=== PATIENT | female | born 1960 | race Caucasian/White ===

== ENCOUNTER 2018-03-25 21:19 | Emergency (ER) | payer OTHER, SELFPAY ==
[2018-03-25 21:21] VITALS: BP 153/86; PULSE 78; RESP 17; TEMP 36.7; O2SAT 96; BMI 26.6
--- NOTE | 2018-03-25 21:55 | ED.VISSUMM ---
- ER Visit Summary Date of Service: 03/25/18 Chief Complaint: Rash History of Present Illness: The patient is a 58 F who presents with a lower extremity rash. She states that she noticed it after work just above her sock line and it was red. She went to her doctor's office yesterday was prescribed a cream. She states that it was worse today. She notes it is burning in sensation. 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 She notes that she had some swelling of the legs the past few shifts. She states that the scar from her spinal surgery in her lumbar region was more pink on the inferior aspect and seemed to hurt a little bit more yesterday that seems to have resolved now. Patient also notes that she has had a tooth in the left upper side that is fallen apart is decayed. It has not really been bothering her but now she has some pain in the left maxillary sinus region. And tenderness there. Physical Examination: Afebrile vital signs stable Gen: Well-nourished well-developed Head: Normocephalic atraumatic Eyes: Perrl EOMI ENT: TMs clear no rhinorrhea moist mucous membranes left upper premolar demonstrates focal decay there is some swelling around the gumline but no drainable abscess. No facial swelling or erythema. No trismus Neck: Supple no lymphadenopathy no JVD nontender CVS: Regular rate rhythm no murmurs normal S1-S2 Respiratory: No distress clear to auscultation bilaterally chest nontender Abdomen: Soft nontender nondistended normal bowel sounds no masses Back: Nontender Extremity: There is is a petechial-like rash on the medial aspect of the bilateral lower extremity just above her sock line extending up to mid calf. She has some varicose veins. Skin: Normal color no rash Neuro: alert orientated ?3 CN II-XII intact normal strength sensation reflexes gait cerebellar Psych: Normal affect normal mood Emergency Department Course and Treatment: I believe the most likely etiology is broken capillaries due to edema. For that matter recommend that she use compression stockings at work and elevate her legs and she gets home. This could also be more of a systemic vasculitis-like picture when can use some prednisone which may help. Is she is not improving she is to follow-up with your doctor return if worsening or concerns. As far as her tooth I will write for some Pen-Vee K and she is going to be following up with dentistry. Impression: 1. Lower extremity rash 2. Left upper periapical abscess This note was generated with Bloom[employer] dictation software. It may contain incorrect words, spelling, and punctuation that were not noted in review of the chart prior to signing ED Disposition - Plan for ED Patient: Disposition: Home or Assisted Living Chief Complaint: Rash Prescriptions: Prednisone [Deltasone] 40 mg PO DAILY #10 tab Penicillin V Potassium 500 mg PO 4X/DAY #28 tab Referrals: Vicente Pedroza MD [Primary Care Provider] - 1 Week if not improving Additional Instructions: I would strongly urge you to use compression stockings/socks at work. Elevate the feet when at home. You may choose to research golfers vasculitis and other associated conditions like that.
[2018-03-25] MEDS: predniSONE 20 MG Tablet 60 MG PO (21:59)
[2018-03-25 22:05] VITALS: BP 136/88; PULSE 75; RESP 18; O2SAT 98
== END 2018-03-25 22:05 | disposition home or self-care (01) ==
PROVIDERS: Emergency Provider Emergency Medicine; Family Provider Family Medicine; PCP Family Medicine
DX: R21 Rash and other nonspecific skin eruption (principal); I83.90 Asymptomatic varicose veins of unspecified lower extremity; K04.7 Periapical abscess without sinus; K02.9 Dental caries, unspecified; M79.89 Other specified soft tissue disorders; K21.9 Gastro-esophageal reflux disease without esophagitis; Z79.899 Other long term (current) drug therapy
CPT/HCPCS: 99283

== ENCOUNTER 2018-09-23 18:04 | Emergency (ER) | payer OTHER, SELFPAY ==
[2018-09-23 18:06] VITALS: BP 130/85; PULSE 85; RESP 14; TEMP 36; O2SAT 98; BMI 25.9
[2018-09-23 18:07] VITALS: TEMP 36.8
[2018-09-23] MEDS: 0.9% Normal Saline 1,000 ML 1000 ML IV (18:47)
[2018-09-23] MEDS: Ondansetron 4 MG/2 ML Vial IV (18:47)
[2018-09-23 18:54] LABS: Absolute Lymphocyte Count 4.69 X10^3/ul (0.83-4.51); Absolute Neutrophil Count 2.7 X10^3/uL (2.0-7.7); Basophil# 0.19 X10^3/uL; Basophil% 2.3 % (0-1); Differential Indicated SCAN CRITERIA MET; Eosinophil# 0.02 X10^3/uL; Eosinophils% 0.2 % (0-5); Hematocrit 41.6 % (37-47); Hemoglobin 14.3 g/dl (12.0-15.0); Lymphocyte # 4.69 X10^3/ul (4.0); Lymphocyte % 55.9 % (19-41); Mean Corp Hgb Conc 34.4 g/gl (32-36); Mean Corpuscular Hgb 32.5 pg (27.0-32.0); Mean Corpuscular Volume 94.5 fL (81-99); Mean Platelet Vol. 10.3 fl (6.2-12.0); Monocyte# 0.72 X10^3/uL; Monocyte% 8.6 % (0-10); Neutrophil # 2.74 X10^3/uL (2.7-7.7); Neutrophil % 32.6 % (47-70); POSITIVE COUNT NO; POSITIVE DIFFERENTIAL NO; POSITIVE MORPHOLOGY YES; Platelet Count 92 K/mm3 (150-450); RBC Distribution Width CV 13.2 % (11.6-14.6); RBC Distribution Width SD 45.6 fl (35.1-43.9); White Blood Count 8.4 K/mm3 (4.4-11.0)
[2018-09-23 19:02] LABS: ALB/GLOB Ratio 0.7 RATIO (0.9-2.4); AST(SGOT) 110 U/L (15-37); Alanine Aminotransfer ALT/SGPT 88 U/L (13-56); Albumin, Serum 2.9 g/dL (3.2-5.0); Alkaline Phosphatase 90 U/L (45-117); Anion Gap 5 (5-15); BUN 8 mg/dL (7-18); BUN/Creat Ratio 8.7 RATIO (10-20); Calcium,Total 8.1 mg/dL (8.5-10.1); Chloride 104 mmol/L (98-107); Creatinine, Serum 0.92 mg/dL (0.55-1.02); EST Glomerular Filtration Rate 67 mL/min (>60); Est Glom Filt Rate - Afr Amer 81 mL/min (>60); Estimated Creatinine Clearance 53.36 ml/min; Globulin 4.3 g/dL (2.2-4.2); Glucose 104 mg/dL (74-106); Lipase 101 U/L (73-393); Potassium 3.3 mmol/L (3.5-5.1); Protein, Total 7.2 g/dL (6.4-8.2); Sodium Level 137 mmol/L (136-145)
[2018-09-23 19:05] LABS: Bacteria 0 SEEN /hpf (None Seen); Mucous, Urine 0 SEEN /hpf (<or=2+); Red Blood Cells-Urine 0 SEEN /hpf (0-5); White Blood Cells 0 SEEN /hpf (0-5)
[2018-09-23 19:40] LABS: Color, Urine Yellow (Yellow); Glucose, Dipstick Normal (Normal); Ketone-Dipstick Negative (Negative); Leukocyte Esterase-Dipstick Negative /ul (Negative); Nitrite-Dipstick Negative (Negative); Occult Blood-Urine Negative /ul (Negative); Protein-Dipstick Negative (Negative); Specific Gravity, Urine 1.005 (1.002-1.030); Urine Bilirubin Dipstick Negative (Negative); Urine Clarity Clear (Clear); Urine Urobilinogen Normal (Normal)
[2018-09-23 19:44] LABS: Differential Comment SCANNED
[2018-09-23 19:48] LABS: Squamous Epithelial Cells - UA 0-5 SEEN /hpf (5-10)
--- NOTE | 2018-09-23 20:26 | ED.DCSUM_ITS ---
- ER Visit Summary Date of Service: 09/23/18 Chief Complaint: Weak and sick History of Present Illness: The patient is a 58 F who has felt weak and sick for the past 9 days. This came on gradually. Associated with fevers, nausea, vomiting, and diarrhea. She was diagnosed with gastroenteritis. She has been taking Phenergan and following the brat diet, but her symptoms have continued. She is still having diarrhea and feels increasingly weak. She did not take her diarrhea medicine because she was worried it would cause stomach cramps. Denies recent travel, new foods, antibiotics. Denies jaundice. She had some left lower quadrant pain, but this seems to have improved. Denies bleeding. History of IBS. Physical Examination: Afebrile and vital signs are unremarkable. Moist mucous membranes. Heart regular rate and rhythm. Lungs clear. Abdomen soft, nontender, nondistended, normal bowel sounds. Extremities nontender with no edema. Skin normal in color without jaundice or pallor. Test Results: Platelets 92. Otherwise CBC normal. Potassium 3.3. ALT 88 and AST 110. Lipase normal. Urinalysis normal. Emergency Department Course and Treatment: Patient treated with fluids and Zofran. She does feel improved on reevaluation. Work-up shows a thrombocytopenia. I do not have old labs to compare. No exposure to heparin or other risk factors. This may be related to her acute illness. Her liver enzymes are elevated as well. This may also be secondary to her acute illness. She may also have hepatitis. I sent a viral panel. Results are pending. Results were discussed with the patient. She will definitely need outpatient follow-up regarding her low platelets and elevated liver enzymes. Patient would like to try outpatient follow-up and will continue Phenergan and/or Zofran as needed. Stay hydrated. Call primary care on Wednesday. Return right away for jaundice, fever, pain, or any other new or worsening issues. Treatment Plan: As above Disposition: Discharge Impression: 1. Nausea, vomiting, diarrhea 2. Hepatitis 3. Thrombocytopenia This note was generated with [employer] software. It may contain incorrect words, spelling, and punctuation that were not noted in review of the chart prior to signing ED Disposition - Plan for ED Patient: Referrals: Vicente Pedroza MD [Primary Care Provider] -
--- NOTE | 2018-09-23 20:26 | ED.DEP ---
ED Disposition - Plan for ED Patient: Instructions: Common Tests for Liver Disease, Thrombocytopenia Prescriptions: Ondansetron [Zofran Odt] 4 mg PO Q8H PRN PRN #10 tab PRN Reason: Nausea Referrals: Vicente Pedroza MD [Primary Care Provider] -
[2018-09-23 20:54] VITALS: BP 115/82; RESP 18; O2SAT 98
[2018-09-25 14:06] LABS: HEPATITIS B SURFACE AG Negative (Negative); Hepatitis A IgM Antibody Negative (Negative); Hepatitis B Core AB IgM Negative (Negative)
[2018-09-25 14:47] LABS: Hep C Antibodies <0.1 s/co ratio (0.0-0.9)
== END 2018-09-23 20:42 | disposition home or self-care (01) ==
PROVIDERS: Emergency Provider Emergency Medicine; Family Provider Family Medicine; PCP Family Medicine
DX: R11.2 Nausea with vomiting, unspecified (principal); R19.7 Diarrhea, unspecified; K75.9 Inflammatory liver disease, unspecified; D69.6 Thrombocytopenia, unspecified; R50.9 Fever, unspecified; K58.9 Irritable bowel syndrome, unspecified; R10.32 Left lower quadrant pain; G47.419 Narcolepsy without cataplexy; E03.9 Hypothyroidism, unspecified; K21.9 Gastro-esophageal reflux disease without esophagitis; Z79.899 Other long term (current) drug therapy
CPT/HCPCS: 80053; 80074; 81001; 83690; 85025; 96361; 96374; 99283; J7030; A4216; J2405

== ENCOUNTER → 2019-02-14 10:37 | Outpatient (CLI) | payer OTHER, SELFPAY ==
--- NOTE | 2019-02-14 10:51 | EKG12_ITS ---
Test Reason : PRE OP Blood Pressure : / mmHG Vent. Rate : 067 BPM Atrial Rate : 067 BPM P-R Int : 140 ms QRS Dur : 082 ms QT Int : 376 ms P-R-T Axes : 074 072 054 degrees QTc Int : 397 ms Normal sinus rhythm Normal ECG Confirmed by SAMMI MARIA, GLENN ([id number]), editor book ALETA LOVE ([id number]) on 02/15/2019 10:55:09 AM Referred By: Mateo Velasco Confirmed By:GLENN CHAPA MD
[2019-02-14 11:37] LABS: Hematocrit 38.9 % (37-47); Hemoglobin 13.1 g/dL (12.0-15.0); Mean Corp Hgb Conc 33.7 g/dL (32-36); Mean Corpuscular Hgb 32.6 pg (27.0-32.0); Mean Corpuscular Volume 96.8 fL (81-99); Mean Platelet Vol. 10.2 fl (6.2-12.0); Platelet Count 161 K/mm3 (150-450); RBC Distribution Width CV 12.9 % (11.6-14.6); RBC Distribution Width SD 45.6 fl (35.1-43.9); Red Blood Count 4.02 M/mm3 (4.2-5.4)
[2019-02-14 12:03] LABS: Anion Gap 5 (5-15); BUN 10 mg/dL (7-18); BUN/Creat Ratio 11.6 RATIO (10-20); Chloride 105 mmol/L (98-107); Creatinine, Serum 0.86 mg/dL (0.55-1.02); EST Glomerular Filtration Rate 72 mL/min (>60); Est Glom Filt Rate - Afr Amer 87 mL/min (>60); Glucose 96 mg/dL (74-106); Potassium 3.8 mmol/L (3.5-5.1); Sodium Level 140 mmol/L (136-145)
== END ==
PROVIDERS: Family Provider Family Medicine; PCP Family Medicine; Referring Provider Physician Assistant; Visit Provider Physician Assistant
DX: Z01.818 Encounter for other preprocedural examination (principal)
CPT/HCPCS: 36415; 80048; 85027; 93005

== ENCOUNTER → 2019-08-21 13:53 | Outpatient (CLI) | payer OTHER, SELFPAY ==
--- NOTE | 2019-08-21 13:56 | CT_ITS ---
STUDY: CT LEFT FEMUR WITHOUT CONTRAST REASON FOR EXAM: Female, 59 years old. LEFT FEMUR OSTEOARTHRITIS RADIATION DOSAGE (If Supplied By Facility): CTDIvol = ( 15.57 ) mGy, DLP = ( 825.69 ) mGycm TECHNIQUE: Transaxial CT imaging of the femur was performed. Sagittal and coronal images were reconstructed. Individualized dose optimization techniques were used for this CT. COMPARISON: None. FINDINGS: Appearance of the dense sclerosis with thickening of the cortices in the mid shaft of both the right and left femurs. A linear hypodensity is seen along the outer cortex of the mid diaphysis of both femurs. This may represent either old trauma or stress fractures. Osteomalacia should be ruled out. If the patient has had a history of prior surgery at those sites, clinical correlation is recommended. Normal visualized soft tissue structure. CT/Extremity Lower without Contra IMPRESSION: Dense sclerosis and linear lucency in the mid diaphysis of both femurs as described. Clinical correlation is recommended. Osteomalacia should be ruled out. Electronically Signed: Bon Linares, at 16:30 EDT , Service support ,
== END ==
PROVIDERS: PCP Family Medicine; Referring Provider Physician Assistant; Visit Provider Physician Assistant
DX: M16.12 Unilateral primary osteoarthritis, left hip (principal)
CPT/HCPCS: 73700

== ENCOUNTER → 2019-10-24 10:43 | Outpatient (CLI) | payer OTHER, SELFPAY ==
[2019-10-24 11:28] LABS: Alkaline Phosphatase 115 U/L (45-117); Calcium,Total 9.2 mg/dL (8.5-10.1); Vitamin D,25 Hydroxy 10.2 ng/mL
== END ==
PROVIDERS: PCP Family Medicine; Referring Provider Orthopaedic Surgery; Visit Provider Orthopaedic Surgery
DX: M79.605 Pain in left leg (principal); M79.604 Pain in right leg
CPT/HCPCS: 36415; 82306; 82310; 84075

== ENCOUNTER → 2019-10-31 10:56 | Outpatient (CLI) | payer OTHER, SELFPAY ==
--- NOTE | 2019-10-31 11:08 | BD_ITS ---
STUDY: DUAL ENERGY X-RAY ABSORPTIOMETRY / DXA REASON FOR EXAM: Female, 59 years old. 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 COMPARISON: None. FINDINGS: Lumbar Spine (L1-L4): g/cm2 (0.910) / T-score (-2.2) / Z-score (-1.1) Findings are suggestive of osteopenia with a high fracture risk. Left Femur Total: g/cm2 (0.613) / T-score (-3.1) / Z-score (-2.3) Left Femoral Neck: g/cm2 (0.610) / T-score (-3.1) / Z-score (-1.9) Right Femur Total: g/cm2 (0.638) / T-score (-2.9) / Z-score (-2.1) Right Femoral Neck: g/cm2 (0.663) / T-score (-2.7) / Z-score (-1.5) BD/Dexa Bone Density Study IMPRESSION: The patient is considered osteoporotic as outlined below according to World Champ Organization (WHO) criteria with a high fracture risk. Reference Information: The T-score is the number of standard deviations above or below the standard which is normal for young adults at their peak bone mineral density. The World Health Organization (WHO) interprets the T-scores as follows: Above -1 Normal bone density Between -1 and -2.5 Osteopenia Equal to / or below -2.5 Osteoporosis As a practical clinical guideline, osteopenia may be graded as follows: Mild -1 through -1.5 Moderate -1.6 through -2.0 Severe -2.1 through -2.4 The Z-score is the number of standard deviations above or below age-matched controls. A Z-score of less than -1.5 would be considered abnormal. References: 1. NIH Osteoporosis and Related Bone Diseases http://www.osteo.org 2. International Society for Clinical Densitometry http://www.iscd.org 3. National Osteoporosis Foundation http://www.nof.org Electronically Signed: Bon Linares, at 13:26 EDT , Service support ,
== END ==
PROVIDERS: PCP Family Medicine; Referring Provider Orthopaedic Surgery; Visit Provider Orthopaedic Surgery
DX: M79.604 Pain in right leg (principal); M79.605 Pain in left leg; Z78.0 Asymptomatic menopausal state
CPT/HCPCS: 77080

== ENCOUNTER 2019-11-17 17:42 | Emergency (ER) | payer OTHER, SELFPAY ==
[2019-11-17 17:42] VITALS: BP 135/104; PULSE 93; RESP 16; TEMP 36.6; O2SAT 97; BMI 28.7
--- NOTE | 2019-11-17 17:50 | RAD_ITS ---
STUDY: X-RAY - LEFT FEMUR REASON FOR STUDY: Female, 59 years old. PROXIMAL FEMUR PAIN AFTER FALL ON WEDNESDAY, PATIENT ALSO HAD SURGERY ON HER FEMUR WEDNESDAY TECHNIQUE: 2 view(s) of the femur. COMPARISON: None. FINDINGS: There is an intramedullary enmanuel along the length of the femur. There is a fracture across the mid femoral shaft which is in anatomic alignment and position. There is no abnormality seen of the left hip. RAD/Femur Min 2 Views IMPRESSION: Grossly satisfactory appearance of repair of previous femoral shaft fracture with intramedullary enmanuel. No gross acute fracture or dislocation. Electronically Signed: Willie Paul MD at 18:21 EDT , Service support ,
--- NOTE | 2019-11-17 18:44 | ED.VIS.GEN ---
History of Present Illness Chief Complaint: Fall Informant: Patient Narrative: She had recent surgery where she had an intramedullary enmanuel to fix on femoral shaft fracture, after the surgery she did sustain a mechanical fall and she does not know if the pain is secondary to a new injury or from her recovery. She has analgesia at home she is taking it, she is weightbearing and able to get around and doing most of the things that she had expected from surgery she denies any other injury. Past Medical History - Allergies and Home Meds Allergies/Adverse Reactions: Allergies bee venom protein (honey bee) Allergy (Verified 09/23/18 18:05) Swelling Nmwjowk-Lcc-Lcx Reductase Inhibitor Allergy (Verified 09/23/18 18:05) Other MUSCLE PAIN Primary Care Physician: Vicente Pedroza MD [Primary Care Provider] - Past Medical History: - - Hypercholesterolemia, osteoporosis Surgical History: - - As in HPI Smoking Status: Never smoker Review of Systems General: Denies: Fever Musculoskeletal: Reports: - - Left lower extremity pain as in HPI Skin: Reports: - - He has been checking her wounds and incision sites and they have been normal. Denies: Rash Neurological: Denies: Weakness, Parasthesia Hematologic: Denies: Easy bruising, Easy bleeding Physical Exam Vital Signs/Narrative: Vital Signs Temp Pulse Resp BP Pulse Ox 11/17/19 17:42 97.8 F 93 16 135/104 H 97 General: Well nourished, Well developed, - - She is sitting down quite comfortable. Extremities: - - There is tenderness over the femur region, there is no subcu emphysema crepitus or signs of infection multiple incision sites are clean dry and intact with no signs of cellulitis. [place] are intact. Skin: Normal color, - - Incisions as above, otherwise contusion throughout the left lower extremity mostly around the femur region Neurological: Normal Strength, Normal Sensation Diagnostic/Tx/Re-eval Left femur x-ray interpreted by me and radiologist shows a normal anatomic intramedullary enmanuel with a femoral fracture, otherwise unremarkable x-ray. - Medical Decision Making Patient appears to have a normal x-ray postop, she appears well I will discharge her in stable condition. She does have analgesia at home at this time there is no signs or symptoms of infection. ED Disposition - Plan for ED Patient: Disposition: Home or Assisted Living Diagnosis: Postop check, Fall Referrals: Dann Bridges MD [NON-STAFF] - Keep Prieto appointment Additional Instructions: Follow-up with her orthopedic surgeon as scheduled
== END 2019-11-17 18:56 | disposition home or self-care (01) ==
LOC: ED 18:49
PROVIDERS: Emergency Provider Emergency Medicine; PCP Family Medicine
DX: Z09 Encounter for follow-up examination after completed treatment for conditions other than malignant neoplasm (principal); W19.XXXA Unspecified fall, initial encounter; E78.00 Pure hypercholesterolemia, unspecified; M81.0 Age-related osteoporosis without current pathological fracture
CPT/HCPCS: 73552; 99281; 99282

== ENCOUNTER → 2020-02-08 11:25 | Outpatient (CLI) | payer OTHER, SELFPAY ==
[2020-02-08 12:51] LABS: BUN 13 mg/dL (7-18); EST Glomerular Filtration Rate 61 mL/min (>60); Est Glom Filt Rate - Afr Amer 73 mL/min (>60)
== END ==
PROVIDERS: PCP Family Medicine; Referring Provider Nurse Practitioner Family; Visit Provider Nurse Practitioner Family
DX: Z04.89 Encounter for examination and observation for other specified reasons (principal)
CPT/HCPCS: 36415; 82565; 84520

== ENCOUNTER → 2020-07-19 15:12 | Outpatient (CLI) | payer OTHER, SELFPAY ==
--- NOTE | 2020-07-19 15:16 | RAD_ITS ---
STUDY: X-RAY - THORACIC SPINE REASON FOR EXAM: Female, 60 years old. THORACIC BACK PAIN TECHNIQUE: 3 view(s) of the thoracic spine were obtained. COMPARISON: None. FINDINGS: Normal kyphosis of the thoracic spine. There is no substantial scoliosis. There is multilevel endplate spondylosis of the thoracic vertebrae. There is multilevel disc space narrowing of the thoracic spine. The soft tissue structures are unremarkable. RAD/Thoracic Spine 2 Views IMPRESSION: Mild diffuse degenerative disc disease. Electronically Signed: Saleem Gordillo MD at 8:32 EST Tel , Service support ,
== END ==
PROVIDERS: PCP Family Medicine; Referring Provider Nurse Practitioner Family; Visit Provider Nurse Practitioner Family
DX: M51.34 Other intervertebral disc degeneration, thoracic region (principal)
CPT/HCPCS: 72070

== ENCOUNTER 2021-09-10 19:46 | Emergency (ER) | payer OTHER, SELFPAY ==
[2021-09-10 19:47] VITALS: BP 190/86; PULSE 63; RESP 15; TEMP 36.7; O2SAT 99; BMI 28.5
--- NOTE | 2021-09-10 20:01 | RAD_ITS ---
EXAM: XR Left Tibia and Fibula, 2 Views CLINICAL INDICATION: 61 years old, Female; injury TECHNIQUE: Frontal and lateral views of the left tibia and fibula. This report was created using StyleChat by [employer] report ShoutOut technology. COMPARISON: None. FINDINGS: Bones/joints: There are 2 areas in the posterior fibula with subtle cortical thinning. These are nonspecific and of questionable significance. No acute fracture. No subluxation. Normal alignment. Preservation of the joint space. No sclerotic or destructive changes observed. Soft tissues: Unremarkable. No soft tissue swelling or gas. No radiopaque foreign body. RAD/Tibia & Fibula 2 Views IMPRESSION: No acute findings in the left tibia and fibula or surrounding soft tissues. Electronically Signed: Tommy Navarro MD at 20:54 EDT ,
--- NOTE | 2021-09-10 20:10 | RAD_ITS ---
EXAM: XR Left Femur, 2 Views CLINICAL INDICATION: 61 years old, Female; injury TECHNIQUE: Frontal and lateral views of the left femur. This report was created using [employer] report generation technology. COMPARISON: None. FINDINGS: Bones/joints: Intramedullary enmanuel fixation of the left femur. There is evidence of an old healed mid shaft fracture of the femur. Preservation of the joint space. No sclerotic or destructive changes observed. Soft tissues: Unremarkable. No soft tissue swelling or gas. No radiopaque foreign body. RAD/Femur Min 2 Views IMPRESSION: No acute findings in the left femur. Electronically Signed: Tommy Navarro MD at 20:56 EDT ,
--- NOTE | 2021-09-10 20:47 | EDS_ITS ---
HPI History of Present Illness Chief Complaint: Fall Informant: patient Narrative Narrative: Presents mechanical fall at 2 PM today tripping over concrete onto her left knee. States pain radiates to her thigh. Able to ambulate. Concerned due to history of bilateral femur fractures with rods due to osteoporosis in the past. Denies head injuries. Denies anticoagulation medicines. Took Tylenol since incident occurred. Here concerns due to her surgical history. [facility] Medical History Femur fracture, left Femur fracture, right Home Medications levothyroxine 75 mcg PO DAILY 08/28/15 [History Last Taken Unknown] lorazepam 0.5 mg PO DAILY PRN PRN 08/28/15 [History Last Taken Unknown] meclizine 12.5 mg PO DAILY PRN PRN 08/28/15 [History Last Taken Unknown] modafinil 100 mg PO DAILY 08/28/15 [History Last Taken Unknown] Allergy/AdvReac Type Severity Reaction Status Date / Time bee venom protein (honey bee) Allergy Swelling Verified 09/10/21 19:52 Uxkibnl-AXO-HjP Reductase Allergy Other Verified 09/10/21 19:52 Inhibitor [Bdkpduy-Mam-Nqi Reductase Inhibitor] Social History Smoking Status: Never smoker ROS ROS ED Constitutional Constitutional ED: Denies chills, fever(s) or sweats Eyes Eyes: Denies change in vision ENT ENT ED: Denies dysphagia or sore throat Cardiovascular Cardiovascular: Denies chest pain, leg edema, palpitations or racing heartbeat Respiratory/Chest Respiratory/Chest: Denies cough, dyspnea or dyspnea on exertion Gastrointestinal Gastrointestinal: Denies abdominal pain, diarrhea, nausea or vomiting Genitourinary Genitourinary ED: Denies dysuria, hematuria or urinary frequency Musculoskeletal Musculoskeletal: Reports other Details: Left knee injury ; Denies back pain, extremity pain or neck pain Integumentary Denies rash or wounds Neurologic Neurologic: Denies headache(s), paresthesias or weakness EXAM Physical Exam Const Vital Signs: 09/10/21 19:47 09/10/21 20:02 09/10/21 21:02 Temperature 98.1 F Temperature Source Temporal Pulse Rate 63 78 Respiratory Rate 15 18 Respiratory Effort Normal Blood Pressure 190/86 H 172/60 H Blood Pressure Mean 120 Pulse Ox 99 Oxygen Delivery Method Room Air Positive well nourished and well developed Constitutional Narrative: GCS 15 General Appearance ED: well developed and NAD HEENT Reports moist mucous membranes normocephalic and atraumatic Eyes PERRL, EOMs intact bilaterally and conjunctivae normal General Eye ED: Yes normal appearance of both eyes Neck no lymphadenopathy and supple General: Negative for tenderness Chest Wall Chest: Negative for tenderness Resp normal respiratory effort and normal air movement Effort and Inspection: symmetric chest movement; Negative for respiratory distress Cardio regular rate, regular rhythm and no murmurs Peripheral Pulses: pulses 2+ throughout GI normal to inspection, nondistended, normoactive bowel sounds and non-tender Palpation: Negative for guarding or rebound tenderness present Back/Spine no CVA tenderness and no thoracic nor lumbar tenderness Extremity Extremity Narrative: Left lower extremity negative logroll, knee extensor mechanism intact there is some suprapatellar swelling. Skin is intact. No deformities. Tender palpation proximal tibia distal femur. Neurovascular intact distally. General Extremety ED: Yes tenderness; Negative for edema General Extremity: Negative for edema Neuro oriented x3 and no sensory deficits noted Sensorium / Orientation: awake and alert Skin no rashes or lesions noted and no wounds MDM MDM MDM Narrative Medical decision making narrative: Patient ambulated into the department favoring the left lower extremity at the knee. There is no hip tenderness. She declined any additional medications. Left x-ray femur and tib-fib 2 views each were reviewed by myself shows no acute fractures there is no parous prosthetic injuries. Hardware is intact of the femur. Patient is reassured. She will continue Tylenol as needed. Follow-up as an outpatient. Radiography Diagnostic Testing: Clinical Impression(s) from Imaging Studies Tibia/Fibula X-Ray 09/10/21 20:01 IMPRESSION: No acute findings in the left tibia and fibula or surrounding soft tissues. Electronically Signed: Tommy Navarro MD at 20:54 EDT , Femur X-Ray 09/10/21 20:10 IMPRESSION: No acute findings in the left femur. Electronically Signed: Tommy Navarro MD at 20:56 EDT , Discharge Plan Triage Chief Complaint: Fall ED Provider: Kadeem Worley Dx/Rx/DC Orders Clinical Impression: Contusion of knee, left, Fall, Elevated blood pressure reading Instructions: ED Contusion, Lower Extremity, ED Mechanical Fall Prescriptions: No Action meclizine 12.5 MG tablet 12.5 mg PO DAILY PRN PRN (Reason: Vertigo) RF: 0 levothyroxine 75 MCG tablet 75 mcg PO DAILY RF: 0 lorazepam 0.5 MG tablet 0.5 mg PO DAILY PRN PRN (Reason: Anxiety) RF: 0 modafinil 100 MG tablet 100 mg PO DAILY RF: 0 Primary Care Provider: Vicente Pedroza Referrals: Vicente Pedroza MD [Primary Care Provider] - 1 Week if not improving Activity Restrictions/Additional Instructions: X-ray of your left femur left tib-fib negative. Continue Tylenol as needed. Josué wrap for support. Follow-up with your doctor. Disposition Disposition: Home, Self Care Discharge Date/Time: 09/10/21 21:03
[2021-09-10 21:02] VITALS: BP 172/60; PULSE 78; RESP 18
== END 2021-09-10 21:03 | disposition home or self-care (01) ==
PROVIDERS: Emergency Provider Emergency Medicine; PCP Family Medicine; Visit Provider Emergency Medicine
DX: S80.02XA Contusion of left knee, initial encounter (principal); W18.09XA Striking against other object with subsequent fall, initial encounter; R03.0 Elevated blood-pressure reading, without diagnosis of hypertension
CPT/HCPCS: 73552; 73590; 99282

== ENCOUNTER 2022-01-05 09:46 | Day surgery (SDC) | payer OTHER, SELFPAY ==
[2022-01-05] VITALS (7 sets, daily range): BP systolic 127–159; BP diastolic 72–101; PULSE 57–82; RESP 14–18; TEMP 36.1–36.6; O2SAT 94–100; BMI 26.6
[2022-01-05] MEDS: Lactated Ringers 1,000 ML 15 ML IV ×2 (10:25→12:16)
--- NOTE | 2022-01-05 11:30 | BONBX_PTH ---
PATIENT: CRISTEL SMITH LOC: [facility] [place] U#:[id number] AGE/SX: 61/F ROOM: RE01/05/[address]: Dr. Ibrahima Gale MD : 1960 BED: DIS: 01/05/2022 SPEC #: [id number] RECD: 01/05/22 14:12 STATUS: ELINOR REBrinda #: [id number] SLAVA: 01/05/22 11:[address]: Ibrahima Gale DEPT: SURGICAL PATHOLOGY RECD BY: Emily Hummel ENTERED: 01/06/22 08:07 SP TYPE: Bone OTHR DR: Dr. Vicente Pedroza MD Tissues: Vertebra, NOS Procedures: Decalcification bone/plaque Surgery Specimen Level V HEADER OPERATION: L3 kypholasty under fluroscopy PRE-OP DIAGNOSIS: Lumbosacral spondylosis, degeneration of lumbosacral intervertebral disc, lumbar post laminectomy syndrome, lumbar spinal stenosis, lumbar radiculopathy TISSUE SUBMITTED: Body of lumbar 3 MICROSCOPIC DIAGNOSIS L3 body, bone core biopsy: Extensive reactive, reparative and degenerative change. AM:santi 01/07/2022 MICROSCOPIC DESCRIPTION Slides are reviewed. GROSS DESCRIPTION Received is one container labeled with the patient name and designated body of lumbar 3. The specimen consists of one elongated piece of bone that measures 0.8 cm in length and 0.2 cm in diameter. The specimen is totally submitted in one after decalcification. /JIE:karlee 01/06/22 TC:5 CPT:76330,00137
--- NOTE | 2022-01-05 11:30 | RAD_ITS ---
STUDY: X-RAY - LUMBAR SPINE REASON FOR EXAM: Female, 61 years old. L3 KYPHOPLASTY TECHNIQUE: AP and lateral fluoroscopic view(s) of the lumbar spine were obtained. Reference air kerma (ka,r): 18.03 mGy COMPARISON: None FINDINGS: AP and lateral fluoroscopic images from kyphoplasty demonstrates trocar at L3 level with subsequent placement of kyphoplasty balloon and radiopaque cement. Extension of cement into the L2-L3 disc space level with more amorphous cement throughout the vertebral body, left more than right side. No significant radiopaque cement posterior to the vertebral body seen. RAD/Lumbar Spine 2 or 3 Views IMPRESSION: Fluoroscopic guidance for L3 kyphoplasty. Please see procedural report. Electronically Signed: Dong Champagne MD ([place]) at 13:47 EDT Reading Location ID and State: [id number] , Service support ,
[2022-01-05] MEDS: Lidocaine 1% (30 ml sdv) 30 ML Vial INFILT (11:33)
[2022-01-05] MEDS: Bupivacaine 0.25% 30 ML Vial (11:33)
--- NOTE | 2022-01-05 12:31 | PCM.OPRPT ---
Report of Operation Date of Procedure: 01/05/22 Description of Surgical Findings:: PROCEDURES: 1. J[place] balloon kyphoplasty at the L3 level 2. Insertion of [place] HV-R bone cement under low pressure at the L3 Level 3. Bone biopsy at L3 4. Fluoroscopic guidance and interpretation of images PREOPERATIVE DIAGNOSES: Osteoporosis, traumatic fracture of L3 POSTOPERATIVE DIAGNOSES: Osteoporosis, traumatic fracture of L3 ANESTHESIA: MAC COMPLICATIONS: None BLOOD LOSS: Minimal PROCEDURE IN DETAIL: History and physical today was reviewed. Risks and benefits of procedure explained. The patient understood, agreed to procedure, informed consent was obtained. IV inserted per routine protocol. The patient was taken to the operating room, placed in the prone position with a pillow positioned underneath the chest. A 2 g of Ancef IV piggyback was infused per anesthesia. The middle and lower back area was prepped and draped in a sterile fashion using iodine x3. Under direct visualization with fluoroscopy with the C-arm, which brought into position on AP as well as lateral view at the L3 level., the L3 pedicle was then identified. In the view of the collapsed L3, a transpedicular approach to the vertebral body was appropriate. Starting on the left side at L3 level, the skin and subcutaneous tissue were anesthetized with approximately 10 cc of preservative-free 0.25% Marcaine and 2% lidocaine mixture using a 25-gauge regular needle followed by a 25-gauge spinal needle advanced into the periosteum at the pedicle of L3, using an 11-gauge blade the skin and subcutaneous tissue were cut down and an 11-gauge needle was advanced through the L3 pedicle through the junction of the pedicle and the vertebral body on the left side. Position was then confirmed on AP as well as lateral view. Following satisfactory placement of the needle to make sure it is further off the midline and interlaminar space. The stylet of the needle was then removed. A the 11-gauge trocar and advanced approximately 3 mm from the anterior cortex on the lateral view. AP and lateral images were then taken to verify position and trajectory of the needle. , a lateral image was taken to ensure that the cannula was positioned approximately 1.5 cm past the vertebral body and a lateral image was then taken to ensure correct position and through the cannula, a drill was then advanced into the vertebral body under fluoroscopic guidance towards the anterior cortex creating a channel. The anterior cortex were then probed with guide wire to ensure no perforation in the anterior cortex. After completion of the entry into the vertebral body, a 30 mL inflatable bone tamp was then inserted through the cannula and advanced under direct fluoroscopic guidance into the vertebral body near the anterior cortex., The biopsy was then taken at the L3 level. After completion of the entry into the vertebral body, a balloon tamp utilizing radiopaque marker bands on the bone tamp were identified using AP and lateral images. the balloon was then inflated to approximately 2 mL and making sure that the pressure is not passing 250 psi. Expansion of the bone tamp was then done sequentially in an increments of 0.25 to 0.5 mL of contrast with a careful attention was being paid to the inflation pressure and the balloon position. The inflation was then monitored on AP and lateral view images. The final balloon volume was 2.2 mL on the left side There was no breach of the lateral wall or the anterior cortex of the vertebral body. Direct reduction of the fracture was then achieved. Endplate movement was then noticed and approximately 5 mm of the height adventist was achieved at L3. Under fluoroscopic imaging and a bone void filler, internal fixation was achieved through a low pressure injection of a Jazmín HV-R bone cement. The cavity was then filled with a total volume of 3.8 mL on the left side at L3 level not Once the bone cement had hardened, the cannula was then removed. Once the cannula was removed and satisfactory hemostasis was maintained, the incision as then closed with Dermabond. The patient was kept in the prone position for approximately 10 minutes post-cement injection. The patient was then turned into supine position, monitored briefly and returned to PACU. The patient was moving both of her lower extremities at the same time without any apparent neurological deficits. Throughout the procedure, there were no intraoperative complications. ESTIMATED BLOOD LOSS: Minimal less than 25 mL ASSESSMENT AND PLAN: This is a 61-year-old female with osteoporosis and traumatic compression fracture of L3 status post [place] balloon kyphoplasty at L3 and insertion of a [place] HV?R bone cement under low pressure at L3 level with biopsy of L3 under fluoroscopic guidance, patient will continue her current medications, patient will follow in approximately 1 week for reevaluation, postop instruction were given to the patient as well as her family member verbally as well as in writing.
== END 2022-01-05 13:38 | disposition home or self-care (01) ==
LOC: SDC 09:48 → AC 09:50
PROVIDERS: PCP Family Medicine; Referring Provider Anesthesiology Pain Medicine; Visit Provider Anesthesiology Pain Medicine
PROC: (CPT 22514; principal; 2022-01-05 11:15)
DX: M80.08XA Age-related osteoporosis with current pathological fracture, vertebra(e), initial encounter for fracture (principal); W10.9XXA Fall (on) (from) unspecified stairs and steps, initial encounter; E78.00 Pure hypercholesterolemia, unspecified; G47.419 Narcolepsy without cataplexy; E07.9 Disorder of thyroid, unspecified; M19.90 Unspecified osteoarthritis, unspecified site; Z98.1 Arthrodesis status; Z79.899 Other long term (current) drug therapy
CPT/HCPCS: 22514; 01942; 72100; 76000; 88307; 88311; J7120

== ENCOUNTER → 2022-02-12 | Outpatient (CLI) | payer OTHER, SELFPAY ==
--- NOTE | 2022-02-12 16:21 | RAD_ITS ---
STUDY: X-RAY - THORACIC SPINE REASON FOR EXAM: Female, 62 years old patient with back pain. TECHNIQUE: 3 view(s) of the thoracic spine were obtained. COMPARISON: Radiographs of the thoracic spine dated 12/16/2021. FINDINGS: There is an increase in the normal thoracic kyphosis. There is no substantial scoliosis. There is demineralization of the thoracic spine with endplate spondylosis. There is multilevel disc space narrowing of the thoracic spine. There is mild compression fracture of L1. The soft tissue structures are unremarkable. RAD/Thoracic Spine 3 Views IMPRESSION: 1. Multilevel degenerative changes of thoracic spine. 2. Compression fracture of L1. Electronically Signed: Clari Llanos MD at 5:10 EDT ,
--- NOTE | 2022-02-12 16:52 | RAD_ITS ---
INDICATION: BACK PAIN EXAMINATION/TECHNIQUE: X-RAY - XR Spine Lumbar Min 4 Views COMPARISON: 12/16/2021 FINDINGS: Mild exaggeration of the normal lordosis of the columns of the lumbar spine is visualized. Right 1 anterolisthesis of L5 over S1 is seen. Depression of the superior endplate of the L1 vertebral body is visualized that was not seen on the prior study Bone cement visualized within the L3 vertebral body visualized within the superior into the L2-3 intervertebral disc space. Decreased intervertebral disc height visualized most prominent at L4-5 S1 and L4-L5. Increased density visualized in the posterior column consistent with hypertrophic changes in the facet joints. Limited oblique views demonstrate no evidence of pars interarticularis fracture. Bone demineralization and degenerative changes are seen that limits evaluation. RAD/L/S Spine Min 4 Views IMPRESSION: L1 compression fracture was not seen on the prior study. Bone cement visualized within the L3 vertebral body and L2-3 intervertebral disc space. Multilevel degenerative changes seen. Electronically Signed: Ricardo Thomas MD at 9:30 EDT ,
== END | disposition home or self-care (01) ==
LOC: MTRAD 16:20
PROVIDERS: PCP Family Medicine; Referring Provider Nurse Practitioner Family; Visit Provider Nurse Practitioner Family
DX: M48.56XA Collapsed vertebra, not elsewhere classified, lumbar region, initial encounter for fracture (principal); X58.XXXA Exposure to other specified factors, initial encounter
CPT/HCPCS: 72072; 72110

== ENCOUNTER 2022-03-09 08:17 | Day surgery (SDC) | payer OTHER, SELFPAY ==
[2022-03-09] VITALS (7 sets, daily range): BP systolic 126–145; BP diastolic 68–99; PULSE 53–77; RESP 14–17; TEMP 36.2–36.6; O2SAT 96–100; BMI 25.7
--- NOTE | 2022-03-09 08:40 | RAD_ITS ---
STUDY: Orthoscopic- LUMBAR SPINE REASON FOR EXAM: Female, 62 years old. KYPHOPLASTY L1 -- 35.6 SEC TECHNIQUE: 2 fluoroscopic view(s) of the lumbar spine were obtained. COMPARISON: Lumbar spine x-ray February 12, 2022 FINDINGS: Multiple fluoroscopic images were obtained, one view 9, fluoroscopic imaging used for procedure in progress for kyphoplasty within the lumbar spine at the level of L1. There is a spinal catheter needle overlying the L1 vertebral body with injection of radiopaque material into L1. RAD/Spine 1 View Any Level IMPRESSION: 9 views fluoroscopic imaging demonstrating a kyphoplasty in progress at the level of L1. This report describes limited imaging only and records fluoroscopy time of 35.6 seconds.. Electronically Signed: Lias Pinto MD at 5:37 EDT ,
[2022-03-09] MEDS: Lactated Ringers 1,000 ML 15 ML IV (09:00)
--- NOTE | 2022-03-09 09:40 | BONBX_PTH ---
PATIENT: CRISTEL SMITH [place] [facility] [place][id number] AGE/SX: 62/F ROOM: RE03/09/[address]: Dr. Ibrahima Gale MD : 1960 BED: DIS: 03/09/2022 SPEC #: [id number] RECD: 03/09/22 12:40 STATUS: ELINOR REBrinda #: [id number] SLAVA: 03/09/22 09:[address]: Ibrahima Gale DEPT: SURGICAL PATHOLOGY RECD BY: Emily Hummel ENTERED: 03/10/22 08:23 SP TYPE: Bone OTHR DR: Dr. Vicente Pedroza MD Tissues: Vertebra, NOS Procedures: Decalcification bone/plaque Surgery Specimen Level V HEADER OPERATION: Kyphoplasty at L1 under fluoroscopy PRE-OP DIAGNOSIS: L1 compression fracture TISSUE SUBMITTED: L1 bone biopsy body of L1 MICROSCOPIC DIAGNOSIS L1 bone biopsy: Fragments of bone with reactive changes, callus formation and blood clots. Negative for malignancy. See comment. JIE:susan 03/11/2022 COMMENT Hematopoietic marrow with trilineage hematopoiesis is noted. MICROSCOPIC DESCRIPTION Slides are reviewed. GROSS DESCRIPTION Received in fixative is one container labeled with the patient's name and designated bone biopsy, body of L1. The specimen consists of multiple irregular fragments of blood clot and fragments of bone that in aggregate measure 1.5 x 1 x 0.1 cm. The entire specimen is submitted in one cassette after decalcification. / JIE:susan 03/10/2022 TC:5 CPT: 33211, 78901
[2022-03-09] MEDS: Cefazolin 2 GM in 0.9% Normal Saline 100 ML IV (10:07)
[2022-03-09] MEDS: Bupivacaine 0.25% 30 ML Vial OPERA.SITE (10:47)
[2022-03-09] MEDS: Lidocaine 1% (30 ml sdv) 30 ML Vial (10:47)
--- NOTE | 2022-03-09 11:22 | PCM.OPRPT ---
Report of Operation Date of Procedure: 03/09/22 Description of Surgical Findings:: PROCEDURES: 1.? Jazmín balloon kyphoplasty at the L1 level 2. Insertion of [place] HV-R bone cement under low pressure at the L1 3. Bone biopsy at L1 4. Fluoroscopic guidance and interpretation of images PREOPERATIVE DIAGNOSES: Osteoporosis, acute compression fracture of L1 POSTOPERATIVE DIAGNOSES: Osteoporosis, acute compression fracture of L1 ANESTHESIA: MAC COMPLICATIONS: None BLOOD LOSS: Minimal PROCEDURE IN DETAIL: History and physical today was reviewed. Risks and benefits of procedure explained. The patient understood, agreed to procedure, informed consent was obtained. IV inserted per routine protocol. The patient was taken to the operating room, placed in the prone position with a pillow positioned underneath the chest. A 2 g of Ancef IV piggyback was infused per anesthesia. The upper and middle back area was prepped and draped in a sterile fashion using iodine x3. Under direct visualization with fluoroscopy with the C-arm, which brought into position on AP as well as lateral view at the L1 level., the L1 pedicle was then identified. In the view of the collapsed L1, a unilateral transpedicular approach to the vertebral body was appropriate. Starting on the left side at L1 level, an 11-gauge needle was advanced through the L1 pedicle through the junction of the pedicle and the vertebral body on the left side. Position was then confirmed on AP as well as lateral view. Following satisfactory placement of the needle to make sure it is further off the midline and interlaminar space.? The skin and subcutaneous tissue anesthetized with approximately 10 cc of preservative-free 0.25% Marcaine and 2% lidocaine mixed 50-50 using a 3-1/2 inch spinal needle directed towards the periosteum at the pedicle of L1 on the left side, A 11-gauge trocar was then advanced via the skin towards the superiormost aspect of the left pedicle at L1 the trocar was then advanced under direct visualization on AP as well as lateral view, from the anterior cortex on the lateral view. AP and lateral images were then taken to verify position and trajectory of the needle.? The trocar was then advanced under direct visualization fluoroscopy on AP as well as lateral view using a mallet careful attention to the lateral border of the pedicle as well as the medial border once the trocar was approximately 4 mm into the body of L1 after repeated confirmation of AP as well as lateral view the trocar was then medialized towards the midline passing the medial aspect of the pedicle once safety was confirmed that the trocar past the medial aspect and avoiding the interlaminar space the trocar was then advanced to approximately 5 mm off the anterior cortex once the channel was created the the stylette was then removed and a biopsy was then taken of the body of L1 under direct visualization with fluoroscopy the stylette was then reinserted and advanced under direct visualization with fluoroscopy to be approximately 3 mm off the anterior cortex of's confirmation AP as well as lateral view of creating the channel.? a 30 mL inflatable bone tamp was then inserted through the cannula and advanced under direct fluoroscopic guidance into the vertebral body near the anterior cortex., The biopsy was then taken at the L1 level. After completion of the entry into the vertebral body, a balloon tamp utilizing radiopaque marker bands on the bone tamp were identified using AP and lateral images.? The balloon was then inflated to approximately 3 mL and making sure that the pressure is not passing 250 psi. Expansion of the bone tamp was then done sequentially in an increments of 0.25 to 0.5 mL of contrast with a careful attention was being paid to the inflation pressure and the balloon position. The inflation was then monitored on AP and lateral view images. The final balloon volume was 2.8mL. There was no breach of the lateral wall or the anterior cortex of the vertebral body. Direct reduction of the fracture was then achieved. Endplate movement was then noticed and approximately 5 mm of the height anabaptist was achieved at L1 under fluoroscopic imaging and a bone void filler, internal fixation was achieved through a low pressure injection of a Jazm[place] HV-R bone cement. The cavity was then filled with a total volume of 6.4 mL on the left side at L1, Once the bone cement had hardened, the cannula was then removed. Once the cannula was removed and satisfactory hemostasis was maintained, the incision as then closed with a 4-0 Vicryl at the skin. The patient was kept in the prone position for approximately 10 minutes post-cement injection.? And was then turned into supine position, monitored briefly and returned to PACU. The patient was moving both of her lower extremities at the same time without any apparent neurological deficits. Throughout the procedure, there were no intraoperative complications. ESTIMATED BLOOD LOSS: Minimal less than 10 mL ASSESSMENT AND PLAN: This is a 62-year-old Female with acute compression fracture of L1 and osteoporosis status post Jazmín balloon kyphoplasty at L1 and insertion of an HV-R bone cement under low pressure at L1, biopsy of L1 under fluoroscopic guidance,? the patient will continue her current medication.? The patient will follow-up in approximately 1 week for re-evaluation.? Postoperative instructions were given to the patient verbally as well as in writing. Motor as well as sensory exam was unchanged from prior to procedure.
== END 2022-03-09 12:14 | disposition home or self-care (01) ==
LOC: SDC 08:18 → AC 08:54
PROVIDERS: PCP Family Medicine; Referring Provider Anesthesiology Pain Medicine; Visit Provider Anesthesiology Pain Medicine
PROC: (CPT 22514; principal; 2022-03-09 09:25)
DX: M80.08XA Age-related osteoporosis with current pathological fracture, vertebra(e), initial encounter for fracture (principal); E78.00 Pure hypercholesterolemia, unspecified; G47.419 Narcolepsy without cataplexy; E03.9 Hypothyroidism, unspecified; Z98.1 Arthrodesis status; Z79.899 Other long term (current) drug therapy
CPT/HCPCS: 22514; 01942; 72020; 76000; 88307; 88311; J7120; J2405

== ENCOUNTER 2022-08-18 10:30 | Outpatient (RCR) | payer OTHER, SELFPAY ==
--- NOTE | 2022-07-22 16:17 | HP.PTEVAL ---
Patient's Visit Information CRISTEL SMITH is a 62 year old F referred to Physical Therapy by MARIA R StephensonC with a diagnosis of l/S spondylosis, Deg l/s disc. Date of Evaluation: 07/22/22 Physical Therapist: Elvis Correia, DPT, OCS, CSCS - Visit Plan Frequency: 3x /Week Duration: 4-6 Weeks Plan: 3x/week for 4-6 weeks for pool therapy for. 1. LB AROM stretch into flexion gently and extension aggressively. 2. stretch HS and quad and progress to HEP. 3. strength core adn hip extensors/stabs and progress to I at home. 4. general body exercises for conditioning. recheck in 4 weeks as insurance will start over.Possibly to gym after. - Subjective Need to tighten core. Was having PT [facility] but recommended pool. Had posts put in thighs due to femur fractures from medication. Hips were painful with land therapy so sent for water. Has history of LB, 2 back surgeeries laminectomies and has DDD, spiondylosis , OP and narrowing. has back pain and leg symptoms. Has OA through hips and knees. Tingling and numbness in feet intermittently. Worse without shoes. Back has hurt for 7 yrs due to degeneration. pain up to 10/10 with exercise or bending, squatting. Sleeping is not interrupted, sleeps on sides. 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 Feels better sitting, standing assisted is problem. Basic aDLs are painful at home and avoids bending using grabber. Hobbies include scrapbook but poor motivation due to deaths in family. No regular exercises. - Pain LBP Pain Intensity (Out of 10): 3 Pain Intensity Range: 3, 9 - Objective Walks I into therapy with short steps and a stiff spine. Trasnfers gently I. Steps reciprocal with one rail tending to use R as it is stronger. HS and quad max tight at -35 90/90 tests adn pain with SLR and slump in HS and back L>R. LB AROM extension max limited and painful centrally, SB mod limited and slightly uncomfortable, flexion max limited with hands barely to knees and pain centrally. core strength is 3+ abs and ext. reflexes 2/3 R patella and achilles, 2/3 L achilles, 0/3 R patella. Sensation WNL to gross light touch in LE. strength LE without myotomal problems, but weakness In L hipext 3 vs 3+ on R, abduction 3+ B, flexion 3+ B. knee extension and flexion 4- L and 4 R. ankles 4+ B in all directions. - Balance/Special Test Scores Oswestry Low Back Score: 20 - Goals Goal 1:: I appropr HEP or pool program to continue assisted improvements. Goal Time Frame: 4-6 Weeks Goal 2:: LB AROM extension to 20 degrees and flexion hands to mid samuel without pain Goal Time Frame: 4-6 Weeks Goal 3:: patient feel 505 better pain 0-4/10 at worst Goal Time Frame: 4-6 Weeks Goal 4:: Work without increased pain Goal Time Frame: 4-6 Weeks Goal 5:: oswestry 10 or better. Goal Time Frame: 4-6 Weeks - Rehabilitation Potential Physical Therapy Diagnosis: Degenerative changes in lumbar spine with resulting strength, ROM flexibility deficits limiting funciton Rehabilitation Potential: Fair - Anticipated Interventions Patient/Client Instruction: Educate patient on: Condition, Plan of Care For the Purpose of:: To decrease pain, To increase ROM, To improve nutrient delivery to tissue, To improve muscle performance and motor function, To increase tolerance to activity/condition/position Therapeutic Exercise to Include: Strength training, Agility training, Postural training, Flexibilty training, Gait and locomotor training, In an aquatic setting, Passive ROM, Active ROM, Dynamic Lumbar Stabilization For the Purpose of:: To decrease pain, To increase ROM, To improve nutrient delivery to tissue, To improve muscle performance and motor function, To improve ability to perform ADL's, To increase tolerance to activity/condition/position, To improve ability of physical actions for home/community/work/leisure Thank you for the opportunity to evaluate your patient. For Medicare and Medicare HMO plans, please review the plan of care and approve it. It will need to be FAXED BACK to us at [phone] for Medicare purposes. For Medicare only, by signing this I certify the plan of care. Please let me know if there are questions or concerns regarding this plan of care. Physician Signature: Date:
--- NOTE | 2022-08-17 12:55 | HP.PTDCSUM ---
It has been my pleasure to treat CRISTEL SMITH referred by KATHI Stephenson, with the diagnosis of l/S spondylosis, Deg l/s disc for a total of 12 visit(s). Discharge Date: 08/17/22 Please see the following information for a summary of their discharge status. Subjective: Feels like I am getting stronger. Posture is iimproving and focussing on that. Steps are easier. Still have same pain in LB up to 9/10 at times for short periods.Today is better but just stood at work 10. Will continue at [facility] with water ex. As well as with HEP. LBP Pain Intensity (Out of 10): 6 L upper back Pain Intensity (Out of 10): 2 % Improvement: 80 Objective/Function: 20 degrees extension, stiff but improved and slight increase LB pain, Flexion is hands to mid samuel and no increase pain. walking well today but stiff when asked to march. L hip PROM tight and painful posterior hip. Goal 1:: I appropr HEP or pool program to continue prison improvements. Goal Progress: Goal Met Goal 2:: LB AROM extension to 20 degrees and flexion hands to mid samuel without pain Goal Progress: Goal Met Goal 3:: patient feel 50% better pain 0-4/10 at worst Goal Progress: 80% Goal 4:: Work without increased pain Goal Progress: Not Progressing Goal 5:: oswestry 10 or better. Goal Progress: Progressing Plan: d/c to community water program. Discharge Comments: Pt to doctor for f/u, will continue community pool program but visit doctor regarding continued pain. If there are questions or concerns regarding this patient's physical therapy, please feel free to call me at [phone]. Thank you for the referral of this patient. Sincerely, Elvis Correia, DPT, OCS, CSCS Balance/Gait/Functional tests - Balance/Special Test Scores Oswestry Low Back Score: 13
== END 2022-08-18 19:00 | disposition home or self-care (01) ==
LOC: PT 10:30
PROVIDERS: PCP Family Medicine; Referring Provider Nurse Practitioner Family; Visit Provider Nurse Practitioner Family
DX: M47.817 Spondylosis without myelopathy or radiculopathy, lumbosacral region (principal); M51.37 Other intervertebral disc degeneration, lumbosacral region; M96.1 Postlaminectomy syndrome, not elsewhere classified; M48.062 Spinal stenosis, lumbar region with neurogenic claudication; M54.17 Radiculopathy, lumbosacral region; M46.96 Unspecified inflammatory spondylopathy, lumbar region
CPT/HCPCS: 97113; 97162; 97164

== ENCOUNTER 2022-10-26 11:22 | Day surgery (SDC) | payer OTHER, SELFPAY ==
[2022-10-26 11:55] VITALS: BP 154/80; PULSE 78; RESP 16; TEMP 36.6; O2SAT 100; BMI 25.4
--- NOTE | 2022-10-26 12:32 | RAD_ITS ---
PROCEDURE: Cervical epidural. DATE OF EXAMINATION: October 26, 2022. INDICATION: Female, 62 years old. Chronic neck pain. FLUOROSCOPY TIME (if supplied): (5.3 seconds) minutes/seconds. 2 images. 0.62 mGy RAD/Spine 1 View Any Level IMPRESSION: Intraoperative imaging provided for epidural cervical block. Electronically Signed: Bon Linares MD at 15:37 EDT ,
[2022-10-26] MEDS: MethylPREDNISolone Acetate 80 MG/ML Vial (12:37)
[2022-10-26 12:45] VITALS: BP 150/69; PULSE 58; RESP 16; TEMP 37.3; O2SAT 98
--- NOTE | 2022-10-26 13:13 | OP.PCM_ITS ---
Report of Operation Date of Procedure: 10/26/22 Description of Surgical Findings:: PREOPERATIVE DIAGNOSES:?Cervical radiculopathy, cervical degenerative disc disease, cervical spinal stenosis POSTOPERATIVE DIAGNOSES:?Cervical radiculopathy, cervical degenerative disc disease, cervical spinal stenosis PROCEDURE PERFORMED:?Diagnostic/therapeutic?cervical epidural steroid injection, interlaminar at C7-T1 under fluoroscopic guidance. ANESTHESIA:? Local. BLOOD LOSS:? Minimal. COMPLICATIONS:? None. DESCRIPTION OF PROCEDURE:? History and physical of today was reviewed.? Risks and benefits of the procedure were explained.? The patient understood and agreed to proceed.? Informed consent was obtained.? IV inserted per routine protocol.? The patient was taken to the operating room and placed in the prone position with a pillow positioned underneath the chest.? The neck area was prepped and draped in a sterile fashion using iodine x3.? Under fluoroscopy guidance on an AP view, the C7-T1 interlaminar space was identified.? The skin and subcutaneous tissue was anesthetized with approximately 3 mL of 1% lidocaine using a 25-gauge regular needle.? Under direct visualization on fluoroscopy, on AP view, using a 20-gauge 2-1/2-inch Tuohy needle, the needle was advanced via the skin.? The tip of the needle was maneuvered and directed towards the interlaminar space at C7- T1.? Loss of resistance technique was carried to air.? Loss of resistance technique was encountered.? Once encountered, after negative aspiration for blood and CSF, a total of 1 mL of contrast was injected to confirm correct placement of the needle as well as cephalocaudal spread of the contrast.? Confirmation was obtained on AP as well as lateral view.? After repeated negative aspiration and confirmation, a total of 3 mL of preservative-free normal saline and 80 mg of Depo-Medrol was injected easily.? The needle was then removed intact.? The patient experienced no sign or symptoms of intrathecal or intravascular injection.? The patient experienced no paresthesia.? The procedure was completed without any apparent difficulty or any complications.? The patient appeared to tolerate it well. ASSESSMENT AND PLAN:? This is a 62-year-old female with cervical radiculopathy, cervical degenerative disc disease, diagnostic/therapeutic cervical spinal stenosis status post c ervical epidural steroid injection interlaminar at C7-T1 under fluoroscopic guidance, patient will continue her current medications, patient will follow approximately 2 weeks for reevaluation.
== END 2022-10-26 13:09 | disposition home or self-care (01) ==
LOC: SDC 11:22 → AC 11:23
PROVIDERS: PCP Family Medicine; Referring Provider Anesthesiology Pain Medicine; Visit Provider Anesthesiology Pain Medicine
PROC: 3E0S3BZ Introduction of Anesthetic Agent into Epidural Space, Percutaneous Approach (ICD-10-PCS; CPT 62320; principal; 2022-10-26 13:45)
DX: M50.13 Cervical disc disorder with radiculopathy, cervicothoracic region (principal); M48.02 Spinal stenosis, cervical region; E78.00 Pure hypercholesterolemia, unspecified
CPT/HCPCS: 62321; 01992; 64490; 72020

== ENCOUNTER → 2023-04-26 | Outpatient (CLI) | payer OTHER, SELFPAY ==
[2023-04-26 10:15] LABS: Absolute Lymphocyte Count 1.76 X10^3/uL (0.83-4.51); Basophil# 0.04 X10^3/uL; Basophil% 0.7 % (0-1); Eosinophil# 0.27 X10^3/uL; Eosinophils% 4.7 % (0-5); Hematocrit 40.8 % (37-47); Hemoglobin 13.5 g/dL (12.0-15.0); Lymphocyte # 1.76 X10^3/ul (0.83-4.51); Lymphocyte % 30.6 % (19-41); Mean Corp Hgb Conc 33.1 g/dL (32-36); Mean Corpuscular Hgb 32.8 pg (27.0-32.0); Mean Corpuscular Volume 99.3 fL (81-99); Mean Platelet Vol. 10.6 fl (6.2-12.0); Monocyte# 0.67 X10^3/uL; Monocyte% 11.7 % (0-10); NRBC Flagged by Analyzer 0 % (0-5); Neutrophil # 2.99 X10^3/uL (2.7-7.7); Platelet Count 185 K/mm3 (150-450); RBC Distribution Width CV 12.2 % (11.6-14.6); RBC Distribution Width SD 44.6 fl (35.1-43.9); Red Blood Count 4.11 M/mm3 (4.2-5.4); White Blood Count 5.8 K/mm3 (4.4-11.0)
[2023-04-26 10:53] LABS: Anion Gap 5 (5-15); BUN 8 mg/dL (7-18); BUN/Creat Ratio 9.4 RATIO (10-20); Calcium,Total 9.2 mg/dL (8.5-10.1); Chloride 106 mmol/L (98-107); Creatinine, Serum 0.85 mg/dL (0.55-1.02); EST Glomerular Filtration Rate 72 mL/min (>60); Est Glom Filt Rate - Afr Amer 87 mL/min (>60); Glucose 87 mg/dL (74-106); Potassium 4.1 mmol/L (3.5-5.1); Sodium Level 140 mmol/L (136-145)
== END | disposition home or self-care (01) ==
PROVIDERS: PCP Family Medicine; Referring Provider Physician Assistant Surgical; Visit Provider Physician Assistant Surgical
DX: Z01.818 Encounter for other preprocedural examination (principal); Z01.810 Encounter for preprocedural cardiovascular examination; S46.012D Strain of muscle(s) and tendon(s) of the rotator cuff of left shoulder, subsequent encounter; X58.XXXA Exposure to other specified factors, initial encounter
CPT/HCPCS: 36415; 80048; 85025; 93005

== ENCOUNTER → 2023-06-10 | Outpatient (CLI) | payer OTHER, SELFPAY ==
--- NOTE | 2023-06-10 12:49 | VDUE_ITS ---
Reason For Study: Left arm pain Left Proximal Left jugular vein is spontaneous, widely patent, phasic, with no intraluminal echogenicity noted. Left subclavian vein is spontaneous, widely patent, phasic, with no intraluminal echogenicity noted. Left Arm Left axillary vein is spontaneous, patent, phasic, competent, compressible and demonstrates augmentation. Left brachial vein is compressible. Left cephalic vein is compressible. Left basilic vein is compressible. Left Lower Arm Left radial vein is compressible. Left ulnar vein is compressible. Radial artery distal, 20.4 cm/sec. Ulnar artery distal, 52.1 cm/sec. Patient Safety Preliminary report faxed to Dr. Mera. VL/Venous Duplex US, Unilateral Interpretation Summary Deep veins of the left upper extremity are patent and compressible segmentally. There is no evidence of deep vein thrombosis. Superficial veins of the left upper extremity are patent and compressible segme ntally. There is no evidence of superficial vein thrombosis. Ordering Physician: Nomi Mera Referring Physician: Vicente Pedroza Performed By: Cyndy Allison RVT ???
== END | disposition home or self-care (01) ==
LOC: CVS 12:46
PROVIDERS: PCP Family Medicine; Referring Provider Orthopaedic Surgery; Visit Provider Orthopaedic Surgery
DX: M79.602 Pain in left arm (principal); S46.012D Strain of muscle(s) and tendon(s) of the rotator cuff of left shoulder, subsequent encounter
CPT/HCPCS: 93971

== ENCOUNTER → 2024-02-07 | Outpatient (CLI) | payer OTHER, SELFPAY ==
[2024-02-07 13:12] LABS: Absolute Lymphocyte Count 1.74 X10^3/uL (0.83-4.51); Absolute Neutrophil Count 3.3 X10^3/uL (2.0-7.7); Basophil# 0.05 X10^3/uL; Basophil% 0.8 % (0-1); Eosinophil# 0.38 X10^3/uL; Eosinophils% 6.3 % (0-5); Hematocrit 37.5 % (37-47); Hemoglobin 12.5 g/dL (12.0-15.0); Lymphocyte # 1.74 X10^3/ul (0.83-4.51); Lymphocyte % 28.7 % (19-41); Mean Corp Hgb Conc 33.3 g/dL (32-36); Mean Corpuscular Hgb 32.9 pg (27.0-32.0); Mean Corpuscular Volume 98.7 fL (81-99); Mean Platelet Vol. 10.4 fl (6.2-12.0); Monocyte# 0.56 X10^3/uL; Monocyte% 9.2 % (0-10); NRBC Flagged by Analyzer 0 % (0-5); Neutrophil # 3.32 X10^3/uL (2.7-7.7); Neutrophil % 54.8 % (47-70); Platelet Count 175 K/mm3 (150-450); RBC Distribution Width CV 12.6 % (11.6-14.6); RBC Distribution Width SD 45.8 fl (35.1-43.9); White Blood Count 6.1 K/mm3 (4.4-11.0)
[2024-02-07 13:34] LABS: Anion Gap 7 (5-15); BUN 10 mg/dL (7-18); BUN/Creat Ratio 13.7 RATIO (10-20); Calcium,Total 9.5 mg/dL (8.5-10.1); Chloride 106 mmol/L (98-107); Creatinine, Serum 0.73 mg/dL (0.55-1.02); EST Glomerular Filtration Rate 86 mL/min (>60); Est Glom Filt Rate - Afr Amer 104 mL/min (>60); Glucose 116 mg/dL (74-106); Potassium 3.6 mmol/L (3.5-5.1); Sodium Level 141 mmol/L (136-145)
[2024-02-09 04:08] LABS: Immunoglobulin A 259 mg/dL (87-352)
== END | disposition home or self-care (01) ==
PROVIDERS: PCP Family Medicine
DX: K22.2 Esophageal obstruction (principal); K21.9 Gastro-esophageal reflux disease without esophagitis; R19.7 Diarrhea, unspecified
CPT/HCPCS: 36415; 80048; 82784; 85025; 87177; 87209; 87493

== ENCOUNTER → 2025-03-10 | Outpatient (CLI) | payer OTHER, SELFPAY ==
--- NOTE | 2025-03-10 08:45 | CT_ITS ---
PROCEDURE: EXTREMITY LOWER WITHOUT CONTRA 03/10/2025 REASON FOR EXAM: STRESS FX RIGHT FEMUR TECHNIQUE: Procedure Code: CTELWO Modality: CT Procedure: EXTREMITY LOWER WITHOUT CONTRA Coronal and Sagittal reconstruction series were provided. CONTRAST: None One or more dose reduction techniques were used (e.g., Automated exposure control, adjustment of the mA and/or kV according to patient size, use of iterative reconstruction technique). RADIATION DOSE SUMMARY: DLP: 975 mGycm COMPARISON: None FINDINGS: There is enmanuel and screw fixation of the right femur across day subacute fracture in the mid diaphysis. 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 The hip joint space and knee joint spaces appear maintained. There is no soft tissue mass or hematoma. Vascular calcifications are noted. There is no mass or free fluid in the included portion of the pelvis. CT/Extremity Lower without Contra IMPRESSION: There is enmanuel and screw fixation of the right femur across day subacute fracture in the mid diaphysis. 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 Reading Location: [facility]
--- OUTSIDE RECORDS SUMMARY | 2025-03-10 08:47 | XMS RPT_ITS | CCD ---
Author Organization [facility] Care Team Providers Care Transitional Care Nurse Name Role Phone Ibrahima Cunningham Unavailable Unavailable PROVIDER, UNKNOWN Unavailable Unavailable Vicente Arriaza Unavailable Unavailable LuxJenny Unavailable Unavailable PROVIDER, UNKNOWN Unavailable Unavailable Vicente Arriaza Unavailable Unavailable Vicente Arriaza Primary Care Provider Dr. Vicente Arriaza Primary Care Provider Dr. Geremias Lafleur Attending Provider [phone] Prebish SUPERINTENDENT GENERAL, SUPERINTENDENT GENERAL-C [place] Referring Provider Diana Arango Primary Care Provider [phone] ELISE ENRIQUE Attending Unavailable DIANA ARANGO Primary Care Unavailable DIANA ARANGO Primary Care Unavailable Dr. Vicente Arriaza Primary Care Provider Dr. Geremias Lafleur Attending Provider 1330-21 [phone] Vicente Arriaza MD Primary Care Provider Diana Arango MD Primary Care Provider [phone] Dr. Vicente Arriaza Primary Care Provider Dr. Jennifer Woods Attending Provider [phone] LUDWIN Corrigan Referring Provider [phone] Elvis Morrell Attending Provider Vicente Arriaza MD Primary Care Provider Elkin Zavala Attending Unavailable Vicente Arriaza Primary Care Unavailable Vicente Arriaza Referring Unavailable ADRIAN HILL Attending Unavaila ble Sofiya, Vicente Primary Care Unavailable FLORES-HIGGINBOTHAM, ADRIAN Attending Unavaila ble FLORES-HIGGINBOTHAM, ADRIAN Referring Unavaila ble Sofiya, Vicente Primary Care Unavailable Elkin Zavala Attending Unavailable Sofiya, Vicente Referring Unavailable Sofiya, Vicente Primary Care Unavailable Elkin Zavala Attending Unavailable Sofiya, Vicente Referring Unavailable Sofiya, Vicente Primary Care Unavailable Sofiya, Vicente Primary Care Unavailable Elkin Zavala Attending Unavailable Sofiya, Vicente Referring Unavailable SOFIYA, VICENTE Primary Care Unavailable SOFIYA, VICENTE Primary Care Unavailable SOFIYA, VICENTE Attending Unavailable SOFIYA, VICENTE Primary Care Unavailable SOFIYA, VICENTE Primary Care Unavailable DANN MARINELLI Attending Unavailable SOFIYA, VICENTE Attending Unavailable SOFIYA, VICENTE Primary Care Unavailable SOFIYA, VICENTE Primary Care Unavailable SOFIYA, VICENTE Attending Unavailable SOFIYA, VICENTE Primary Care Unavailable CRYSTAL NEWTON Attending Unavailable SOFIYA, VICENTE Primary Care Unavailable DANN MARINELLI Referring Unavailable SOFIYA, VICENTE Primary Care Unavailable CRYSTAL NEWTON Attending Unavailable CRYSTAL NEWTON Referring Unavailable Allergies Allergy Classification Reported Allergen(s) Allergy Type Date of Onset Reaction(s) Facility (20 sources) bee venom Propensity to adverse reactions to drug 7 Swelling [place] (4 sources) Simvastatin Drug Allergy 5 Other (See Comments) [place] (8 sources) Hefbzjr-Axv-Jpq Reductase Inhibitor; Translations: [Dkhpxvm-Eea-Nc a Reductase Inhibitor] Allergy to substance 2 Other [facility] (3 sources) HMG-CoA reductase inhibitor; Translations: [UOWPYIL-RFW-GN A REDUCTASE INHIBITORS] Drug Intolerance 7 Intolerance [facility] Work Phone: (2 sources) Bee Stings [Other] Propensity to adverse reactions 6 [facility] Work Phone: (1 source) OTHER; Translations: [OTHER] Propensity to adverse reactions (disorder) 6 [facility] Repository (3 sources) Honey bee venom Propensity to adverse reactions 7 Swelling [facility] (20 sources) Simvastatin Propensity to adverse reactions 5 [facility] (20 sources) meloxicam Drug Allergy 4 [facility] (1 source) bee venom protein (honey bee) Drug allergy (disorder) 5 [facility] Repository (16 sources) Honey bee venom Drug Allergy 5 [facility] Medications Current Medications Medication Drug Class(es) Dates Sig (Normalized) Sig (Original) acetaminophen 325 mg / HYDROcodone bitartrate 5 mg oral tablet (1 source) Opioid Agonist Start: 04-29-2020 End: 05-06-2020 take 1 tablet by mouth every four hours as needed for pain, then take 1 tablet by mouth as needed for pain HYDROcodone-acetam inophen (NORCO) 5-325 MG per tablet Indications: Stress fracture of right femur, initial encounter Take 1 tablet by mouth every 4 hours as needed for Pain for up to 7 days. Intended supply: 7 days. Take lowest dose possible to manage pain 42 tablet 0 04/29/2020 05/06/2020 Active acetaminophen 325 mg / oxyCODONE hydrochloride 5 mg oral tablet (2 sources) Opioid Agonist Start: 11-13-2019 End: 11-20-2019 take 1 tablet by mouth every six hours as needed for pain, then take 1 tablet by mouth as needed for pain oxyCODONE-acetamin ophen (PERCOCET) 5-325 MG per tablet Indications: Stress fracture of left femur, initial encounter Take 1 tablet by mouth every 6 hours as needed for Pain for up to 7 days. Intended supply: 7 days. Take lowest dose possible to manage pain 28 tablet 0 11/13/2019 11/20/2019 Active ALPRAZolam 0.25 mg disintegrating oral tablet (2 sources) Benzodiazepine Start: 04-29-2020 ALPRAZolam (NIRAVAM) dissolvable tablet 0.25 mg Start: 11-13-2019 ALPRAZolam (NI RAVAM) dissolvable tablet 0.25 mg aspirin 81 mg delayed release oral tablet (3 sources) Platelet Aggregation Inhibitor, Nonsteroidal Anti-inflammatory Drug Start: 04-29-2020 take 1 tablet by mouth twice daily aspirin EC 81 MG EC tablet Take 1 tablet by mouth 2 times daily 30 tablet 0 04/29/2020 Active Start: 11-13-2019 End: 12-13-2019 take 1 tablet by mouth twice daily aspirin 325 MG EC tablet Take 1 tablet by mouth 2 times daily 60 tablet 0 11/13/2019 12/13/2019 Active C-Zn-K.Ginseng-Bee Hips-Hrb62 (Immune Support Complex) 75 mg Tablet (6 sources) Start: 12-30-2021 take 1 tablet by mouth once daily C-Zn-K.Ginseng-Bee Hips-Hrb62 (Immune Support Complex) 75 mg Tablet Active 1 TABLET PO DAILY December 29, 2021 11:00pm Start: 12-30-2021 take 1 tablet by barb th once daily C-Zn-K.Ginseng-Bee Hips-Hrb62 (Immune Support Complex) 75 mg Tablet Active 1 TABLET PO DAILY December 30, 2021 12:00am calcium carbonate 1500 mg / cholecalciferol 800 unt chewable tablet (20 sources) Vitamin D Start: 12-30-2021 Calcium Carb-C holecalciferol 600-20 MG-MCG chewable tablet Chew. 12/30/2021 Active Start: 12-30-2021 take 1 tablet by barb th once daily Calcium Carbonate-Vitamin D3 (Caltrate 600 Plus D) 600 mg-20 mcg (800 unit) Tablet,Chewable Active 1 TABLET PO DAILY December 29, 2021 11:00pm calcium chloride 0.0014 meq/ ml / potassium chloride 0.004 meq/ml / sodium chloride 0.103 meq/ml / sodium lactate 0.028 meq/ml injectable solution (2 sources) Start: 04-29-2020 lactated ringe rs infusion Start: 11-13-2019 lactated ringe rs infusion cholecalciferol 0.01 mg chewable tablet (20 sources) Vitamin D Start: 12-30-2021 Cholecalcifero l 10 MCG (400 UNIT) chewable tablet Chew 400 Units. 12/30/2021 Active Start: 12-30-2021 take 1 tablet by barb th once daily Cholecalciferol (Vitamin D3) (Vitamin D3) 10 mcg (400 unit) Tablet,Chewable Active 10 MCG PO DAILY December 29, 2021 11:00pm take 1 tablet by barb th once daily vitamin D3 (CHOLECALCIFEROL) 10 MCG (400 UNIT) TABS tablet Take 400 Units by mouth daily 0 Suspended Coenzyme Q10 (CO Q 10 PO) (20 sources) Coenzyme Q10 (CO Q 10 PO) Take by mouth. Active Coenzyme Q10 (CO Q 10 PO) Take by mouth. 0 Active 1 ml diphenhydrAMINE hydrochloride 50 mg/ml cartridge (2 sources) Histamine-1 Receptor Antagonist Start: 04-29-2020 End: 04-29-2020 diphenhydrAMINE (BENADRYL) injection 12.5 mg Start: 11-13-2019 End: 11-13-2019 diphenhydrAMINE (BENADRYL) i njection 12.5 mg docusate sodium 100 mg oral capsule (2 sources) Start: 11-13-2019 End: 12-13-2019 take 1 capsule by mouth twice daily docusate sodium (COLACE) 100 MG capsule Take 1 capsule by mouth 2 times daily 60 capsule 0 11/13/2019 12/13/2019 Active famotidine 40 mg oral tablet (20 sources) Histamine-2 Receptor Antagonist Start: 12-30-2021 famotidine (Pepcid) 40 MG tablet Take by mouth 2 times daily. 05/04/2022 Active Start: 03-05-2020 famotidine (PE PCID) tablet 20 mg Start: 11-13-2019 famotidine (PE PCID) tablet 20 mg Start: 11-07-2019 take 1 tablet by barb th once daily in the evening famotidine (PEPCID) 40 MG tablet Take 1 tablet by mouth every evening 90 tablet 1 11/07/2019 Suspended Comment on above: Take 40 mg by mouth twice daily. 2 ml fentaNYL 0.05 mg/ml injection (2 sources) Opioid Agonist Start: 11-13-2019 fentaNYL (SUBLIMAZE) injection 25 mcg Start: 11-13-2019 fentaNYL (SUBL IMAZE) injection 50 mcg 1 ml hydrALAZINE hydrochloride 20 mg/ml injection (2 sources) Arteriolar Vasodilator Start: 04-29-2020 hydrALAZINE (APRESOLINE) injection 5 mg Start: 11-13-2019 hydrALAZINE (A PRESOLINE) injection 5 mg 1 ml HYDROmorphone hydrochloride 1 mg/ml cartridge (2 sources) Opioid Agonist Start: 11-13-2019 HYDROmorphone (DILAUDID) injection 0.5 mg Start: 11-13-2019 HYDROmorphone (DILAUDID) injection 0.25 mg 4 ml labetalol hydrochloride 5 mg/ml cartridge (2 sources) beta-Adrenergic Kelvin Start: 04-29-2020 labetalol (NORMODYNE;TRANDATE) injection 5 mg Start: 11-13-2019 labetalol (NOR MODYNE;TRANDATE) injection 5 mg Lactobacillus Combination No.4 (Probiotic) 3 billion cell Capsule (6 sources) Start: 12-30-2021 take 3 capsules by mouth once daily Lactobacillus Combination No.4 (Probiotic) 3 billion cell Capsule Active 3000 MMU CELLS PO DAILY December 29, 2021 11:00pm administer with a meal Start: 12-30-2021 take 3 capsules by m out once daily Lactobacillus Combination No.4 (Probiotic) 3 billion cell Capsule Active 3000 MMU CELLS PO DAILY December 30, 2021 12:00am administer with a meal levothyroxine sodium 0.075 mg oral tablet (20 sources) l-Thyroxine Start: 10-10-2024 take 1 tablet by mouth once daily levothyroxine (Synthroid, Levoxyl) 75 MCG tablet Indications: Acquired hypothyroidism TAKE 1 TABLET BY MOUTH DAILY 90 tablet 1 10/10/2024 Active Start: 05-03-2024 take 1 tablet by [facility] once daily levothyroxine (Synthroid, Levoxyl) 75 MCG tablet Indications: Acquired hypothyroidism TAKE 1 TABLET BY MOUTH DAILY 90 tablet 1 05/03/2024 Active Start: 11-18-2023 levothyroxine (Synthroid, Levoxyl) 75 MCG tablet Indications: Acquired hypothyroidism TAKE 1 TABLET DAILY 90 tablet 1 11/18/2023 Active Start: 09-13-2006 End: 08-25-2023 take 1 tablet by mouth once daily levothyroxine (Synthroid, Levoxyl) 75 MCG tablet Take 1 tablet (75 mcg) by mouth daily. 90 tablet 1 05/27/2022 Active Comment on above: Take one(1) tablet d aily. 10 ml lidocaine hydrochloride 10 mg/ml injection (2 sources) Antiarrhythmic, Amide Local Anesthetic Start: 04-29-2020 End: 04-29-2020 lidocaine PF 1 % injection 1 mL Start: 11-13-2019 End: 11-13-2019 lidocaine PF 1 % injection 1 mL LORazepam 0.5 mg oral tablet (20 sources) Benzodiazepine Start: 08-15-2024 take 1 tablet by mouth twice daily as needed for anxiety LORazepam (Ativan) 0.5 MG tablet Indications: Anxiety Take 1 tablet (0.5 mg) by mouth 2 times daily as needed for anxiety. 60 tablet 08/15/2024 Active Start: 11-18-2023 take 1 tablet by barb th twice daily as needed for anxiety LORazepam (Ativan) 0.5 MG tablet Indications: Anxiety Take 1 tablet (0.5 mg) by mouth 2 times daily as needed for anxiety. 60 tablet 11/18/2023 Active Start: 04-08-2023 take 1 tablet by barb th twice daily as needed for anxiety LORazepam (Ativan) 0.5 MG tablet Indications: Anxiety Take 1 tablet (0.5 mg) by mouth 2 times daily as needed for anxiety. 60 tablet 0 04/08/2023 Active Start: 06-23-2022 take 1 tablet by barb th twice daily as needed for anxiety LORazepam (Ativan) 0.5 MG tablet Indications: Anxiety Take 1 tablet (0.5 mg) by mouth 2 times daily as needed for anxiety. 60 tablet 0 06/23/2022 Active Start: 12-23-2021 End: 06-23-2022 take 1 tablet by mouth every six hours as needed for anxiety LORazepam (Ativan) 0.5 MG tablet Take 1 tablet by mouth every 6 hours as needed for Anxiety for up to 30 days. 0 12/23/2021 06/23/2022 Discontinued (Reorder) Start: 04-29-2020 LORazepam (ATI VAN) injection 0.5 mg Start: 08-28-2015 take 0.5 mg by mouth once daily as needed Lorazepam Active 0.5 MG PO DAILY NEEDED August 27, 2015 11:00pm LORAZEPAM (ATIVA N ORAL) Take by mouth as needed. 0 Active take 1 tablet by barb th every six hours as needed for anxiety LORazepam (ATIVAN) 0.5 MG tablet Take 0.5 mg by mouth every 6 hours as needed for Anxiety. 0 Suspended Comment on above: Take by mouth as nee ded. losartan potassium 25 mg oral tablet (20 sources) Angiotensin 2 Receptor Kelvin Start: 08-15-2024 End: 02-23-2025 take 1 tablet by mouth once daily losartan (Cozaar) 25 MG tablet Take 1 tablet (25 mg) by mouth daily. 90 tablet 1 02/23/2025 Active Start: 07-25-2024 take 1 tablet by barb th once daily losartan (Cozaar) 50 MG tablet Take 1 tablet (50 mg) by mouth daily. 30 tablet 07/25/2024 Active meclizine hydrochloride 12.5 mg oral tablet (20 sources) Antiemetic Start: 10-11-2023 take 1 tablet by mouth four times daily as needed for dizziness meclizine (Antivert) 12.5 MG tablet Take 1 tablet by mouth 4 times daily as needed for Dizziness 30 tablet 3 10/11/2023 Active Start: 04-08-2023 take 1 tablet by barb th four times daily as needed for dizziness meclizine (Antivert) 12.5 MG tablet Take 1 tablet by mouth 4 times daily as needed for Dizziness 30 tablet 3 04/08/2023 Active Start: 06-24-2021 take 1 tablet by barb th four times daily as needed for dizziness meclizine (Antivert) 12.5 MG tablet Take 1 tablet by mouth 4 times daily as needed for Dizziness 0 06/24/2021 Active Start: 10-31-2018 take 1 tablet by barb th four times daily as needed for dizziness meclizine (ANTIVERT) 12.5 MG tablet Take 1 tablet by mouth 4 times daily as needed for Dizziness 60 tablet 0 10/31/2018 Suspended Start: 08-28-2015 take 12.5 mg by mout h once daily as needed Meclizine Active 12.5 MG PO DAILY NEEDED August 27, 2015 11:00pm take 2 tablets by mo uth three times daily meclizine (ANTIVERT) 12.5 mg tab Take 25 mg by mouth three times daily. 0 Active Comment on above: Take 25 mg by mouth three times daily. 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 30 tablet 0 06/16/2022 07/16/2022 Active Comment on above: Take by mouth once d aily. Multiple Vitamins-Minerals (IMMUNE SUPPORT PO) (9 sources) Multiple Vitamin s-Minerals (IMMUNE SUPPORT PO) Take by mouth. Active NON FORMULARY (20 sources) End: 01-02-2025 NON FORMULARY CBD BALM uses on back and knee for pain CL Balance for cholesterol Beets + 01/02/2025 Discontinued (Therapy completed) NON FORMULARY Ta llow magnesium lotion Active NON FORMULARY CB D BALM uses on back and knee for pain CL Balance for cholesterol Beets + Active NON FORMULARY CB D BALM uses on back and knee for pain 0 Active ondansetron 4 mg disintegrating oral tablet (4 sources) Serotonin-3 Receptor Antagonist Start: 04-29-2020 take 1 tablet by mouth three times daily as needed for nausea ondansetron (ZOFRAN-ODT) 4 MG disintegrating tablet Take 1 tablet by mouth 3 times daily as needed for Nausea or Vomiting 21 tablet 0 04/29/2020 Active Start: 04-29-2020 End: 04-29-2020 ondansetron (ZOFRAN) injecti on 4 mg Start: 11-13-2019 End: 11-18-2019 take 1 tablet by mouth three times daily as needed for nausea ondansetron (ZOFRAN) 4 MG tablet Take 1 tablet by mouth 3 times daily as needed for Nausea or Vomiting 15 tablet 0 11/13/2019 11/18/2019 Active Start: 11-13-2019 End: 11-13-2019 ondansetron (ZOFRAN) injecti on 4 mg oxyCODONE (1 source) Opioid Agonist Start: 11-13-2019 End: 11-13-2019 oxyCODONE (ROXICODONE) immediate release tablet 5 mg Probiotic Product (PROBIOTIC PO) (20 sources) Probiotic Produc t (PROBIOTIC PO) Take 2 capsules by mouth. Active Probiotic Produc t (PROBIOTIC PO) Take 2 capsules by mouth. 0 Active 1 ml promethazine hydrochloride 25 mg/ml injection (2 sources) Phenothiazine Start: 04-29-2020 End: 04-29-2020 promethazine (PHENERGAN) injection 6.25 mg Start: 11-13-2019 End: 11-13-2019 promethazine (PHENERGAN) inj ection 6.25 mg Red Yeast Rice Extract (RED YEAST RICE PO) (20 sources) Red Yeast Rice E xtract (RED YEAST RICE PO) Take by mouth. Active Red Yeast Rice E xtract (RED YEAST RICE PO) Take by mouth. 0 Active 3 ml sodium chloride 9 mg/ml injection (4 sources) Start: 04-29-2020 sodium chlorid e flush 0.9 % injection 10 mL Start: 11-13-2019 sodium chlorid e flush 0.9 % injection 10 mL Completed/Discontinued Medications Medication Drug Class(es) Dates Sig (Normalized) Sig (Original) acetaminophen 500 mg oral tablet (4 sources) Start: 04-29-2020 End: 04-29-2020 acetaminophen (TYLENOL) tablet 1,000 mg Start: 11-13-2019 End: 11-13-2019 acetaminophen (TYLENOL) tabl et 1,000 mg End: 11-13-2019 take 2 tablets by mouth every six hours as needed for pain acetaminophen (TYLENOL) 500 MG tablet Take 1,000 mg by mouth every 6 hours as needed for Pain 0 11/13/2019 Discontinued (Stop Taking at Discharge) aprepitant 40 mg oral capsule (2 sources) Substance P/Neurokinin-1 Receptor Antagonist Start: 04-29-2020 End: 04-29-2020 aprepitant (EMEND) capsule 40 mg Start: 11-13-2019 End: 11-13-2019 aprepitant (EMEND) capsule 4 0 mg baclofen 10 mg oral tablet (2 sources) gamma-Aminobutyric Acid-ergic Agonist Start: 11-27-2022 End: 12-22-2022 take 0.5-1 tablets by mouth twice daily as needed for muscle spasms baclofen (Lioresal) 10 MG tablet take 1/2-1 tablet BY MOUTH TWICE DAILY, as needed for muscle spasms 0 11/27/2022 12/22/2022 Discontinued Start: 02-12-2022 End: 06-23-2022 take 0.5-1 tablets by mouth twice daily as needed for muscle spasms baclofen (Lioresal) 10 MG tablet TAKE 1/2 (ONE-HALF) TO 1 (ONE) TABLET BY MOUTH TWICE DAILY NEEDED FOR SPASMS 0 02/12/2022 06/23/2022 Discontinued (Med list cleanup) calcium carbonate 500 mg oral tablet (1 source) take 1 tablet by mouth once daily calcium carbonate (OSCAL) 500 MG TABS tablet Take 500 mg by mouth daily 0 Suspended ceFAZolin 2000 mg injection (2 sources) Cephalosporin Antibacterial Start: 04-29-2020 End: 04-29-2020 ceFAZolin (ANCEF) 2 g in dextrose 4 % 100 mL IVPB (premix) Start: 11-13-2019 End: 11-13-2019 ceFAZolin (ANCEF) 2 g in dex trose 4 % 100 mL IVPB (premix) celecoxib 400 mg oral capsule (1 source) Nonsteroidal Anti-inflammatory Drug Start: 11-13-2019 End: 11-13-2019 celecoxib (CELEBREX) capsule 400 mg Start: 11-13-2019 End: 11-13-2019 celecoxib (CELEBREX) capsule 400 mg cyclobenzaprine hydrochloride 10 mg oral tablet (1 source) Muscle Relaxant Start: 03-16-2022 End: 06-23-2022 take 0.5-1 tablets by mouth three times daily as needed for muscle spasms cyclobenzaprine (Flexeril) 10 MG tablet take 1/2 to 1 tablet by mouth three times daily as needed for spasms 0 03/16/2022 06/23/2022 Discontinued (Med list cleanup) ergocalciferol 1.25 mg oral capsule (2 sources) Provitamin D2 Compound Start: 03-03-2017 take 1 capsule by mouth every week ergocalciferol, vitamin D2, (VITAMIN D) 50,000 unit capsule Indications: Hypovitaminosis D Take 1 capsule by mouth once each week. Use as directed. 4 capsule 0 03/03/2017 Active Comment on above: Take 1 capsule by mo [facility] once each week. Use as directed. gabapentin 100 mg oral capsule (2 sources) Anti-epileptic Agent Start: 04-29-2020 End: 04-29-2020 gabapentin (NEURONTIN) capsule 100 mg Start: 11-13-2019 End: 11-13-2019 gabapentin (NEURONTIN) capsu le 300 mg ibuprofen 200 mg oral tablet (13 sources) Nonsteroidal Anti-inflammatory Drug End: 06-29-2023 ibuprofen 200 MG tablet Take by mouth. 0 06/29/2023 Discontinued (Med list cleanup) take 2 tablets by [facility] every eight hours as needed for pain ibuprofen (ADVIL;MOTRIN) 200 MG tablet T farooq 400 mg by mouth every 8 hours as needed for Pain 0 Suspended lisinopril 5 mg oral tablet (1 source) Angiotensin Converting Enzyme Inhibitor Start: 07-01-2021 End: 06-23-2022 take 1 tablet by mouth once daily lisinopril 5 MG tablet Take 5 mg by mouth daily. 0 07/01/2021 06/23/2022 Discontinued (Med list cleanup) NONFORMULARY (8 sources) take 3 capsules by mouth once daily NONFORMULARY Take 3 capsules by mouth nightly Bio Cleanse herbal supplement 0 Suspended take 1 dose by mouth once daily NONFORMULARY Take 1 Dose by mouth daily Plexus Slim herbal supplement 0 Suspended take 3 capsules by mouth once da john NONFORMULARY Take 3 capsules by mouth nightly Bio Cleanse herbal supplement 0 Active take 1 dose by mouth once daily NONFORMULARY Take 1 Dose by mouth daily Plexus Slim herbal supplement 0 Active pantoprazole 40 mg delayed release oral tablet (2 sources) Proton Pump Inhibitor Start: 09-04-2019 take 1 tablet by mouth once daily pantoprazole (PROTONIX) 40 MG tablet Take 1 tablet by mouth daily 90 tablet 1 09/04/2019 Suspended Probiotic Product (PROBIOTIC DAILY PO) (4 sources) take 2 capsules by mouth once daily Probiotic Product (PROBIOTIC DAILY PO) Take 2 capsules by mouth nightly 0 Suspended take 2 capsules by mouth once da john Probiotic Product (PROBIOTIC DAILY PO) Take 2 capsules by mouth nightly 0 Active Problems Active Problems Problem Classification Problem Date Documented Date Episodic/Chronic Anxiety disorders (20 sources) Anxiety disorder, unspecified; Translations: [Anxiety] Onset: 04-16-2015 04-16-2015 Chronic Cancer; other and unspecified primary (2 sources) Personal history of malignant neoplasm, unspecified; Translations: [Personal history of malignant neoplasm, unspecified] Onset: 02-08-2018 Episodic Disorders of lipid metabolism (20 sources) Hyperlipidemia, unspecified; Translations: [Hyperlipidemia] Onset: 05-10-2017 05-10-2017 Chronic Diverticulosis and diverticulitis (2 sources) Diverticulosis of large intestine without perforation or abscess without bleeding; Translations: [Dvrtclos of lg int w/o perforation or abscess w/o bleeding] Onset: 02-08-2018 Chronic E Codes: Fall (14 sources) Fall; Translations: [Unspecified fall, initial encounter] 11-18-2019 Episodic Esophageal disorders (20 sources) Gastro-esophageal reflux disease without esophagitis; Translations: [Gastroesophageal reflux disease] Onset: 06-12-2014 04-16-2015 Chronic Essential hypertension (20 sources) Essential hypertension; Translations: [Essential (primary) hypertension] Onset: 12-24-2020 03-07-2022 Chronic Hemorrhoids (2 sources) Other hemorrhoids; Translations: [Other hemorrhoids] Onset: 02-08-2018 Episodic Nonspecific chest pain (13 sources) Atypical chest pain; Translations: [Other chest pain] Onset: 01-02-2025 01-02-2025 Episodic Nutritional deficiencies (20 sources) Vitamin D deficiency; Translations: [Vitamin D deficiency, unspecified] Onset: 05-10-2017 05-10-2017 Chronic Nutritional deficiencies (13 sources) Cobalamin deficiency; Translations: [Deficiency of other specified B group vitamins] Onset: 01-02-2025 01-02-2025 Episodic Osteoarthritis (1 source) Unilateral primary osteoarthritis, left knee; Translations: [Unilateral primary osteoarthritis, left knee] Onset: 06-26-2024 Chronic Osteoporosis (2 sources) Primary osteoporosis; Translations: [Age-related osteoporosis with current pathological fracture with delayed healing] Onset: 12-14-2019 12-14-2019 Chronic Other aftercare (7 sources) Surgical follow-up; Translations: [Encounter for follow-up examination after completed treatment for conditions other than malignant neoplasm] 11-18-2019 Episodic Other and unspecified benign neoplasm (2 sources) Personal history of colonic polyps; Translations: [Personal history of colonic polyps] Onset: 02-08-2018 Episodic Other circulatory disease (7 sources) Elevated blood pressure; Translations: [Elevated blood-pressure reading, without diagnosis of hypertension] 09-18-2021 Episodic Other connective tissue disease (2 sources) Calcific tendinitis, right ankle and foot; Translations: [Calcific tendinitis, right ankle and foot] Onset: 03-24-2018 Episodic Other connective tissue disease (2 sources) Calcaneal spur, right foot; Translations: [Calcaneal spur, right foot] Onset: 03-24-2018 Episodic Other connective tissue disease (1 source) Pain in right lower limb; Translations: [Pain in right leg] 09-18-2024 Episodic Other nervous system disorders (4 sources) Narcolepsy without cataplexy; Translations: [Narcolepsy without cataplexy] Onset: 02-08-2018 Chronic Other nervous system disorders (20 sources) Narcolepsy; Translations: [Narcolepsy without cataplexy] Onset: 08-02-2015 08-02-2015 Chronic Other nervous system disorders (15 sources) Narcolepsy without cataplexy ; Translations: [Narcolepsy without cataplexy] 12-22-2022 Chronic Other screening for suspected conditions (not mental disorders or infectious disease) (14 sources) Encounter for screening for malignant neoplasm of colon; Translations: [Encounter for screening mammogram for malignant neoplasm of breast] Onset: 02-08-2018 12-22-2022 Episodic Pathological fracture (20 sources) Stress fracture of femur; Translations: [Primary osteoporosis] Onset: 11-07-2019 11-07-2019 Episodic Residual codes; unclassified (2 sources) Obstructive sleep apnea (adult) (pediatric); Translations: [Obstructive sleep apnea (adult) (pediatric)] Onset: 02-08-2018 Chronic Residual codes; unclassified (4 sources) Obstructive sleep apnea syndrome; Translations: [Obstructive sleep apnea] 04-16-2015 Chronic Residual codes; unclassified (2 sources) Sleep apnea; Translations: [Sleep apnea, unspecified] Onset: 06-12-2014 06-12-2014 Chronic Residual codes; unclassified (1 source) Influenza vaccination declined; Translations: [Immunization not carried out because of patient refusal] 06-21-2024 Episodic Residual codes; unclassified (9 sources) Other specified health status; Translations: [Other drug allergy] Onset: 01-02-2025 01-02-2025 Episodic Spondylosis; intervertebral disc disorders; other back problems (20 sources) Degeneration of thoracic intervertebral disc; Translations: [Other intervertebral disc degeneration, thoracic region] Onset: 06-12-2014 07-10-2016 Chronic Superficial injury; contusion (7 sources) Contusion of knee; Translations: [Contusion of left knee, initial encounter] 09-18-2021 Episodic Thyroid disorders (20 sources) Hypothyroidism, unspecified; Translations: [Hypothyroidism] Onset: 06-12-2014 04-16-2015 Chronic Unclassified (1 source) Stress fracture of left femur; Translations: [Stress fracture of left femur, initial encounter] Unclassified (1 source) Stress fracture of right femur; Translations: [Stress fracture of right femur, initial encounter] Unclassified (2 sources) Blood Pressure Check; Translations: [Blood Pressure Check] Onset: 08-15-2024 Past or Other Problems Problem Classification Problem Date Documented Da te Episodic/Chronic Abdominal hernia (20 sources) Diaphragmatic hernia without obstruction or gangrene; Translations: [Hiatal hernia] Onset: 06-12-2014 07-10-2016 Episodic Joint disorders and dislocations; trauma-related (20 sources) Current tear of medial cartilage AND/OR meniscus of knee; Translations: [Tear of medial meniscus of knee] Onset: 05-10-2017 05-10-2017 Episodic Other bone disease and musculoskeletal deformities (20 sources) Osteopenia; Translations: [Other specified disorders of bone density and structure, unspecified site] Onset: 06-12-2014 07-10-2016 Episodic Other connective tissue disease (2 sources) Pain in right leg; Translations: [Pain in right leg] Onset: 09-19-2024 Episodic Other gastrointestinal disorders (1 source) Other dysphagia; Translations: [Other dysphagia] Onset: 02-07-2024 Episodic Other gastrointestinal disorders (1 source) Diarrhea, unspecified; Translations: [Diarrhea, unspecified] Onset: 02-07-2024 Episodic Other non-traumatic joint disorders (6 sources) Pain in left knee; Translations: [Pain in joint, lower leg] Onset: 09-22-2024 09-20-2024 Episodic Residual codes; unclassified (2 sources) Immunization not carried out because of patient refusal; Translations: [Immunization not carried out because of patient refusal] Onset: 06-27-2024 Episodic Spondylosis; intervertebral disc disorders; other back problems (20 sources) Chronic low back pain; Translations: [Lumbago with sciatica, right side] Onset: 02-04-2016 02-04-2016 Episodic Urinary tract infections (2 sources) Recurrent urinary tract infection; Translations: [Urinary tract infection, site not specified] Onset: 06-12-2014 06-12-2014 Episodic Viral infection (2 sources) Herpes zoster without complication; Translations: [Zoster without complications] Onset: 07-16-2015 07-16-2015 Episodic Results Test Name Value Interpretation Reference Range Facility [facility] 03-08-2025 36 Rx sent, OARRS repor t done, no inconsistencies, CS agreement in place [place] [id number] Csa 06/27/24 [place] [address] Medication name: modafinil (Provigil) 100 MG tablet Medication dosage: 100 mg (Miligrams Monthly quantity needed: 30 How many day supply requestin days Medication route: oral (PO) Medication administration time(s): daily If taking medication PRN, reason for taking medication: N/A If this is a controlled substance do you receive this or any other controlled medication from any other doctor or facility: N/A Ordering provider: sofiya Date of last office visit: 01/02/2025 Date of next office visit: 07/10/2025 Date of last refill: (see medication tab): 9.15.25 Updated/Validated preferred pharmacy: Yes Patient instructed to contact the pharmacy prior to picking up the medication: N/A [address] 02-23-2025 36 Rx sent. Follow up a s scheduled. [place] [address] Medication name: joanne strong (Cozaar) 25 MG tablet Medication dosage: 25 mg (Miligrams Monthly quantity needed: 90 How many day supply requestin year Medication route: oral (PO) Medication administration time(s): daily If taking medication PRN, reason for taking medication: N/A If this is a controlled substance do you receive this or any other controlled medication from any other doctor or facility: No Ordering provider: Dr. Arriaza Date of last office visit: 01.02.2025 Date of next office visit: 07.10.2024 Date of last refill: (see medication tab): 11.20.2024 Updated/Validated preferred pharmacy: Yes Patient instructed to contact the pharmacy prior to picking up the medication: Yes [address] 02-05-2025 36 Rx sent. OARRS repor t reviewed with no discrepancies. CSA signed in June 2024. Follow up as scheduled. [place] [address] Csa 06/27/[address] 02-02-2025 36 Medication name: modafinil (Provigil) tablet Medication dosage: 100 mg (Miligrams Monthly quantity needed: 30 How many day supply requestin days Medication route: oral (PO) Medication administration time(s): daily If taking medication PRN, reason for taking medication: N/A If this is a controlled substance do you receive this or any other controlled medication from any other doctor or facility: N/A Ordering provider: Sofiya Date of last office visit: 01.02.2025 Date of next office visit: 07.10.2025 Date of last refill: (see medication tab): 01.02.2025 Updated/Validated preferred pharmacy: Yes Patient instructed to contact the pharmacy prior to picking up the medication: Yes [address] 01-19-2025 36 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 Best time of day caller can be reached: any Patient advised that office/PCP has 24-48 business hours to return their call: Yes Normal [facility] No Panel Informationon 01-02 [facility] Office Visiton 01-02-2025 Follow-up visit [id number] Linnea Stacy 1960 F Date Provider Department Center 01/02/2025 [id number] ARRIAZA [facility] Family History Problem Relation Age of Onset Stroke Mother Parkinsonism Mother Stroke Father Heart disease Father Diabetes Father High Blood Pressure Father Breast cancer Mother's Sister Diabetes Mother's Sister Cancer Maternal Grandfather Comments: lymphoma Heart disease Brother Diabetes Paternal Grandmother Family Status - Relation Status Age at Mother Alive Father Mother's Sister Alive Maternal Grandfather Brother Paternal Grandmother Other Alive Notes: drug use Level of Service:55562 MA PERIODIC PREVENTIVE MED EST PATIENT 40-64YRS Reason for Visit and Comments: Annual Exam [83] Blood Work [874939] Health Maintenance [872] - Mammogram- see OBGYN--they usually place order Shingles vaccine-declines Normal [facility] Progress Noteon 01-02-2025 Progress Note Normal EKG, continue red yeast rice extract for cholesterol Normal [facility] Progress Note Stable, continue red yeast rice extract and strict low-fat low-cholesterol diet. Normal [facility] Progress Note Stable, continue lorazepam 0.5 mg twice a day as needed Normal [facility] Progress Note Controlled, continue calcium and vitamin D and vitamin D 400 units daily Normal [facility] Progress Note Controlled, continue levothyroxine 75 mcg daily Normal [facility] Progress Note Stable, will get rep eat lab work today Normal [facility] Progress Note Stable, continue on calcium 1200 mg with vitamin D daily Normal [facility] Progress Note Stable, continue famotidine 40 mg twice a day Normal [facility] Progress Note Controlled, continue losartan 25 mg daily Normal [facility] Progress Note Stable follow-up wit h Ortho. Normal [facility] Progress Note Stable, continue modafinil 100 mg daily Rx sent, OARRS report done, no inconsistencies, CS agreement in place. Normal [facility] Progress Note 01/02/2025 Lashell Stacy (: 1960) is a 64 y.o. female , Established patient, here for evaluation of the following chief complaint(s): Annual Exam, Blood Work, and Health Maintenance (Mammogram- see OBGYN--they usually place order /Shingles vaccine-declines ) ASSESSMENT/PLAN: 1. Annual physical exam 2. Primary narcolepsy without cataplexy Assessment & Plan: Stable, continue modafinil 100 mg daily Rx sent, OARRS report done, no inconsistencies, CS agreement in place. Orders: - modafinil (Provigil) 100 MG tablet; Take 1 tablet (100 mg) by mouth daily., Starting Tu01/02/2025, Until Coco 02/01/2025, Normal 3. Yeny's syndrome Assessment & Plan: Stable follow-up with Ortho. 4. Essential hypertension Assessment & Plan: Controlled, continue losartan 25 mg daily 5. Gastroesophageal reflux disease without esophagitis Assessment & Plan: Stable, continue famotidine 40 mg twice a day 6. Age-related osteoporosis with current pathological fracture with delayed healing Assessment & Plan: Stable, continue on calcium 1200 mg with vitamin D daily 7. Acquired hypothyroidism Assessment & Plan: Controlled, continue levothyroxine 75 mcg daily Orders: - TSH 8. Vitamin D deficiency Assessment & Plan: Controlled, continue calcium and vitamin D and vitamin D 400 units daily Orders: - Vitamin D Deficiency Screening (Vit D 25) 9. Hyperlipidemia LDL goal <100 Assessment & Plan: Stable, continue red yeast rice extract and strict low-fat low-cholesterol diet. Orders: - Lipid panel 10. Anxiety Assessment & Plan: Stable, continue lorazepam 0.5 mg twice a day as needed 11. B12 deficiency Assessment & Plan: Stable, will get repeat lab work today Orders: - Vitamin B12 12. Atypical chest pain Assessment & Plan: Normal EKG, continue red yeast rice extract for cholesterol Orders: - ECG 12 lead 13. Screening for diabetes mellitus - Comprehensive metabolic panel 14. Screening for deficiency anemia - CBC Follow up in about 6 months (around 07/05/2025). SUBJECTIVE/OBJECTIVE: HPI -Lashell comes in today for her annual exam, she needs fasting blood work and blood work for some deficiencies like B12 and vitamin D. Her only complaint is similar to what previous complaints where she gets some left-sided upper abdominal chest pain that radiates into her back she says sometimes it is into her jaw on her shoulder she been worked up for GI and her medical record administrator thinks it may be related to her hiatal hernia which would make sense however for completeness sake we will do an EKG. She does have a history of hyperlipidemia and is not on a statin due to statin intolerance. Review of Systems Constitutional: Negative for chills and fever. Respiratory: Negative for shortness of breath. Cardiovascular: Positive for chest pain. Negative for palpitations. Gastrointestinal: Positive for abdominal pain. Negative for blood in stool, constipation and diarrhea. Genitourinary: Negative for dyspareunia, dysuria, frequency, hematuria and urgency. Neurological: Negative for weakness and numbness. Psychiatric/Behavioral: Negative for dysphoric mood. The patient is not nervous/anxious. Vitals: 01/02/25 0757 BP: 127/83 BP Location: Left arm Patient Position: Sitting Pulse: 73 SpO2: 98% Weight: 150 lb 12.8 oz (68.4 kg) Height: 5' 2" (1.575 m) Physical Exam Vitals and nursing note reviewed. Constitutional: General: She is not in acute distress. Appearance: Normal appearance. HENT: Head: Normocephalic. Right Ear: Tympanic membrane, ear canal and external ear normal. Left Ear: Tympanic membrane, ear canal and external ear normal. Mouth/Throat: Mouth: Mucous membranes are moist. Pharynx: Oropharynx is clear. Eyes: Extraocular Movements: Extraocular movements intact. Pupils: Pupils are equal, round, and reactive to light. Neck: Thyroid: No thyromegaly. Vascular: No carotid bruit. Cardiovascular: Rate and Rhythm: Normal rate and regular rhythm. Heart sounds: Normal heart sounds. No murmur heard. Pulmonary: Effort: Pulmonary effort is normal. Breath sounds: Normal breath sounds. Abdominal: General: Bowel sounds are normal. Palpations: Abdomen is soft. Musculoskeletal: General: Normal range of motion. Cervical back: Normal range of motion. Lymphadenopathy: Cervical: No cervical adenopathy. Skin: General: Skin is warm and dry. Neurological: General: No focal deficit present. Mental Status: She is alert and oriented to person, place, and time. Psychiatric: Mood and Affect: Mood normal. An electronic signature was used to authenticate this note. Vicente Arriaza MD 01/02/2025 8:35 AM [facility] Progress Note Patient verified by last name and . [facility] 36on 12-05-2024 36 Rx sent, OARRS repor t done, no inconsistencies, CS agreement in place [facility] 36 CSMA 06/27/24 [facility] 36 Medication name: modafinil (Provigil) 100 MG tablet Medication dosage: 100 mg (Miligrams Monthly quantity needed: 30 How many day supply requestin days Medication route: oral (PO) Medication administration time(s): daily If taking medication PRN, reason for taking medication: N/A If this is a controlled substance do you receive this or any other controlled medication from any other doctor or facility: N/A Ordering provider: Luiz Bermudez Date of last office visit: 07/25/24 Date of next office visit: 01/02/25 Date of last refill: (see medication tab): 11/06/24 Updated/Validated preferred pharmacy: Yes Patient instructed to contact the pharmacy prior to picking up the medication: Yes [place] [id number] 36 Medication name: los ligia (Cozaar) 25 MG tablet Medication dosage: 25 mg (Miligrams Monthly quantity needed: 90 How many day supply requestin year Medication route: oral (PO) Medication administration time(s): daily If taking medication PRN, reason for taking medication: N/A If this is a controlled substance do you receive this or any other controlled medication from any other doctor or facility: No Ordering provider: Dr. Arriaza Date of last office visit: 07.25.2024 Date of next office visit: 01.02.2025 Date of last refill: (see medication tab): 08.15.2024 Updated/Validated preferred pharmacy: Yes Patient instructed to contact the pharmacy prior to picking up the medication: Yes [place] [address]on 11-06-2024 36 Rx sent. OARRS repor t reviewed with no discrepancies. CSA signed June 2024. Follow up as scheduled. [facility] 36 Csa 06/27/24 [facility] 36 Medication name: modafinil (Provigil) 100 MG tablet Medication dosage: 100 mg (Miligrams Monthly quantity needed: 30 How many day supply requestin days Medication route: oral (PO) Medication administration time(s): daily If taking medication PRN, reason for taking medication: N/A If this is a controlled substance do you receive this or any other controlled medication from any other doctor or facility: No Ordering provider: Aidan Date of last office visit: 07/25/24 Date of next office visit: 01/02/25 Date of last refill: (see medication tab): 10/06/24 Updated/Validated preferred pharmacy: Yes Patient instructed to contact the pharmacy prior to picking up the medication: Yes [facility] 3610-10-2024 36 Rx sent [place] [address] Prescription Request : Levothyroxine Sodium 75 MCG Oral Tablet Last medication check: 07/25/24 Hypertension Last physical exam: 12/28/23 Next scheduled appointment: 01/02/25 Last date of refill on this medication 05/03/24 ( qty 90 refill 1) [facility] 36on 10-06-2024 36 Rx sent. OARRS repor t reviewed with no discrepancies. CSA signed 06/27/24. Follow up as scheduled. [place] [address] Medication name: modafinil (Provigil) Medication dosage: 100 MG tablet Monthly quantity needed: 30 How many day supply requestin days Medication route: oral (PO) Medication administration time(s): daily If taking medication PRN, reason for taking medication: N/A If this is a controlled substance do you receive this or any other controlled medication from any other doctor or facility: No Ordering provider: Dr Arriaza Date of last office visit: 07/25/2024 Date of next office visit: 01/02/2025 Date of last refill: (see medication tab): 09/06/24 Updated/Validated preferred pharmacy: Yes Patient instructed to contact the pharmacy prior to picking up the medication: Yes [facility] 37on 09-22-2024 37 Pick 2-4 of these exercises and begin doing them daily. The next day, pick a different 2-4 exercises, so at the end of the week you have completed most of them on the list. The second to last exercise, the single leg squat, also known as a pistol, is the most difficult one on the list a few never get to this exercise that's okay. All of these exercises can also be modified to decrease the difficulty level. It's okay to start off easy and gradually make them more difficult as her core strength increases. Normal [facility] No Panel Informationon 09-22 Mild joint space narrowing bilaterally. Partially visualized bilateral femoral surgical hardware. Report Dictated on Electronically Signed By: Kaylynn Bonner MD Electronically Signed Date/Time: 09/22/2024 4:46 PM EDT [facility] Patient Name: LASHELL STACY : 1960 Exam Date/Time: 09/22/2024 08:30 Procedure: XR KNEES ANTEROPOSTERIOR STANDING BILATERAL Ordering Provider: NEWTON ROBERT Reason For Exam: KNEE PAIN; AP weightbearing and PA flex weightbearing LEFT KNEE, 2 VIEWS BILATERAL KNEES WITH WEIGHTBEARING, AP and PA flexion views History: Left knee pain, swelling, prior meniscal surgery Technique: Lateral and skyline patellar views of the left knee and additional AP and PA flexion weight-bearing views of both knees are provided. Findings: The left knee shows mild medial compartment and lateral patellofemoral joint space narrowing. There is also small superior patellar marginal spur without acute fracture, dislocation, or periosteal reaction. Evaluation of the right knee without other routine views is limited but the right medial compartment also appears mildly narrowed. There is partial visualization of surgical enmanuel and screws along the distal right and left femoral shafts. [facility] Kaylynn Bonner MD - 09/22/2024 Patient Name: LASHELL STACY : 1960 Exam Date/Time: 09/22/2024 08:30 Procedure: XR KNEES ANTEROPOSTERIOR STANDING BILATERAL Ordering Provider: NEWTON ROBERT Reason For Exam: KNEE PAIN; AP weightbearing and PA flex weightbearing LEFT KNEE, 2 VIEWS BILATERAL KNEES WITH WEIGHTBEARING, AP and PA flexion views History: Left knee pain, swelling, prior meniscal surgery Technique: Lateral and skyline patellar views of the left knee and additional AP and PA flexion weight-bearing views of both knees are provided. Findings: The left knee shows mild medial compartment and lateral patellofemoral joint space narrowing. There is also small superior patellar marginal spur without acute fracture, dislocation, or periosteal reaction. Evaluation of the right knee without other routine views is limited but the right medial compartment also appears mildly narrowed. There is partial visualization of surgical enmanuel and screws along the distal right and left femoral shafts. IMPRESSION: Mild joint space narrowing bilaterally. Partially visualized bilateral femoral surgical hardware. Report Dictated on Electronically Signed By: Kaylynn Bonner MD Electronically Signed Date/Time: 09/22/2024 4:46 PM EDT [facility] Radiology Study observation (narrative) [facility] No Panel InformationOrdered By: Kaylynn Bonner on 09-22-2024 [facility] Work Phone: Office Visiton 09-22-2024 Follow-up visit [id number] Linnea Stacy 1960 F Date Provider Department Center 09/22/2024 [id number] [facility] None Family History Problem Relation Age of Onset Stroke Mother Parkinsonism Mother Stroke Father Heart disease Father Diabetes Father High Blood Pressure Father Breast cancer Mother's Sister Diabetes Mother's Sister Cancer Maternal Grandfather Comments: lymphoma Heart disease Brother Diabetes Paternal Grandmother Family Status - Relation Status Age at Mother Alive Father Mother's Sister Alive Maternal Grandfather Brother Paternal Grandmother Other Alive Notes: drug use Level of Service:32102 MA OFFICE/OUTPATIENT NEW LOW MDM 30 MINUTES Reason for Visit and Comments: New Patient [542] Knee Pain [202142] - Left Normal [facility] Progress Noteon 09-22-2024 Progress Note [facility] [address] [place] [address] [place] [address] Dept: [phone] Dept Chief Complaint Patient presents with New Patient Knee Pain Left Subjective History of Present Illness: Lashell Stacy is a 64 y.o. female who presents today for evaluation of left knee pain. Location: medial and lateral Onset: 6 years, chronic Injury: no Quality: aching, throbbing, tight/stiff, and sharp Mechanical symptoms: popping, crepitus and grinding Radiation of symptoms: yes - down the side of her left leg Severity: 2/10 at rest and 10/10 at worst Exacerbating factor(s): walking and bending her knee Relieving factor(s): brace, CBD oil Timing: all day Patient has received most of her knee care in [place]. She has received multiple corticosteroid injections. She received a series of 3 hyaluronic acid injections in April and May, 4 months ago. Unfortunately none of these have provided her any relief. Imaging to date: X-ray September 2024 Treatment to date: PT/OT/HEP: yes Ice: yes, not helpful Heat: yes, not helpful Medications: Tylenol: no NSAIDs: no Oral steroids: no Muscle relaxants: no Nerve medications: no Targeted injections: has had cortisone and gel injections in her knee. 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 Respiratory: Breathing comfortably on room air. No respiratory distress. Skin: Warm, dry, intact. No visible rashes or erythema overlying area of focused exam. Physical Exam Musculoskeletal: Right knee: No swelling, deformity, effusion, erythema, ecchymosis or bony tenderness. Normal range of motion. Tenderness present over the medial joint line and lateral joint line. No MCL or LCL tenderness. No LCL laxity, MCL laxity, ACL laxity or PCL laxity. Normal patellar mobility. Instability Tests: Anterior drawer test negative. Posterior drawer test negative. Medial Magdiel test negative and lateral Magdiel test negative. External Notes No pertinent interval updates Labs No results found for: HGBA1C Lab Results Component Value Date CREATININE 0.82 12/28/2023 Imaging I have personally reviewed the images pertinent to the appointment today EMG/NCT No interval studies Procedure No procedures completed today Assessment Diagnosis Plan 1. Acute pain of left knee XR knees anteroposterior standing bilateral XR knee 1 or 2 views left Plan We discussed osteoarthritis of the knee. We reviewed the spectrum of 1. Pills - everything from Tylenol, ibuprofen, Aleve, and pain medicines. We also discussed glucosamine/chondroitin combinations and how to perform a glucosamine trial. Additionally Tumeric can be supplemented, it is likely similar to ibuprofen and is generally safe for most people to take. Glucosamine Trial: As a treatment for arthritis, we discussed a trial of glucosamine, [id number]. We talked about using a good quality glucosamine source as the testing agent. Cosamin DS or Osteo-Bio Flex would be two of the options to pick from. Write down, using as many numbers as possible, a description of when the arthritis is symptomatic ( i.e. I can go up 1 flight of stairs before my knee hurts, I can sleep 4 hours before my knee wakes me, my knee begins to hurt me at 2 p.m. on a work day ). This documentation will be kept for comparison in 3-4 months. Take the glucosamine twice daily for 3-4 months. Comparing your symptoms sheet, and see if there is improvement. Glucosamine will work in approximately 60-65% of people. If it is helping continue the supplementation. If there is no improvement you can stop the glucosamine. 2. Physical therapy - formal physical therapy and braces. The benefits of strengthening, endurance, flexibility, balancing, and proprioception. The combination of all of these to decrease joint pain. 3. Shots - corticosteroid, hyaluronic acid, and investigational injections. We discussed the episodic nature, and Band-Aid nature of cortisone. No more frequent than every 3-4 months, the potential for cortisone to soften articular cartilage with repetitive use. And the use as a bridge agent. We also discussed hyaluronic acid injection series and the potential benefits of lubrication, nourishing the cartilage, re-booting the knee capsule and the potential for 1 year of improvement. 4. Surgery - cleanup procedures as well as total joint replacement. We discussed the need to progress through conservative measures before this is a viable option. All treatment options were discussed. All questions were answered. We will continue with prn oral medication, a glucosamine trial and a HEP. We will re (more content not included)... Normal [facility] XR FEMUR 2+ VW RIGHTon 09-22 XR FEMUR 2+ VW RIGHT Prior cephalomedull bella nail hardware in place and in appropriate alignment. There are no real logic signs of loosening. There is a persistent fracture noted on the anterior lateral aspect of the right midshaft of the femur with mild callus formation surrounding the fracture. There are no other fractures noted. Normal [facility] XR Femur - right 2 Viewson 0 09-22-2024 Prior cephalomedulla ry nail hardware in place and in appropriate alignment. There are no real logic signs of loosening. There is a persistent fracture noted on the anterior lateral aspect of the right midshaft of the femur with mild callus formation surrounding the fracture. There are no other fractures noted. [employer] XR Femur - right 2 ViewsOrde red By: Tiffanie Garcia on 09-22-2024 [employer] Work Phone: XR Knee - left 1 or 2 Viewso n 09-22-2024 Patient Name: LASHELL STACY : 1960 Exam Date/Time: 09/22/2024 08:30 Procedure: XR KNEE 1-2 VIEWS LEFT Ordering Provider: NEWTON ROBERT Reason For Exam: KNEE PAIN; lateral and sunrise LEFT KNEE, 2 VIEWS BILATERAL KNEES WITH WEIGHTBEARING, AP and PA flexion views History: Left knee pain, swelling, prior meniscal surgery Technique: Lateral and skyline patellar views of the left knee and additional AP and PA flexion weight-bearing views of both knees are provided. Findings: The left knee shows mild medial compartment and lateral patellofemoral joint space narrowing. There is also small superior patellar marginal spur without acute fracture, dislocation, or periosteal reaction. Evaluation of the right knee without other routine views is limited but the right medial compartment also appears mildly narrowed. There is partial visualization of surgical enmanuel and screws along the distal right and left femoral shafts. [facility] EM[facility] RADIOLOGY SYSTEM Kaylynn Bonner MD - 09/22/2024 Patient Name: LASHELL STACY : 1960 Exam Date/Time: 09/22/2024 08:30 Procedure: XR KNEE 1-2 VIEWS LEFT Ordering Provider: NEWTON ROBERT Reason For Exam: KNEE PAIN; lateral and sunrise LEFT KNEE, 2 VIEWS BILATERAL KNEES WITH WEIGHTBEARING, AP and PA flexion views History: Left knee pain, swelling, prior meniscal surgery Technique: Lateral and skyline patellar views of the left knee and additional AP and PA flexion weight-bearing views of both knees are provided. Findings: The left knee shows mild medial compartment and lateral patellofemoral joint space narrowing. There is also small superior patellar marginal spur without acute fracture, dislocation, or periosteal reaction. Evaluation of the right knee without other routine views is limited but the right medial compartment also appears mildly narrowed. There is partial visualization of surgical enmanuel and screws along the distal right and left femoral shafts. IMPRESSION: Mild joint space narrowing bilaterally. Partially visualized bilateral femoral surgical hardware. Report Dictated on Electronically Signed By: Kaylynn Bonner MD Electronically Signed Date/Time: 09/22/2024 4:46 PM EDT [facility] Office Visiton 09-19-2024 Follow-up visit [id number] Linnea Stacy 1960 F Date Provider Department Center 09/19/2024 DANN [facility] None Family History Problem Relation Age of Onset Stroke Mother Parkinsonism Mother Stroke Father Heart disease Father Diabetes Father High Blood Pressure Father Breast cancer Mother's Sister Diabetes Mother's Sister Cancer Maternal Grandfather Comments: lymphoma Heart disease Brother Diabetes Paternal Grandmother Family Status - Relation Status Age at Mother Alive Father Mother's Sister Alive Maternal Grandfather Brother Paternal Grandmother Other Alive Notes: drug use Level of Service:17819 [place] OFFICE/OUTPATIENT NEW LOW MDM 30 MINUTES Reason for Visit and Comments: New Patient [542] - Last seen 2020 right thigh pain. IMN nail 2020 for stress fx Increase pain to right thigh XRAY Normal [facility] Progress Noteon 09-19-2024 Progress Note [facility] [place] [address] [facility] [address] [place] [id number] Dept: [phone] Dept Chief Complaint Patient presents with New Patient Last seen 2020 right thigh pain. IMN nail 2020 for stress fx Increase pain to right thigh XRAY SUBJECTIVE HPI Patient is a 64-year-old female who is known to me for bilateral femur stress fractures requiring IMNs. She states she has been doing well since 2020 until approximately 2 weeks ago. She states she was standing from her couch when she felt immediate pain to the right thigh. Since this time she has been ambulating with a crutch secondary to pain. She reports that the pain is in her right thigh and radiates from the lateral aspect of her right hip distally and anteriorly. She reports the pain is similar to her index presentation when she had a stress fracture. She denies trauma to the right lower extremity. She denies recent infections or fevers and chills. Her vitamin D levels have been monitored by her primary care physician. She states that she also has chronic left knee pain and would like to speak with someone about a left total knee arthroplasty. 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 07/10/2016 Chronic midline low back pain with bilateral sciatica 02/04/2016 Narcolepsy 08/02/2015 Hypothyroidism 04/16/2015 Anxiety 04/16/2015 GERD (gastroesophageal reflux disease) 04/16/2015 Allergies Allergen Reactions Bee Venom Swelling Localized swelling Honey Bee Venom Meloxicam Simvastatin Other reaction(s): Other (See Comments) Muscle pain Family History Problem Relation Name Age of Onset Stroke Mother Ana Parkinsonism Mother Ana Stroke Father Dustin Heart disease Father Dustin Diabetes Father Dustin High Blood Pressure Father Dustin Breast cancer Mother's Sister Sol Diabetes Mother's Sister Sol Cancer Maternal Grandfather Donavan lymphoma Heart disease Brother Ed Diabetes Paternal Grandmother Past Medical History: Diagnosis Date Anxiety Anxiety DDD (degenerative disc disease) entire spine GERD (gastroesophageal reflux disease) Hiatal hernia Hx of barium enema Hyperlipidemia Hypothyroidism Narcolepsy Shingles 2014 Stress fracture RIGHT FEMUR Stress fracture of femur bilateral Social History Socioeconomic History Marital status: Spouse name: Not on file Number of children: Not on file Years of education: Not on file Highest education level: Not on file Occupational History Not on file Tobacco Use Smoking status: Never Smokeless tobacco: Never Vaping Use Vaping status: Never Used Substance and Sexual Activity Alcohol use: No Drug use: No Sexual activity: Not Currently Partners: Male Other Topics Concern Not on file Social History Narrative Not on file Social Drivers of Health Financial Resource Strain: Low Risk (06/25/2024) Overall Financial Resource Strain (CARDIA) Difficulty of Paying Living Expenses: Not very hard Food Insecurity: No Food Insecurity (06/25/2024) Hunger Vital Sign Worried About Running Out of Food in the Last Year: Never true Ran Out of Food in the Last Year: Never true Transportation Needs: No Transportation Needs (06/25/2024) PRAPARE - Transportation Lack of Transportation (Medical): No Lack of Transportation (Non-Medical): No Physical Activity: Inactive (06/25/2024) Exercise Vital Sign Days of Exercise per Week: 0 days Minutes of Exercise per Session: 0 min Stress: No Stress Concern Present (06/25/2024) [employer] - Occupational Stress Questionnaire Feeling of Stress : Not at all Social Connections: Moderately Integrated (06/25/2024) Social Connection and Isolation Panel [NHANES] Frequency of Communication with Friends and Family: More than three times a week Frequency of Social Gatherings with Friends and Family: Twice a week Attends [employer] Services: More than 4 times per year Active Member of Clubs or Organizations: Yes Attends Club or Organization Meetings: More than 4 times per year Marital Status: Intimate Partner Violence: Not At Risk (06/27/2024) Humiliation, Afraid, Rape, and Kick questionnaire Fear of Current or Ex-Partner: No Emotionally Abused: No Physically Abused: No Sexually Abused: No Housing Stability: Not on file Past Surgical History: Procedure Laterality Date BACK SURGERY 08/08/2015 CARPAL TUNNEL RELEASE Right COLONOSCOPY 02/08/2018 COLONOSCOPY (more content not included)... Normal [facility] XR Femur - right 2 Viewson 0 09-19-2024 Radiology Study observation (narrative) [facility] 36on 09-11-2024 36 Name of caller: Rocío nicholson Contact phone number: [phone] Relationship to Patient: patient Provider: Practice: Ortho Chief Complaint/Reason for Call: Patient states she had surgery done with [facility] a few years ago and states her right leg feels the way it did before she had surgery done and would like to know if she can get scheduled to have it checked out. Please advise Best time of day caller can be reached: Any Patient advised that office/PCP has 24-48 business hours to return their call: Yes [place] [address]on 09-06-2024 36 Rx sent, OARRS repor t done, no inconsistencies, CS agreement in place [place] [address] Csa 06/27/24 [place] [address] Medication name: modafinil (Provigil) 100 MG tablet Medication dosage: 100 mg tablet Monthly quantity needed: 30 How many day supply requestin days Medication route: oral (PO) Medication administration time(s): daily If taking medication PRN, reason for taking medication: N/A If this is a controlled substance do you receive this or any other controlled medication from any other doctor or facility: No Ordering provider: Vicente Arriaza Date of last office visit: 07/25/24 Date of next office visit: 01/02/25 Date of last refill: (see medication tab): 08/07/24 Updated/Validated preferred pharmacy: Yes Patient instructed to contact the pharmacy prior to picking up the medication: Yes [address] 08-15-2024 36 Notified, no further questions. [place] [address] Rx sent, OARRS repor t done, no inconsistencies, CS agreement in place [place] [address] Rx sent [place] [address] RX pended [place] [address] Since patient has be en taking 25 mg. Are you okay with her staying at this dose? If so, can we please send in an updated refill for her? [place] [address] Patient stopped in o ffice requesting a refill of Ativan to [facility] in [place]. Prescription Request: Last medication check: 07-25-24 Last physical exam: 12-28-23 Next scheduled appointment: 01-02-25 CSA on file (date): 06-27-24 Last urine drug screen: 06-29-23 Last date of refill on this medication 11-18-23 [place] [address] Lashell came in today for a blood pressure check and her reading was 137/81 pulse 71. Please advise, thank you! Patient also brought home blood pressure readings. Placed on Dr. Guzman desk. Supervising provider for clinic visit Dr. Arriaza is taking Losartan 25mg(has been taking half a dose as she was unsure about taking 50 mg for hypertension with excellent compliance and no side effects Shortness of breath no Medication compliance yes Medication Reconciliation yes BP Medication taken prior to visit yes at what time 7:30am B/P Reading taken automatic Home Monitoring yes Patient advised if follow up is needed, outreach will occur in 48 hours [facility] Progress Noteon 08-15-2024 Progress Note [address] [facility] [id number] Patient arrived for nurse visit today and was verified by name and . Supervising provider for clinic visit Dr. Arriaza is taking Losartan 25mg(has been taking half a dose as she was unsure about taking 50 mg for hypertension with excellent compliance and no side effects Shortness of breath no Medication compliance yes Medication Reconciliation yes BP Medication taken prior to visit yes at what time 7:30am B/P Reading taken automatic Home Monitoring yes Patient advised if follow up is needed, outreach will occur in 48 hours [facility] 36on 08-07-2024 36 Reviewed chart. Refi ll appropriate. RX sent. [facility] 36 CSMA 06/27/24 [facility] 36 Medication name: modafinil (Provigil) 100 MG tablet Medication dosage: 100 mg tablet Monthly quantity needed: 30 How many day supply requestin days Medication route: oral (PO) Medication administration time(s): daily If taking medication PRN, reason for taking medication: N/A If this is a controlled substance do you receive this or any other controlled medication from any other doctor or facility: No Ordering provider: Isidro Arriaza Date of last office visit: 07/25/24 Date of next office visit: 01/02/25 Date of last refill: (see medication tab): 07/12/24 Updated/Validated preferred pharmacy: Yes Patient instructed to contact the pharmacy prior to picking up the medication: Yes [facility] Office Visiton 07-25-2024 Follow-up visit [id number] Linnea Stacy 1960 F Date Provider Department Center 07/25/2024 [id number] ARRIAZA [facility] Family History Problem Relation Age of Onset Stroke Mother Parkinsonism Mother Stroke Father Heart disease Father Diabetes Father High Blood Pressure Father Breast cancer Mother's Sister Diabetes Mother's Sister Cancer Maternal Grandfather Comments: lymphoma Heart disease Brother Diabetes Paternal Grandmother Family Status - Relation Status Age at Mother Alive Father Mother's Sister Alive Maternal Grandfather Brother Paternal Grandmother Other Alive Notes: drug use Level of Service:52380 [place] OFFICE/OUTPATIENT ESTABLISHED LOW MDM 20 MIN Reason for Visit and Comments: Hypertension [901194] - Mild, slight dizziness and headaches, states her neck is pulsing very hard, onset Wednesday, brought home BP readings Normal [facility] Progress Noteon 07-25-2024 Progress Note Blood pressure is initially elevated, recheck was in proved but still high we will start her on losartan 50 mg daily and follow-up in 1 week for blood pressure check Normal [facility] Progress Note Patient was verified by last name and . Normal [facility] Progress Note 07/25/2024 Lashell Stacy (: 1960) is a 64 y.o. female , Established patient, here for evaluation of the following chief complaint(s): Hypertension (Mild, slight dizziness and headaches, states her neck is pulsing very hard, onset Wednesday, brought home BP readings) ASSESSMENT/PLAN: 1. Essential hypertension Assessment & Plan: Blood pressure is initially elevated, recheck was in proved but still high we will start her on losartan 50 mg daily and follow-up in 1 week for blood pressure check Follow up if symptoms worsen or fail to improve. SUBJECTIVE/OBJECTIVE: ELSA Cyr comes in today for follow-up on her blood pressure that she noticed her neck with pulsating took her blood pressure when she got home and was little elevated. She checked it this morning at home and it was okay today when she was here it is significantly elevated. Over the last few times she has been here it has been elevated Review of Systems Constitutional: Negative for chills and fever. Respiratory: Negative for shortness of breath. Cardiovascular: Negative for chest pain and palpitations. Vitals: 07/25/24 1147 07/25/24 1204 BP: (!) 182/96 (!) 160/93 Pulse: 79 SpO2: 98% Weight: 149 lb (67.6 kg) Height: 5' 2" (1.575 m) Physical Exam Vitals and nursing note reviewed. Constitutional: General: She is not in acute distress. Appearance: Normal appearance. HENT: Head: Normocephalic and atraumatic. Mouth/Throat: Mouth: Mucous membranes are moist. Pharynx: Oropharynx is clear. Eyes: Extraocular Movements: Extraocular movements intact. Pupils: Pupils are equal, round, and reactive to light. Neck: Thyroid: No thyromegaly. Vascular: No carotid bruit. Cardiovascular: Rate and Rhythm: Normal rate and regular rhythm. Heart sounds: Normal heart sounds. No murmur heard. Pulmonary: Effort: Pulmonary effort is normal. Breath sounds: Normal breath sounds. Musculoskeletal: Cervical back: Neck supple. Lymphadenopathy: Cervical: No cervical adenopathy. Neurological: Mental Status: She is alert. An electronic signature was used to authenticate this note. Vicente Arriaza MD 07/25/2024 12:08 PM Normal [facility] 36on 07-24-2024 36 Noted. Follow up candace orrow as scheduled. Normal [facility] 36 S: Patient called [facility] with complaints of asymptomatic hypertension. B: Patient and office have been in communication regarding the possibility of prescribing an antihypertensive. In office for BP check on , was 173/ A: Patient reports high readings over the weekend, around 150-160 diastolic. Last BP reading was 155/86. Patient prescribed Ativan, took one at work yesterday in response to high BP reading. Aside from intermittent mild headache which is not presently occurring, patient denies symptoms. Denies numbness, tingling, vision changes, chest pain, difficulty breathing, or weakness. R: Patient provided with an appointment tomorrow at [address] Arriaza. Home care advice reviewed with patient per protocol, and asked to continue monitoring her BP. Patient instructed to call back with new or worsening symptoms. Patient verbalizes understanding. Reason for Disposition Systolic BP >= 160 OR Diastolic >= 100 Answer Assessment - Initial Assessment Questions 1. BLOOD PRESSURE: "What is your blood pressure?" Did you take at least two measurements 5 minutes apart?" 155/86 2. ONSET: "When did you take your blood pressure?" Just under two hours ago. 3. HOW: "How did you take your blood pressure?" (e.g., automatic home BP monitor, visiting nurse) Automated cuff. 4. HISTORY: "Do you have a history of high blood pressure?" Recent. 5. MEDICINES: "Are you taking any medicines for blood pressure?" "Have you missed any doses recently?" Not on any medications. 6. OTHER SYMPTOMS: "Do you have any symptoms?" (e.g., blurred vision, chest pain, difficulty breathing, headache, weakness) Intermittent, light headache. 7. : "Is there any chance you are ?" "When was your last menstrual period?" / Protocols used: Blood Pressure - [id number] [address] 07-12-2024 36 Rx sent. OARRS repor t reviewed with no discrepancies. CSA signed 06/27/24. Follow up as scheduled. [address] 07-07-2024 36 Not due for refill u il next week. Will refill on Wednesday07/12/24. [facility] 36 CSA 06/27/24 UDS 06/29/23 [facility] 36 Medication name: modafinil (Provigil) 100 MG tablet Medication dosage: 100 mg (Miligrams Monthly quantity needed: 30 How many day supply requestin days Medication route: oral (PO) Medication administration time(s): daily If taking medication PRN, reason for taking medication: N/A If this is a controlled substance do you receive this or any other controlled medication from any other doctor or facility: N/A Ordering provider: Aidan Date of last office visit: 07/04/24 Date of next office visit: 01/02/25 Date of last refill: (see medication tab): 06/12/24 Updated/Validated preferred pharmacy: Yes Patient instructed to contact the pharmacy prior to picking up the medication: Yes Motility Count #30 - [place], [place] - [address] 07-04-2024 36 That's fine. Thank you. [facility] 36 pt is buying a new b p machine and will check bp again for a week and bring numbers with her next week she is hesitant on starting the losartan [facility] 36 Blood pressure too h igh. Recommend starting losartan 25 mg daily and rechecking bp in 1 week. [facility] 36 Pt came in for bp ch travis Sat pt for 10 min Bp 173/95 p 70 Sat pt for another 10min Bp 157/94 p 67 Pt does not take any medication for bp Pt also brought in readings from home and they are on your desk Pt brought in bp cuff from home to compare and it did read lower than what we have [facility] Progress Noteon 07-04-2024 Progress Note [address] [facility] [address] Lashell Stacy Patient arrived for nurse visit today. Two patient identifiers used to confirm correct patient yes Supervising provider for clinic visit Denisse Guidry CNP is currently not taking any anti- hypertensive medications regular Shortness of breath na Medication compliance na Medication Reconciliation yes BP Medication taken prior to visit na at what time na B/P Reading taken automatic Home Monitoring yes Patient advised if follow up is needed, outreach will occur in 48 hours [facility] 06-30-2024 36 Spoke to patient, declines Zetia at this time. [facility] 06-29-2024 36 ----- Message from Vicente Arriaza MD sent at 06/28/2024 11:54 AM EST ----- Cholesterol total and bad have both continued to increase, recommend a nonstatin Zetia 10 mg strict low-fat low-cholesterol low-carb diet and recheck in 4 weeks. Thyroid level is normal. Left a message to return call. Directions for CAC in the event patient calls back: If the patient is agreeable to the recommendation, please: 1. Verify what pharmacy RX will be sent to. 2. Schedule patient for nurse visit to repeat labs in 4 weeks. 3. Route this TE back to the office clinical pool so we can place lab orders and send in rx. If the patient is not agreeable then no nurse visit is needed. Thanks! [facility] 06-28-2024 36 ----- Message from Vicente Arriaza MD sent at 06/28/2024 11:54 AM EST ----- Cholesterol total and bad have both continued to increase, recommend a nonstatin Zetia 10 mg strict low-fat low-cholesterol low-carb diet and recheck in 4 weeks. Thyroid level is normal. Left a message to return call. Directions for CAC in the event patient calls back: If the patient is agreeable to the recommendation, please: 1. Verify what pharmacy RX will be sent to. 2. Schedule patient for nurse visit to repeat labs in 4 weeks. 3. Route this TE back to the office clinical pool so we can place lab orders and send in rx. If the patient is not agreeable then no nurse visit is needed. Thanks! [facility] Office Visiton 06-27-2024 Follow-up visit [id number] Linnea Stacy 1960 F Date Provider Department Center 06/27/2024 [id number] ARRIAZA [facility] Family History Problem Relation Age of Onset Stroke Mother Parkinsonism Mother Stroke Father Heart disease Father Diabetes Father High Blood Pressure Father Breast cancer Mother's Sister Diabetes Mother's Sister Cancer Maternal Grandfather Comments: lymphoma Heart disease Brother Diabetes Paternal Grandmother Family Status - Relation Status Age at Mother Alive Father Mother's Sister Alive Maternal Grandfather Brother Paternal Grandmother Other Alive Notes: drug use Level of Service:78452 MA OFFICE/OUTPATIENT ESTABLISHED MOD MDM 30 MIN Reason for Visit and Comments: Narcolepsy [705] Hypertension [459353] GERD [321993] Hypothyroidism [143] Vitamin D Deficiency [413] Medication Check [1360967572] - 6 months Health Maintenance [872] - Pt refused- pcv 20, flu, and covid vaccines, dexa scan Blood Work [107567] - Pt states her tsh gets checked every 6 months and we need to recheck her cholesterol today [facility] Progress Noteon 06-27-2024 Progress Note Uncontrolled, contin ue red yeast rice extract repeat levels today. [facility] Progress Note Remission, continue Ativan 0.5 mg twice a day as needed [facility] Progress Note Controlled, continue vitamin D 40 units daily [facility] Progress Note Controlled, continue levothyroxine 75 mcg daily [facility] Progress Note Stable, continue famotidine 40 mg twice a day [facility] Progress Note Initially blood pres sure was elevated, recheck was still elevated but improved, continue strict low-sodium diet and follow-up in 1 week for blood pressure check may need to start blood pressure medication. [facility] Progress Note Stable, currently no t bothering her. [facility] Progress Note Stable, continue Pro james 100 mg daily [facility] Progress Note Patient verified by last name and date of . [facility] Progress Note 06/27/2024 Lashell Stacy (: 1960) is a 64 y.o. female , Established patient, here for evaluation of the following chief complaint(s): Narcolepsy, Hypertension, GERD, Hypothyroidism, Vitamin D Deficiency, Medication Check (6 months), Health Maintenance (Pt refused- pcv 20, flu, and covid vaccines, dexa scan), and Blood Work (Pt states her tsh gets checked every 6 months and we need to recheck her cholesterol today) ASSESSMENT/PLAN: 1. Primary narcolepsy without cataplexy Assessment & Plan: Stable, continue Provigil 100 mg daily 2. Yeny's syndrome Assessment & Plan: Stable, currently not bothering her. 3. Essential hypertension Assessment & Plan: Initially blood pressure was elevated, recheck was still elevated but improved, continue strict low-sodium diet and follow-up in 1 week for blood pressure check may need to start blood pressure medication. 4. Gastroesophageal reflux disease without esophagitis Assessment & Plan: Stable, continue famotidine 40 mg twice a day 5. Acquired hypothyroidism Assessment & Plan: Controlled, continue levothyroxine 75 mcg daily Orders: - TSH 6. Vitamin D deficiency Assessment & Plan: Controlled, continue vitamin D 40 units daily 7. Anxiety Assessment & Plan: Remission, continue Ativan 0.5 mg twice a day as needed 8. Hyperlipidemia LDL goal <100 Assessment & Plan: Uncontrolled, continue red yeast rice extract repeat levels today. Orders: - Lipid panel 9. Influenza vaccine refused Follow up in about 6 months (around 12/25/2024). SUBJECTIVE/OBJECTIVE: HPI -Lashell comes in today for 6-month follow-up on her multiple health issues which include narcolepsy, Yeny syndrome and needs both seem to be well-controlled on her current medications. Hypertension which is elevated today we will recheck her blood pressure before she leaves, GERD hypothyroidism vitamin D deficiency, anxiety and her hyperlipidemia which is not controlled. She currently has no complaints these all seem to be stable and she does not need any medications today. Will get some updated lab work. Review of Systems Constitutional: Negative for chills and fever. Respiratory: Negative for shortness of breath. Cardiovascular: Negative for chest pain and palpitations. Gastrointestinal: Negative for abdominal pain, blood in stool, constipation and diarrhea. Genitourinary: Negative for dyspareunia, dysuria, frequency, hematuria and urgency. Neurological: Negative for weakness and numbness. Psychiatric/Behavioral: Negative for dysphoric mood. The patient is not nervous/anxious. Vitals: 06/27/24 0840 06/27/24 0903 BP: (!) 175/95 (!) 154/80 Pulse: 70 67 SpO2: 98% Weight: 150 lb 6.4 oz (68.2 kg) Height: 5' 2" (1.575 m) Physical Exam Vitals and nursing note reviewed. Constitutional: General: She is not in acute distress. Appearance: Normal appearance. HENT: Head: Normocephalic. Right Ear: Tympanic membrane, ear canal and external ear normal. Left Ear: Tympanic membrane, ear canal and external ear normal. Mouth/Throat: Mouth: Mucous membranes are moist. Pharynx: Oropharynx is clear. Eyes: Extraocular Movements: Extraocular movements intact. Pupils: Pupils are equal, round, and reactive to light. Neck: Thyroid: No thyromegaly. Vascular: No carotid bruit. Cardiovascular: Rate and Rhythm: Normal rate and regular rhythm. Heart sounds: Normal heart sounds. No murmur heard. Pulmonary: Effort: Pulmonary effort is normal. Breath sounds: Normal breath sounds. Abdominal: General: Bowel sounds are normal. Palpations: Abdomen is soft. Musculoskeletal: General: Normal range of motion. Cervical back: Normal range of motion. Lymphadenopathy: Cervical: No cervical adenopathy. Skin: General: Skin is warm and dry. Neurological: General: No focal deficit present. Mental Status: She is alert and oriented to person, place, and time. Psychiatric: Mood and Affect: Mood normal. An electronic signature was used to authenticate this note. Vicente Arriaza MD 06/27/2024 10:26 AM [facility] Orthopedic Visit Reporton Orthopedic Visit Report [facility] [address] [facility] [address] [place], [place] [id number] OFFICE VISIT Date of Service: 06/26/24 MR#: [id number] Acct: [id number] Name: LASHELL STACY Rep #: [id number] : 1960 Provider: Dr. Elkin Edgar so, DO Age/Sex: 64/F Location[place] [facility] Status: Signed Intake Vital Signs 05/03/24 14:45 Height 5 ft 3 in Weight: 149 lb 8 oz BMI 26.4 Intake Visit Reasons: LEFT KNEE Chief Complaint: Left knee 3rd Euflexxa injection Is patient in pain?: Yes (left knee) Pain scale (1-10): 4 Allergies bee venom protein (honey bee) Allergy (Verified 06/26/24 15:24) Swelling Rfajzwo-UBF-XkE Reductase Inhibitor (Fkadetb-Wrr-Mdq Reductase Inhibitor) Allergy (Verified 06/26/24 15:24) Other Medications ???Medication ???Instructions ???Recorded ???Confirmed ???Type levothyroxine 75 mcg tablet 75 mcg PO DAILY 08/28/15 06/26/24 History lorazepam 0.5 mg tablet 0.5 mg PO DAILY PRN PRN Anxiety 06/26/24 History meclizine 12.5 mg tablet 12.5 mg PO DAILY PRN PRN Vertigo 0 08/28/15 06/26/24 History modafinil 100 mg tablet (Provigil) 100 mg PO DAILY 08/28/15 5 History calcium 600 mg (as carbonate)-vit 1 tab PO DAILY 12/30/21 06/26/24 History D3 20 mcg (800 unit) chewable tablet (Caltrate plus D) cholecalciferol (vitamin D3) 10 10 mcg PO DAILY 12/30/21 06/26/24 History mcg (400 unit) chewable tablet (Vitamin D3) famotidine 40 mg tablet 40 mg PO BID 12/30/21 06/26/24 His tory lactobacillus combination no.4 3 3,000 mmu cells PO DAILY 12/30/21 06/26/24 History billion cell capsule (Probiotic) vit T-cduz-Pnwor ginseng-herbal 1 tab PO DAILY 12/30/21 06/26/24 H istory complex no.62 75 mg tablet PFSH Medical History Hiatal hernia Wears partial dentures Anxiety Osteoarthritis History of IBS Heartburn Gastric reflux Non-smoker Wears glasses Wears dentures Thyroid disease Arthritis Back pain History of hiatal hernia Narcolepsy Femur fracture, right Femur fracture, left Surgical History Hx of esophagogastroduodenoscop y Hx of colonoscopy Hx of knee surgery History of surgery on lower extremity History of back surgery Hx of tubal ligation History of surgery on wrist Hx of carpal tunnel repair Social History Smoking Status: Never smoker HPI LEFT KNEE Details: This documentation accurately reflects the service provided and the decisions made by me, Dr. Elkin Zavala, DO 06/26/24 0812. Part of today???s visit was documented by Desi Brand LPN, acting as scribe. LASHELL STACY is a 64 year old F here today for 3rd Euflexxa in the left knee. Ortho Exam General General: Yes no acute distress Neurologic: Yes alert and Yes oriented x3 Psychologic: Yes reasonable and appropriate Left Knee Skin/Wound: No ecchymosis, No erythema and No swelling Homans Sign: No Knee ROM: Yes ROM-Extension -20 to 0 and Yes ROM-Flexion 0-140 (115) Examination: Yes med jt line tenderness, No Lat jt line tenderness and No TTP Pes Anserine Stability: NML: Anterior Drawer, NML: Posterior Drawer, NML: Valgus 0, NML: Valgus 30 and NML: Varus 0 KNEE: pain is mostly lateral,medial, posterior negative medial and lateral magdiel, negative drthomas Office Procedures Euflexxa Procedure Details:: Obtained consent for injection. Under sterile conditions, injected the patients left knee with 2mL Euflexxa. The patient tolerated the injection well without any noted complication. Patient should call our office if redness develops, pain worsens or if they have any concerns. Is this Buy Bill?: Yes Office Meds Euflexxa 10 mg/mL (mw 2.4-3.6 million) intra-articular syringe Performing Provider: Elkin Zavala DO Performing Location: [facility] Administered by: Elkin Zavala DO on 06/26/24 15:20 Dose Route Admin Location Dispensed Lot Number Expiration Date ABBIE Manzanares ufacturer 10 mg intra-articular left knee 2 mL [id number] 04/22/25 [address]-3 [employer] Supplemental Info 02/01/2024 MRI left knee disc iage only no report: There is degenerative signal seen in the posterior horn medial meniscus may be postsurgical considering prior meniscectomy versus tear there is also mild patellofemoral and medial compartment degenerative change. (Report came over demonstrating subchondral microfracturing of the interspinous region of the tibia. Post meniscectomy changes of the medial meniscus. Mucoid degeneration of the ACL PCL with synovitis. Patellofemoral medial compartment arthrosis intermediate grade. Patellofemoral maltracking.) 11/11/2023 x-ray left knee: There is mild degenerative changes t (more content not included)... [facility] Orthopedic Visit Reporton Orthopedic Visit Report [facility] [address] [place] [address] OFFICE VISIT Date of Service: 06/19/24 MR#: [id number] Acct: [id number] Name: LASHELL STACY Rep #: [id number] : 1960 Provider: Dr. Elkin ohara DO Age/Sex: 64/F Location[place] [facility] Status: Signed Intake Vital Signs 05/03/24 14:45 Height 5 ft 3 in Weight: 149 lb 8 oz BMI 26.4 Intake Visit Reasons: LEFT KNEE Allergies bee venom protein (honey bee) Allergy (Verified 06/19/24 15:25) Swelling Lyrdolf-BXW-HuG Reductase Inhibitor (Cbsozbj-Ahh-Gno Reductase Inhibitor) Allergy (Verified 06/19/24 15:25) Other Medications ???Medication ???Instructions ???Recorded ???Confirmed ???Type levothyroxine 75 mcg tablet 75 mcg PO DAILY 08/28/15 06/19/24 History lorazepam 0.5 mg tablet 0.5 mg PO DAILY PRN PRN Anxiety 08/28/15 06/19/24 History meclizine 12.5 mg tablet 12.5 mg PO DAILY PRN PRN Vertigo 08/28/15 06/19/24 History modafinil 100 mg tablet (Provigil) 100 mg PO DAILY 08/28/15 06/19/24 History calcium 600 mg (as carbonate)-vit 1 tab PO DAILY 12/30/21 06/19/24 History D3 20 mcg (800 unit) chewable tablet (Caltrate plus D) cholecalciferol (vitamin D3) 10 10 mcg PO DAILY 12/30/21 06/19/24 History mcg (400 unit) chewable tablet (Vitamin D3) famotidine 40 mg tablet 40 mg PO BID 12/30/21 06/19/24 History lactobacillus combination no.4 3 3,000 mmu cells PO DAILY 12/30/21 06/19/24 History billion cell capsule (Probiotic) vit S-cgjj-Bbshz ginseng-herbal 1 tab PO DAILY 12/30/21 06/19/24 History complex no.62 75 mg tablet PFSH Medical History Hiatal hernia Wears partial dentures Anxiety Osteoarthritis History of IBS Heartburn Gastric reflux Non-smoker Wears glasses Wears dentures Thyroid disease Arthritis Back pain History of hiatal hernia Narcolepsy Femur fracture, right Femur fracture, left Surgical History Hx of esophagogastroduodenoscop y Hx of colonoscopy Hx of knee surgery History of surgery on lower extremity History of back surgery Hx of tubal ligation History of surgery on wrist Hx of carpal tunnel repair Social History Smoking Status: Never smoker HPI LEFT KNEE Details: This documentation accurately reflects the service provided and the decisions made by me, Dr. Elkin Zavala, DO 06/19/24825. Part of today???s visit was documented by Elena SPANGLER, acting as scribe. LASHELL STACY is a 64 year old F here today for 2nd left knee Euflexxa injection. Ortho Exam General General: Yes no acute distress Neurologic: Yes alert and Yes oriented x3 Psychologic: Yes reasonable and appropriate Left Knee Skin/Wound: No ecchymosis, No erythema and No swelling Homans Sign: No Knee ROM: Yes ROM-Extension -20 to 0 and Yes ROM-Flexion 0-140 (115) Examination: Yes med jt line tenderness, No Lat jt line tenderness and No TTP Pes Anserine Stability: NML: Anterior Drawer, NML: Posterior Drawer, NML: Valgus 0, NML: Valgus 30 and NML: Varus 0 KNEE: pain is mostly lateral,medial, posterior negative medial and lateral magdiel, negative drwer Office Procedures Euflexxa Procedure Details:: Obtained consent for injection. Under sterile conditions, injected the patients left knee with 20mg/2mL of Euflexxa. The patient tolerated the injection well without any noted complication. Patient should call our office if redness develops, pain worsens or if they have any concerns. Is this Buy Bill?: Yes Office Meds Euflexxa 10 mg/mL (mw 2.4-3.6 million) intra-articular syringe Performing Provider: Elkin Zavala DO Performing Location: [facility] Administered by: Elkin Zavala DO on 06/19/24 15:45 Dose Route Admin Location Dispensed Lot Number Expiration Date [facility] Man ufacturer 20 mg intra-articular left knee 2 mL [id number] 04/22/25 [address]-0 [facility] Supplemental Info 02/01/2024 MRI left knee disc iage only no report: There is degenerative signal seen in the posterior horn medial meniscus may be postsurgical considering prior meniscectomy versus tear there is also mild patellofemoral and medial compartment degenerative change. (Report came over demonstrating subchondral microfracturing of the interspinous region of the tibia. Post meniscectomy changes of the medial meniscus. Mucoid degeneration of the ACL PCL with synovitis. Patellofemoral medial compartment arthrosis intermediate grade. Patellofemoral maltracking.) 11/11/2023 x-ray left knee: There is mild degenerative changes there is mild narrowing of the medial compartment mild spurring of the lateral compartment on the notch view. Of note there is a (more content not included)... Normal [facility] 36on 06-12-2024 36 Added appt note. [place] [id number] Rx sent. OARRS repor t reviewed with no discrepancies. CSA will need signed at upcoming visit. [facility] 36 CSA and UDS 06/29/23 [place] [address] Medication name: modafinil (Provigil) 100 MG tablet Medication dosage: 100 mg (Miligrams Monthly quantity needed: 30 How many day supply requestin days Medication route: oral (PO) Medication administration time(s): daily If taking medication PRN, reason for taking medication: N/A If this is a controlled substance do you receive this or any other controlled medication from any other doctor or facility: N/A Ordering provider: Dr. Arriaza Date of last office visit: 12/31/23 Date of next office visit: 06/27/24 Date of last refill: (see medication tab): 05/10/24 Updated/Validated preferred pharmacy: Yes Patient instructed to contact the pharmacy prior to picking up the medication: Yes [facility] Orthopedic Visit Reporton Orthopedic Visit Report [facility] [address] [place] [address] OFFICE VISIT Date of Service: 06/12/24 MR#: [id number] Acct: [id number] Name: LASHELL STACY Francisco Javier Rep #: [id number] : 1960 Provider: Dr. Elkin ohara DO Age/Sex: 64/F Location[place] [facility] Status: Signed Intake Vital Signs 05/03/24 14:45 Height 5 ft 3 in Weight: 149 lb 8 oz BMI 26.4 Intake Visit Reasons: LEFT KNEE Allergies bee venom protein (honey bee) Allergy (Verified 06/12/24 15:56) Swelling Adoiyoj-YLQ-KjZ Reductase Inhibitor (Elkzklu-Fot-Wry Reductase Inhibitor) Allergy (Verified 06/12/24 15:56) Other Medications ???Medication ???Instructions ???Recorded ???Confirmed ???Type levothyroxine 75 mcg tablet 75 mcg PO DAILY 08/28/15 06/12/24 History lorazepam 0.5 mg tablet 0.5 mg PO DAILY PRN PRN Anxiety 08/28/15 06/12/24 History meclizine 12.5 mg tablet 12.5 mg PO DAILY PRN PRN Vertigo 08/28/15 06/12/24 History modafinil 100 mg tablet (Provigil) 100 mg PO DAILY 08/28/15 06/12/24 History calcium 600 mg (as carbonate)-vit 1 tab PO DAILY 12/30/21 06/12/24 History D3 20 mcg (800 unit) chewable tablet (Caltrate plus D) cholecalciferol (vitamin D3) 10 10 mcg PO DAILY 12/30/21 06/12/24 History mcg (400 unit) chewable tablet (Vitamin D3) famotidine 40 mg tablet 40 mg PO BID 12/30/21 06/12/24 History lactobacillus combination no.4 3 3,000 mmu cells PO DAILY 12/30/21 06/12/24 History billion cell capsule (Probiotic) vit P-nbxv-Ewgeq ginseng-herbal 1 tab PO DAILY 12/30/21 06/12/24 History complex no.62 75 mg tablet PFSH Medical History Hiatal hernia Wears partial dentures Anxiety Osteoarthritis History of IBS Heartburn Gastric reflux Non-smoker Wears glasses Wears dentures Thyroid disease Arthritis Back pain History of hiatal hernia Narcolepsy Femur fracture, right Femur fracture, left Surgical History Hx of esophagogastroduodenoscop y Hx of colonoscopy Hx of knee surgery History of surgery on lower extremity History of back surgery Hx of tubal ligation History of surgery on wrist Hx of carpal tunnel repair Social History Smoking Status: Never smoker HPI LEFT KNEE Details: This documentation accurately reflects the service provided and the decisions made by me, Dr. Elkin Zavala, DO 06/12/24 0915. Part of today???s visit was documented by Elena SPANGLER, acting as scribe. LASHELL STACY is a 64 year old F here today for 1st left knee Euflexxa injection. Ortho Exam General General: Yes no acute distress Neurologic: Yes alert and Yes oriented x3 Psychologic: Yes reasonable and appropriate Left Knee Skin/Wound: No ecchymosis, No erythema and No swelling Homans Sign: No Knee ROM: Yes ROM-Extension -20 to 0 and Yes ROM-Flexion 0-140 (115) Examination: Yes med jt line tenderness, No Lat jt line tenderness and No TTP Pes Anserine Stability: NML: Anterior Drawer, NML: Posterior Drawer, NML: Valgus 0, NML: Valgus 30 and NML: Varus 0 KNEE: pain is mostly lateral,medial, posterior negative medial and lateral magdiel, negative drwer Office Procedures Euflexxa Procedure Details:: Obtained consent for injection. Under sterile conditions, injected the patients left knee with 20mg/2mL of Euflexxa. The patient tolerated the injection well without any noted complication. Patient should call our office if redness develops, pain worsens or if they have any concerns. Is this Buy Bill?: Yes Office Meds Euflexxa 10 mg/mL (mw 2.4-3.6 million) intra-articular syringe Performing Provider: Elkin Zavala DO Performing Location: [facility] Administered by: Elkin Zavala DO on 06/12/24 16:00 Dose Route Admin Location Dispensed Lot Number Expiration Date [facility] Man ufacturer 20 mg intra-articular left knee 2 mL [id number] 04/22/25 [address]-5 [employer] Supplemental Info 02/01/2024 MRI left knee disc iage only no report: There is degenerative signal seen in the posterior horn medial meniscus may be postsurgical considering prior meniscectomy versus tear there is also mild patellofemoral and medial compartment degenerative change. (Report came over demonstrating subchondral microfracturing of the interspinous region of the tibia. Post meniscectomy changes of the medial meniscus. Mucoid degeneration of the ACL PCL with synovitis. Patellofemoral medial compartment arthrosis intermediate grade. Patellofemoral maltracking.) 11/11/2023 x-ray left knee: There is mild degenerative changes there is mild narrowing of the medial compartment mild spurring of the lateral compartment on the notch view. Of note there is a (more content not included)... Normal [facility] 36on 05-10-2024 36 Rx sent, OARRS repor t done, no inconsistencies, CS agreement in place Normal [facility] 36 CSA 06/29/23 Normal [facility] 36 Medication name: modafinil (Provigil) 100 MG tablet Medication dosage: 100 mg (Miligrams Monthly quantity needed: 30 How many day supply requestin days Medication route: oral (PO) Medication administration time(s): daily If taking medication PRN, reason for taking medication: N/A If this is a controlled substance do you receive this or any other controlled medication from any other doctor or facility: N/A Ordering provider: Sofiya Date of last office visit: 12.28.23 Date of next office visit: 06.27.24 Date of last refill: (see medication tab): 04.11.24 Updated/Validated preferred pharmacy: Yes Patient instructed to contact the pharmacy prior to picking up the medication: No [facility] 36on 05-03-2024 36 Rx sent [place] [id number] Prescription Request : Last medication check: 06/29/23 Last physical exam: 12/28/23 Next scheduled appointment: 06/27/24 Last date of refill on this medication 11/18/23 90 day 1 refill Normal [facility] Orthopedic Visit Reporton Orthopedic Visit Report [facility] [address] [place] [address] OFFICE VISIT Date of Service: 05/03/24 MR#: [id number] Acct: [id number] Name: LASHELL STACY Rep #: [id number] : 1960 Provider: Dr. Elkin ohara DO Age/Sex: 64/F Location[place] [facility] Status: Signed Intake Vital Signs 10/26/22 11:55 05/03/24 14:45 Height 5 ft 3 in 5 ft 3 in Weight: 149 lb 8 oz BMI 26.4 Intake Visit Reasons: LEFT KNEE Accompanied by: Self Is patient in pain?: Yes Pain scale (1-10): 4 Allergies bee venom protein (honey bee) Allergy (Verified 05/03/24 14:48) Swelling Ykbpubq-KBC-GwH Reductase Inhibitor (Wbtnduy-Fnm-Ekj Reductase Inhibitor) Allergy (Verified 05/03/24 14:48) Other Medications ???Medication ???Instructions ???Recorded ???Confirmed ???Type levothyroxine 75 mcg tablet 75 mcg PO DAILY 08/28/15 05/03/24 History lorazepam 0.5 mg tablet 0.5 mg PO DAILY PRN PRN Anxiety 08/28/15 05/03/24 History meclizine 12.5 mg tablet 12.5 mg PO DAILY PRN PRN Vertigo 08/28/15 05/03/24 History modafinil 100 mg tablet (Provigil) 100 mg PO DAILY 08/28/15 05/03/24 History calcium 600 mg (as carbonate)-vit 1 tab PO DAILY 12/30/21 05/03/24 History D3 20 mcg (800 unit) chewable tablet (Caltrate plus D) cholecalciferol (vitamin D3) 10 10 mcg PO DAILY 12/30/21 05/03/24 History mcg (400 unit) chewable tablet (Vitamin D3) famotidine 40 mg tablet 40 mg PO BID 12/30/21 05/03/24 History lactobacillus combination no.4 3 3,000 mmu cells PO DAILY 12/30/21 05/03/24 History billion cell capsule (Probiotic) vit C-byru-Iujgz ginseng-herbal 1 tab PO DAILY 12/30/21 05/03/24 History complex no.62 75 mg tablet PFSH Medical History (Updated 05/03/24 @ 15:[address] Elkin Zavala DO) Hiatal hernia Wears partial dentures Anxiety Osteoarthritis History of IBS Heartburn Gastric reflux Non-smoker Wears glasses Wears dentures Thyroid disease Arthritis Back pain History of hiatal hernia Narcolepsy Femur fracture, right Femur fracture, left Surgical History Hx of esophagogastroduodenoscop y Hx of colonoscopy Hx of knee surgery History of surgery on lower extremity History of back surgery Hx of tubal ligation History of surgery on wrist Hx of carpal tunnel repair Social History Smoking Status: Never smoker HPI LEFT KNEE Details: This documentation accurately reflects the service provided and the decisions made by me, Dr. Elkin Zavala DO 05/03/2491. Part of today???s visit was documented by [ ], acting as scribe. LASHELL STACY is a 64 year old F here today NEW patient for left knee pain. Patient was previously seen by [facility] but was referred for a consult on gel injections. She has her meniscus repaired by Dr. Mera about 5 years ago but she had pain before the surgery and after. Her pain is all around the knee and sometimes radiates into her samuel. She does wear a patella stabilizing brace that she got from [facility]. She has less pain when she is wearing the brace. She has had steroid injections with [facility] and her last one was at the end of January. She does have acid reflux and was on pantoprazole and it fractured both of her femurs and had those repaired and has a enmanuel and screws. The states that the enmanuel is screwed in at her knees and her hips. She has done PT earlier this year but it didn't relieve any of her pain and made it worse. She has had 2-3 falls since the surgery and her last fall was a couple of months ago. Ortho Exam General General: Yes no acute distress Neurologic: Yes alert and Yes oriented x3 Psychologic: Yes reasonable and appropriate Left Knee Skin/Wound: No ecchymosis, No erythema and No swelling Homans Sign: No Knee ROM: Yes ROM-Extension -20 to 0 and Yes ROM-Flexion 0-140 (115) Examination: Yes med jt line tenderness, No Lat jt line tenderness and No TTP Pes Anserine Stability: NML: Anterior Drawer, NML: Posterior Drawer, NML: Valgus 0, NML: Valgus 30 and NML: Varus 0 KNEE: pain is mostly lateral,medial, posterior negative medial and lateral magdiel, negative julio Supplemental Info 02/01/2024 MRI left knee disc iage only no report: There is degenerative signal seen in the posterior horn medial meniscus may be postsurgical considering prior meniscectomy versus tear there is also mild patellofemoral and medial compartment degenerative change. (Report came over demonstrating subchondral microfracturing of the interspinous region of the tibia. Post meniscectomy changes of the medial meniscus. Mucoid degeneration of the ACL PCL with synovitis. Patellofemoral medial compartment arthrosis intermediate grade. Patellofemoral maltracking.) 11/10/ (more content not included)... Normal [facility] 36on 04-11-2024 36 Rx sent, OARRS repor t done, no inconsistencies, CS agreement in place Normal [facility] 36 06/29/23 CSA lorazepam and provigil exp 06/29/24 06/29/23 uds done [facility] 36 Medication name: modafinil (Provigil) 100 MG tablet Medication dosage: 100 mg (Miligrams Monthly quantity needed: 30 How many day supply requestin days Medication route: oral (PO) Medication administration time(s): daily If taking medication PRN, reason for taking medication: N/A If this is a controlled substance do you receive this or any other controlled medication from any other doctor or facility: No Ordering provider: Luiz Bermudez CNP Date of last office visit: 12/28/23 Date of next office visit: 06/27/24 Date of last refill: (see medication tab): 03/13/24 Updated/Validated preferred pharmacy: Yes Patient instructed to contact the pharmacy prior to picking up the medication: Yes [facility] 36on 03-13-2024 36 Rx sent. OARRS repor t reviewed with no discrepancies. CSA signed in June 2023. Follow up as scheduled. [place] [id number] 06/29/23 CSA lorazepam and provigil exp 06/29/24 06/29/23 uds done [place] [id number] Medication name: modafinil (Provigil) Medication dosage: 100 mg (Miligrams Monthly quantity needed: 30 How many day supply requestin days Medication route: oral (PO) Medication administration time(s): daily If taking medication PRN, reason for taking medication: N/A If this is a controlled substance do you receive this or any other controlled medication from any other doctor or facility: N/A Ordering provider: Sofiya Date of last office visit: 12.28.23 Date of next office visit: 06.27.24 Date of last refill: (see medication tab): 02.10.24 Updated/Validated preferred pharmacy: Yes Patient instructed to contact the pharmacy prior to picking up the medication: Yes [facility]va [facility] Paras[facility] 8623on OP OVA AND PARASITES EX AM, ROUTINE These results were obtained using wet preparation(s) and trichrome stained smear. This test does not include testing for Crytosporidium parvum, Cyclospora, or Microsporidia. O+P Spec Micro One negative specimen does not rule out the possibility of a parasitic infection. TESTING PERFORMED AT [facility]. ORIGINAL REPORT ON FILE IN LAB CONTAINS ADDITIONAL TEST SITE INFORMATION. Ova/Parasite Exam NO OVA, CYSTS, OR PARASITES FOUND. Normal [facility] Comment on above: Performed By: #### M 600.5000, M100.6796 #### [facility] [address] [place], [place], [id number] Immunoglobulin Aon 4 IMMUNOGLOB A QN 259 mg/dL Normal 87-352 [facility] Comment on above: Order Comment: N Result Comment: Perf ormed at: [address] [id number] Am[place]ia Worker: Félix Pineda PhD, Phone: [phone] Performed By: #### L 905.2552, L117.0100, L500.2500, L3200.1400 #### [facility] [address] [place], [place], [address] Miscellaneous Lab Procedureo n 02-09-2024 [facility] LAB TEST Normal [facility] Comment on above: Order Comment: [id number] TTG SER/RT Result Comment: TEST RESULTS LIMITS t-Transglutaminase (tTG) IgA <2 U/mL 0-3 Negative 0 - 3 Weak Positive 4 - 10 Positive >10 Tissue Transglutaminase (tTG) has been identified as the endomysial antigen. Studies have demonstr- ated that endomysial IgA antibodies have over 99% specificity for gluten sensitive enteropathy. TESTING PERFORMED AT [facility]. ORIGINAL REPORT ON FILE IN LAB CONTAINS ADDITIONAL TEST SITE INFORMATION. Performed By: #### L 801.1541, L100.0100, L500.2500, L3200.1400 #### [facility] [address] [place], [address] Basic Metabolic Profile (BMP )on 02-07-2024 BUN Normal 7-18 [facility] Comment on above: Result Comment: DUPL ICATE Performed By: #### L 100.0100, L500.2500 #### [facility] [address] [place], [address] BUN/CRE Normal 10-20 [facility] Comment on above: Result Comment: DUPL ICATE Performed By: #### L 100.0100, L500.2500 #### [facility] [address] [place], [address] CA,Total Normal 8.5-10.1 [facility] Comment on above: Result Comment: DUPL ICATE Performed By: #### L 100.0100, L500.2500 #### [facility] [address] [place], [address] CL Normal 98-107 [facility] Comment on above: Result Comment: DUPL ICATE Performed By: #### L 100.0100, L500.2500 #### [facility] [address] [place], [address] CO2 Normal 21.0-32.0 [facility] Comment on above: Result Comment: DUPL ICATE Performed By: #### L 100.0100, L500.2500 #### [facility] [address] [place], [address] CREAT,SERUM Normal 0.55-1.02 [facility] Comment on above: Result Comment: DUPL ICATE Performed By: #### L 100.0100, L500.2500 #### [facility] [address] [place], [address] EST GFR Normal >60 [facility] Comment on above: Result Comment: DUPL ICATE Performed By: #### L 100.0100, L500.2500 #### [facility] [address] [place], [address] EST GFR - AA Normal >60 [facility] Comment on above: Result Comment: DUPL ICATE Performed By: #### L 100.0100, L500.2500 #### [facility] [address] [place], [address] GAP Normal 5-15 [facility] Comment on above: Result Comment: DUPL ICATE Performed By: #### L 100.0100, L500.2500 #### [facility] [address] [place], [address] GLU Normal 74-106 [facility] Comment on above: Result Comment: DUPL ICATE Performed By: #### L 100.0100, L500.2500 #### [facility] [address] [place], [address] Potassium Normal 3.5-5.1 [facility] Comment on above: Result Comment: DUPL ICATE Performed By: #### L 100.0100, L500.2500 #### [facility] [address] [place], [address] Basic Metabolic Profile (BMP) Normal 136-145 [facility] Comment on above: Result Comment: DUPL ICATE Performed By: #### L 100.0100, L500.2500 #### [facility] [address] [place], [address] BUN/CRE 13.7 RATIO Normal 10-20 [facility] Comment on above: Performed By: #### L 801.1541, L100.0100, L500.2500, L3200.1400 #### [facility] [address] [place], [address] CA,Total 9.5 mg/dL Normal 8.5-10.1 [facility] Comment on above: Performed By: #### L 801.1541, L100.0100, L500.2500, L3200.1400 #### [facility] [address] [place], [address] Chloride [Moles/Vol] 106 mmol/L Normal 98-107 [facility] Comment on above: Performed By: #### L 801.1541, L100.0100, L500.2500, L3200.1400 #### [facility] [address] [place], [address] CO2 [Moles/Vol] 28.0 mmol/L Normal 21.0-32.0 [facility] Comment on above: Performed By: #### L 801.1541, L100.0100, L500.2500, L3200.1400 #### [facility] [address] [place], [address] Creatinine [Mass/Vol] 0.73 mg/dL Normal 0.55-1.02 [facility] Comment on above: Result Comment: The validity of the calculated GFR GFRAA in patients over 70 years has not been determined. Clinical correlation is essential. Performed By: #### L 801.1541, L100.0100, L500.2500, L3200.1400 #### [facility] [address] [place], [address] EST GFR - AA 104 mL/min Normal >60 [facility] Comment on above: Result Comment: Afri can [place] GFR Calc Performed By: #### L 801.1541, L100.0100, L500.2500, L3200.1400 #### [facility] [address] [place], [address] GAP 7 Normal 5-15 [facility] Comment on above: Performed By: #### L 801.1541, L100.0100, L500.2500, L3200.1400 #### [facility] [address] [place], [address] GFR/1.73 sq M.predicted among non-blacks MDRD (S/P/Bld) [Vol rate/Area] 86 mL/min/{1.73_m2} Normal >60 [facility] Comment on above: Result Comment: Non- GFR Calc Performed By: #### L 801.1541, L100.0100, L500.2500, L3200.1400 #### [facility] [address] [place], [address] Glucose [Mass/Vol] 116 mg/dL High 74-106 [facility] Comment on above: Result Comment: Fast ing Glucose result from 100 to 125 mg/dL suggests IMPAIRED HOMEOSTASIS per A.D.A. criteria. Performed By: #### L 801.1541, L100.0100, L500.2500, L3200.1400 #### [facility] [address] [place], [address] Potassium [Moles/Vol] 3.6 mmol/L Normal 3.5-5.1 [facility] Comment on above: Performed By: #### L 801.1541, L100.0100, L500.2500, L3200.1400 #### [facility] [address] [place], [address] Sodium [Moles/Vol] 141 mmol/L Normal 136-145 [facility] Comment on above: Performed By: #### L 801.1541, L100.0100, L500.2500, L3200.1400 #### [facility] [address] [place], [address] Urea nitrogen [Mass/Vol] 10 mg/dL Normal 7-18 [facility] Comment on above: Performed By: #### L 801.1541, L100.0100, L500.2500, L3200.1400 #### [facility] [address] [place], [address] CBC W/Diff, Automatedon - Absolute Neut Normal 2.0-7.7 [facility] Comment on above: Result Comment: DUPL ICATE Performed By: #### L 100.0100, L500.2500 ####[facility] [address] [place], [address] HCT Normal 37-47 [facility] Comment on above: Result Comment: DUPL ICATE Performed By: #### L 100.0100, L500.2500 ####[facility] [address] [place], [address] HGB Normal 12.0-15.0 [facility] Comment on above: Result Comment: DUPL ICATE Performed By: #### L 100.0100, L500.2500 ####[facility] [address] [place], [address] MCH Normal 27.0-32.0 [facility] Comment on above: Result Comment: DUPL ICATE Performed By: #### L 100.0100, L500.2500 ####[facility] [address] [place], [address] MCHC Normal 32-36 [facility] Comment on above: Result Comment: DUPL ICATE Performed By: #### L 100.0100, L500.2500 ####[facility] [address] [place], [address] MCV Normal 81-99 [facility] Comment on above: Result Comment: DUPL ICATE Performed By: #### L 100.0100, L500.2500 ####[facility] [address] [place], [address] NEUT% Normal 47-70 [facility] Comment on above: Result Comment: DUPL ICATE Performed By: #### L 100.0100, L500.2500 ####[facility] [address] [place], [address] PLT Normal 150-450 [facility] Comment on above: Result Comment: DUPL ICATE Performed By: #### L 100.0100, L500.2500 ####[facility] [address] [place], [address] RBC Normal 4.2-5.4 [facility] Comment on above: Result Comment: DUPL ICATE Performed By: #### L 100.0100, L500.2500 ####[facility] [address] [place], [address] RDW CV Normal 11.6-14.6 [facility] Comment on above: Result Comment: DUPL ICATE Performed By: #### L 100.0100, L500.2500 ####[facility] [address] [place], [address] RDW SD Normal 35.1-43.9 [facility] Comment on above: Result Comment: DUPL ICATE Performed By: #### L 100.0100, L500.2500 ####[facility] [address] [place], [address] WBC Normal 4.4-11.0 [facility] Comment on above: Result Comment: DUPL ICATE Performed By: #### L 100.0100, L500.2500 ####[facility] [address] [place], [address] Absolute Lymph 1.74 X10 3/uL Normal 0.83-4.51 [facility] Comment on above: Performed By: #### L 801.1541, L100.0100, L500.2500, L3200.1400 #### [facility] [address] [place], [address] Absolute Neut 3.3 X10 3/uL Normal 2.0-7.7 [facility] Comment on above: Performed By: #### L 801.1541, L100.0100, L500.2500, L3200.1400 #### [facility] [address] [place], [address] Basophils/100 WBC (Bld) 0.8 % Normal 0-1 [facility] Comment on above: Performed By: #### L 801.1541, L100.0100, L500.2500, L3200.1400 #### [facility] [address] [place], [address] Eosinophils/100 WBC (Bld) 6.3 % High 0-5 [facility] Comment on above: Performed By: #### L 801.1541, L100.0100, L500.2500, L3200.1400 #### [facility] [address] [place], [address] Erythrocyte distribution width (RBC) [Ratio] 12.6 % Normal 11.6-14.6 [facility] Comment on above: Performed By: #### L 801.1541, L100.0100, L500.2500, L3200.1400 #### [facility] [address] [place], [address] Hematocrit (Bld) [Volume fraction] 37.5 % Normal 37-47 [facility] Comment on above: Performed By: #### L 801.1541, L100.0100, L500.2500, L3200.1400 #### [facility] [address] [place], [address] Hemoglobin (Bld) [Mass/Vol] 12.5 g/dL Normal 12.0-15.0 [facility] Comment on above: Performed By: #### L 801.1541, L100.0100, L500.2500, L3200.1400 #### [facility] [address] [place], [address] IG% 0.200 Normal 0.0-0.9 [facility] Comment on above: Result Comment: IG% - Immature Granulocytes (promyelocytes, myelocytes and metamyelocytes) > 1% indicates that a LEFT SHIFT is Present. Performed By: #### L 801.1541, L100.0100, L500.2500, L3200.1400 #### [facility] [address] [place], [address] Lymphocytes/100 WBC (Bld) 28.7 % Normal 19-41 [facility] Comment on above: Performed By: #### L 801.1541, L100.0100, L500.2500, L3200.1400 #### [facility] [address] [place], [address] MCH (RBC) [Entitic mass] 32.9 pg High 27.0-32.0 [facility] Comment on above: Performed By: #### L 801.1541, L100.0100, L500.2500, L3200.1400 #### [facility] [address] [place], [address] MCHC (RBC) [Mass/Vol] 33.3 g/dL Normal 32-36 [facility] Comment on above: Performed By: #### L 801.1541, L100.0100, L500.2500, L3200.1400 #### [facility] [address] [place], [address] MCV (RBC) [Entitic vol] 98.7 fL Normal 81-99 [facility] Comment on above: Performed By: #### L 801.1541, L100.0100, L500.2500, L3200.1400 #### [facility] [address] [place], [address] Monocytes/100 WBC (Bld) 9.2 % Normal 0-10 [facility] Comment on above: Performed By: #### L 801.1541, L100.0100, L500.2500, L3200.1400 #### [facility] [address] [place], [address] Neutrophils/100 WBC (Bld) 54.8 % Normal 47-70 [facility] Comment on above: Performed By: #### L 801.1541, L100.0100, L500.2500, L3200.1400 #### [facility] [address] [place], [address] Nucleated RBC (Bld) [#/Vol] 0 10*3/uL Normal 0-5 [facility] Comment on above: Performed By: #### L 801.1541, L100.0100, L500.2500, L3200.1400 #### [facility] [address] [place], [address] Platelet mean volume (Bld) [Entitic vol] 10.4 fL Normal 6.2-12.0 [facility] Comment on above: Performed By: #### L 801.1541, L100.0100, L500.2500, L3200.1400 #### [facility] [address] [place], [address] Platelets (Bld) [#/Vol] 175 10*3/uL Normal 150-450 [facility] Comment on above: Performed By: #### L 801.1541, L100.0100, L500.2500, L3200.1400 #### [facility] [address] [place], [address] RBC (Bld) [#/Vol] 3.80 10*6/uL Low 4.2-5.4 [facility] Comment on above: Performed By: #### L 801.1541, L100.0100, L500.2500, L3200.1400 #### [facility] [address] [place], [address] RDW SD 45.8 fl High 35.1-43.9 [facility] Comment on above: Performed By: #### L 801.1541, L100.0100, L500.2500, L3200.1400 #### [facility] [address] [place], [address] WBC (Bld) [#/Vol] 6.1 10*3/uL Normal 4.4-11.0 [facility] Comment on above: Performed By: #### L 801.1541, L100.0100, L500.2500, L3200.1400 #### [facility] [address] [place], [address] CDIFF (PCR)on 02-07-2024 CDIFF Pending [phone] NAP1-B1 Presumptive Negative *for epidemiolologic???use C. Diff PCR Negative- No toxigenic C. Diff Detected Normal [facility] Comment on above: Performed By: #### M 600.5000, M100.6796 #### [facility] [address] [place], [address] Laboratory - Drug toxicology on 06-29-2023 Barbiturates Screen Ql (U) Not detected None Detected [facility] Benzodiazepines Ql (U) Positive Abnormal None Detected [facility] Cannabinoids Screen (U) [Mass/Vol] Negative [facility] Cocaine Ql (U) Not detected None Detected [facility] Methadone Screen Ql (U) Negative [facility] Methamphetamine (U) [Mass/Vol] Negative [facility] Methylenedioxymethamphet amine (U) [Mass/Vol] Negative ng/mL [facility] oxyCODONE Ql (U) Negative [facility] Phencyclidine Ql (U) Not detected None Detected [facility] No Panel Informationon 06-29 Amphetamine Screen, Urine Negative [facility] BUPRENORPHINE SCREEN Negative Negative [facility] Interpretation and review of laboratory results Abnormal [facility] Morphine Urine 0 [facility] Radiology Study observation (narrative) [facility] Absolute lymphocyte countOrd ered By: Darcy Corrigan on 04-26-2023 Lymphocytes Auto (Unsp spec) [#/Vol] 1.76 10*3/uL 0.83-4.51 [facility] Basophil percentageOrdered B y: Darcy Corrigan on 04-26-2023 Basophils/100 WBC (Bld) 0.7 % 0-1 [facility] Chloride [Moles/Vol] 106 mmol/L 98-107 [facility] Eosinophils/100 WBC (Bld) 4.7 % 0-5 [facility] Glucose [Mass/Vol] 87 mg/dL 74-106 [facility] Neutrophils (Bld) [#/Vol] 3.0 10*3/uL 2.0-7.7 [facility] Neutrophils/100 WBC (Bld) 52.0 % 47-70 [facility] Potassium [Moles/Vol] 4.1 mmol/L 3.5-5.1 [facility] Sodium [Moles/Vol] 140 mmol/L 136-145 [facility] WBC (Bld) [#/Vol] 5.8 10*3/uL 4.4-11.0 [facility] Blood erythrocytes count (nu mber/volume)Ordered By: Darcy Corrigan on 04-26-2023 RBC (Bld) [#/Vol] 4.11 10*6/uL 4.2-5.4 [facility] Blood hemoglobin measurement (mass/volume)Ordered By: Darcy Corrigan on 04-26-2023 Hemoglobin (Bld) [Mass/Vol] 13.5 g/dL 12.0-15.0 [facility] Blood lymphocytes/100 leukoc ytesOrdered By: Darcy Corrigan on 04-26-2023 Lymphocytes/100 WBC (Bld) 30.6 % 19-41 [facility] Blood monocytes/100 leukocyt esOrdered By: Darcy Corrigan on 04-26-2023 Monocytes/100 WBC (Bld) 11.7 % 0-10 [facility] Blood platelet mean volumeOr dered By: Darcy Corrigan on 04-26-2023 Platelet mean volume (Bld) [Entitic vol] 10.6 fL 6.2-12.0 [facility] Determination of erythrocyte mean corpuscular volume (MCV)Ordered By: Darcy Corrigan on 04-26-2023 MCV (RBC) [Entitic vol] 99.3 fL 81-99 [facility] Hematocrit Auto (Bld) [Volum e fraction]Ordered By: Darcy Corrigan on 04-26-2023 Hematocrit (Bld) [Volume fraction] 40.8 % 37-47 [facility] - Chemistry and C hemistry - challengeOrdered By: Darcy Corrigan on 04-26-2023 CO2 [Moles/Vol] 29.0 mmol/L 21.0-32.0 [facility] Urea nitrogen/Creatinine [Mass ratio] 9.4 mg/mg 10-20 [facility] - Hematology and Cell countsOrdered By: Darcy Corrigan on 04-26-2023 Erythrocyte distribution width (RBC) [Entitic vol] 44.6 fL 35.1-43.9 [facility] Erythrocyte distribution width (RBC) [Ratio] 12.2 % 11.6-14.6 [facility] Immature granulocytes/100 WBC (Bld) 0.300 % 0.0-0.9 [facility] Comment on above: IG% - Immature Granu locytes (promyelocytes, myelocytes and metamyelocytes) > 1% indicates that a LEFT SHIFT is Present. MCH (RBC) [Entitic mass] 32.8 pg 27.0-32.0 [facility] Nucleated RBC/100 WBC (Bld) [Ratio] 0 % 0-5 [facility] MCHC Auto (RBC) [Mass/Vol]Or dered By: Darcy Corrigan on 04-26-2023 MCHC (RBC) [Mass/Vol] 33.1 g/dL 32-36 [facility] No Panel InformationOrdered By: Darcy Corrigan on 04-26-2023 Estimated GFR (MDRD) Amer 87 mL/min >60 [facility] Comment on above: GFR Calc Estimated GFR (MDRD) Non-Af Amer 72 mL/min >60 [facility] Comment on above: Non- GFR Calc Platelets bldOrdered By: Sharifa Corrigan on 04-26-2023 Platelets (Bld) [#/Vol] 185 10*3/uL 150-450 [facility] Serum or plasma calcium rachael urement (mass/volume)Ordered By: Darcy Corrigan on 04-26-2023 Calcium [Mass/Vol] 9.2 mg/dL 8.5-10.1 [facility] Serum or plasma creatinine m easurement (mass/volume)Ordered By: Darcy Corrigan on 04-26-2023 Creatinine [Mass/Vol] 0.85 mg/dL 0.55-1.02 [facility] Comment on above: The validity of the calculated GFR & GFRAA in patients over 70 years has not been determined. Clinical correlation is essential. Serum or plasma urea nitroge n measurement (mass/volume)Ordered By: Darcy Corrigan on 04-26-2023 Urea nitrogen [Mass/Vol] 8 mg/dL 7-18 [facility] Thin prep Papanicolaou smear with manual screeningOrdered By: aDrcy Corrigan on 04-26-2023 Thin prep Papanicolaou smear with manual screening 5 5-15 [facility] CNCOon 05-07-2022 CNCO Letter Text Normal [facility] 04-29-2022 CNCO HNO ID: [id number] Author: Mammography Coordinator Service: ? Author Type: Physician Type: Letter Filed: 04/30/2022 11:34 PM Note Text: April 29, 2022 PID: [id number] Lashell Stacy [address] [place] [address] Dear Ms. Stacy, We are pleased to inform you that the results of your recent breast imaging exam on 04/28/2022 are normal. Your mammogram demonstrates that you have dense breast tissue, which could hide abnormalities. Dense breast tissue, in and of itself, is a relatively common condition. Therefore, this information is not provided to cause undue concern; rather, it is to raise your awareness and promote discussion with your health care provider regarding the presence of dense breast tissue in addition to other risk factors. Early detection of cancer is very important. We also understand recommendations regarding breast cancer screening are controversial. Please discuss with your primary care provider which strategy is best for you and whether a mammogram is right for you. Your imaging studies and report will be kept on file at [facility] as part of your permanent medical record and are available for your continuing care. Thank you for allowing us to help in meeting your health care needs. Sincerely, Dr. Ch Interpreting Radiologist [facility] (Normal over 40) Normal [facility] CNOVon 04-28-2022 CNOV Office Visit (OBGYWM ) ----- LASHELL STACY ([id number]) 1960 F Date Time Provider Department 04/28/22 10:00 AM ELISE ENRIQUE OBGYWM During your visit today, we recorded the following information about you: Blood pressure Weight Height 120/80 65 kg 1.562 m Elise Enrique APRN.CNP 04/28/2022 10:45 AM Signed Lashell is a 62 year old who presents for an annual gynecologic exam without complaints. Postmenopausal: Yes since age 42 HRT use: No. Last Pap: 10/20/2016 normal HPV: 10/12/2016 negative History of abnormal pap: No Last mammogram: 2021 pending History of abnormal mammogram: No Sexually active: No OB History T3 L3 SAB0 IAB0 Ectopic0 Multiple0 Live Births0 Frame Fixer History LMP: Postmenopausal Age at Menarche: Age at First : Age at Menopause: Frame Fixer History Comments: Sexual Activity: Yes; Male; Post Menopausal Contraception: No contraception data on record PAST MEDICAL HISTORY Diagnosis Date Degeneration of thoracic intervertebral disc GERD (gastroesophageal reflux disease) Some scar tissue Hernia, hiatal Hypothyroidism, adult Osteoporosis Sleep apnea Urinary tract infection, site not specified PAST SURGICAL HISTORY Procedure Laterality Date COLONOSCOPY - DIAGNOSTIC Irritable Bowel, Polyp's removed EGD ESOPHAGOSCOPY FLEX BALLOON DILAT <30 MM DIAM Esophageal dilatation LIG/TRNSXJ FLP TUBE ABDL/VAG APPR UNI/BI Tubal ligation LOW BACK DISK SURGERY 05/2012,07/2015 NEUROPLASTY AND/TRANSPOS MEDIAN NRV CARPAL TUNNE Carpal tunnel, Right PAST SURGICAL HISTORY OF Ganglionic cyst removed, Rt wrist PAST SURGICAL HISTORY OF Left 02/24/2019 left knee surgery PAST SURGICAL HISTORY OF Left 11/13/2019 left leg surgery PAST SURGICAL HISTORY OF surgery on fx vertabra FAMILY HISTORY Problem Relation Age of Onset Hypertension Mother Thyroid Mother Stroke Mother Arthritis Mother Rheumatoid other (parkinsons) Mother Heart Father Mi, triple by-pass Stroke Father X-2 Diabetes Father Type 2 Thyroid Father other (demetia) Father Thyroid Brother Hypertension Brother Diabetes Brother Pre Diabetic Coronary Artery Disease Brother Stents Arthritis Maternal Grandmother Rheumatoid Osteoporosis Maternal Grandmother And great-grandmother Cancer Maternal Grandfather Hodgkin's Lymphoma Breast Cancer Maternal Aunt Diabetes Maternal Aunt Several SOCIAL HISTORY Social History Tobacco Use Smoking status: Never Smokeless tobacco: Never Vaping Use Vaping Use: Never used Substance Use Topics Alcohol use: Yes Comment: rarely Drug use: No REVIEW OF SYSTEMS Abdomen: No abdominal pain, nausea, vomiting, diarrhea, or constipation. No bloating, early satiety, indigestion, or increased flatulence. Bladder: No dysuria, gross hematuria, urinary frequency, urinary urgency, or incontinence Breast: No breast lumps, nipple d/c, overlying skin changes, redness or skin retraction Allergies and current medication updated:Yes EXAM: Ht 5' 1.5" (1.56m) Wt 143 lb 6.4 oz (65.0kg) BMI 26.66 kg/(m2). GENERAL: pleasant, female in no apparent distress HEENT: Normocephalic, atraumatic, and no lesions NECK: Supple, full range of motion, no adenopathy, and thyroid normal DERMATOLOGY: Normal, without lesions, non-icteric, and non-hirsute BREAST: soft, non-tender, symmetric, no dominant mass, normal nipple-areolar complex, no lymphadenopathy, and no nipple discharge CHEST: Normal inspiratory effort ABDOMEN: soft, non-tender, and no masses PELVIC: external genitalia normal, normal Bartholin's glands, urethra, Copeland's glands, no vulvar lesions, no cervical lesions, good vaginal support, physiologic discharge present, normal appearing perineal body and perianal region, stenotic os BIMANUAL: uterus normal size, shape and consistency, no adnexal masses, and non-tender RECTOVAGINAL: deferred. NEURO: alert and oriented x3,exam grossly non-focal EXTREMITIES: normal ASSESSMENT/PLAN: 1) Health maintenance: Pap done with HPV. Mammogram up to date Nutrition, exercise and routine health maintenance exams reviewed. Calcium/Vitamin D supplementation information provided. Colon cancer screening: up to date with screening BMD: up to date-having done today 2) Follow up one year or sooner as needed ISABELLA Guardado 05/07/2022 10:51 AM Signed Normal pap letter sent in the mail Allergies As of Date: 04/28/2022 Noted Allergy Reaction Bee Stings [Other] 07/03/2005 [id number] REDUCTASE INHIBIT*10/08/2016 5 - Intolerance Date Reviewed: 04/28/2022 Reviewed by: Elise Enrique APRN.CNP - Fully Assessed Reason for Visit: Yearly Exam [187] Primary Visit Diagnosis:Encounter for gynecological examination (general) (routine) without abnormal findings [Z01.419] Other Visit Diagnoses:Enco (more content not included)... Normal [facility] HPV W/GENOTYPE THIN PREPon 1 06-29-2021 HPV 16 Ag Ql (Unsp spec) Negative Normal Neg ative for HPV DNA high risk type 16 by PCR [facility] Comment on above: Order Comment: Speci men Type: FLUID SPECIMEN Ordering Facility: [facility] Address: [address] [place] [address] Performed By: #### H PVHRT #### [facility] CLIA [id number] [address] [place] [address] [place] HPV 18 Ag Ql (Unsp spec) Negative Normal Neg ative for HPV DNA high risk type 18 by PCR [facility] Comment on above: Order Comment: Speci men Type: FLUID SPECIMEN Ordering Facility: [facility] Address: [address] [address] Performed By: #### H PVHRT #### [facility] CLIA [id number] [address] [place] [address] [place] HPV 31+33+35+39+45+51+52+56+ 58+59+66+68 DNA RUSLAN+probe Ql (Cvx) Negative for HPV DNA high risk types: 31,33,35,39,45,51,52,56,5 8,59,66,68 by PCR. Normal Negative for HPV DNA high risk types: 31,33,35,3 9,45,51,52 ,56,58,59, 66,68 by PCR. [facility] Comment on above: Order Comment: Speci men Type: FLUID SPECIMEN Ordering Facility: [facility] Address: [address] [place], [place] [id number] Performed By: #### H PVHRT #### [facility] CLIA [id number] [address] [facility] [id number] OF [facility] ROULA SCREENINGon 04-28-2022 ROULA SCREENING * * *Final Report* * * DATE OF EXAM: Apr 28 2022 11:11AM SHERRY [id number] - [facility] SCREENING / PROCEDURE REASON: Encounter for screening mammogram for malignant neoplasm of breast * * * * Physician Interpretation * * * * RESULT: #[id number] - [facility] SCREENING BILATERAL DIGITAL SCREENING MAMMOGRAM WITH CAD: 04/28/2022 HISTORY: Encounter For Screening Mammogram For Malignant Neoplasm Of Breast / Screening Mammogram-Patient reports NO symptoms. /priors available for comparison. RESULT: TECHNIQUE: The study was acquired using full field digital technology and interpreted from soft copy. Current study was also evaluated with a Computer Aided Detection (CAD). Comparison is made to exams dated: 03/15/2020 mammogram - [facility], 01/10/2019 mammogram, 12/15/2017 mammogram - [facility], 10/28/2016 mammogram - [facility], and 10/08/2016 mammogram - [facility]. The tissue of both breasts is heterogeneously dense. This may lower the sensitivity of mammography. No significant masses, calcifications, or other findings are seen in either breast. There has been no significant interval change. IMPRESSION: NEGATIVE There is no mammographic evidence of malignancy. A 1 year screening mammogram is recommended. Lashell Ch M.D., ch/penrad:04/29/2022 15:31:59 Start Up Specialist(s): RT Tamika(R)(M), [facility] letter sent: Normal over 40 Mammogram BI-RADS: 1 Negative Multiple national specialty organizations have released breast cancer screening guidelines for women at average risk for developing breast cancer - guidelines that are based on both evidence and opinion, yet differ on when to start and how often to screen for breast cancer. With representation from Breast Imaging, Internal Medicine, Women's Health, Family Medicine, and Medical/Surgical Oncology, the [facility] has carefully reviewed the data and reached the following consensus: 1) All women should engage in shared decision-making with their providers to decide when to start and how often to screen; 2) All women should have the opportunity to start screening mammography at age 40; 3) For women ages 45-55, we recommend annual screening mammograms; 4) For women ages 55 and over, we support both the transition from an annual to a biennial interval if this aligns more with patient's values and preferences, or continuation with annual screening; 5) All women should discuss with their providers when to stop screening mammograms. Refrigerator Tester: Tyrese Transcribe Date/Time: Apr 28 2022 10:59A Dictated by: LASHELL CH MD This examination was interpreted and the report reviewed and electronically signed by: LASHELL CH MD on Apr 29 2022 3:31PM EST [id number] Normal [facility] PAP FLUID CERVICAL SCREENING on 04-28-2022 CASE REPORT Normal [facility] Comment on above: Order Comment: Lida scanlon Type: FLUID SPECIMEN Ordering Facility: [facility] Address: [address] [place] [address] Result Comment: Gyne cologic Cytology Report Case: [id number] Authorizing Provider: Elise Enrique APRN.IT TECHNICAL SPECIALIST Collected: 04/28/2022 10:45 AM Ordering Location: OB/Gynecology Received: 04/28/2022 12:15 PM First Screen: Rissa Barth, CT, ASCP Specimen: Pap, Paper Rewinder Operator, Screening, CERVICAL SCREENING FLUID Performed By: #### L [id number] #### [facility] CLIA [id number] [address] [place] [address] [place] CLINICAL HISTORY ROUTINE EXAM Normal [facility] Comment on above: Order Comment: Speci men Type: FLUID SPECIMEN Ordering Facility: [facility] Address: [address] [address] Performed By: #### L [id number] #### [facility] CLIA [id number] [address] [place] [address] CYTOLOGY INTERPRETATION PAP Normal [facility] Comment on above: Order Comment: Speci men Type: FLUID SPECIMEN Ordering Facility: [facility] Address: [address] [address] Result Comment: Nega tive for Intraepithelial lesion or malignancy. Performed By: #### L [id number] #### [facility] CLIA [id number] [address] [place] [address] FINAL DIAGNOSIS Normal [facility] Comment on above: Order Comment: Speci men Type: FLUID SPECIMEN Ordering Facility: [facility] Address: [address] [address] Result Comment: A - CERVICAL SCREENING FLUID Satisfactory for interpretation Negative for Intraepithelial lesion or malignancy. Performed By: #### L [id number] #### [facility] CLIA [id number] [address] [place] [address] [place] FINAL PERFORMING LAB Normal [facility] Comment on above: Order Comment: Speci men Type: FLUID SPECIMEN Ordering Facility: [facility] Address: [address] Result Comment: Tech nical component, dispatcher chief coal slurry screening performed at [facility], [facility] [id number] CLIA# [id number] Diagnostic interpretation performed at [facility], [address] [facility] [address] CLIA# [id number] Flight Test Data Acquisition Technician: Salty Nair M.D. Performed By: #### L [id number] #### [facility] CLIA [id number] [address] STATES [facility] HPV REQUESTED? Yes, automatic HPV patients over 30 Normal [facility] Comment on above: Order Comment: Speci men Type: FLUID SPECIMEN Ordering Facility: [facility] Address: [address] [place] [address] Performed By: #### L [id number] #### [facility] CLIA [id number] [address] [place] LMP Postmenopausal Normal [facility] Comment on above: Order Comment: Speci men Type: FLUID SPECIMEN Ordering Facility: [facility] Address: [address] [place] [address] Performed By: #### L [id number] #### [facility] CLIA [id number] [address] [place] [address] PAP DISCLAIMER COMMENT The Pap Smear is a screening test for cervical cancer. False negative results occur with all screening tests, emphasizing the need for rescreening at recommended intervals, and clinical correlation. Normal [facility] Comment on above: Order Comment: Speci men Type: FLUID SPECIMEN Ordering Facility: [facility] Address: [address] [place] [address] Performed By: #### L [id number] #### [facility] CLIA [id number] [facility] [address] [place] PAP THIRD GRADE TEACHER COMMENT This specimen has be en analyzed by the ThinPrep Imaging System, an automated imaging and review system, which assists the laboratory in evaluating cells on ThinPrep Pap tests. Following automated imaging, selected baker from every slide are reviewed by a dispatcher chief coal slurry. Normal [facility] Comment on above: Order Comment: Speci men Type: FLUID SPECIMEN Ordering Facility: [facility] Address: [address] [place] [address] Performed By: #### L [id number] #### [facility] CLIA [id number] [address] [place] [address] [place] CBCon 04-29-2020 Erythrocyte distribution width (RBC) [Ratio] 13.2 % 11.5 - 14.5 % [place], [place] Hematocrit (Bld) [Volume fraction] 40.0 % 35 - 47 % [place], [place] Hemoglobin (Bld) [Mass/Vol] 13.8 g/dL 11.7 - 16 g/dL [place] MCH (RBC) [Entitic mass] 33.7 pg 26 - 34 pg [place] MCHC (RBC) [Mass/Vol] 34.5 % 32 - 36 % [place], [place] MCV (RBC) [Entitic vol] 97.7 fL 79 - 98 fL [place], [place] Platelet mean volume (Bld) [Entitic vol] 8.6 fL 7.4 - 10.4 fL [place], [place] Platelets (Bld) [#/Vol] 173 10*3/uL 140 - 440 10*3/uL [place] RBC (Bld) [#/Vol] 4.10 10*6/uL 3.8 - 5.2 10*6/uL [place] WBC (Bld) [#/Vol] 6.4 10*3/uL 3.6 - 10.7 10*3/uL [place], [place] Test Performed by [facility], [address] [place] [address] [place], [place] Hemogramon 04-29-2020 Erythrocyte distribution width (RBC) [Ratio] 13.2 % Normal 11.5-14.[address] [facility] Comment on above: Performed By: #### H EMOG #### [address] [address] [place] [address] Hematocrit (Bld) [Volume fraction] 40.0 % Normal 35.0-47.[address] [facility] Comment on above: Performed By: #### H EMOG #### [facility] [address] [place] [address] Hemoglobin (Bld) [Mass/Vol] 13.8 g/dL Normal 11.7-16.[address] [facility] Comment on above: Performed By: #### H EMOG #### [facility] [address] [place], [place] MCH (RBC) [Entitic mass] 33.7 pg Normal 26.0-34.[address] [facility] Comment on above: Performed By: #### H EMOG #### [facility] [address] [place], [place] MCHC (RBC) [Mass/Vol] 34.5 % Normal 32.0-36.0 [facility] Comment on above: Performed By: #### H EMOG #### [facility] [address] [place], [place] MCV (RBC) [Entitic vol] 97.7 fL Normal 79.0-98.0 [facility] Comment on above: Performed By: #### H EMOG #### [facility] [address] [place], [place] Platelet mean volume (Bld) [Entitic vol] 8.6 fL Normal 7.4-10.[address] [facility] Comment on above: Performed By: #### H EMOG #### [facility] [address] [place], [place] Platelets (Bld) [#/Vol] 173 10*3/uL Normal 140-[address] [facility] Comment on above: Performed By: #### H EMOG #### [facility] [address] [place], [place] RBC (Bld) [#/Vol] 4.10 10*6/uL Normal 3.80-5.[address] [facility] Comment on above: Performed By: #### H EMOG #### [facility] [address] [place], [place] WBC (Bld) [#/Vol] 6.4 10*3/uL Normal 3.6-10.[address] [facility] Comment on above: Performed By: #### H EMOG #### [facility] [address] [place], [place] Op Noteon 04-29-2020 Op Note [facility] [address] [place] [address] Dept: [phone] Loc: [phone] Operative Report Patient Name: Lashell Stacy Date of : 1960 Date of Surgery: 04/29/20 Pre-operative diagnosis: Right femur stress fracture Post-operative diagnosis: Same Procedure(s): Intertan nailing of right hip (CPT 33271) Surgeon: Dann Marinelli M.D. [employer] Report Developer(s): Jay Nguyen M.D., Radha Calero MD Anesthesia: General EBL: 100cc IVF: Crystalloid Medications: Two grams of Cefazolin were given. Implants: Intertan 10mm x36cm nail, 130 degree Clinical History/Indication for Surgery The patient is a 60 y.o. year old female who was presents for operative fixation of a right femur stress fracture. Typical indications for surgery were reviewed and long Intertan nailing with possible femoral osteotomy was recommended. Risks of surgery in general were reviewed including, but not limited to, infection, nonunion, need for additional procedures, failure of fixation which would require revision, damage to normal structures as well as medical complications such as [place], stroke, PE, DVT, and even . Patient and any family present were given opportunity to ask questions and consider her options ultimately electing to proceed with surgery. No guarantees were given or implied. Operative Narration The patient was identified in the pre-operative holding area. The surgical site was identified and marked. Informed consent was obtained. The patient was then brought to the operating room and placed supine on the operating table. Anesthesia was administered and care of the head, neck, and airway was maintained by the anesthesia staff throughout the entire procedure. Patient was placed onto the fracture table. A well padded perineal post was placed. Both feet were well padded and placed in traction. Preop fluoroscopy confirmed a successful closed reduction. All bony prominences were identified and padded. The operative leg was prepped and draped in the usual sterile fashion. A surgical timeout was performed. Antibiotics were confirmed to have been given. The 3.2mm guide pin was placed percutaneously into the greater trochanter under AP and lateral fluoroscopic guidance. Once correctly positioned the skin incision was made to allow passage of the entry reamer over the pin. The long ball-tipped guidewire was passed across fracture and centered in the distal femur. Sequential reaming from a 9 mm reamer to 12 mm reamer was performed, increasing by .5 mm each time. The length of the nail was measured. The correct length and diameter nail was impacted using the depth tower to hospitality aide the depth of placement. The proximal femur was prepared for the lag screw which was then locked with the set screw. The distal screw was placed using perfect [place] technique. Final films were obtained and saved. All incisions were irrigated and closed in a layered fashion with tra for skin closure. Sterile dressings were applied. Once the patient was awakened from anesthesia, they were transported to the PACU in stable condition, having tolerated surgery well with no immediate complications. Postoperative Plan PACU xray P Okay for discharge home from same day Patient with crutches from home Dressing: Keep clean, dry and intact WBAT Scripts on chart Aspirin x 30 days for DVT ppx Follow up 2wks This operative report was prepared and signed by Jay Nguyen MD at 04/29/20, 9:58 AM [facility] CR Femur 2+ Views Lefton CR Femur 2+ Views Left Patient Name: LASHELL BARTLETT Diagnostic Radiology Exam Date/Time 11/13/2019 12:07:42 EDT Exam CR Femur 2+ Views Left n Ordering Physician DO BOWDEN DORSEY R Accession Number [id number] CPT4 Codes 76982 () Reason For Exam Post-op Left Femur CMN Report Left femur: 11/13/2019. Clinical Information: Status post enmanuel placement. Findings: 2 views of the left femur from the hip to the knee reveal the bones to be well mineralized. An intramedullary enmanuel and compression screws are stabilizing an osteotomy of the midshaft of the femoral diaphysis. The overall position and alignment is reasonable. There is air and fluid in the soft tissues from this recent surgical procedure. Report Dictated on Final Dictated: 11/13/2019 11:59 am Dictating Physician: MD GALDAMEZ RISA Signed Date and Time: 11/13/2019 11:59 am Signed by: MD GALDAMEZ RISA Transcribed Date and Time: 11/13/2019 11:[address] [facility] Op Noteon 11-13-2019 Op Note [facility] GENER[facility] SURGERY [address] [facility] [address] Dept: [phone] Loc: [phone] Operative Report Patient Name: Lashell Stacy Date of : 1960 Date of Surgery: 11/13/19 Pre-operative diagnosis: Left femur shaft stress fracture Post-operative diagnosis: Same Procedure(s): Intertan nailing of left hip (CPT 91663) Surgeon: Dr. Yuliana M.D. C[employer]os Report Developer(s): Vernon Bowden M.D. Anesthesia: General and Nerve Block EBL: 100 cc IVF: Crystalloid Medications: Two grams of Cefazolin were given. Implants: Intertan 10mm x 36 cm nail, 125 degree Clinical History/Indication for Surgery The patient is a 59 y.o. year old female who was presents for operative fixation of a left femur stress fracture. Typical indications for surgery were reviewed and long Intertan nailing with possible femoral osteotomy was recommended. Risks of surgery in general were reviewed including, but not limited to, infection, nonunion, need for additional procedures, failure of fixation which would require revision, damage to normal structures as well as medical complications such as [place], stroke, PE, DVT, and even . Patient and any family present were given opportunity to ask questions and consider her options ultimately electing to proceed with surgery. No guarantees were given or implied. Operative Narration The patient was identified in the pre-operative holding area. The surgical site was identified and marked. Informed consent was obtained. The patient was then brought to the operating room and placed supine on the operating table. Anesthesia was administered and care of the head, neck, and airway was maintained by the anesthesia staff throughout the entire procedure. Patient was placed onto the marcia table and placed lateral decubitus with a herron bag. An axillary roll was placed and all bony prominences were identified and padded. The operative leg was prepped and draped in the usual sterile fashion. A surgical timeout was performed. Antibiotics were confirmed to have been given. The 3.2mm guide pin was placed percutaneously into the greater trochanter under AP and lateral fluoroscopic guidance. Once correctly positioned the skin incision was made to allow passage of the entry reamer over the pin. The long ball-tipped guidewire was passed across fracture and centered in the distal femur. Sequential reaming from a 9 mm reamer to 12 mm reamer was performed, increasing by .5 mm each time. The length of the nail was measured. The correct length and diameter nail was impacted, however, secondary to the anterior bow of the femur it was determined that completion of the femoral shaft stress fracture and osteotomy needed to be performed to safely pass the nail. A lateral approach to the femur was used after localizing the fracture with fluoroscopy. Blunt Hohmanns were carefully placed anteriorly and posteriorly. A narrow saw blade was then used to create an osteotomy through the first cortex. An osteotome was then used to complete the osteotomy on the second cortex. After completing the osteotoym gently anterior to posterior pressure on the proximal fragment was performed as well as slight valgus load to reduce the femur. The nail was then impacted using the depth tower to hospitality aide the depth of placement. The proximal femur was prepared for the lag screw which was then locked with the set screw. After assessing appropriate rotation, the distal screws were placed using perfect [place] technique. Final films were obtained and saved. All incisions were irrigated and closed in a layered fashion. Sterile dressings were applied. Once the patient was awakened from anesthesia, they were transported to the PACU in stable condition, having tolerated surgery well with no immediate complications. Postoperative Plan PACU xray P Okay for discharge home from same day Patient with crutches from home Dressing: Keep clean, dry and intact WBAT Scripts on chart Aspirin x 30 days for DVT ppx Follow up 2wks This operative report was prepared and signed by Vernon Bowden MD at 11/13/19, 10:49 AM [facility] XR FEMUR LEFT (MIN 2 VIEWS)o n 11-13-2019 Patient Name: LASHELL STACY ---Diagnostic Radiology--- Exam Date/Time 11/13/2019 12:07:42 EDT Exam CR Femur 2+ Views Left n Ordering Physician DO BOWDEN DORSEY R Accession Number [id number] CPT4 Codes 19350 () Reason For Exam Post-op Left Femur CMN Report Left femur: 11/13/2019. Clinical Information: Status post enmanuel placement. Findings: 2 views of the left femur from the hip to the knee reveal the bones to be well mineralized. An intramedullary enmanuel and compression screws are stabilizing an osteotomy of the midshaft of the femoral diaphysis. The overall position and alignment is reasonable. There is air and fluid in the soft tissues from this recent surgical procedure. Report Dictated on --- Final --- Dictated: 11/13/2019 11:59 am Dictating Physician: MD GALDAMEZ RISA Signed Date and Time: 11/13/2019 11:59 am Signed by: MD GALDAMEZ RISA Transcribed Date and Time: 11/13/2019 11:59 [place], [place] Incoming Radiology Results From [facility] - 11/13/2019 12:08 PM EDT Patient Name: LASHELL STACY ---Diagnostic Radiology--- Exam Date/Time 11/13/2019 12:07:42 EDT Exam CR Femur 2+ Views Left n Ordering Physician DO BOWDEN DORSEY R Accession Number [id number] CPT4 Codes 48029 () Reason For Exam Post-op Left Femur CMN Report Left femur: 11/13/2019. Clinical Information: Status post enmanuel placement. Findings: 2 views of the left femur from the hip to the knee reveal the bones to be well mineralized. An intramedullary enmanuel and compression screws are stabilizing an osteotomy of the midshaft of the femoral diaphysis. The overall position and alignment is reasonable. There is air and fluid in the soft tissues from this recent surgical procedure. Report Dictated on --- Final --- Dictated: 11/13/2019 11:59 am Dictating Physician: MD GALDAMEZ RISA Signed Date and Time: 11/13/2019 11:59 am Signed by: MD GALDAMEZ RISA Transcribed Date and Time: 11/13/2019 11:59 [place], [place] CBCon 11-06-2019 Erythrocyte distribution width (RBC) [Ratio] 13.3 % 11.5 - 14.5 % [place], [place] Hematocrit (Bld) [Volume fraction] 41.6 % 35 - 47 % [place] Hemoglobin (Bld) [Mass/Vol] 14.1 g/dL 11.7 - 16 g/dL [place] Interpretation and review of laboratory results Abnormal [place] MCH (RBC) [Entitic mass] 33.4 pg 26 - 34 pg [place] MCHC (RBC) [Mass/Vol] 33.8 % 32 - 36 % [place], [place] MCV (RBC) [Entitic vol] 98.9 fL High 79 - 98 fL [place], [place] Platelet mean volume (Bld) [Entitic vol] 8.7 fL 7.4 - 10.4 fL [place] Platelets (Bld) [#/Vol] 185 10*3/uL 140 - 440 10*3/uL [place] RBC (Bld) [#/Vol] 4.21 10*6/uL 3.8 - 5.2 10*6/uL [place] WBC (Bld) [#/Vol] 6.3 10*3/uL 3.6 - 10.7 10*3/uL [place], [place] Test Performed by [facility], [address] [place] [id number] [place] [address] Hemogramon 11-06-2019 Erythrocyte distribution width (RBC) [Ratio] 13.3 % Normal 11.5-14.[address] [facility] Comment on above: Performed By: #### H EMOG #### [address] Hematocrit (Bld) [Volume fraction] 41.6 % Normal 35.0-47.[address] [facility] Comment on above: Performed By: #### H EMOG #### [address] Hemoglobin (Bld) [Mass/Vol] 14.1 g/dL Normal 11.7-16.[address] [facility] Comment on above: Performed By: #### H EMOG #### [address] MCH (RBC) [Entitic mass] 33.4 pg Normal 26.0-34.[address] [facility] Comment on above: Performed By: #### H EMOG #### [address] MCHC (RBC) [Mass/Vol] 33.8 % Normal 32.0-36.0 [facility] Comment on above: Performed By: #### H EMOG #### [facility] [address] [place], [place] MCV (RBC) [Entitic vol] 98.9 fL High 79.0-98.0 [facility] Comment on above: Performed By: #### H EMOG #### [facility] [address], [place] Platelet mean volume (Bld) [Entitic vol] 8.7 fL Normal 7.4-10.[address] [facility] Comment on above: Performed By: #### H EMOG #### [place] [address], [place] Platelets (Bld) [#/Vol] 185 10*3/uL Normal 140-[address] [facility] Comment on above: Performed By: #### H EMOG #### [place] [address] [place], [place] RBC (Bld) [#/Vol] 4.21 10*6/uL Normal 3.80-5.[address] [facility] Comment on above: Performed By: #### H EMOG #### [place] [address] [place], [place] WBC (Bld) [#/Vol] 6.3 10*3/uL Normal 3.6-10.[address] [facility] Comment on above: Performed By: #### H EMOG #### [place] [address] [place], [place] CR Ankle 3+ Views Righton CR Ankle 3+ Views Right Patient Name: LASHELL MCMILLAN Diagnostic Radiology Exam Date/Time 03/24/2018 12:17:49 EDT Exam CR Ankle 3+ Views Right Ordering Physician MD PALACIOS CATHERINE Accession Number [id number] CPT4 Codes 42994 () Reason For Exam Calcific tendinitis, right ankle and foot Report Indication: Pain. Three views of the right ankle show no evidence of an acute fracture or dislocation. There is no bone destruction, erosion or periosteal reaction. Posterior and plantar calcaneal spurs are visualized. The ankle mortise is intact. There are no radiopaque foreign bodies. IMPRESSION: 1. No evidence of an acute bone process. 2. Calcaneal spurs. Report Dictated on Final Dictating Physician: DO CASTILLO ANTHONY Signed Date and Time: 03/24/2018 3:23 pm Signed by: DO CASTILLO ANTHONY Transcribed Date and Time: 03/24/2018 3:24 Normal [facility] 03-03-2017 [facility] Telephone ([facility]) LASHELL TSACY ([id number]) 1960 [facility] Time Provider Rrstktzcte94/11/17 ELKIN ZARAGOZA [facility] During your visit today, we recorded the following information about you:Meghan Juma 03/03/2017 10:42 AM SignedTesting/Procedure Name: MRI KNEETesting/Procedure Date: TBDDiagnosis code: M25.462CPT code (if applicable): [id number] reason details for testing/procdeure: KNEE SWELLING AND PAINInsurance Company contacted: [employer] contact name: N/AInsurance contact phone: N/AI submitted through [employer]. Case #[id number].It usually takes a day or 2 to get determination.Meghan Juma 03/09/2017 2:54 PM SignedAuthorization: ApprovedAuthorization number: [id number] valid date range: 03/09-04/03/17Number of Days/Visits approved: Madelyn Dennison 03/09/2017 2:58 PM SignedAuthorization information provided to written on order.I scheduled for the [place] location per patients request.Wed03/12/17 at 1:40p.I called patient and that time does not work with her so I gave her the # karlachedtello.03/09/2017 Meghan Coronado As of Date: 03/03/2017 Noted Allergy ReactionBee Stings [Other] 07/03/[id number] REDUCTASE INHIBIT*10/08/2016 5 - IntoleranceDate Reviewed: 02/25/2017Reviewed by: Shaina Ashraf LPN - Fully AssessedReason for Visit: Insurance Authorization [[id number]] Cmt: MRI KNEE,izabela 03/12/17 at 1:40p,Auth#[id number] exp 04/03/17 Results [95]Reason For Visit History RecordedPrimary Visit Diagnosis:Hypovitaminosis D [E55.9] Comment:vit d 10.8Order(s):ergocalcifer ol, vitamin D2, (VITAMIN D) 50,000 unit capsuleTake 1 capsule by mouth once each week. Use as directed.Disp: 4 capsuleRfl: 0Prescriptions as of 03/03/2017 Sig: ERGOCALCIFEROL (VITAMIN D2) 5* Take 1 capsule by mouth once * NITROFURANTOIN MACROCRYSTAL 5* Take 1 capsule by mouth. 1 ta* MODAFINIL 100 MG TABLET Take by mouth once daily. MECLIZINE 12.5 MG TABLET Take 25 mg by mouth three benny* ATIVAN ORAL Take by mouth as needed. * PROTONIX 40 MG TABLET,DELAYED* Take one(1) tablet daily. * SYNTHROID 75 MCG TABLET Take one(1) tablet daily.Problem List As Of Date 03/03/2017 Noted Resolved Recurrent UTI [N39.0] INVALID FOR* Sleep apnea [G47.30] INVALID FOR* Hiatal hernia [K44.9] INVALID FOR* GERD (gastroesophageal reflux disease) [K21.9] INVALID FOR* Hypothyroid [E03.9] INVALID FOR* Degenerative disc disease, thoracic [M51.34] INVALID FOR* Osteopenia [M85.80] INVALID FOR* Herpes zoster without complication [B02.9] INVALID FOR*Prescriptions ordered this encounter Disp Refills Start End ERGOCALCIFEROL (VITAMIN D2) 50,000 U* 4 ca* 0 03/03/2017 Cmt: After these 4 pills are gone she is to start vitamin D 2000 international units [id number]-wat-[id number] daily she should also be taking 2 extra strength Tums daily and we can repeat the levels in 6 months Route: ORAL Sig: Take 1 capsule by mouth once each week. Use as directed. Status:Closed by ELKIN ZARAGOZA DO on 03/03/17 [facility] CNOVon 02-25-2017 CNOV Office Visit ([facility]) LASHELL STACY ([id number]) 1960 FDate Time Provider Tnmllyuzfw47/5/17 4:15 PM ELKIN ZARAGOZA [facility] During your visit today, we recorded the following information about you: Pulse Respiration Blood pressure Weight 78/minute 15/minute 128/82 66.7 kg Height 1.562 Zioseluisa Zaragoza DO 03/01/2017 5:08 PM SignedPatient is a 57 year old female presenting with thyroid problem.Thyroid ProblemPresents for initial visit. The condition has lasted for 15 years. Symptomsinclude anxiety, cold intolerance, constipation, depressed mood and fatigue.Patient reports no heat intolerance or hoarse voice. The symptoms have beenworsening. Past treatments include levothyroxine. The treatment provided mildrelief. Risk factors include family history of hypothyroidism.Review of SystemsConstitutional: Positive for fatigue.HENT: Negative for hoarse voice.Gastrointestinal: Positive for constipation.Endo/Heme/Al lergies: Positive for cold intolerance. Negative for heatintolerance.Psychiatr ic/Behavioral: The patient is nervous/anxious.PAST MEDICAL HISTORYDiagnosis Date- Degeneration of thoracic intervertebral disc- GERD (gastroesophageal reflux disease) Some scar tissue- Hernia, hiatal- Hypothyroidism, adult- Sleep apnea- Urinary tract infection, site not specifiedPAST SURGICAL HISTORYProcedure Laterality Date- COLONOSCOPY - DIAGNOSTIC Irritable Bowel, Polyp's removed- EGD- ESOPH W/O BRSH SPEC BALLOON DIL Esophageal dilatation- LIGATE FALLOPIAN TUBE Tubal ligation- LOW BACK DISK SURGERY 05/2012,07/2015- PAST SURGICAL HISTORY OF Ganglionic cyst removed, Rt wrist- REVISE MEDIAN N/CARPAL TUNNEL SURG Carpal tunnel, RightFAMILY HISTORYProblem Relation Age of Onset- Hypertension Mother- Thyroid Mother- Stroke Mother- Arthritis Mother Rheumatoid- parkinsons [OTHER] Mother- Heart Father Mi, triple by-pass- Stroke Father X-2- Diabetes Father Type 2- Thyroid Father- demetia [OTHER] Father- Arthritis Maternal Grandmother Rheumatoid- Osteoporosis Maternal Grandmother And great-grandmother- Cancer Maternal Grandfather Hodgkin's Lymphoma- Breast Cancer Maternal Aunt- Diabetes Maternal Aunt Several- Thyroid Brother- Hypertension Brother- Diabetes Brother Pre Diabetic- Coronary Artery Disease Brother StentsSocial History Marital status: Spouse name: Roni Years of education: 12 Number of children: 3Occupational HistoryOccupation Employer [employer] ANDREI*Social History Main Topics Smoking status: Never Smoker Smokeless status: Never Used Alcohol use: Yes Comment: rarely Drug use: No Sexual activity: Yes Partners with: Male Comment: Post MenopausalCurrent Medsnitrofurantoin (MACRODANTIN) 50 mg capsule Take 1 capsule by mouth. 1 tabletprior to coitusmodafinil (PROVIGIL) 100 mg tablet Take by mouth once daily.meclizine (ANTIVERT) 12.5 mg tab Take 25 mg by mouth three times daily.LORAZEPAM (ATIVAN ORAL) Take by mouth as needed.pantoprazole sodium(PROTONIX 40 MG TAB) Take one(1) tablet daily.levothyroxine (SYNTHROID) 75 mcg ORAL Tab Take one(1) tablet daily.BP 128/82 Pulse 78 Resp 15 Ht 5' 1.5ANDquot; (1.56m) Wt 147 lb (66.7kg) BMI 27.33 kg/(m2).Physical ExamConstitutional: She is oriented to person, place, and time. Vital signs arenormal. She appears to not be writhing in pain. She appears unhealthy. Sheappears distressed.HENT:Head: Normocephalic and atraumatic.Right Ear: Hearing, tympanic membrane, external ear and ear canal normal.Left Ear: Hearing, tympanic membrane, external ear and ear canal normal.Nose: Nose normal.Mouth/Throat: Uvula is midline, oropharynx is clear and moist and mucousmembranes are normal.Eyes: Conjunctivae, EOM and lids are normal. Pupils are equal, round, andreactive to light. No scleral icterus.Fundoscopic exam: The right eye shows no arteriolar narrowing and no AV nicking. The righteye shows red reflex. The left eye shows no arteriolar narrowing and no AV nicking. The left eyeshows red reflex.Neck: Trachea normal, normal range of motion and full passive range of motionwithout pain. Neck supple. No JVD present. No spinous process tenderness and nomuscular tenderness present. Carotid bruit is not present. No thyroid mass andno thyromegaly present.Cardiovascular: Normal rate, regular rhythm, S1 normal, S2 normal and normalpulses. No extrasystoles are present. PMI is not displaced. Exam reveals nodistant heart sounds and no friction rub.No murmur heard.Pulses: Carotid pulses are 2+ on the right side, and 2+ on the left side. Radial pulses are 2+ on the right side, and 2+ on the left side. Femoral pulses are 2+ on the right side, and 2+ on the left side. Popliteal pulses are 2+ on the right side, and 2+ on the left side. Dorsalis pedis pulses are 2+ on the right side, and 2+ on the left side. Posterior tibial pulses are 2+ on the right side, and 2+ on the left side.Pulmonary/Chest: Effort normal and breath sounds normal. No tachypnea and nobradypnea.Musculoskelet al: Left knee: She exhibits decreased range of motion, swelling, LCL laxity,bony tenderness and abnormal meniscus. She exhibits no effusion, no ecchymosis,no deformity, no erythema and normal alignment. Tenderness found. Lateral jointline tenderness noted. Legs:Neurological: She is alert and oriented to person, place, and time. She hasnormal strength, normal reflexes and intact cranial nerves. She displays notremor. A sensory deficit is present. She has a normal Cerebellar Exam. Gait(patient was seen because of the pain in left knee) abnormal. GCS score is 15.Patient has no feeling around the kneecap itself with a monofilament testingshe also has a decrease in sensation of the fourth and fifth digits of the leftfoot consistent with an L5-S1 neuropathy patient already having back surgery inthat areaSkin: Skin is warm, dry and intact. No bruising, no ecchymosis, no petechiae,no purpura and no rash noted.ASSESSMENT/PLAN:1. Hypothyroidism, unspecified type - ICD9: 244.9, ICD10: E03.9 (primarydiagnosis)- Instructed patient on importance of taking on an empty stomach either firstthing in the morning or at bedtime.- check TSH, free T4 and T3 today- continue current dose of Synthroid to see orders- T3 BLD- T4 FREE/FREE THYROX- THYROID PEROXIDASE ANTIBODY BLOOD2. 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 Acute pain of left knee - ICD9: 719.46, ICD10: M25.562The x-ray was normal exam consistent with either cruciate ligament and 4Rmeniscus tear MRI4. Swelling of joint, knee, left - ICD9: 719.06, ICD10: M25.462See #3 above- MRI KNEE WO/W IVCON LT- IV CONTRAST (RADIOLOGY PROCEDURE)5. Lateral meniscus derangement, left - ICD9: 717.40, ICD10: M23.301Patient's exam is consistent with lateral meniscus tear with possible cruciateligament involvement patient fell at home twice did not lose consciousness- MRI KNEE WO/W IVCON LT- IV CONTRAST (RADIOLOGY PROCEDURE)6. 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 No IV access, insert saline lock prior to the beginning of sedation, infusion, injection of imaging exam. Discontinue saline lock post exam. If Pt. has a central line or IVAD, may access for administration according to line specific nursing protocol. Once exam is complete flush line and de-access according to line specific nursing protocol in the MR contrast administration guidelines link.Disp: 1 EachRfl: 0 VITAMIN D 25 HYDROXY [SQVITD] Order #: [id number] T3 BLD [SQT3] Order #: [id number] FUTURE T4 FREE/FREE THYROX [SQFT4] Order #: [id number] FUTURE THYROID PEROXIDASE ANTIBODY BLOOD [SQMICRO] Order #: [id number] FUTUREPrescriptions as of 02/25/2017 Sig: NITROFURANTOIN MACROCRYSTAL 5* Take 1 capsule by mouth. 1 ta* MODAFINIL 100 MG TABLET Take by mouth once daily. MECLIZINE 12.5 MG TABLET Take 25 mg by mouth three benny* ATIVAN ORAL Take by mouth as needed. * PROTONIX 40 MG TABLET,DELAYED* Take one(1) tablet daily. * SYNTHROID 75 MCG TABLET Take one(1) tablet daily. IV CONTRAST (RADIOLOGY PROCED* MRI knee LT Inject, intraveno*Problem List As Of Date 02/25/2017 Noted Resolved Recurrent UTI [N39.0] INVALID FOR* Sleep apnea [G47.30] INVALID FOR* Hiatal hernia [K44.9] INVALID FOR* GERD (gastroesophageal reflux disease) [K21.9] INVALID FOR* Hypothyroid [E03.9] INVALID FOR* Degenerative disc disease, thoracic [M51.34] INVALID FOR* Osteopenia [M85.80] INVALID FOR* Herpes zoster without complication [B02.9] INVALID FOR*Prescriptions ordered this encounter Disp Refills Start End IV CONTRAST (RADIOLOGY PROCEDURE) 1 Ea* 0 02/25/2017 02/26/2017 Class: In Office Sig: MRI knee LT Inject, intravenously, once for 1 dose. No IV access, insert saline lock prior to the beginning of sedation, infusion, injection of imaging exam. Discontinue saline lock post exam. If Pt. has a central line or IVAD, may access for administration according to line specific nursing protocol. Once exam is complete flush line and de-access according to line specific nursing protocol in the MR contrast administration guidelines link.Disposition: Return in about 4 weeks (around 03/25/2017).Follow-up and Disposition History RecordedEncounter Number: [id number] Status:Closed by ELKIN ZARAGOZA DO on 03/01/17 [facility] PROGRESSon 02-25-2017 PROGRESS HNO ID: [id number] thor: Elkin Beaver: (none)Author Type: PhysicianType: Progress NotesFiled: 03/01/2017 5:08 PMNote Text:Patient is a 57 year old female presenting with thyroid problem.Thyroid ProblemPresents for initial visit. The condition has lasted for 15 years.Symptoms include anxiety, cold intolerance, constipation, depressed moodand fatigue. Patient reports no heat intolerance or hoarse voice. Thesymptoms have been worsening. Past treatments include levothyroxine. Thetreatment provided mild relief. Risk factors include family history ofhypothyroidism.Review of SystemsConstitutional: Positive for fatigue.HENT: Negative for hoarse voice.Gastrointestinal: Positive for constipation.Endo/Heme/Al lergies: Positive for cold intolerance. Negative for heatintolerance.Psychiatr ic/Behavioral: The patient is nervous/anxious.PAST MEDICAL HISTORYDiagnosis Date- Degeneration of thoracic intervertebral disc- GERD (gastroesophageal reflux disease) Some scar tissue- Hernia, hiatal- Hypothyroidism, adult- Sleep apnea- Urinary tract infection, site not specifiedPAST SURGICAL HISTORYProcedure Laterality Date- COLONOSCOPY - DIAGNOSTIC Irritable Bowel, Polyp's removed- EGD- ESOPH W/O BRSH SPEC BALLOON DIL Esophageal dilatation- LIGATE FALLOPIAN TUBE Tubal ligation- LOW BACK DISK SURGERY 05/2012,07/2015- PAST SURGICAL HISTORY OF Ganglionic cyst removed, Rt wrist- REVISE MEDIAN N/CARPAL TUNNEL SURG Carpal tunnel, RightFAMILY HISTORYProblem Relation Age of Onset- Hypertension Mother- Thyroid Mother- Stroke Mother- Arthritis Mother Rheumatoid- parkinsons [OTHER] Mother- Heart Father Mi, triple by-pass- Stroke Father X-2- Diabetes Father Type 2- Thyroid Father- demetia [OTHER] Father- Arthritis Maternal Grandmother Rheumatoid- Osteoporosis Maternal Grandmother And great-grandmother- Cancer Maternal Grandfather Hodgkin's Lymphoma- Breast Cancer Maternal Aunt- Diabetes Maternal Aunt Several- Thyroid Brother- Hypertension Brother- Diabetes Brother Pre Diabetic- Coronary Artery Disease Brother StentsSocial History Marital status: Spouse name: Roni Years of education: 12 Number of children: 3Occupational 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 1tablet prior to coitusmodafinil (PROVIGIL) 100 mg tablet Take by mouth once daily.meclizine (ANTIVERT) 12.5 mg tab Take 25 mg by mouth three times daily.LORAZEPAM (ATIVAN ORAL) Take by mouth as needed.pantoprazole sodium(PROTONIX 40 MG TAB) Take one(1) tablet daily.levothyroxine (SYNTHROID) 75 mcg ORAL Tab Take one(1) tablet daily.BP 128/82 Pulse 78 Resp 15 Ht 5' 1.5" (1.56m) Wt 147 lb (66.7kg) BMI 27.33 kg/(m2).Physical ExamConstitutional: She is oriented to person, place, and time. Vital signsare normal. She appears to not be writhing in pain. She appears unhealthy.She appears distressed.HENT:Head: Normocephalic and atraumatic.Right Ear: Hearing, tympanic membrane, external ear and ear canal normal.Left Ear: Hearing, tympanic membrane, external ear and ear canal normal.Nose: Nose normal.Mouth/Throat: Uvula is midline, oropharynx is clear and moist and mucousmembranes are normal.Eyes: Conjunctivae, EOM and lids are normal. Pupils are equal, round, andreactive to light. No scleral icterus.Fundoscopic exam: The right eye shows no arteriolar narrowing and no AV nicking. Theright eye shows red reflex. The left eye shows no arteriolar narrowing and no AV nicking. Theleft eye shows red reflex.Neck: Trachea normal, normal range of motion and full passive range ofmotion without pain. Neck supple. No JVD present. No spinous processtenderness and no muscular tenderness present. Carotid bruit is notpresent. No thyroid mass and no thyromegaly present.Cardiovascular: Normal rate, regular rhythm, S1 normal, S2 normal andnormal pulses. No extrasystoles are present. PMI is not displaced. Examreveals no distant heart sounds and no friction rub.No murmur heard.Pulses: Carotid pulses are 2+ on the right side, and 2+ on the left side. Radial pulses are 2+ on the right side, and 2+ on the left side. Femoral pulses are 2+ on the right side, and 2+ on the left side. Popliteal pulses are 2+ on the right side, and 2+ on the left side. Dorsalis pedis pulses are 2+ on the right side, and 2+ on the leftside. Posterior tibial pulses are 2+ on the right side, and 2+ on the leftside.Pulmonary/Chest: Effort normal and breath sounds normal. No tachypnea andno bradypnea.Musculoskeletal : Left knee: She exhibits decreased range of motion, swelling, LCLlaxity, bony tenderness and abnormal meniscus. She exhibits no effusion,no ecchymosis, no deformity, no erythema and normal alignment. Tendernessfound. Lateral joint line tenderness noted. Legs:Neurological: She is alert and oriented to person, place, and time. Shehas normal strength, normal reflexes and intact cranial nerves. Shedisplays no tremor. A sensory deficit is present. She has a normalCerebellar Exam. Gait (patient was seen because of the pain in left knee)abnormal. GCS score is 15.Patient has no feeling around the kneecap itself with a monofilamenttesting she also has a decrease in sensation of the fourth and fifthdigits of the left foot consistent with an L5-S1 neuropathy patientalready having back surgery in that areaSkin: Skin is warm, dry and intact. No bruising, no ecchymosis, nopetechiae, no purpura and no rash noted.ASSESSMENT/PLAN:1. Hypothyroidism, unspecified type - ICD9: 244.9, ICD10: E03.9 (primarydiagnosis)- Instructed patient on importance of taking on an empty stomach eitherfirst thing in the morning or at bedtime.- check TSH, free T4 and T3 today- continue current dose of Synthroid to see orders- T3 BLD- T4 FREE/FREE THYROX- THYROID PEROXIDASE ANTIBODY BLOOD2. 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 Acute pain of left knee - ICD9: 719.46, ICD10: M25.562The x-ray was normal exam consistent with either cruciate ligament and 4Rmeniscus tear MRI4. Swelling of joint, knee, left - ICD9: 719.06, ICD10: M25.462See #3 above- MRI KNEE WO/W IVCON LT- IV CONTRAST (RADIOLOGY PROCEDURE)5. Lateral meniscus derangement, left - ICD9: 717.40, ICD10: M23.301Patient's exam is consistent with lateral meniscus tear with possiblecruciate ligament involvement patient fell at home twice did not loseconsciousness- MRI KNEE WO/W IVCON LT- IV CONTRAST (RADIOLOGY PROCEDURE)6. Hypovitaminosis D - ICD9: 268.9, ICD10: E55.9- VITAMIN D 25 HYDROXYJoseph DO Nik Normal [facility] Vital Signs Date Time Vital Sign Value Performing Clinician Facility 01-02-2025 07:57-0400 Body height 157.5 cm Vicente Arriaza MD Work Phone: [facility] 01-02-2025 07:57-0400 Body mass index (BMI) [Ratio] 27.58 kg/m2 Vicente Arriaza MD Work Phone: [facility] 01-02-2025 07:57-0400 Body weight 68.4 kg Vicente Arriaza MD Work Phone: [employer] 01-02-2025 07:57-0400 Diastolic blood pressure 83 mm[Hg] Vicente Arriaza MD Work Phone: [facility] 01-02-2025 07:57-0400 Heart rate 73 /min Vicente Arriaza MD Work Phone: [facility] 01-02-2025 07:57-0400 SaO2% (BldA) [Mass fraction] 98 % Vicente Arriaza MD Work Phone: [facility] 01-02-2025 07:57-0400 Systolic blood pressure 127 mm[Hg] Vicente Arriaza MD Work Phone: [facility] 09-22-2024 08:58-0400 Diastolic blood pressure 76 mm[Hg] Crystal Newton MD Work Phone: [facility] 09-22-2024 08:58-0400 Systolic blood pressure 118 mm[Hg] Crystal Newton MD Work Phone: [facility] 09-19-2024 10:36-0400 Body height 157.5 cm Dann Marinelli MD Work Phone: [facility] 09-19-2024 10:36-0400 Body mass index (BMI) [Ratio] 26.7 kg/m2 Dann Marinelli MD Work Phone: [facility] 09-19-2024 10:36-0400 Body weight 66.22 kg Dann Marinelli MD Work Phone: [facility] 09-19-2024 10:36-0400 Diastolic blood pressure 79 mm[Hg] Dann Marinelli MD Work Phone: [facility] 09-19-2024 10:36-0400 Heart rate 71 /min Dann Marinelli MD Work Phone: [facility] 09-19-2024 10:36-0400 Systolic blood pressure 132 mm[Hg] Dann Marinelli MD Work Phone: [facility] 07-25-2024 12:04-0500 Diastolic blood pressure 93 mm[Hg] Vicente Arriaza MD Work Phone: [facility] 07-25-2024 12:04-0500 Systolic blood pressure 160 mm[Hg] Vicente Arriaza MD Work Phone: [facility] 07-25-2024 11:47-0500 Body height 157.5 cm Vicente Arriaza MD Work Phone: [facility] 07-25-2024 11:47-0500 Body mass index (BMI) [Ratio] 27.25 kg/m2 Vicente Arriaza MD Work Phone: [facility] 07-25-2024 11:47-0500 Body weight 67.59 kg Vicente Arriaza MD Work Phone: [facility] 07-25-2024 11:47-0500 Heart rate 79 /min Vicente Arriaza MD Work Phone: [facility] 07-25-2024 11:47-0500 SaO2% (BldA) [Mass fraction] 98 % Vicente Arriaza MD Work Phone: [facility] 06-27-2024 09:03-0500 Diastolic blood pressure 80 mm[Hg] Vicente Arriaza MD Work Phone: [facility] 06-27-2024 09:03-0500 Heart rate 67 /min Vicente Arriaza MD Work Phone: [facility] 06-27-2024 09:03-0500 Systolic blood pressure 154 mm[Hg] Vicente Arriaza MD Work Phone: [facility] 06-27-2024 08:40-0500 Body height 157.5 cm Vicente Arriaza MD Work Phone: [facility] 06-27-2024 08:40-0500 Body mass index (BMI) [Ratio] 27.51 kg/m2 Vicente Arriaza MD Work Phone: [facility] 06-27-2024 08:40-0500 Body weight 68.22 kg Vicente Arriaza MD Work Phone: [facility] 06-27-2024 08:40-0500 SaO2% (BldA) [Mass fraction] 98 % Vicente Arriaza MD Work Phone: [facility] 12-28-2023 09:21-0400 Diastolic blood pressure 85 mm[Hg] Vicente Arriaza MD Work Phone: [facility] 12-28-2023 09:21-0400 Systolic blood pressure 130 mm[Hg] Vicente Arriaza MD Work Phone: [facility] 12-28-2023 08:52-0400 Body height 157.5 cm Vicente Arriaza MD Work Phone: [facility] 12-28-2023 08:52-0400 Body mass index (BMI) [Ratio] 26.3 kg/m2 Vicente Arriaza MD Work Phone: [facility] 12-28-2023 08:52-0400 Body weight 65.23 kg Vicente Arriaza MD Work Phone: [facility] 12-28-2023 08:52-0400 Heart rate 73 /min Vicente Arriaza MD Work Phone: [facility] 12-28-2023 08:52-0400 SaO2% (BldA) [Mass fraction] 98 % Vicente Arriaza MD Work Phone: [facility] 06-29-2023 08:21-0500 Diastolic blood pressure 85 mm[Hg] Vicente Arriaza MD Work Phone: [facility] 06-29-2023 08:21-0500 Heart rate 60 /min Vicente Arriaza MD Work Phone: [facility] 06-29-2023 08:21-0500 Systolic blood pressure 150 mm[Hg] Vicente Arriaza MD Work Phone: [facility] 06-29-2023 08:03-0500 Body height 157.5 cm Vicente Arriaza MD Work Phone: [employer] 06-29-2023 08:03-0500 Body mass index (BMI) [Ratio] 26.74 kg/m2 Vicente Arriaza MD Work Phone: [facility] 06-29-2023 08:03-0500 Body weight 66.32 kg Vicente Arriaza MD Work Phone: [facility] 06-29-2023 08:03-0500 SaO2% (BldA) [Mass fraction] 98 % Vicente Arriaza MD Work Phone: [employer] 12-22-2022 09:25-0400 Diastolic blood pressure 93 mm[Hg] Vicente Arriaza MD Work Phone: [facility] 12-22-2022 09:25-0400 Heart rate 71 /min Vicente Arriaza MD Work Phone: [facility] 12-22-2022 09:25-0400 Systolic blood pressure 169 mm[Hg] Vicente Arriaza MD Work Phone: [facility] 12-22-2022 08:57-0400 Body height 157.5 cm Vicente Arriaza MD Work Phone: [facility] 12-22-2022 08:57-0400 Body mass index (BMI) [Ratio] 26.63 kg/m2 Vicente Arriaza MD Work Phone: [facility] 12-22-2022 08:57-0400 Body weight 66.04 kg Vicente Arriaza MD Work Phone: [facility] 12-22-2022 08:57-0400 SaO2% (BldA) [Mass fraction] 99 % Vicente Arriaza MD Work Phone: [facility] 10-26-2022 12:45-0400 Body temperature 99.2 [degF] Dr. Vicente Arriaza Work Phone: [facility] 10-26-2022 12:45-0400 Diastolic blood pressure 69 mm[Hg] Dr. Vicente Arriaza Work Phone: [facility] 10-26-2022 12:45-0400 Heart rate 58 /min Dr. Vicente Arriaza Work Phone: [facility] 10-26-2022 12:45-0400 Respiratory rate 16 /min Dr. Vicente Arriaza Work Phone: [facility] 10-26-2022 12:45-0400 SaO2% (BldA) [Mass fraction] 98 % Dr. Vicente Arriaza Work Phone: [facility] 10-26-2022 12:45-0400 Systolic blood pressure 150 mm[Hg] Dr. Vicente Arriaza Work Phone: [facility] 10-26-2022 11:55-0400 Body height 160.[address] Vicente Arriaza Work Phone: [facility] 10-26-2022 11:55-0400 Body mass index (BMI) [Ratio] 25.4 kg/m2 Dr. Vicente Arriaza Work Phone: [facility] 10-26-2022 11:55-0400 Body weight [address] Vicente Arriaza Work Phone: [facility] 06-23-2022 09:55-0500 Diastolic blood pressure 85 mm[Hg] Vicente Arriaza MD Work Phone: [facility] 06-23-2022 09:55-0500 Heart rate 70 /min Vicente Arriaza MD Work Phone: [facility] 06-23-2022 09:55-0500 Systolic blood pressure 147 mm[Hg] Vicente Arriaza MD Work Phone: [facility] 06-23-2022 09:28-0500 Body height 157.5 cm Vicente Arriaza MD Work Phone: [facility] 06-23-2022 09:28-0500 Body mass index (BMI) [Ratio] 26.41 kg/m2 Vicente Arriaza MD Work Phone: [facility] 06-23-2022 09:28-0500 Body weight 65.5 kg Vicente Arriaza MD Work Phone: [facility] 03-09-2022 11:30-0400 Body temperature 97.1 [degF] Dr. Vicente Arriaza Work Phone: [facility] Work Phone: 03-09-2022 11:30-0400 Diastolic blood pressure 74 mm[Hg] Dr. Vicente Arriaza Work Phone: [facility] Work Phone: 03-09-2022 11:30-0400 Heart rate 64 /min Dr. Vicente Arriaza Work Phone: [facility] Work Phone: 03-09-2022 11:30-0400 Respiratory rate 16 /min Dr. Vicente Arriaza Work Phone: [facility] Work Phone: 03-09-2022 11:30-0400 SaO2% (BldA) [Mass fraction] 99 % Dr. Vicente Arriaza Work Phone: [facility] Work Phone: 03-09-2022 11:30-0400 Systolic blood pressure 126 mm[Hg] Dr. Vicente Arriaza Work Phone: [facility] Work Phone: 03-09-2022 11:05-0400 Inhaled oxygen flow rate 2 L/min Dr. Vicente Arriaza Work Phone: [facility] Work Phone: 03-09-2022 09:07-0400 Body height 160.[address] Vicente Arriaza Work Phone: [facility] Work Phone: 03-09-2022 09:07-0400 Body mass index (BMI) [Ratio] 25.7 kg/m2 Dr. Vicente Arriaza Work Phone: [facility] Work Phone: 03-09-2022 09:07-0400 Body weight 65.[address] Vicente Arriaza Work Phone: [facility] Work Phone: 01-05-2022 12:45-0400 Body temperature 97 [degF] Dr. Vicente Arriaza Work Phone: [facility] Work Phone: 01-05-2022 12:45-0400 Diastolic blood pressure 79 mm[Hg] Dr. Vicente Arriaza Work Phone: [facility] Work Phone: 01-05-2022 12:45-0400 Heart rate 74 /min Dr. Vicente Arriaza Work Phone: [facility] Work Phone: 01-05-2022 12:45-0400 Respiratory rate 16 /min Dr. Vicente Arriaza Work Phone: [facility] Work Phone: 01-05-2022 12:45-0400 SaO2% (BldA) [Mass fraction] 97 % Dr. Vicente Arriaza Work Phone: [facility] Work Phone: 01-05-2022 12:45-0400 Systolic blood pressure 129 mm[Hg] Dr. Vicente Arriaza Work Phone: [facility] Work Phone: 01-05-2022 10:25-0400 Body height 157.[address] Vicente Arriaza Work Phone: [facility] Work Phone: 01-05-2022 10:25-0400 Body mass index (BMI) [Ratio] 26.6 kg/m2 Dr. Vicente Arriaza Work Phone: [facility] Work Phone: 01-05-2022 10:25-0400 Body weight 66.[address] Vicente Arriaza Work Phone: [facility] Work Phone: 09-10-2021 21:02-0400 Diastolic blood pressure 60 mm[Hg] [facility] Work Phone: 09-10-2021 21:02-0400 Heart rate 78 /min [facility] Work Phone: 09-10-2021 21:02-0400 Respiratory rate 18 /min [facility] Work Phone: 09-10-2021 21:02-0400 Systolic blood pressure 172 mm[Hg] [facility] Work Phone: 09-10-2021 19:47-0400 Body height 157.48 cm [facility] Work Phone: 09-10-2021 19:47-0400 Body mass index (BMI) [Ratio] 28.5 kg/m2 [facility] Work Phone: 09-10-2021 19:47-0400 Body temperature 98.1 [degF] [facility] Work Phone: 09-10-2021 19:47-0400 Body weight 70.76 kg [facility] Work Phone: 09-10-2021 19:47-0400 SaO2% (BldA) [Mass fraction] 99 % [facility] Work Phone: 04-29-2020 12:30-0500 BP Diastolic 77 mm[Hg] [facility] [place] 04-29-2020 12:30-0500 BP Systolic 113 mm[Hg] [facility] [place] 04-29-2020 12:30-0500 Pulse (Heart Rate) 64 /min [facility] 04-29-2020 12:30-0500 Pulse Oximetry 98 % [place], [place] 04-29-2020 12:30-0500 Respiratory Rate 16 /min [facility] 04-29-2020 09:58-0500 Body Temperature 97.5 [degF] [facility] 04-23-2020 09:11-0500 BMI (Body Mass Index) 27.44 kg/m2 Dann Yuliana Lama [facility] 04-23-2020 09:11-0500 Body weight 68.04 kg [facility] [place] 04-23-2020 09:11-0500 Height 157.5 cm [facility] [place] 11-13-2019 13:20-0400 Body Temperature 97.59 [degF] [facility] 11-13-2019 13:20-0400 BP Diastolic 62 mm[Hg] [facility] [place] 11-13-2019 13:20-0400 BP Systolic 104 mm[Hg] [facility] [place] 11-13-2019 13:20-0400 Pulse (Heart Rate) 66 /min [facility] 11-13-2019 13:20-0400 Pulse Oximetry 98 % [facility] [place] 11-13-2019 13:20-0400 Respiratory Rate 16 /min [facility] 11-13-2019 06:54-0400 BMI (Body Mass Index) 28.72 kg/m2 [facility] 11-13-2019 06:54-0400 Body weight 71.22 kg [facility] [place] 11-13-2019 06:54-0400 Height 157.5 cm [facility] [place] 11-06-2019 13:15-0400 BMI (Body Mass Index) 28.26 kg/m2 [facility] 11-06-2019 13:15-0400 Body Temperature 98.6 [degF] [facility] 11-06-2019 13:15-0400 Body weight 71.22 kg [facility] [place] 11-06-2019 13:15-0400 BP Diastolic 89 mm[Hg] D[facility] , [place] 11-06-2019 13:15-0400 BP Systolic 146 mm[Hg] [facility] [place] 11-06-2019 13:15-0400 Height 158.8 cm Dann [facility] [place] 11-06-2019 13:15-0400 Pulse (Heart Rate) 83 /min [facility] 11-06-2019 13:15-0400 Pulse Oximetry 98 % [facility] [place] 11-06-2019 13:15-0400 Respiratory Rate 18 /min [facility] Encounters Encounter Date Encounter Type Care Provider Facility Start: 02-23-2025 End: 02-23-2025 Refill Vicente Arriaza MD Work Phone: [facility] Start: 02-02-2025 End: 02-05-2025 Refill Vicente Arriaza MD Work Phone: [facility] Comment on above: Primary narcolepsy w ithout cataplexy Start: 01-19-2025 End: 01-19-2025 Orders Only Luiz Bermudez [employer] MACHINE OPERATOR - IT TECHNICAL SPECIALIST Work Phone: [facility] Comment on above: 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 (Primary Dx) Start: 01-18-2025 End: 01-18-2025 Telephone encounter Vicente Arriaza MD Work Phone: [facility] Comment on above: Other Start: 01-02-2025 End: 01-02-2025 Follow-up encounter Vicente Arriaza MD Work Phone: [facility] Comment on above: ECG 12 lead, Lipid p manish, Comprehensive metabolic panel, Additional followed-up results: 4 Start: 01-02-2025 End: 01-02-2025 Patient encounter procedure Vicente Arriaza MD Work Phone: [facility] Work Phone: Start: 01-02-2025 End: 01-02-2025 Periodic preventive med est patient 40-64yrs Vicente Arriaza MD Work Phone: [facility] Comment on above: Annual physical exam (Primary Dx); Primary narcolepsy without cataplexy; Yeny's syndrome; Essential hypertension; Gastroesophageal reflux disease without esophagitis; Age-related osteoporosis with current pathological fracture with delayed healing; Acquired hypothyroidism; Vitamin D deficiency; Hyperlipidemia LDL goal <100; Anxiety; B12 deficiency; Atypical chest pain; Screening for diabetes mellitus; Screening for deficiency anemia Start: 01-02-2025 End: 01-02-2025 ambulatory [facility] Start: 01-02-2025 End: 01-02-2025 Encounter for general adult medical examination without abnormal findings [facility] Start: 11-20-2024 End: 11-20-2024 Refill Vicente Arriaza MD Work Phone: [facility] Start: 09-22-2024 End: 09-22-2024 Office outpatient new 30 minutes Crystal Newton MD Work Phone: [facility] [place] Comment on above: Acute pain of left k nee (Primary Dx) Start: 09-22-2024 End: 09-22-2024 Subsequent hospital visit by physician Crystal Newton MD Work Phone: [facility] Comment on above: Acute pain of left k nee Start: 09-22-2024 End: 09-22-2024 ambulatory [facility] Start: 09-19-2024 End: 09-19-2024 Office outpatient new 30 minutes Dann Marinelli MD Work Phone: [facility] [place] [facility] Comment on above: Right leg pain Start: 09-19-2024 End: 09-19-2024 ambulatory [facility] Start: 09-11-2024 End: 09-20-2024 Telephone encounter Dann Marinelli MD Work Phone: [facility] [place] Comment on above: Appointment Start: 08-15-2024 End: 08-15-2024 ambulatory [facility] Start: 08-07-2024 End: 08-07-2024 Refill Vicente Arriaza MD Work Phone: [facility] Clinical Communication Comment on above: Primary narcolepsy w ithout cataplexy Start: 07-25-2024 End: 07-25-2024 ambulatory [facility] Start: 07-25-2024 End: 07-25-2024 Office outpatient visit 15 minutes Vicente Arriaza MD Work Phone: [facility] Comment on above: Essential hypertensi on (Primary Dx) Start: 07-04-2024 End: 07-04-2024 ambulatory [facility] Start: 06-27-2024 End: 06-27-2024 Office outpatient visit 25 minutes Vicente Arriaza MD Work Phone: [facility] Comment on above: Primary narcolepsy w ithout cataplexy (Primary Dx); Yeny's syndrome; Essential hypertension; Gastroesophageal reflux disease without esophagitis; Acquired hypothyroidism; Vitamin D deficiency; Anxiety; Hyperlipidemia LDL goal <100; Influenza vaccine refused Start: 06-27-2024 End: 06-27-2024 ambulatory [facility] Start: 06-26-2024 End: 06-26-2024 ambulatory [facility] Start: 06-19-2024 End: 06-19-2024 ambulatory [facility] [place] Facility:[facility] Start: 06-12-2024 End: 06-12-2024 ambulatory Vicente Arriaza Facility:[facility] Start: 05-03-2024 End: 05-03-2024 ambulatory [facility] [place] Facility:[facility] Start: 02-07-2024 End: 02-07-2024 ambulatory [facility] Facility:[facility] Start: 12-29-2023 End: 12-30-2023 Telephone encounter Vicente Arriaza MD Work Phone: [facility] Comment on above: Results Start: 12-28-2023 End: 12-28-2023 Patient encounter procedure Vicente Arriaza MD Work Phone: [facility] Work Phone: Start: 12-28-2023 End: 12-28-2023 Periodic preventive med est patient 40-64yrs Vicente Arriaza MD Work Phone: [facility] Comment on above: Annual physical exam (Primary Dx); Primary narcolepsy without cataplexy; Essential hypertension; Gastroesophageal reflux disease without esophagitis; Acquired hypothyroidism; Vitamin D deficiency; Anxiety; Hyperlipidemia LDL goal <100; Screening for diabetes mellitus Start: 08-25-2023 Refill Marsha Dubose [facility] Comment on above: Acquired hypothyroid ism (Primary Dx); Primary narcolepsy without cataplexy Start: 06-30-2023 Telephone encounter Vicente Wyatt MD Work Phone: [facility] Comment on above: Results Start: 06-29-2023 End: 06-29-2023 Office outpatient visit 25 minutes Vicente Arriaza MD Work Phone: [facility] Comment on above: Primary narcolepsy w ithout cataplexy (Primary Dx); Essential hypertension; Yeny's syndrome; Gastroesophageal reflux disease without esophagitis; Acquired hypothyroidism; Hyperlipidemia LDL goal <100; Anxiety Start: 06-10-2023 Non-patient / Non-visit Dr. Bryan Work Phone: [facility] Start: 06-10-2023 End: 06-10-[address] Vicente Arriaza Work Phone: [facility] Work Phone: Start: 06-10-2023 End: 06-10-[address] Vicente Arriaza Work Phone: [facility] Work Phone: Start: 05-24-2023 Refill Luiz Bermudez APRN - IT TECHNICAL SPECIALIST Work Phone: [facility] Start: 05-14-2023 Refill Vicente Arriaza MD Work Phone: [facility] Comment on above: Primary narcolepsy w ithout cataplexy Start: 04-26-2023 End: 04-26-2023 Non-patient / Non-visit Dr. Vicente Arriaza Work Phone: [facility] Work Phone: Start: 04-26-2023 End: 04-26-[address] Vicente Arriaza Work Phone: [facility] Work Phone: Start: 04-26-2023 End: 04-26-[address] Vicente Arriaza Work Phone: [facility]Neurology Work Phone: Start: 03-15-2023 Telephone encounter Vicente Wyatt MD Work Phone: [facility] Start: 03-08-2023 Refill Vicente Arriaza MD Work Phone: [facility] Comment on above: Primary narcolepsy w ithout cataplexy Start: 12-22-2022 End: 12-22-2022 Patient encounter procedure Vicente Arriaza MD Work Phone: [facility] Work Phone: Start: 12-22-2022 End: 12-22-2022 Periodic preventive med est patient 40-64yrs Vicente Arriaza MD Work Phone: [facility] Comment on above: Annual physical exam (Primary Dx); Primary narcolepsy without cataplexy; Essential hypertension; Yeny's syndrome; Gastroesophageal reflux disease without esophagitis; Acquired hypothyroidism; Vitamin D deficiency; Anxiety; Hyperlipidemia LDL goal <100; Screening for diabetes mellitus Start: 11-23-2022 Refill Vicente Arriaza MD Work Phone: [facility] Start: 10-26-2022 End: 10-26-2022 Admission to same day surgery center Dr. Vicente Arriaza Work Phone: [facility] Start: 10-26-2022 End: 10-26-[address] Vicente Arriaza Work Phone: [facility] Work Phone: Start: 08-25-2022 End: 08-25-[address] Vicente Arriaza Work Phone: [facility] Radiology Start: 08-18-2022 End: 08-18-[address] Vicente Arriaza Work Phone: [facility] Work Phone: Start: 08-18-2022 End: 08-18-[address] Vicente Arriaza Work Phone: [facility]Physical Therapy Start: 06-23-2022 End: 06-23-2022 Office outpatient visit 25 minutes Vicente Arriaza MD Work Phone: [facility] Comment on above: Essential hypertensi on (Primary Dx); Primary narcolepsy without cataplexy; Gastroesophageal reflux disease without esophagitis; Acquired hypothyroidism; Hyperlipidemia LDL goal <100; Anxiety Start: 04-29-2022 Documentation procedure Mammog dana Coordinator [facility] Start: 04-29-2022 Letter encounter Mammography Coordinator [facility] Department Start: 04-28-2022 End: 04-28-2022 ambulatory DIANA ARANGO Facility:[facility] Start: 04-28-2022 End: 04-28-2022 Subsequent hospital visit by physician Screen Mammo [facility] Comment on above: Encounter for screen ing mammogram for malignant neoplasm of breast [Z12.31] Start: 03-09-2022 End: 03-09-2022 Admission to same day surgery center Dr. Vicente Arriaza [facility] Start: 03-09-2022 End: 03-09-[address] Vicente Arriaza Work Phone: [facility] Work Phone: Start: 02-12-2022 End: 02-12-[address] Vicente Arriaza Work Phone: [facility] Start: 01-05-2022 End: 01-05-2022 Admission to same day surgery center Dr. Vicente Arriaza [facility] Start: 12-16-2021 End: 12-16-[address] Vicente Arriaza Work Phone: [facility] Radiology Start: 09-10-2021 End: 09-10-2021 Emergency department patient visit [facility] Start: 04-29-2020 End: 04-29-2020 Subsequent hospital visit by physician Dann Marinelli Work Phone: [facility] General Surgery Comment on above: Stress fracture of r ight femur, initial encounter (Primary Dx) Start: 04-23-2020 End: 04-23-2020 Subsequent hospital visit by physician Dann Marinelli Work Phone: [facility] Pre-Admit Testing Comment on above: Arrived Start: 11-13-2019 End: 11-13-2019 Subsequent hospital visit by physician Dann Marinelli Work Phone: [facility] General Surgery Comment on above: Stress fracture of l eft femur, initial encounter (Primary Dx) Start: 11-06-2019 End: 11-06-2019 Subsequent hospital visit by physician Dann Marinelli Work Phone: [facility] Pre-Admit Testing Comment on above: Arrived Start: 03-24-2018 Patient encounter procedure [facility] Start: 02-08-2018 Patient encounter procedure Ibrahima Cunningham [facility] Procedures Date Procedure Procedure Detail Performing Clinician Start: 01-02-2025 Ecg routine ecg w/le ast 12 lds w/i&r Vicente Arriaza MD Work Phone: Start: 01-02-2025 Lipid 1996 panel - S gato or Plasma Vicente Arriaza MD Work Phone: Start: 01-02-2025 Thyrotropin [Units/v olume] in Serum or Plasma Vicente Arriaza MD Work Phone: Start: 09-22-2024 Radiologic examinati on knee 1/2 views Crystal Newton MD Work Phone: Start: 06-27-2024 Lipid 1996 panel - S gato or Plasma Vicente Arriaza MD Work Phone: Start: 06-27-2024 Thyrotropin [Units/v olume] in Serum or Plasma Vicente Arriaza MD Work Phone: Start: 06-21-2024 Adult depression scr eening assessment Vicente Arriaza MD Work Phone: Start: 12-28-2023 Lipid 1996 panel - S gato or Plasma Vicente Arriaza MD Work Phone: Start: 12-28-2023 Thyrotropin [Units/v olume] in Serum or Plasma Vicente Arriaza MD Work Phone: Start: 12-24-2023 Adult depression scr eening assessment Vicente Arriaza MD Work Phone: Start: 06-29-2023 Drug tst prsmv read instrmnt asstd dir opt obs Vicente Arriaza MD Work Phone: Start: 06-29-2023 Lipid 1996 panel - S gato or Plasma Vicente Arriaza MD Work Phone: Start: 04-13-2023 Colonoscopy Luiz Barfield s GARNETT MACHINE OPERATOR - IT TECHNICAL SPECIALIST Work Phone: Start: 12-22-2022 Lipid 1996 panel - S gato or Plasma Vicente Arriaza MD Work Phone: Start: 12-22-2022 Thyrotropin [Units/v olume] in Serum or Plasma Vicente Arriaza MD Work Phone: Start: 12-21-2022 Adult depression scr eening assessment Vicente Arriaza MD Work Phone: Start: 10-26-2022 Local anesthetic cer vical epidural block Dr. Vicente Arriaza Work Phone: Start: 08-25-2022 X-ray of cervical spine Dr. Vicente Arriaza Work Phone: Start: 06-23-2022 Lipid 1996 panel - S gato or Plasma Vicente Arriaza MD Work Phone: Start: 06-23-2022 Thyrotropin [Units/v olume] in Serum or Plasma Vicente Arriaza MD Work Phone: Start: 04-28-2022 End: 04-28-2022 Mammography Diana Thapa APRN.IT TECHNICAL SPECIALIST Work Phone: Start: 04-28-2022 Microscopic observat ion [Identifier] in Cervix by Cyto stain Vicente Arriaza MD Work Phone: Start: 03-09-2022 Balloon kyphoplasty of fracture of spine Dr. Vicente Arriaza Work Phone: Start: 02-12-2022 X-ray of lumbosacral spine Dr. Vicente Arriaza Work Phone: Start: 02-12-2022 Radiography of thora cic spine Dr. Vicente Arriaza Work Phone: Start: 01-05-2022 Balloon kyphoplasty of fracture of spine Dr. Vicente Arriaza Work Phone: Start: 01-05-2022 Fluoroscopic guidance Marleen Arriaza Work Phone: Start: 01-05-2022 X-ray of lumbar spin e, two or three views Dr. Vicente Arriaza Work Phone: Start: 12-23-2021 Lipid 1996 panel - S gato or Plasma Vicente Arriaza MD Work Phone: Start: 12-23-2021 Thyrotropin [Units/v olume] in Serum or Plasma Vicente Arriaza MD Work Phone: Start: 12-16-2021 Radiography of thora cic spine Dr. Vicente Arriaza Work Phone: Start: 12-16-2021 X-ray of lumbosacral spine Dr. Vicente Arriaza Work Phone: Start: 09-10-2021 Plain X-ray of femur Start: 09-10-2021 Plain X-ray of tibia and fibula Start: 06-20-2020 Mammography Vicente ball MD Work Phone: Start: 04-29-2020 Blood count complete automated Roney Jhaveri Work Phone: Start: 11-13-2019 OPERATIVE REPORT 3m Sca nning Start: 11-13-2019 Radiologic examinati on femur minimum 2 views Vernon Bowden Work Phone: Start: 11-06-2019 Blood count complete automated Radha Carmichael Work Phone: Start: 02-08-2018 Colonoscopy Vciente ball MD Work Phone: Start: 12-05-2017 Colonoscopy Mammograph y Coordinator Start: 10-08-2016 Lipid 1996 panel - S gato or Plasma Screen Wstr Plan of Treatment Date Care Activity Detail Author Start: 01-28-2036 RSV Immunization for Adults (1 - 1-dose 75+ series) RSV Immunization for Adults (1 - 1-dose 75+ series) [facility] Start: 04-13-2033 Screening for malign ant neoplasm of colon [facility] Start: 01-02-2030 Lipid panel [facility] Start: 06-27-2029 Lipid panel Lipid Panel [facility] Start: 12-27-2028 Lipid panel Lipid Panel [facility] Start: 06-29-2028 Lipid panel Lipid Panel [facility] Start: 02-09-2028 Screening for malign ant neoplasm of colon [facility] Start: 12-23-2027 Lipid panel Lipid Panel [facility] Start: 12-06-2027 Colonoscopy COLONOSCOPY [facility] Start: 12-06-2027 COLORECTAL CANCER SCREENING COLORECTAL CANCER SCREENING [facility] Start: 06-23-2027 Lipid panel Lipid Panel [facility] Start: 04-28-2027 HPV TESTING HPV TESTING [facility] Start: 04-28-2027 PAP TESTING PAP TESTING [facility] Start: 12-23-2026 Lipid panel Lipid Panel [facility] Start: 11-13-2026 DTaP/Tdap/Td vaccine (2 - Td) DTaP/Tdap/Td vaccine (2 - Td) [facility] [place] Start: 11-13-2026 DTaP/Tdap/Td Vaccine s (2 - Td or Tdap) DTaP/Tdap/Td Vaccines (2 - Td or Tdap) [facility] Start: 11-13-2026 Urine microalbumin profile DTaP,Tdap,Td Vaccine (2 - Td or Tdap) [facility] Start: 01-02-2026 Thyroid stimulating hormone measurement TSH Level [facility] Start: 07-10-2025 End: 07-10-2025 Patient encounter procedure 07/10/2025 8:00 AM EST Office Visit [address] [id number] Vicente Arriaza MD [address] [place] [address] [facility] Start: 06-27-2025 Thyroid stimulating hormone measurement TSH Level [facility] Start: 06-21-2025 COVID-19 Vaccine ( season) COVID-19 Vaccine ( season) [facility] Comment on above: Postponed from 01/22 (Patient Refused) Start: 06-21-2025 Depression Screening Depression Scre ening [facility] Start: 06-21-2025 Pneumococcal Vaccine : 50+ Years (1 of 1 - PCV) Pneumococcal Vaccine: 50+ Years (1 of 1 - PCV) [facility] Comment on above: Postponed from 01/27 (Patient Refused) Start: 06-21-2025 Screening for osteoporosis Bone Density Scan [facility] Comment on above: Postponed from 04/28 (Patient Refused) Start: 04-28-2025 Screening for malign ant neoplasm of cervix [facility] Start: 01-22-2025 COVID-19 Vaccine ( season) COVID-19 Vaccine ( season) [facility] Start: 01-22-2025 Influenza vaccination [facility] Start: 01-02-2025 End: 01-01-2026 25-hydroxyvitamin D3 [Mass/volume] in Serum or Plasma Vitamin D Deficiency Screening (Vit D 25) Lab Routine Vitamin D deficiency Expected: 01/02/2025 (Approximate), Expires: 01/01/2026 [facility] Comment on above: Expected: 01/02/2025 (Approximate), Expires: 01/01/2026 Start: 01-02-2025 End: 01-02-2026 CBC panel - Blood by Automated count CBC Lab Routine Screening for deficiency anemia Expected: 01/02/2025 (Approximate), Expires: 01/02/2026 [facility] Comment on above: Expected: 01/02/2025 (Approximate), Expires: 01/02/2026 Start: 01-02-2025 End: 01-02-2026 Cobalamin (Vitamin B12) [Mass/volume] in Serum or Plasma Vitamin B12 Lab Routine B12 deficiency Expected: 01/02/2025 (Approximate), Expires: 01/02/2026 [facility] Comment on above: Expected: 01/02/2025 (Approximate), Expires: 01/02/2026 Start: 01-02-2025 End: 01-01-2026 Comprehensive metabolic 1998 panel - Serum or Plasma Comprehensive metabolic panel Lab Routine Screening for diabetes mellitus Expected: 01/02/2025 (Approximate), Expires: 01/01/2026 [facility] Comment on above: Expected: 01/02/2025 (Approximate), Expires: 01/01/2026 Start: 01-02-2025 End: 01-01-2026 Lipid 1996 panel - Serum or Plasma Lipid panel Lab Routine Hyperlipidemia LDL goal <100 Expected: 01/02/2025 (Approximate), Expires: 01/01/2026 [facility] Work Phone: Comment on above: Expected: 01/02/2025 (Approximate), Expires: 01/01/2026 Start: 01-02-2025 End: 01-01-2026 Thyrotropin [Units/volume] in Serum or Plasma TSH Lab Routine Acquired hypothyroidism Expected: 01/02/2025 (Approximate), Expires: 01/01/2026 [facility] Comment on above: Expected: 01/02/2025 (Approximate), Expires: 01/01/2026 Start: 01-02-2025 End: 01-02-2025 Patient encounter procedure 01/02/2025 8:00 AM EDT Office Visit [place] [address] [address] [facility] [address] [place], [place] [id number] Vicente Arriaza MD [address] [place] [address] [place] [address] [facility] Start: 12-27-2024 Thyroid stimulating hormone measurement TSH Level [facility] Start: 12-23-2024 COVID-19 Vaccine ( season) COVID-19 Vaccine ( season) [facility] Comment on above: Postponed from 01/22 (Patient Refused) Start: 12-23-2024 Depression Screening Depression Scre ening [facility] Start: 12-23-2024 RSV Immunization age d 60 or older (1 - 1-dose 60+ series) RSV Immunization aged 60 or older (1 - 1-dose 60+ series) [facility] Comment on above: Postponed from 01/27 (Patient Refused) Start: 12-23-2024 Zoster Vaccines (1 o f 2) Zoster Vaccines (1 of 2) [facility] Comment on above: Postponed from 01/27 (Patient Refused) Start: 12-13-2024 Lipid panel Lipid screen Daina Menendez th- [place], [place] Start: 11-20-2024 Influenza vaccination Influenza Vacc ine (#1) [facility] Comment on above: Postponed from 01/22 (Patient Refused) Start: 09-22-2024 End: 09-22-2024 Patient encounter procedure 09/22/2024 9:00 AM EDT Office Visit [facility] [place] [address] [place] [address] [place] [id number] Crystal Newton MD [address] [facility] [place] [address] [facility] Start: 08-15-2024 End: 08-15-2024 Clinical Support 08/15/2024 10:30 AM EDT Clinical Support [facility] [address] [place] [facility] [place] [address] [place] [address] [facility] Start: 07-04-2024 End: 07-04-2024 Clinical Support 07/04/2024 11:30 AM EST Clinical Support [facility] [address] [place] [address] [place] [address] [place] [address] [facility] Start: 06-27-2024 End: 06-21-2025 Lipid 1996 panel - Serum or Plasma Lipid panel Lab Routine Hyperlipidemia LDL goal <100 Expected: 06/27/2024 (Approximate), Expires: 06/21/2025 [facility] System Work Phone: Comment on above: Expected: 06/27/2024 (Approximate), Expires: 06/21/2025 Start: 06-27-2024 End: 06-21-2025 Thyrotropin [Units/volume] in Serum or Plasma TSH Lab Routine Acquired hypothyroidism Expected: 06/27/2024 (Approximate), Expires: 06/21/2025 [facility] Comment on above: Expected: 06/27/2024 (Approximate), Expires: 06/21/2025 Start: 06-27-2024 End: 06-27-2024 Patient encounter procedure 06/27/2024 8:45 AM EST Office Visit [facility] [address] [place] [address] [place] [address] Vicente Arriaza MD [address] [place] [address] [place] [address] [facility] Start: 04-28-2024 Screening for osteoporosis Bone Density Scan [facility] Start: 01-23-2024 Influenza vaccination [facility] Start: 12-28-2023 End: 12-23-2024 25-hydroxyvitamin D3 [Mass/volume] in Serum or Plasma Vitamin D Deficiency Screening (Vit D 25) Lab Routine Vitamin D deficiency Expected: 12/28/2023 (Approximate), Expires: 12/23/2024 [facility] Comment on above: Expected: 12/28/2023 (Approximate), Expires: 12/23/2024 Start: 12-28-2023 End: 12-23-2024 Comprehensive metabolic 1998 panel - Serum or Plasma Comprehensive metabolic panel Lab Routine Screening for diabetes mellitus Expected: 12/28/2023 (Approximate), Expires: 12/23/2024 [facility] Comment on above: Expected: 12/28/2023 (Approximate), Expires: 12/23/2024 Start: 12-28-2023 End: 12-23-2024 Lipid 1996 panel - Serum or Plasma Lipid panel Lab Routine Hyperlipidemia LDL goal <100 Expected: 12/28/2023 (Approximate), Expires: 12/23/2024 [facility] Work Phone: Comment on above: Expected: 12/28/2023 (Approximate), Expires: 12/23/2024 Start: 12-28-2023 End: 12-23-2024 Thyrotropin [Units/volume] in Serum or Plasma TSH Lab Routine Acquired hypothyroidism Expected: 12/28/2023 (Approximate), Expires: 12/23/2024 [facility] Comment on above: Expected: 12/28/2023 (Approximate), Expires: 12/23/2024 Start: 12-28-2023 End: 12-28-2023 Patient encounter procedure 12/28/2023 9:00 AM EDT Office Visit [facility] [address] [facility] [place] [address] Vicente Arriaza MD [address] [place] [address] [place] [address] [facility] Start: 12-23-2023 Thyroid stimulating hormone measurement TSH Level [facility] Start: 12-22-2023 COVID-19 Vaccine (#1) COVID-19 Vacci ne (#1) [facility] Comment on above: Postponed from 07/27 (Patient Refused) Start: 12-22-2023 Depression Screening Depression Scre ening [facility] Start: 12-22-2023 Zoster Vaccines (1 o f 2) Zoster Vaccines (1 of 2) [facility] Comment on above: Postponed from 01/27 (Patient Refused) Start: 11-23-2023 Lipid panel Lipid screen Daina Menendez th- [place], [place] Start: 06-29-2023 End: 06-28-2024 Lipid 1996 panel - Serum or Plasma Lipid panel Lab Routine Hyperlipidemia LDL goal <100 Expected: 06/29/2023 (Approximate), Expires: 06/28/2024 [facility] System Work Phone: Comment on above: Expected: 06/29/2023 (Approximate), Expires: 06/28/2024 Start: 06-29-2023 End: 06-29-2023 Patient encounter procedure 06/29/2023 8:00 AM EST Office Visit [facility] [address] [place] [id number] Vicente Arriaza MD [address] [place] [id number] [facility] Start: 06-23-2023 Thyroid stimulating hormone measurement TSH Level [facility] Start: 04-28-2023 Mammography [facility] Start: 04-28-2023 Screening for malign ant neoplasm of breast Mammogram [facility] Start: 04-28-2023 Screening for osteoporosis Bone Density Scan [facility] Start: 01-22-2023 COVID-19 Vaccine ( season) COVID-19 Vaccine ( season) [facility] Start: 01-22-2023 Influenza vaccination Influenza Vacc ine (#1) [facility] Start: 12-29-2022 End: 12-29-2022 Clinical Support 12/29/2022 11:00 AM EDT Clinical Support [facility] [address] [place] [address] [facility] Start: 12-23-2022 Thyroid stimulating hormone measurement TSH Level [facility] Start: 12-22-2022 End: 12-22-2023 25-hydroxyvitamin D3 [Mass/volume] in Serum or Plasma Vitamin D Deficiency Screening (Vit D 25) Lab Routine Vitamin D deficiency Expected: 12/22/2022 (Approximate), Expires: 12/22/2023 [facility] Comment on above: Expected: 12/22/2022 (Approximate), Expires: 12/22/2023 Start: 12-22-2022 End: 12-22-2023 Comprehensive metabolic 1998 panel - Serum or Plasma Comprehensive metabolic panel Lab Routine Screening for diabetes mellitus Expected: 12/22/2022 (Approximate), Expires: 12/22/2023 [facility] Comment on above: Expected: 12/22/2022 (Approximate), Expires: 12/22/2023 Start: 12-22-2022 End: 12-22-2023 Lipid 1996 panel - Serum or Plasma Lipid panel Lab Routine Hyperlipidemia LDL goal <100 Expected: 12/22/2022 (Approximate), Expires: 12/22/2023 [facility] Work Phone: Comment on above: Expected: 12/22/2022 (Approximate), Expires: 12/22/2023 Start: 12-22-2022 End: 12-22-2023 Thyrotropin [Units/volume] in Serum or Plasma TSH Lab Routine Acquired hypothyroidism Expected: 12/22/2022 (Approximate), Expires: 12/22/2023 [facility] Comment on above: Expected: 12/22/2022 (Approximate), Expires: 12/22/2023 Start: 12-22-2022 End: 12-22-2022 Patient encounter procedure [facility] Start: 10-26-2022 Fluoroscopy guided injection of cervical spinal nerve root OR-Steroid Inj/Cer Thor/1st L [facility] Start: 10-26-2022 Radiography of spine [facility] Start: 10-26-2022 [facility] Start: 06-30-2022 End: 06-30-2022 Clinical Support 06/30/2022 Clinical Support Family Medicine [facility] Group [facility] Start: 06-23-2022 End: 06-23-2023 Lipid 1996 panel - Serum or Plasma Lipid panel Lab Routine Hyperlipidemia LDL goal <100 Expected: 06/23/2022 (Approximate), Expires: 06/23/2023 [facility] Comment on above: Expected: 06/23/2022 (Approximate), Expires: 06/23/2023 Start: 06-23-2022 End: 06-23-2023 Thyrotropin [Units/volume] in Serum or Plasma TSH Lab Routine Acquired hypothyroidism Expected: 06/23/2022 (Approximate), Expires: 06/23/2023 [facility] System Work Phone: Comment on above: Expected: 06/23/2022 (Approximate), Expires: 06/23/2023 Start: 05-24-2022 Depression Assessment Depression Ass [facility] Start: 03-09-2022 Fluoroscopic guidance O.R. Fluoro fo r C-Arm [facility] Work Phone: Start: 03-09-2022 Radiography of spine [facility] Work Phone: Start: 03-09-2022 Patient discharge [facility] Work Phone: Start: 01-22-2022 Influenza vaccination [facility] Start: 01-05-2022 ANES NEUROMD/NTRVRT LMBR/SAC ANES NEUROMD/NTRVRT LMBR/SAC [facility] Work Phone: Start: 01-05-2022 Perq vert agmntj cav ity crtj uni/bi cannulj lmbr PERQ VERTEBRAL AUGMENTATION [facility] Work Phone: Start: 01-05-2022 X-ray of lumbar spin e, two or three views Lumbar Spine 2 or 3 Views [facility] Work Phone: Start: 01-05-2022 XR Lumbar spine 2 or 3 Views [facility] Work Phone: Start: 01-05-2022 Patient discharge [facility] Work Phone: Start: 10-20-2021 Screening for malign ant neoplasm of cervix Cervical cancer screen [place], [place] Start: 10-08-2021 Lipid 1996 panel - Serum or Plasma Lipid Screening [facility] Start: 10-08-2021 LIPID SCREEN LIPID SCREEN [facility] Start: 06-20-2021 Screening for malign ant neoplasm of breast Mammogram [facility] Start: 05-24-2021 DEPRESSION ASSESSMENT DEPRESSION ASS ESSMENT [facility] Start: 2021 RSV Immunization age d 60 or older (1 - 1-dose 60+ series) RSV Immunization aged 60 or older (1 - 1-dose 60+ series) [facility] Start: 2021 RSV Vaccine (1 - 1-d ose 60+ series) RSV Vaccine (1 - 1-dose 60+ series) [facility] Start: 12-13-2020 TSH Qn TSH testing [place], [place] Start: 06-20-2020 HIV screening HIV screen [place], [place] Comment on above: Postponed from 01/27 (Patient Refused) Start: 06-20-2020 Influenza vaccination Flu vacc ine (Season Ended) [place], [place] Comment on above: Postponed from 01/22 (Patient Refused) Start: 06-20-2020 Shingles Vaccine (1 of 2) Shingles Vaccine (1 of 2) [place], [place] Comment on above: Postponed from 01/27 (Patient Refused) Start: 06-18-2020 End: 06-18-2020 Office Visit 06/18/2020 Office Visit Family Medicine Vicente Arriaza MD [address] [place] [address], [address] [place], [place] [id number] [facility] Start: 04-29-2020 Hospital Encounter 04/29/2020 Hospital Encounter General Surgery Dann Marinelli MD [address] [place] [address] [address] [place] [address] [phone] [facility] Start: 01-23-2020 Influenza vaccination [facility] (# [facility] Start: 12-16-2019 Screening for malign ant neoplasm of breast Breast cancer screen [place], [place] Start: 12-14-2019 End: 12-14-2019 Office Visit 12/14/2019 Office Visit Family Medicine Vicente Arriaza MD [address] [facility], [facility] [place] [address] [phone] [facility] Start: 11-23-2019 [facility] Start: 11-13-2019 End: 11-13-2019 Appointment 11/13/2019 Appointment General Surgery Dann Marinelli MD [address] [facility] [address] [place] [address] [phone] [facility] Start: 11-07-2019 End: 11-07-2019 Office Visit 11/07/2019 Office Visit Family Medicine Vicente Arriaza MD [address] [facility], [place] [place] [address] [phone] [facility] Start: 10-09-2019 DIABETES SCREEN DIABETES SCREEN [facility] Start: 10-09-2019 Diabetes Screening Diabetes Screenin g [facility] Start: 2011 SHINGRIX VACCINE (1 of 2) SHINGRIX VACCINE (1 of 2) [facility] Start: 2011 Zoster Vaccines (1 o f 2) Zoster Vaccines (1 of 2) [facility] Start: 2006 COLOGUARD (FIT-DNA) COLOGUARD (FIT-D NA) [facility] Start: [address] COLONOGRAPHY [facility] Start: 2006 FECAL OCCULT BLOOD FECAL OCCULT BLOO D [facility] Start: 2006 SIGMOIDOSCOPY SIGMOIDOSCOPY [facility] Start: 1991 Screening for malign ant neoplasm of cervix HPV/Cotest [facility] Start: 01-28-1980 Urine microalbumin profile DTAP,TDAP,TD (1 - Tdap) [facility] Start: 1979 ANNUAL PCP TEAM [employer] HELPER CHRISSY DISEASE VISIT ANNUAL PCP TEAM CHRONIC DISEASE VISIT [facility] Start: 1979 Diabetes mellitus screening Diabetes Screening [facility] Start: 1979 HEPATITIS C SCREENING HEPATITIS C [facility] Start: 1979 Hepatitis C screening Hepatitis C Sc [facility] Start: 1979 HIV SCREENING HIV SCREENING [facility] Start: 1973 Depression Screening Depression Scre ening [facility] Start: 1962 MMR Vaccines (1 of 1 - Standard series) MMR Vaccines (1 of 1 - Standard series) [facility] Start: 1961 COVID-19 VACCINE (#1) COVID-19 VACCI NE (#1) [facility] Start: 1961 Hepatitis B Vaccines (1 of 3 - 3-dose series) Hepatitis B Vaccines (1 of 3 - 3-dose series) [facility] Start: 1961 HIV screening HIV Screening [facility] Start: 1961 Screening for malign ant neoplasm of colon [facility] End: 11-13-2019 Blood glucose - POCT Blood glucose - POCT Point of Care Testing STAT One Time for 1 Occurrences starting 11/13/2019 until 11/13/2019 [facility] Comment on above: One Time for 1 Occur rences starting 11/13/2019 until 11/13/2019 End: 04-29-2020 Blood glucose - POCT Blood glucose - POCT Point of Care Testing STAT One Time for 1 Occurrences starting 04/29/2020 until 04/29/2020 [facility] Comment on above: One Time for 1 Occur rences starting 04/29/2020 until 04/29/2020 End: 11-13-2019 Creatinine [Mass/Vol] Creatinine, serum Lab STAT One Time for 1 Occurrences starting 11/13/2019 until 11/13/2019 [facility] Comment on above: One Time for 1 Occur rences starting 11/13/2019 until 11/13/2019 End: 04-29-2020 Creatinine [Mass/Vol] Creatinine, serum Lab STAT One Time for 1 Occurrences starting 04/29/2020 until 04/29/2020 [facility] Comment on above: One Time for 1 Occur rences starting 04/29/2020 until 04/29/2020 End: 11-13-2019 FL Greater Than 1 Hour FL Greater Than 1 Hour Imaging Routine Once for 1 Occurrences starting 11/13/2019 until 11/13/2019 [facility] Comment on above: Once for 1 Occurrenc es starting 11/13/2019 until 11/13/2019 FL Greater Than 1 Hour [facility] End: 04-29-2020 FL Greater Than 1 Hour FL Greater Than 1 Hour Imaging Routine Once for 1 Occurrences starting 04/29/2020 until 04/29/2020 [facility] Comment on above: Once for 1 Occurrenc es starting 04/29/2020 until 04/29/2020 Incentive spirometry Incentive s pirometry Respiratory Care Routine Q1H PRN until discontinued starting 11/13/2019 [facility] Comment on above: Q1H PRN until discon tinued starting 11/13/2019 Initiate Oxygen Ther apy Protocol Initiate Oxygen Therapy Protocol Respiratory Care Routine Daily until discontinued starting 11/13/2019 [facility] Comment on above: Daily until disconti nued starting 11/13/2019 End: 04-29-2020 Intermittent pulse oximetry Pulse Oximetry Spot Check Respiratory Care Routine One Time for 1 Occurrences starting 04/29/2020 until 04/29/2020 [facility] Comment on above: One Time for 1 Occur rences starting 04/29/2020 until 04/29/2020 Oxygen therapy [[facility] Data Set] Initiate Oxygen Therapy Protocol Respiratory Care Routine Daily until discontinued starting 04/29/2020 [facility] Comment on above: Daily until disconti nued starting 04/29/2020 Patient Education ED Contusion, Lower Extremity ED Mechanical Fall [facility] Work Phone: Patient referral [facility] Work Phone: Phase I & II - meter ed glucose [facility] Comment on above: As Needed until disc ontinued starting 11/13/2019 As Needed until disc ontinued starting 04/29/2020 End: 11-13-2019 Potassium w/ Reflex to Magnesium Potassium w/ Reflex to Magnesium Lab Routine One Time for 1 Occurrences starting 11/13/2019 until 11/13/2019 [facility] Comment on above: One Time for 1 Occur rences starting 11/13/2019 until 11/13/2019 End: 04-29-2020 Potassium w/ Reflex to Magnesium Potassium w/ Reflex to Magnesium Lab Routine One Time for 1 Occurrences starting 04/29/2020 until 04/29/2020 [place] Comment on above: One Time for 1 Occur rences starting 04/29/2020 until 04/29/2020 End: 11-13-2019 , urine , urine Lab STAT One Time for 1 Occurrences starting 11/13/2019 until 11/13/2019 [place] Comment on above: One Time for 1 Occur rences starting 11/13/2019 until 11/13/2019 End: 04-29-2020 , urine , urine Lab STAT One Time for 1 Occurrences starting 04/29/2020 until 04/29/2020 [place] Comment on above: One Time for 1 Occur rences starting 04/29/2020 until 04/29/2020 End: 11-13-2019 Protime-INR Protime-INR Lab STAT One Time for 1 Occurrences starting 11/13/2019 until 11/13/2019 [place] Comment on above: One Time for 1 Occur rences starting 11/13/2019 until 11/13/2019 End: 04-29-2020 Protime-INR Protime-INR Lab STAT One Time for 1 Occurrences starting 04/29/2020 until 04/29/2020 [place] Comment on above: One Time for 1 Occur rences starting 04/29/2020 until 04/29/2020 End: 11-13-2019 Pulse Oximetry Spot Check Pulse Oximetry Spot Check Respiratory Care Routine One Time for 1 Occurrences starting 11/13/2019 until 11/13/2019 [place] Comment on above: One Time for 1 Occur rences starting 11/13/2019 until 11/13/2019 Spirometry panel Incentive olinda metry Respiratory Care Routine Q1H PRN until discontinued starting 04/29/2020 [place] Comment on above: Q1H PRN until discon tinued starting 04/29/2020 [facility] Immunizations Immunization Date Immunization Notes Care Provider Cristian frank 11-13-2016 tetanus toxoid, redu preeti diphtheria toxoid, and acellular pertussis vaccine, adsorbed [facility] Payers Date Payer Category Payer Self-pay [id number] 2023 Commercial Managed C are - O [facility] [id number] 2023 Private Health Insurance [facility] [id number] 2023-Present [id number] [place] [address] Commercial [id number] 2023 Private Health Insurance [id number] 2018 Unknown 2015 Unknown [employer] [address] xxxxxxxxxxxx 2015-Present [phone] [address] [place] [address] xxxxxxxxxxxx [id number] 2015 Unknown [id number] 1961 Unknown [id number] 1961 Unknown [id number] Unknown [id number] Unknown [id number] Unknown [id number] Unknown [id number] Unknown [id number] Unknown [id number] Social History Date Type Detail Facility Start: 11-06-2019 End: 04-28-2022 Tobacco smoking status NHIS Never smoker [facility] Work Phone: Start: 11-06-2019 End: 01-02-2025 Alcohol intake [facility] [place] [place] Start: 11-23-2018 End: 06-22-2022 History SDOH Financial 5 [facility] [place] Start: 11-23-2018 End: 06-22-2022 History SDOH Food Worry 1 [facility] [place], [place] Start: 11-23-2018 End: 06-22-2022 History SDOH Transport Med 2 [place], [place] Start: 1960 Sex Assigned At Not on file [place], [place] Exposure to SARS-CoV -2 (event) Unable to assess [facility] Start: 04-23-2020 End: 04-28-2022 Tobacco use and exposure [facility] [place] [place] Start: 06-12-2022 End: 12-22-2022 Exposure to SARS-CoV-2 (event) Not sure [facility] [place] Start: 09-10-2021 End: 03-05-2022 Tobacco smoking status NHIS Unknown if ever smoked [facility] Start: 1960 Sex Assigned At Female [facility] Start: 04-28-2022 Alcohol intake Current drinke r of alcohol (finding) [facility] Start: 03-15-2020 History SDOH Social Connections Get Together 3 [facility] Start: 03-15-2020 History SDOH Physica l Activity DPW 0 [facility] Start: 03-15-2020 Education 13 [facility] Start: 02-25-2017 Alcohol Comment rarely [facility] Start: 06-23-2022 End: 06-25-2024 Alcohol intake [facility] Start: 06-23-2022 End: 06-25-2024 Tobacco use panel [facility] How hard is it for y ou to pay for the very basics like food, housing, medical care, and heating Not hard at all [facility] (I/We) worried wheth er (my/our) food would run out before (I/we) got money to buy more. Never true [facility] Do you belong to any clubs or organizations such as [employer] ([employer]) groups, [employer], [employer] or athleFaveous groups, or school groups? No [facility] Work Phone: Are you now , , , , never or living with a partner? [facility] Work Phone: Do you feel stress - tense, restless, nervous, or anxious, or unable to sleep at night because your mind is troubled all the time - these days [OSQ] Not at all [facility] Work Phone: Do you belong to any clubs or organizations such as [employer] ([employer] groups, [employer], [employer] or [employer] groups, or school groups? Yes [facility] Are you now , , , , never or living with a partner? [facility] How often to you hav e a drink containing alcohol? Monthly or less [facility] How often do you hav e 6 or more drinks on 1 occasion? Never [facility] How hard is it for y ou to pay for the very basics like food, housing, medical care, and heating Not very hard [facility] Start: 12-22-2021 Sex Female (finding) [facility] Medical Equipment Procedure Code Equipment Code Equipment Origin al Text Equipment Identifier Dates Kyphoplasty LEESA KYPHO AUTOPLEX FDA Start: 01-05-2022 Kyphoplasty LEESA KYPHO AUTOPLEX FDA Start: 01-05-2022 Kyphoplasty LEESA KYPHO AUTOPLEX FDA Start: 03-09-2022 Kyphoplasty LEESA KYPHO AUTOPLEX FDA Start: 01-05-2022 Kyphoplasty LEESA KYPHO AUTOPLEX FDA Start: 03-09-2022 Kyphoplasty LEESA KYPHO AUTOPLEX FDA Start: 01-05-2022 Kyphoplasty LEESA KYPHO AUTOPLEX FDA Start: 03-09-2022 Kyphoplasty LEESA KYPHO AUTOPLEX FDA Start: 01-05-2022 Kyphoplasty LEESA KYPHO AUTOPLEX FDA Start: 03-09-2022 Goals Date Patient Goal Desired Activity /State Comment on above: Self- Management Leonard n: Coronary Artery Disease Patient Stated Goal: To have health cholesterol levels. Barriers to success: Lack of motivation Plan for overcoming my barriers: Healthy diet and exercise. Encouraged and recommended by provider. Confidence: 12/31 Date goal set: 11/13/16 Patient given educational materials below via AVS. Patient received counseling about current lifestyle goal. Patient was informed that they should never smoke. If they are smoker, the need to work on quitting. Advised Alcohol only in moderation. Advised approximately 150 minutes of cardio, i.e treadmill, exercise in a week. Advised "strive for 5" a total 5 servings of fruits and vegetables in a day. Advised a diet lower in carbohydrates and simple sugars. They need to watch consumption of bread, rice, pasta, potatoes, corn, soda, sweetened tea, lemonade, and all other sugar drinks. Patient given after visit summary which includes educational information on Hyperlipidemia Provider Goals: The following changes are planned for the next 6 months, at which the patient will return for repeat fasting lipids: 1. Dietary changes: Reduce saturated fats, "trans" monounsaturated fatty acids, and cholesterol. Increase soluble fiber. 2. Exercise changes: Engage in walking 20 minutes 3-4 times per week. 3. Lipid-lowering medications: None at this time. 4. Follow up: 6 months. Discussed use, benefit, and side effects of prescribed medications and barriers to medication compliance addressed, if applicable. All patient questions answered and patient voiced understanding. Patient was given a copy of this, and was advised to call if any questions. Mental Status Date Assessment Result Facility 10-26-2022 Cognitive function Voice/Name [facility] Work Phone: 03-09-2022 Cognitive function Voice/Name [facility] Work Phone: 01-05-2022 Cognitive function Level Of Consciousness Drowsy [facility] Work Phone: 01-05-2022 Cognitive function Voice/Name [facility] Work Phone: Clinical Notes 04-28-2022 to 02-23-2025 Telephone Encounter - URSULA Duron CNP - 02/23/2025 1:07 PM EDTTelephone Encounter - URSULA Duron CNP - 02/23/2025 1:07 PM EDTElisa Ma MA - 01/02/2025 8:00 AM EDT Note Date & Type Note Facility 02-23-2025 Telephone encount er Note Rx sent. Follow up as scheduled. [facility] 02-23-2025 Miscellaneous Notes Formattin g of this note might be different from the original. Rx sent. Follow up as scheduled. Medication name: losartan (Cozaar) 25 MG tablet Medication dosage: 25 mg (Miligrams Monthly quantity needed: 90 How many day supply requestin year Medication route: oral (PO) Medication administration time(s): daily If taking medication PRN, reason for taking medication: N/A If this is a controlled substance do you receive this or any other controlled medication from any other doctor or facility: No Ordering provider: Dr. Arriaza Date of last office visit: 01.02.2025 Date of next office visit: 07.10.2024 Date of last refill: (see medication tab): 11.20.2024 Updated/Validated preferred pharmacy: Yes Patient instructed to contact the pharmacy prior to picking up the medication: Yes documented in this encounter [facility] 02-23-2025 Telephone encount er Note Medication name: losartan (Cozaar) 25 MG tablet Medication dosage: 25 mg (Miligrams Monthly quantity needed: 90 How many day supply requestin year Medication route: oral (PO) Medication administration time(s): daily If taking medication PRN, reason for taking medication: N/A If this is a controlled substance do you receive this or any other controlled medication from any other doctor or facility: No Ordering provider: Dr. Arriaza Date of last office visit: 01.02.2025 Date of next office visit: 07.10.2024 Date of last refill: (see medication tab): 11.20.2024 Updated/Validated preferred pharmacy: Yes Patient instructed to contact the pharmacy prior to picking up the medication: Yes [facility] 02-05-2025 Telephone encount er Note Rx sent. OARRS report reviewed with no discrepancies. CSA signed in June 2024. Follow up as scheduled. [facility] 02-05-2025 Miscellaneous Notes Formattin g of this note might be different from the original. Rx sent. OARRS report reviewed with no discrepancies. CSA signed in June 2024. Follow up as scheduled. [facility] 06/27/24 Medication name: modafinil (Provigil) tablet Medication dosage: 100 mg (Miligrams Monthly quantity needed: 30 How many day supply requestin days Medication route: oral (PO) Medication administration time(s): daily If taking medication PRN, reason for taking medication: N/A If this is a controlled substance do you receive this or any other controlled medication from any other doctor or facility: N/A Ordering provider: Sofiya Date of last office visit: 01.02.2025 Date of next office visit: 07.10.2025 Date of last refill: (see medication tab): 01.02.2025 Updated/Validated preferred pharmacy: Yes Patient instructed to contact the pharmacy prior to picking up the medication: Yes documented in this encounter [facility] 02-05-2025 Telephone encount er Note Csa 06/27/24 [facility] 02-02-2025 Telephone encount er Note Medication name: modafinil (Provigil) tablet Medication dosage: 100 mg (Miligrams Monthly quantity needed: 30 How many day supply requestin days Medication route: oral (PO) Medication administration time(s): daily If taking medication PRN, reason for taking medication: N/A If this is a controlled substance do you receive this or any other controlled medication from any other doctor or facility: N/A Ordering provider: Sofiya Date of last office visit: 01.02.2025 Date of next office visit: 07.10.2025 Date of last refill: (see medication tab): 01.02.2025 Updated/Validated preferred pharmacy: Yes Patient instructed to contact the pharmacy prior to picking up the medication: Yes [facility] 01-19-2025 Telephone encount er Note Pt notified and 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 Pt notified and will come Wednesday to metal pickling equipment operator Rx printed for pickup Name of caller: Lashell Contact phone number: [phone] Relationship to Patient: patient Provider: Dr Arriaza Practice: [place] Chief Complaint/Reason for Call: Patient is requesting a handicap placard renewal. 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 Best time of day caller can be reached: any Patient advised that office/PCP has 24-48 business hours to return their call: Yes documented in this encounter [facility] 01-18-2025 Telephone encount er Note Rx printed for pickup [facility] 01-18-2025 Miscellaneous Notes Formattin g of this note might be different from the original. Rx printed for pickup Name of caller: Lashell Contact phone number: [phone] Relationship to Patient: patient Provider: Dr Arriaza Practice: [place] Chief Complaint/Reason for Call: Patient is requesting a handicap placard renewal. 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 Best time of day caller can be reached: any Patient advised that office/PCP has 24-48 business hours to return their call: Yes documented in this encounter [facility] 01-18-2025 Telephone encount er Note Name of caller: Lashell Contact phone number: [phone] Relationship to Patient: patient Provider: Dr Arriaza Practice: [place] Chief Complaint/Reason for Call: Patient is requesting a handicap placard renewal. 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 Best time of day caller can be reached: any Patient advised that office/PCP has 24-48 business hours to return their call: Yes [facility] 01-02-2025 Evaluation + Plan note Associ ated Problem(s): Atypical chest pain Normal EKG, continue red yeast rice extract for cholesterol [facility] 01-02-2025 Miscellaneous Notes Associate d Problem(s): Atypical chest pain Normal EKG, continue red yeast rice extract for cholesterol Associated Problem(s): Hyperlipidemia LDL goal <100 Stable, continue red yeast rice extract and strict low-fat low-cholesterol diet. Associated Problem(s): Anxiety Stable, continue lorazepam 0.5 mg twice a day as needed Associated Problem(s): Vitamin D deficiency Controlled, continue calcium and vitamin D and vitamin D 400 units daily Associated Problem(s): Hypothyroidism Controlled, continue levothyroxine 75 mcg daily Associated Problem(s): B12 deficiency Stable, will get repeat lab work today Associated Problem(s): Age-related osteoporosis with current pathological fracture with delayed healing Stable, continue on calcium 1200 mg with vitamin D daily Associated Problem(s): GERD (gastroesophageal reflux disease) Stable, continue famotidine 40 mg twice a day Associated Problem(s): Essential hypertension Controlled, continue losartan 25 mg daily 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 Associated Problem(s): Narcolepsy Stable, continue modafinil 100 mg daily Rx sent, OARRS report done, no inconsistencies, CS agreement in place. documented in this encounter [facility] 01-02-2025 Evaluation + Plan note Associ ated Problem(s): Hyperlipidemia LDL goal <100 Stable, continue red yeast rice extract and strict low-fat low-cholesterol diet. [facility] 01-02-2025 Evaluation + Plan note Associ ated Problem(s): Anxiety Stable, continue lorazepam 0.5 mg twice a day as needed [facility] 01-02-2025 Evaluation + Plan note Associ ated Problem(s): Vitamin D deficiency Controlled, continue calcium and vitamin D and vitamin D 400 units daily [facility] 01-02-2025 Evaluation + Plan note Associ ated Problem(s): Hypothyroidism Controlled, continue levothyroxine 75 mcg daily [facility] 01-02-2025 Evaluation + Plan note Associ ated Problem(s): B12 deficiency Stable, will get repeat lab work today T [facility] 01-02-2025 Evaluation + Plan note Associ ated Problem(s): Age-related osteoporosis with current pathological fracture with delayed healing Stable, continue on calcium 1200 mg with vitamin D daily [facility] 01-02-2025 Evaluation + Plan note Associ ated Problem(s): GERD (gastroesophageal reflux disease) Stable, continue famotidine 40 mg twice a day [facility] 01-02-2025 Evaluation + Plan note Associ ated Problem(s): Essential hypertension Controlled, continue losartan 25 mg daily T [facility] 01-02-2025 Evaluation + Plan note 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 [facility] 01-02-2025 Evaluation + Plan note Associ ated Problem(s): Narcolepsy Stable, continue modafinil 100 mg daily Rx sent, OARRS report done, no inconsistencies, CS agreement in place. T [facility] 01-02-2025 History of Presen t illness Narrative Patient verified by last name and . Images from the original note were not included. 01/02/2025 Lashell Stacy (: 1960) is a 64 y.o. female , Established patient, here for evaluation of the following chief complaint(s): Annual Exam, Blood Work, and Health Maintenance (Mammogram- see OBGYN--they usually place order /Shingles vaccine-declines ) ASSESSMENT/PLAN: 1. Annual physical exam 2. Primary narcolepsy without cataplexy Assessment & Plan: Stable, continue modafinil 100 mg daily Rx sent, OARRS report done, no inconsistencies, CS agreement in place. 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 4. Essential hypertension Assessment & Plan: Controlled, continue losartan 25 mg daily 5. Gastroesophageal reflux disease without esophagitis Assessment & Plan: Stable, continue famotidine 40 mg twice a day 6. Age-related osteoporosis with current pathological fracture with delayed healing Assessment & Plan: Stable, continue on calcium 1200 mg with vitamin D daily 7. Acquired hypothyroidism Assessment & Plan: Controlled, continue levothyroxine 75 mcg daily Orders: - TSH 8. Vitamin D deficiency Assessment & Plan: Controlled, continue calcium and vitamin D and vitamin D 400 units daily Orders: - Vitamin D Deficiency Screening (Vit D 25) 9. Hyperlipidemia LDL goal <100 Assessment & Plan: Stable, continue red yeast rice extract and strict low-fat low-cholesterol diet. Orders: - Lipid panel 10. Anxiety Assessment & Plan: Stable, continue lorazepam 0.5 mg twice a day as needed 11. B12 deficiency Assessment & Plan: Stable, will get repeat lab work today Orders: - Vitamin B12 12. Atypical chest pain Assessment & Plan: Normal EKG, continue red yeast rice extract for cholesterol Orders: - ECG 12 lead 13. Screening for diabetes mellitus - Comprehensive metabolic panel 14. Screening for deficiency anemia - CBC Follow up in about 6 months (around 07/05/2025). SUBJECTIVE/OBJECTIVE: HPI -Lashell comes in today for her annual exam, she needs fasting blood work and blood work for some deficiencies like B12 and vitamin D. Her only complaint is similar to what previous complaints where she gets some left-sided upper abdominal chest pain that radiates into her back she says sometimes it is into her jaw on her shoulder she been worked up for GI and her medical record administrator thinks it may be related to her hiatal hernia which would make sense however for completeness sake we will do an EKG. She does have a history of hyperlipidemia and is not on a statin due to statin intolerance. Review of Systems Constitutional: Negative for chills and fever. Respiratory: Negative for shortness of breath. Cardiovascular: Positive for chest pain. Negative for palpitations. Gastrointestinal: Positive for abdominal pain. Negative for blood in stool, constipation and diarrhea. Genitourinary: Negative for dyspareunia, dysuria, frequency, hematuria and urgency. Neurological: Negative for weakness and numbness. Psychiatric/Behavioral: Negative for dysphoric mood. The patient is not nervous/anxious. Vitals: 01/02/25 0757 BP: 127/83 BP Location: Left arm Patient Position: Sitting Pulse: 73 SpO2: 98% Weight: 150 lb 12.8 oz (68.4 kg) Height: 5' 2" (1.575 m) Physical Exam Vitals and nursing note reviewed. Constitutional: General: She is not in acute distress. Appearance: Normal appearance. HENT: Head: Normocephalic. Right Ear: Tympanic membrane, ear canal and external ear normal. Left Ear: Tympanic membrane, ear canal and external ear normal. Mouth/Throat: Mouth: Mucous membranes are moist. Pharynx: Oropharynx is clear. Eyes: Extraocular Movements: Extraocular movements intact. Pupils: Pupils are equal, round, and reactive to light. Neck: Thyroid: No thyromegaly. Vascular: No carotid bruit. Cardiovascular: Rate and Rhythm: Normal rate and regular rhythm. Heart sounds: Normal heart sounds. No murmur heard. Pulmonary: Effort: Pulmonary effort is normal. Breath sounds: Normal breath sounds. Abdominal: General: Bowel sounds are normal. Palpations: Abdomen is soft. Musculoskeletal: General: Normal range of motion. Cervical back: Normal range of motion. Lymphadenopathy: Cervical: No cervical adenopathy. Skin: General: Skin is warm and dry. Neurological: General: No focal deficit present. Mental Status: She is alert and oriented to person, place, and time. Psychiatric: Mood and Affect: Mood normal. An electronic signature was used to authenticate this note. Vicente Arriaza MD 01/02/2025 8:35 AM documented in this encounter [facility] 11-20-2024 Telephone encount er Note Medication name: losartan (Cozaar) 25 MG tablet Medication dosage: 25 mg (Miligrams Monthly quantity needed: 90 How many day supply requestin year Medication route: oral (PO) Medication administration time(s): daily If taking medication PRN, reason for taking medication: N/A If this is a controlled substance do you receive this or any other controlled medication from any other doctor or facility: No Ordering provider: Dr. Arriaza Date of last office visit: 07.25.2024 Date of next office visit: 01.02.2025 Date of last refill: (see medication tab): 08.15.2024 Updated/Validated preferred pharmacy: Yes Patient instructed to contact the pharmacy prior to picking up the medication: Yes [facility] 11-20-2024 Miscellaneous Notes Formattin g of this note might be different from the original. Medication name: losartan (Cozaar) 25 MG tablet Medication dosage: 25 mg (Miligrams Monthly quantity needed: 90 How many day supply requestin year Medication route: oral (PO) Medication administration time(s): daily If taking medication PRN, reason for taking medication: N/A If this is a controlled substance do you receive this or any other controlled medication from any other doctor or facility: No Ordering provider: Dr. Arriaza Date of last office visit: 07.25.2024 Date of next office visit: 01.02.2025 Date of last refill: (see medication tab): 08.15.2024 Updated/Validated preferred pharmacy: Yes Patient instructed to contact the pharmacy prior to picking up the medication: Yes documented in this encounter [facility] 09-22-2024 History of Presen t illness Narrative Images from the original note were not included. [facility] [address] [place] [address] [place] [address] Dept: [phone] Dept Chief Complaint Patient presents with New Patient Knee Pain Left Subjective History of Present Illness: Lashell Stacy is a 64 y.o. female who presents today for evaluation of left knee pain. Location: medial and lateral Onset: 6 years, chronic Injury: no Quality: aching, throbbing, tight/stiff, and sharp Mechanical symptoms: popping, crepitus and grinding Radiation of symptoms: yes - down the side of her left leg Severity: 2/10 at rest and 10/10 at worst Exacerbating factor(s): walking and bending her knee Relieving factor(s): brace, CBD oil Timing: all day Patient has received most of her knee care in [place]. She has received multiple corticosteroid injections. She received a series of 3 hyaluronic acid injections in April and May, 4 months ago. Unfortunately none of these have provided her any relief. Imaging to date: X-ray September 2024 Treatment to date: PT/OT/HEP: yes Ice: yes, not helpful Heat: yes, not helpful Medications: Tylenol: no NSAIDs: no Oral steroids: no Muscle relaxants: no Nerve medications: no Targeted injections: has had cortisone and gel injections in her knee. 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 Physical Exam: General: Alert, well appearing, no acute distress. Respiratory: Breathing comfortably on room air. No respiratory distress. Skin: Warm, dry, intact. No visible rashes or erythema overlying area of focused exam. Physical Exam Musculoskeletal: Right knee: No swelling, deformity, effusion, erythema, ecchymosis or bony tenderness. Normal range of motion. Tenderness present over the medial joint line and lateral joint line. No MCL or LCL tenderness. No LCL laxity, MCL laxity, ACL laxity or PCL laxity. Normal patellar mobility. Instability Tests: Anterior drawer test negative. Posterior drawer test negative. Medial Magdiel test negative and lateral Magdiel test negative. External Notes No pertinent interval updates Labs No results found for: "HGBA1C" Lab Results Component Value Date CREATININE 0.82 12/28/2023 Imaging I have personally reviewed the images pertinent to the appointment today EMG/NCT No interval studies Procedure No procedures completed today Assessment Diagnosis Plan 1. Acute pain of left knee XR knees anteroposterior standing bilateral XR knee 1 or 2 views left Plan We discussed osteoarthritis of the knee. We reviewed the spectrum of 1. Pills - everything from Tylenol, ibuprofen, Aleve, and pain medicines. We also discussed glucosamine/chondroitin combinations and how to perform a glucosamine trial. Additionally Tumeric can be supplemented, it is likely similar to ibuprofen and is generally safe for most people to take. Glucosamine Trial: As a treatment for arthritis, we discussed a trial of glucosamine, [id number]. We talked about using a good quality glucosamine source as the testing agent. Cosamin DS or Osteo-Bio Flex would be two of the options to pick from. Write down, using as many numbers as possible, a description of when the arthritis is symptomatic ( i.e. I can go up 1 flight of stairs before my knee hurts, I can sleep 4 hours before my knee wakes me, my knee begins to hurt me at 2 p.m. on a work day ). This documentation will be kept for comparison in 3-4 months. Take the glucosamine twice daily for 3-4 months. Comparing your symptoms sheet, and see if there is improvement. Glucosamine will work in approximately 60-65% of people. If it is helping continue the supplementation. If there is no improvement you can stop the glucosamine. 2. Physical therapy - formal physical therapy and braces. The benefits of strengthening, endurance, flexibility, balancing, and proprioception. The combination of all of these to decrease joint pain. 3. Shots - corticosteroid, hyaluronic acid, and investigational injections. We discussed the episodic nature, and Band-Aid nature of cortisone. No more frequent than every 3-4 months, the potential for cortisone to soften articular cartilage with repetitive use. And the use as a bridge agent. We also discussed hyaluronic acid injection series and the potential benefits of lubrication, nourishing the cartilage, re-booting the knee capsule and the potential for 1 year of improvement. 4. Surgery - cleanup procedures as well as total joint replacement. We discussed the need to progress through conservative measures before this is a viable option. All treatment options were discussed. All questions were answered. We will continue with prn oral medication, a glucosamine trial and a HEP. We will recheck as outlined to alter therapy as needed. Patient has already been through all of the conservative treatments mentioned above. When she wants to we can initiate a formal referral to the joint replacement team. No follow-ups on file. Kelsey Baker MA 09/22/2024 8:47 AM Please note that portions of this note may have been completed with voice recognition software. Documentation reviewed prior to signing but minor errors in sports book server may have occurred. documented in this encounter [facility] 09-22-2024 History of Presen t illness Narrative Images from the original note were not included. [facility] [address] [place] [address] [place] [address] Dept: [phone] Dept Chief Complaint Patient presents with New Patient Knee Pain Left Subjective History of Present Illness: Lashell Stacy is a 64 y.o. female who presents today for evaluation of left knee pain. Location: medial and lateral Onset: 6 years, chronic Injury: no Quality: aching, throbbing, tight/stiff, and sharp Mechanical symptoms: popping, crepitus and grinding Radiation of symptoms: yes - down the side of her left leg Severity: 2/10 at rest and 10/10 at worst Exacerbating factor(s): walking and bending her knee Relieving factor(s): brace, CBD oil Timing: all day Patient has received most of her knee care in [place]. She has received multiple corticosteroid injections. She received a series of 3 hyaluronic acid injections in April and May, 4 months ago. Unfortunately none of these have provided her any relief. Imaging to date: X-ray September 2024 Treatment to date: PT/OT/HEP: yes Ice: yes, not helpful Heat: yes, not helpful Medications: Tylenol: no NSAIDs: no Oral steroids: no Muscle relaxants: no Nerve medications: no Targeted injections: has had cortisone and gel injections in her knee. 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 Respiratory: Breathing comfortably on room air. No respiratory distress. Skin: Warm, dry, intact. No visible rashes or erythema overlying area of focused exam. Physical Exam Musculoskeletal: Right knee: No swelling, deformity, effusion, erythema, ecchymosis or bony tenderness. Normal range of motion. Tenderness present over the medial joint line and lateral joint line. No MCL or LCL tenderness. No LCL laxity, MCL laxity, ACL laxity or PCL laxity. Normal patellar mobility. Instability Tests: Anterior drawer test negative. Posterior drawer test negative. Medial Magdiel test negative and lateral Magdiel test negative. External Notes No pertinent interval updates Labs No results found for: "HGBA1C" Lab Results Component Value Date CREATININE 0.82 12/28/2023 Imaging I have personally reviewed the images pertinent to the appointment today EMG/NCT No interval studies Procedure No procedures completed today Assessment Diagnosis Plan 1. Acute pain of left knee XR knees anteroposterior standing bilateral XR knee 1 or 2 views left Plan We discussed osteoarthritis of the knee. We reviewed the spectrum of 1. Pills - everything from Tylenol, ibuprofen, Aleve, and pain medicines. We also discussed glucosamine/chondroitin combinations and how to perform a glucosamine trial. Additionally Tumeric can be supplemented, it is likely similar to ibuprofen and is generally safe for most people to take. Glucosamine Trial: As a treatment for arthritis, we discussed a trial of glucosamine, [id number]. We talked about using a good quality glucosamine source as the testing agent. Cosamin DS or Osteo-Bio Flex would be two of the options to pick from. Write down, using as many numbers as possible, a description of when the arthritis is symptomatic ( i.e. I can go up 1 flight of stairs before my knee hurts, I can sleep 4 hours before my knee wakes me, my knee begins to hurt me at 2 p.m. on a work day ). This documentation will be kept for comparison in 3-4 months. Take the glucosamine twice daily for 3-4 months. Comparing your symptoms sheet, and see if there is improvement. Glucosamine will work in approximately 60-65% of people. If it is helping continue the supplementation. If there is no improvement you can stop the glucosamine. 2. Physical therapy - formal physical therapy and braces. The benefits of strengthening, endurance, flexibility, balancing, and proprioception. The combination of all of these to decrease joint pain. 3. Shots - corticosteroid, hyaluronic acid, and investigational injections. We discussed the episodic nature, and Band-Aid nature of cortisone. No more frequent than every 3-4 months, the potential for cortisone to soften articular cartilage with repetitive use. And the use as a bridge agent. We also discussed hyaluronic acid injection series and the potential benefits of lubrication, nourishing the cartilage, re-booting the knee capsule and the potential for 1 year of improvement. 4. Surgery - cleanup procedures as well as total joint replacement. We discussed the need to progress through conservative measures before this is a viable option. All treatment options were discussed. All questions were answered. We will continue with prn oral medication, a glucosamine trial and a HEP. We will recheck as outlined to alter therapy as needed. Patient has already been through all of the conservative treatments mentioned above. When she wants to we can initiate a formal referral to the joint replacement team. No follow-ups on file. Crystal Newton MD 09/27/2024 8:47 AM Please note that portions of this note may have been completed with voice recognition software. Documentation reviewed prior to signing but minor errors in sports book server may have occurred. documented in this encounter [facility] 09-22-2024 Instructions Crystal Newton MD - 09/22/2024 9:00 AM EDT Images from the original note were not included. Pick 2-4 of these exercises and begin doing them daily. The next day, pick a different 2-4 exercises, so at the end of the week you have completed most of them on the list. The second to last exercise, the single leg squat, also known as a pistol, is the most difficult one on the list a few never get to this exercise that's okay. All of these exercises can also be modified to decrease the difficulty level. It's okay to start off easy and gradually make them more difficult as her core strength increases. documented in this encounter [facility] 09-19-2024 History of Presen t illness Narrative [facility] [place] [address] [place] [address] [address] [facility] [address] Dept: [phone] Dept Chief Complaint Patient presents with New Patient Last seen 2020 right thigh pain. IMN nail 2020 for stress fx Increase pain to right thigh XRAY SUBJECTIVE HPI Patient is a 64-year-old female who is known to me for bilateral femur stress fractures requiring IMNs. She states she has been doing well since 2020 until approximately 2 weeks ago. She states she was standing from her couch when she felt immediate pain to the right thigh. Since this time she has been ambulating with a crutch secondary to pain. She reports that the pain is in her right thigh and radiates from the lateral aspect of her right hip distally and anteriorly. She reports the pain is similar to her index presentation when she had a stress fracture. She denies trauma to the right lower extremity. She denies recent infections or fevers and chills. Her vitamin D levels have been monitored by her primary care physician. She states that she also has chronic left knee pain and would like to speak with someone about a left total knee arthroplasty. 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 07/10/2016 Chronic midline low back pain with bilateral sciatica 02/04/2016 Narcolepsy 08/02/2015 Hypothyroidism 04/16/2015 Anxiety 04/16/2015 GERD (gastroesophageal reflux disease) 04/16/2015 Allergies Allergen Reactions Bee Venom Swelling Localized swelling Honey Bee Venom Meloxicam Simvastatin Other reaction(s): Other (See Comments) Muscle pain Family History Problem Relation Name Age of Onset Stroke Mother Ana Parkinsonism Mother Ana Stroke Father Dustin Heart disease Father Dustin Diabetes Father Dustin High Blood Pressure Father Dustin Breast cancer Mother's Sister Sol Diabetes Mother's Sister Sol Cancer Maternal Grandfather Donavan lymphoma Heart disease Brother Ed Diabetes Paternal Grandmother Past Medical History: Diagnosis Date Anxiety Anxiety DDD (degenerative disc disease) entire spine GERD (gastroesophageal reflux disease) Hiatal hernia Hx of barium enema Hyperlipidemia Hypothyroidism Narcolepsy Shingles 2014 Stress fracture RIGHT FEMUR Stress fracture of femur bilateral Social History Socioeconomic History Marital status: Spouse name: Not on file Number of children: Not on file Years of education: Not on file Highest education level: Not on file Occupational History Not on file Tobacco Use Smoking status: Never Smokeless tobacco: Never Vaping Use Vaping status: Never Used Substance and Sexual Activity Alcohol use: No Drug use: No Sexual activity: Not Currently Partners: Male Other Topics Concern Not on file Social History Narrative Not on file Social Drivers of Health Financial Resource Strain: Low Risk (06/25/2024) Overall Financial Resource Strain (CARDIA) Difficulty of Paying Living Expenses: Not very hard Food Insecurity: No Food Insecurity (06/25/2024) Hunger Vital Sign Worried About Running Out of Food in the Last Year: Never true Ran Out of Food in the Last Year: Never true Transportation Needs: No Transportation Needs (06/25/2024) PRAPARE - Transportation Lack of Transportation (Medical): No Lack of Transportation (Non-Medical): No Physical Activity: Inactive (06/25/2024) Exercise Vital Sign Days of Exercise per Week: 0 days Minutes of Exercise per Session: 0 min Stress: No Stress Concern Present (06/25/2024) [place] [employer] - Occupational Stress Questionnaire Feeling of Stress : Not at all Social Connections: Moderately Integrated (06/25/2024) Social Connection and Isolation Panel [NHANES] Frequency of Communication with Friends and Family: More than three times a week Frequency of Social Gatherings with Friends and Family: Twice a week Attends [employer] Services: More than 4 times per year Active Member of Clubs or Organizations: Yes Attends Club or Organization Meetings: More than 4 times per year Marital Status: Intimate Partner Violence: Not At Risk (06/27/2024) Humiliation, Afraid, Rape, and Kick questionnaire Fear of Current or Ex-Partner: No Emotionally Abused: No Physically Abused: No Sexually Abused: No Housing Stability: Not on file Past Surgical History: Procedure Laterality Date BACK SURGERY 08/08/2015 CARPAL TUNNEL RELEASE Right COLONOSCOPY 02/08/2018 COLONOSCOPY CYST REMOVAL ESOPHAGEAL DILATATION (HISTORICAL) FEMUR SURGERY Right 04/29/2020 cepalomedullary nail femur FEMUR SURGERY Left 11/13/2019 Open Reduction Internal Fixation and Intramedulary Nailing KYPHOPLASTY (HISTORICAL) 12/2021 and 02/2022 LUMBAR DISC ARTHROPLASTY (HISTORICAL) 05/2012 ROTATOR CUFF REPAIR Left 04/2023 TUBAL LIGATION UPPER GASTROINTESTINAL ENDOSCOPY 2nd; Esophageal Dilation Current Outpatient Medications Medication Sig Dispense Refill Calcium Carb-Cholecalciferol 600-20 MG-MCG chewable tablet Chew. Cholecalciferol 10 MCG (400 UNIT) chewable tablet Chew 400 Units. Coenzyme Q10 (CO Q 10 PO) Take by mouth. famotidine (Pepcid) 40 MG tablet Take by mouth 2 times daily. levothyroxine (Synthroid, Levoxyl) 75 MCG tablet TAKE 1 TABLET BY MOUTH DAILY 90 tablet 1 LORazepam (Ativan) 0.5 MG tablet Take 1 tablet (0.5 mg) by mouth 2 times daily as needed for anxiety. 60 tablet 0 losartan (Cozaar) 25 MG tablet Take 1 tablet (25 mg) by mouth daily. 90 tablet 0 meclizine (Antivert) 12.5 MG tablet Take 1 tablet by mouth 4 times daily as needed for Dizziness 30 tablet 3 modafinil (Provigil) 100 MG tablet Take 1 tablet (100 mg) by mouth daily. 30 tablet 0 NON FORMULARY CBD BALM uses on back and knee for pain CL Balance for cholesterol Beets + NON FORMULARY Tallow magnesium lotion Probiotic Product (PROBIOTIC PO) Take 2 capsules by mouth. Red Yeast Rice Extract (RED YEAST RICE PO) Take by mouth. No current facility-administered medications for this visit. Review of Systems Musculoskeletal: Positive for arthralgias, gait problem and myalgias. 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 All other systems reviewed and are negative. OBJECTIVE Vitals: 09/19/24 1036 BP: 132/79 BP Location: Left arm Patient Position: Sitting BP Cuff Size: Adult long Pulse: 71 Weight: 146 lb (66.2 kg) Height: 5' 2" (1.575 m) Physical Exam Physical Exam Vitals and nursing note reviewed. Constitutional: Appearance: Normal appearance. Cardiovascular: Rate and Rhythm: Normal rate. Pulmonary: Effort: Pulmonary effort is normal. Skin: General: Skin is warm and dry. Neurological: General: No focal deficit present. Mental Status: He is alert and oriented to person, place, and time. Psychiatric: Mood and Affect: Mood normal. Behavior: Behavior normal. Right lower extremity: Well-healed lateral proximal femur and distal femur incision. There is no erythema, warmth or palpable fluctuance noted. There is tenderness to palpation on the lateral aspect of the proximal femur. No tenderness palpation noted at her mid thigh. There is no edema noted throughout the femur. SILT intact s/s/sp/dp/t Motor intact quad/DF/PF/EHL Palpable DP pulse XRAY INTERPRETATION Right femur-Prior cephalomedullary nail hardware in place and in appropriate alignment. There are no radiologic signs of loosening. There is a persistent fracture noted on the anterior lateral aspect of the right midshaft of the femur with mild callus formation surrounding the fracture. Non-progressive There are no other fractures noted. ASSESSMENT 1. Right leg pain Likely right greater trochanteric bursitis status post right CMN in 2020 PLAN Discussed clinical and imaging findings with the patient. Her exam has been stable and she has been pain-free since 2020. She is tender to palpation surrounding the hardware of her proximal femur for a short period of time. We will send a referral to primary care sports medicine for possible injection of her right trochanteric bursa to see if that assist in alleviation of her symptoms. Recommend continued surveillance of her vitamin D levels. Primary care sports medicine may also evaluate her for her left knee arthritis. She will follow-up with me as needed or if she has continued pain after her evaluation with sports medicine. She is agreeable to plan No follow-ups on file. Voice recognition was used for portions of this note and although it was reviewed prior to signing some incorrect words or phrases could be present. Electronically signedby Jenny Yoon RN on 09/19/2024 at 11:15 AM documented in this encounter [facility] 09-11-2024 Telephone encount er Note Name of caller: Lashell Contact phone number: [phone] Relationship to Patient: patient Provider: Practice: Ortho Chief Complaint/Reason for Call: Patient states she had surgery done with [facility] a few years ago and states her right leg feels the way it did before she had surgery done and would like to know if she can get scheduled to have it checked out. Please advise Best time of day caller can be reached: Any Patient advised that office/PCP has 24-48 business hours to return their call: Yes [facility] 09-11-2024 Miscellaneous Notes Formattin g of this note might be different from the original. Name of caller: Lashell Contact phone number: [phone] Relationship to Patient: patient Provider: Practice: Ortho Chief Complaint/Reason for Call: Patient states she had surgery done with [facility] a few years ago and states her right leg feels the way it did before she had surgery done and would like to know if she can get scheduled to have it checked out. Please advise Best time of day caller can be reached: Any Patient advised that office/PCP has 24-48 business hours to return their call: Yes documented in this encounter [facility] 08-07-2024 Telephone encount er Note Reviewed chart. Refill appropriate. RX sent. [facility] 08-07-2024 Miscellaneous Notes Formattin g of this note might be different from the original. Reviewed chart. Refill appropriate. RX sent. [facility] 06/27/24 Medication name: modafinil (Provigil) 100 MG tablet Medication dosage: 100 mg tablet Monthly quantity needed: 30 How many day supply requestin days Medication route: oral (PO) Medication administration time(s): daily If taking medication PRN, reason for taking medication: N/A If this is a controlled substance do you receive this or any other controlled medication from any other doctor or facility: No Ordering provider: Isidro Arriaza Date of last office visit: 07/25/24 Date of next office visit: 01/02/25 Date of last refill: (see medication tab): 07/12/24 Updated/Validated preferred pharmacy: Yes Patient instructed to contact the pharmacy prior to picking up the medication: Yes documented in this encounter [facility] 08-07-2024 Telephone encount er Note VIKY 06/27/24 [facility] 08-07-2024 Telephone encount er Note Medication name: modafinil (Provigil) 100 MG tablet Medication dosage: 100 mg tablet Monthly quantity needed: 30 How many day supply requestin days Medication route: oral (PO) Medication administration time(s): daily If taking medication PRN, reason for taking medication: N/A If this is a controlled substance do you receive this or any other controlled medication from any other doctor or facility: No Ordering provider: Isidro Arriaza Date of last office visit: 07/25/24 Date of next office visit: 01/02/25 Date of last refill: (see medication tab): 07/12/24 Updated/Validated preferred pharmacy: Yes Patient instructed to contact the pharmacy prior to picking up the medication: Yes [facility] 07-25-2024 Evaluation + Plan note Associ ated Problem(s): Essential hypertension Blood pressure is initially elevated, recheck was in proved but still high we will start her on losartan 50 mg daily and follow-up in 1 week for blood pressure check [facility] 07-25-2024 Miscellaneous Notes Associate d Problem(s): Essential hypertension Blood pressure is initially elevated, recheck was in proved but still high we will start her on losartan 50 mg daily and follow-up in 1 week for blood pressure check documented in this encounter [facility] 07-25-2024 History of Presen t illness Narrative Patient was verified by last name and . Images from the original note were not included. 07/25/2024 Lashell Stacy (: 1960) is a 64 y.o. female , Established patient, here for evaluation of the following chief complaint(s): Hypertension (Mild, slight dizziness and headaches, states her neck is pulsing very hard, onset Wednesday, brought home BP readings) ASSESSMENT/PLAN: 1. Essential hypertension Assessment & Plan: Blood pressure is initially elevated, recheck was in proved but still high we will start her on losartan 50 mg daily and follow-up in 1 week for blood pressure check Follow up if symptoms worsen or fail to improve. SUBJECTIVE/OBJECTIVE: ELSA -Lashell comes in today for follow-up on her blood pressure that she noticed her neck with pulsating took her blood pressure when she got home and was little elevated. She checked it this morning at home and it was okay today when she was here it is significantly elevated. Over the last few times she has been here it has been elevated Review of Systems Constitutional: Negative for chills and fever. Respiratory: Negative for shortness of breath. Cardiovascular: Negative for chest pain and palpitations. Vitals: 07/25/24 1147 07/25/24 1204 BP: (!) 182/96 (!) 160/93 Pulse: 79 SpO2: 98% Weight: 149 lb (67.6 kg) Height: 5' 2" (1.575 m) Physical Exam Vitals and nursing note reviewed. Constitutional: General: She is not in acute distress. Appearance: Normal appearance. HENT: Head: Normocephalic and atraumatic. Mouth/Throat: Mouth: Mucous membranes are moist. Pharynx: Oropharynx is clear. Eyes: Extraocular Movements: Extraocular movements intact. Pupils: Pupils are equal, round, and reactive to light. Neck: Thyroid: No thyromegaly. Vascular: No carotid bruit. Cardiovascular: Rate and Rhythm: Normal rate and regular rhythm. Heart sounds: Normal heart sounds. No murmur heard. Pulmonary: Effort: Pulmonary effort is normal. Breath sounds: Normal breath sounds. Musculoskeletal: Cervical back: Neck supple. Lymphadenopathy: Cervical: No cervical adenopathy. Neurological: Mental Status: She is alert. An electronic signature was used to authenticate this note. Vicente Arriaza MD 07/25/2024 12:08 PM documented in this encounter [facility] 06-27-2024 Evaluation + Plan note Associ ated Problem(s): Hyperlipidemia LDL goal <100 Uncontrolled, continue red yeast rice extract repeat levels today. [facility] 06-27-2024 Evaluation + Plan note Associ ated Problem(s): Anxiety Remission, continue Ativan 0.5 mg twice a day as needed [facility] 06-27-2024 Evaluation + Plan note Associ ated Problem(s): Vitamin D deficiency Controlled, continue vitamin D 40 units daily [facility] 06-27-2024 Miscellaneous Notes Associate d Problem(s): Hyperlipidemia LDL goal <100 Uncontrolled, continue red yeast rice extract repeat levels today. Associated Problem(s): Anxiety Remission, continue Ativan 0.5 mg twice a day as needed Associated Problem(s): Vitamin D deficiency Controlled, continue vitamin D 40 units daily Associated Problem(s): Hypothyroidism Controlled, continue levothyroxine 75 mcg daily Associated Problem(s): GERD (gastroesophageal reflux disease) Stable, continue famotidine 40 mg twice a day Associated Problem(s): Essential hypertension Initially blood pressure was elevated, recheck was still elevated but improved, continue strict low-sodium diet and follow-up in 1 week for blood pressure check may need to start blood pressure medication. Associated Problem(s): Yeny's syndrome Stable, currently not bothering her. Associated Problem(s): Narcolepsy Stable, continue Provigil 100 mg daily documented in this encounter [facility] 06-27-2024 Evaluation + Plan note Associ ated Problem(s): Hypothyroidism Controlled, continue levothyroxine 75 mcg daily [facility] 06-27-2024 Evaluation + Plan note Associ ated Problem(s): GERD (gastroesophageal reflux disease) Stable, continue famotidine 40 mg twice a day [facility] 06-27-2024 Evaluation + Plan note Associ ated Problem(s): Essential hypertension Initially blood pressure was elevated, recheck was still elevated but improved, continue strict low-sodium diet and follow-up in 1 week for blood pressure check may need to start blood pressure medication. [facility] 06-27-2024 Evaluation + Plan note Associ ated Problem(s): Yeny's syndrome Stable, currently not bothering her. [facility] 06-27-2024 Evaluation + Plan note Associ ated Problem(s): Narcolepsy Stable, continue Provigil 100 mg daily [facility] 06-27-2024 History of Presen t illness Narrative Patient verified by last name and date of . Images from the original note were not included. 06/27/2024 Lashell Stacy (: 1960) is a 64 y.o. female , Established patient, here for evaluation of the following chief complaint(s): Narcolepsy, Hypertension, GERD, Hypothyroidism, Vitamin D Deficiency, Medication Check (6 months), Health Maintenance (Pt refused- pcv 20, flu, and covid vaccines, dexa scan), and Blood Work (Pt states her tsh gets checked every 6 months and we need to recheck her cholesterol today) ASSESSMENT/PLAN: 1. Primary narcolepsy without cataplexy Assessment & Plan: Stable, continue Provigil 100 mg daily 2. Yeny's syndrome Assessment & Plan: Stable, currently not bothering her. 3. Essential hypertension Assessment & Plan: Initially blood pressure was elevated, recheck was still elevated but improved, continue strict low-sodium diet and follow-up in 1 week for blood pressure check may need to start blood pressure medication. 4. Gastroesophageal reflux disease without esophagitis Assessment & Plan: Stable, continue famotidine 40 mg twice a day 5. Acquired hypothyroidism Assessment & Plan: Controlled, continue levothyroxine 75 mcg daily Orders: - TSH 6. Vitamin D deficiency Assessment & Plan: Controlled, continue vitamin D 40 units daily 7. Anxiety Assessment & Plan: Remission, continue Ativan 0.5 mg twice a day as needed 8. Hyperlipidemia LDL goal <100 Assessment & Plan: Uncontrolled, continue red yeast rice extract repeat levels today. Orders: - Lipid panel 9. Influenza vaccine refused Follow up in about 6 months (around 12/25/2024). SUBJECTIVE/OBJECTIVE: ELSA Cyr comes in today for 6-month follow-up on her multiple health issues which include narcolepsy, Yeny syndrome and needs both seem to be well-controlled on her current medications. Hypertension which is elevated today we will recheck her blood pressure before she leaves, GERD hypothyroidism vitamin D deficiency, anxiety and her hyperlipidemia which is not controlled. She currently has no complaints these all seem to be stable and she does not need any medications today. Will get some updated lab work. Review of Systems Constitutional: Negative for chills and fever. Respiratory: Negative for shortness of breath. Cardiovascular: Negative for chest pain and palpitations. Gastrointestinal: Negative for abdominal pain, blood in stool, constipation and diarrhea. Genitourinary: Negative for dyspareunia, dysuria, frequency, hematuria and urgency. Neurological: Negative for weakness and numbness. Psychiatric/Behavioral: Negative for dysphoric mood. The patient is not nervous/anxious. Vitals: 06/27/24 0840 06/27/24 0903 BP: (!) 175/95 (!) 154/80 Pulse: 70 67 SpO2: 98% Weight: 150 lb 6.4 oz (68.2 kg) Height: 5' 2" (1.575 m) Physical Exam Vitals and nursing note reviewed. Constitutional: General: She is not in acute distress. Appearance: Normal appearance. HENT: Head: Normocephalic. Right Ear: Tympanic membrane, ear canal and external ear normal. Left Ear: Tympanic membrane, ear canal and external ear normal. Mouth/Throat: Mouth: Mucous membranes are moist. Pharynx: Oropharynx is clear. Eyes: Extraocular Movements: Extraocular movements intact. Pupils: Pupils are equal, round, and reactive to light. Neck: Thyroid: No thyromegaly. Vascular: No carotid bruit. Cardiovascular: Rate and Rhythm: Normal rate and regular rhythm. Heart sounds: Normal heart sounds. No murmur heard. Pulmonary: Effort: Pulmonary effort is normal. Breath sounds: Normal breath sounds. Abdominal: General: Bowel sounds are normal. Palpations: Abdomen is soft. Musculoskeletal: General: Normal range of motion. Cervical back: Normal range of motion. Lymphadenopathy: Cervical: No cervical adenopathy. Skin: General: Skin is warm and dry. Neurological: General: No focal deficit present. Mental Status: She is alert and oriented to person, place, and time. Psychiatric: Mood and Affect: Mood normal. An electronic signature was used to authenticate this note. Vicente Arriaza MD 06/27/2024 10:26 AM documented in this encounter [facility] 12-30-2023 Telephone encount er Note Okay, thank you [facility] 12-30-2023 Miscellaneous Notes Formattin g of this note might be different from the original. Okay, thank you Spoke to Lashell, she wants to work on diet and exercise and recheck in 6 months. ----- Message from Vicente Arriaza MD sent at 12/29/2023 5:34 AM EDT ----- Blood sugar and chemistry are normal. Cholesterol total and bad are high, good is very good, all numbers have improved but are still too high would recommend nonstatin Zetia 10 mg in addition to what she is taking strict low-fat low-cholesterol low-carb diet and recheck 4 weeks. Vitamin D level is good. Thyroid level is normal. Left a message to return call. Directions for CAC in the event patient calls back: If the patient is agreeable to the recommendation, please: 1. Verify what pharmacy RX will be sent to. 2. Schedule patient for nurse visit to repeat labs in 4 weeks. 3. Route this TE back to the office clinical pool so we can place lab orders and send in rx. If the patient is not agreeable then no nurse visit is needed. Thanks! documented in this encounter [facility] 12-30-2023 Telephone encount er Note Spoke to Lashell, she wants to work on diet and exercise and recheck in 6 months. [facility] 12-29-2023 Telephone encount er Note ----- Message from Vicente Arriaza MD sent at 12/29/2023 5:34 AM EDT ----- Blood sugar and chemistry are normal. Cholesterol total and bad are high, good is very good, all numbers have improved but are still too high would recommend nonstatin Zetia 10 mg in addition to what she is taking strict low-fat low-cholesterol low-carb diet and recheck 4 weeks. Vitamin D level is good. Thyroid level is normal. Left a message to return call. Directions for CAC in the event patient calls back: If the patient is agreeable to the recommendation, please: 1. Verify what pharmacy RX will be sent to. 2. Schedule patient for nurse visit to repeat labs in 4 weeks. 3. Route this TE back to the office clinical pool so we can place lab orders and send in rx. If the patient is not agreeable then no nurse visit is needed. Thanks! [facility] 12-28-2023 Evaluation + Plan note Associ ated Problem(s): Essential hypertension Blood pressure was initially elevated, recheck was normal, continue low-sodium diet [facility] 12-28-2023 Miscellaneous Notes Associate d Problem(s): Essential hypertension Blood pressure was initially elevated, recheck was normal, continue low-sodium diet Associated Problem(s): Hyperlipidemia LDL goal <100 Control unknown, continue red yeast rice extract Associated Problem(s): Anxiety Controlled, continue lorazepam twice a day as needed. Associated Problem(s): Vitamin D deficiency Stable, continue calcium with vitamin D plus vitamin D 400 units daily Associated Problem(s): Hypothyroidism Stable, continue levothyroxine 75 mcg daily Associated Problem(s): GERD (gastroesophageal reflux disease) Controlled, continue Pepcid 40 mg twice a day Associated Problem(s): Narcolepsy Controlled, continue Provigil 100 mg daily documented in this encounter [facility] 12-28-2023 Evaluation + Plan note Associ ated Problem(s): Hyperlipidemia LDL goal <100 Control unknown, continue red yeast rice extract [facility] 12-28-2023 Evaluation + Plan note Associ ated Problem(s): Anxiety Controlled, continue lorazepam twice a day as needed. [facility] 12-28-2023 Evaluation + Plan note Associ ated Problem(s): Vitamin D deficiency Stable, continue calcium with vitamin D plus vitamin D 400 units daily [facility] 12-28-2023 Evaluation + Plan note Associ ated Problem(s): Hypothyroidism Stable, continue levothyroxine 75 mcg daily [facility] 12-28-2023 Evaluation + Plan note Associ ated Problem(s): GERD (gastroesophageal reflux disease) Controlled, continue Pepcid 40 mg twice a day [facility] 12-28-2023 Evaluation + Plan note Associ ated Problem(s): Narcolepsy Controlled, continue Provigil 100 mg daily [facility] 12-28-2023 History of Presen t illness Narrative Patient verified by last name and date of . Images from the original note were not included. 12/28/2023 Lashell Stacy (: 1960) is a 63 y.o. female , Established patient, here for evaluation of the following chief complaint(s): Annual Exam, Blood Work, and Health Maintenance (Pt declined- shingles vaccine, rsv vaccine, covid vaccine/Mammogram- pt has this done in [place] ordered by [facility] and will have result sent to us ) ASSESSMENT/PLAN: 1. Annual physical exam 2. Primary narcolepsy without cataplexy Assessment & Plan: Controlled, continue Provigil 100 mg daily 3. Essential hypertension Assessment & Plan: Blood pressure was initially elevated, recheck was normal, continue low-sodium diet 4. Gastroesophageal reflux disease without esophagitis Assessment & Plan: Controlled, continue Pepcid 40 mg twice a day 5. Acquired hypothyroidism Assessment & Plan: Stable, continue levothyroxine 75 mcg daily Orders: - TSH 6. Vitamin D deficiency Assessment & Plan: Stable, continue calcium with vitamin D plus vitamin D 400 units daily Orders: - Vitamin D Deficiency Screening (Vit D 25) 7. Anxiety Assessment & Plan: Controlled, continue lorazepam twice a day as needed. 8. Hyperlipidemia LDL goal <100 Assessment & Plan: Control unknown, continue red yeast rice extract Orders: - Lipid panel 9. Screening for diabetes mellitus - Comprehensive metabolic panel Follow up in about 6 months (around 06/29/2024). SUBJECTIVE/OBJECTIVE: HPI -Lashell comes in today for an annual exam, she says she is doing overall well she has no complaints her narcolepsy is well-controlled with her Provigil, blood pressure is up slightly today, we will recheck that prior to discharge. Her GERD is well-controlled with her Pepcid 40 mg twice a day and her hypothyroidism is stable. Hyperlipidemia is controlled, and her anxiety is stable. She has no other complaints at this time, see ROS. Review of Systems Constitutional: Negative for chills and fever. Respiratory: Negative for shortness of breath. Cardiovascular: Negative for chest pain and palpitations. Gastrointestinal: Negative for abdominal pain, blood in stool, constipation and diarrhea. Genitourinary: Negative for dysuria, frequency, hematuria and urgency. Neurological: Negative for weakness and numbness. Psychiatric/Behavioral: Negative for dysphoric mood. The patient is not nervous/anxious. Vitals: 12/28/23 0852 12/28/23 0921 BP: (!) 151/83 130/85 Pulse: 73 SpO2: 98% Weight: 143 lb 12.8 oz (65.2 kg) Height: 5' 2" (1.575 m) Physical Exam Vitals and nursing note reviewed. Constitutional: General: She is not in acute distress. Appearance: Normal appearance. HENT: Head: Normocephalic. Right Ear: Tympanic membrane, ear canal and external ear normal. Left Ear: Tympanic membrane, ear canal and external ear normal. Mouth/Throat: Mouth: Mucous membranes are moist. Pharynx: Oropharynx is clear. Eyes: Extraocular Movements: Extraocular movements intact. Pupils: Pupils are equal, round, and reactive to light. Neck: Thyroid: No thyromegaly. Vascular: No carotid bruit. Cardiovascular: Rate and Rhythm: Normal rate and regular rhythm. Heart sounds: Normal heart sounds. No murmur heard. Pulmonary: Effort: Pulmonary effort is normal. Breath sounds: Normal breath sounds. Abdominal: General: Bowel sounds are normal. Palpations: Abdomen is soft. Musculoskeletal: General: Normal range of motion. Cervical back: Normal range of motion. Lymphadenopathy: Cervical: No cervical adenopathy. Skin: General: Skin is warm and dry. Neurological: General: No focal deficit present. Mental Status: She is alert and oriented to person, place, and time. Psychiatric: Mood and Affect: Mood normal. An electronic signature was used to authenticate this note. Vicente Arriaza MD 12/28/2023 9:23 AM documented [facility] [facility] 09[facility]08[facility]23 Note Addended by: LUIZ BERMUDEZ on: 09/08/2023 10:07 AM Modules accepted: Orders [facility] 09-08-2023 Miscellaneous Notes Addended by: LUIZ BERMUDEZ on: 09/08/2023 10:07 AM Modules accepted: Orders Rx sent for Modafinil one week early as discussed. OARRS report reviewed with no discrepancies. CSA signed May 2023. Notified. Rx sent for Levothyroxine. Unfortunately with the Modafinil being a controlled substance and just being prescribed on 08/16/23 I am unable to send this in again so soon, even if getting processed through a new insurance. I have made a note and will send 1 week early (09/08/23) to allow for accomodation time for possible prior auth. CSA 06/29/23 UDS 06/29/23 The patient stopped in the office asking for refills of Modafinil and Levothyroxine are to be sent to: [facility] Levothyroxine to [facility] mail order--- She has new insurance that is effective 08-23-23 She just picked them up before she got the new insurance----but she would like it sent to her pharmacies now because they may need prior authorized. documented in this encounter [facility] 09-08-2023 Telephone encount er Note Rx sent for Modafinil one week early as discussed. OARRS report reviewed with no discrepancies. CSA signed May 2023. [facility] 08-26-2023 Telephone encount er Note Notified. [facility] 08-25-2023 Telephone encount er Note Rx sent for Levothyroxine. Unfortunately with the Modafinil being a controlled substance and just being prescribed on 08/16/23 I am unable to send this in again so soon, even if getting processed through a new insurance. I have made a note and will send 1 week early (09/08/23) to allow for accomodation time for possible prior auth. [facility] 08-25-2023 Telephone encount er Note CSA 06/29/23 UDS 06/29/23 [facility] 08-25-2023 Telephone encount er Note The patient stopped in the office asking for refills of Modafinil and Levothyroxine are to be sent to: [facility]il to [facility] Levothyroxine to [facility] mail order--- She has new insurance that is effective 08-23-23 She just picked them up before she got the new insurance----but she would like it sent to her pharmacies now because they may need prior authorized. [facility] 07-02-2023 Telephone encount er Note That decision is up to her but if she continues to put out taking medication down the road it could lead to consequences. [employer] 07-02-2023 Miscellaneous Notes Formattin g of this note might be different from the original. That decision is up to her but if she continues to put out taking medication down the road it could lead to consequences. Message released to patient as written. Cholesterol total and bad have both increased, good continues to be good but not as good as what it was before, really highly recommend rosuvastatin 10 mg daily and strict low-fat low-cholesterol diet and recheck 4 weeks. Patient's further questions if applicable: Pt stated she prefer's to not take pill. Pt stated she has been eating things she shouldn't and prefer's she will eat healthier and would like to have rechecked in 3 months if that's ok? Were all questions from office addressed or relayed to the patient from encounter: No Message from Vicente Arriaza MD sent at 06/30/2023 5:36 AM EST ----- Cholesterol total and bad have both increased, good continues to be good but not as good as what it was before, really highly recommend rosuvastatin 10 mg daily and strict low-fat low-cholesterol diet and recheck 4 weeks. Left a message to return call. Directions for CAC in the event patient calls back: If the patient is agreeable to starting the new medication, please: 1. Verify what pharmacy RX will be sent to. 2. Schedule patient for nurse visit to repeat labs in 4 weeks. 3. Route this TE back to the office clinical pool so we can place lab orders and send in rx. If the patient is not agreeable to starting the new medication then no nurse visit is needed. Thanks! ----- Message from Vicente Arriaza MD sent at 06/30/2023 5:36 AM EST ----- Cholesterol total and bad have both increased, good continues to be good but not as good as what it was before, really highly recommend rosuvastatin 10 mg daily and strict low-fat low-cholesterol diet and recheck 4 weeks. Left a message to return call. Directions for CAC in the event patient calls back: If the patient is agreeable to starting the new medication, please: 1. Verify what pharmacy RX will be sent to. 2. Schedule patient for nurse visit to repeat labs in 4 weeks. 3. Route this TE back to the office clinical pool so we can place lab orders and send in rx. If the patient is not agreeable to starting the new medication then no nurse visit is needed. Thanks! documented in this encounter [employer] 07-01-2023 Telephone encount er Note Message released to patient as written. Cholesterol total and bad have both increased, good continues to be good but not as good as what it was before, really highly recommend rosuvastatin 10 mg daily and strict low-fat low-cholesterol diet and recheck 4 weeks. Patient's further questions if applicable: Pt stated she prefer's to not take pill. Pt stated she has been eating things she shouldn't and prefer's she will eat healthier and would like to have rechecked in 3 months if that's ok? Were all questions from office addressed or relayed to the patient from encounter: No [employer] 07-01-2023 Telephone encount er Note Message from Vicente Arriaza MD sent at 06/30/2023 5:36 AM EST ----- Cholesterol total and bad have both increased, good continues to be good but not as good as what it was before, really highly recommend rosuvastatin 10 mg daily and strict low-fat low-cholesterol diet and recheck 4 weeks. Left a message to return call. Directions for CAC in the event patient calls back: If the patient is agreeable to starting the new medication, please: 1. Verify what pharmacy RX will be sent to. 2. Schedule patient for nurse visit to repeat labs in 4 weeks. 3. Route this TE back to the office clinical pool so we can place lab orders and send in rx. If the patient is not agreeable to starting the new medication then no nurse visit is needed. Thanks! [employer] 06-30-2023 Telephone encount er Note ----- Message from Vicente Arriaza MD sent at 06/30/2023 5:36 AM EST ----- Cholesterol total and bad have both increased, good continues to be good but not as good as what it was before, really highly recommend rosuvastatin 10 mg daily and strict low-fat low-cholesterol diet and recheck 4 weeks. Left a message to return call. Directions for CAC in the event patient calls back: If the patient is agreeable to starting the new medication, please: 1. Verify what pharmacy RX will be sent to. 2. Schedule patient for nurse visit to repeat labs in 4 weeks. 3. Route this TE back to the office clinical pool so we can place lab orders and send in rx. If the patient is not agreeable to starting the new medication then no nurse visit is needed. Thanks! [employer] 06-29-2023 Evaluation + Plan note Associ ated Problem(s): Essential hypertension Blood pressure is initially elevated, recheck was even higher, will have her follow-up in 1 week for blood pressure check continue low-sodium diet. [employer] 06-29-2023 Miscellaneous Notes Associate d Problem(s): Essential hypertension Blood pressure is initially elevated, recheck was even higher, will have her follow-up in 1 week for blood pressure check continue low-sodium diet. Associated Problem(s): Anxiety Stable, continue lorazepam as needed Associated Problem(s): Hyperlipidemia LDL goal <100 Uncontrolled, will recheck lab work today Associated Problem(s): Hypothyroidism Stable, continues levothyroxine 75 mcg daily Associated Problem(s): GERD (gastroesophageal reflux disease) Controlled, continue Pepcid 40 mg twice a day Associated Problem(s): Yeny's syndrome stable. Associated Problem(s): Narcolepsy stable, continue Provigil 100 mg daily, signed CSA agreement and drug screen. documented in this encounter [facility] 06-29-2023 Evaluation + Plan note Associ ated Problem(s): Anxiety Stable, continue lorazepam as needed [employer] 06-29-2023 Evaluation + Plan note Associ ated Problem(s): Hyperlipidemia LDL goal <100 Uncontrolled, will recheck lab work today [employer] 06-29-2023 Evaluation + Plan note Associ ated Problem(s): Hypothyroidism Stable, continues levothyroxine 75 mcg daily [employer] 06-29-2023 Evaluation + Plan note Associ ated Problem(s): GERD (gastroesophageal reflux disease) Controlled, continue Pepcid 40 mg twice a day [facility] 06-29-2023 Evaluation + Plan note Associ ated Problem(s): Yeny's syndrome stable. [employer] [facility] 06-29-2023 Evaluation + Plan note Associ ated Problem(s): Narcolepsy stable, continue Provigil 100 mg daily, signed CSA agreement and drug screen. [employer] 06-29-2023 History of Presen t illness Narrative Patient verified by last name and date of . Images from the original note were not included. 06/29/2023 Lashell Stacy (: 1960) is a 63 y.o. female , Established patient, here for evaluation of the following chief complaint(s): Narcolepsy, Hypertension, GERD, Hypothyroidism, Anxiety, Hyperlipidemia, Medication Check (6 month), and Health Maintenance (Rsv vaccine- not done/Flu vaccine-refuse/Dexa scan- refuse- had one last year /Mammogram- will sched ) ASSESSMENT/PLAN: 1. Primary narcolepsy without cataplexy Assessment & Plan: stable, continue Provigil 100 mg daily, signed CSA agreement and drug screen. Orders: - AMB POC DRUG SCREEN 12, [facility]SOURCE 2. Essential hypertension Assessment & Plan: Blood pressure is initially elevated, recheck was even higher, will have her follow-up in 1 week for blood pressure check continue low-sodium diet. 3. Yeny's syndrome Assessment & Plan: stable. 4. Gastroesophageal reflux disease without esophagitis Assessment & Plan: Controlled, continue Pepcid 40 mg twice a day 5. Acquired hypothyroidism Assessment & Plan: Stable, continues levothyroxine 75 mcg daily 6. Hyperlipidemia LDL goal <100 Assessment & Plan: Uncontrolled, will recheck lab work today Orders: - Lipid panel 7. Anxiety Assessment & Plan: Stable, continue lorazepam as needed Orders: - AMB POC DRUG SCREEN 12, [facility] Follow up in about 6 months (around 12/28/2023). SUBJECTIVE/OBJECTIVE: ELSA Cyr comes in today for a 6-month follow-up on her narcolepsy which seems to be well-controlled on her current dose of Provigil, she is also here for follow-up on her hypertension and her blood pressure is up slightly today we will recheck that prior to discharge. Her Yeny syndrome seems to be stable at this time and her reflux is well-controlled on her Pepcid 40 mg. Thyroid level has been normal and we will need to recheck her cholesterol today since it was high the last time we checked it and she has been using red yeast rice extract and trying to watch her diet. Review of Systems Constitutional: Negative for chills and fever. Respiratory: Negative for shortness of breath. Cardiovascular: Negative for chest pain and palpitations. Gastrointestinal: Negative for abdominal pain, blood in stool, constipation and diarrhea. Genitourinary: Negative for dyspareunia, dysuria, frequency, hematuria and urgency. Neurological: Negative for weakness and numbness. Psychiatric/Behavioral: Negative for dysphoric mood. The patient is not nervous/anxious. Vitals: 06/29/23 0803 06/29/23 0821 BP: (!) 146/86 (!) 150/85 Pulse: 67 60 SpO2: 98% Weight: 146 lb 3.2 oz (66.3 kg) Height: 5' 2" (1.575 m) Physical Exam Vitals and nursing note reviewed. Constitutional: General: She is not in acute distress. Appearance: Normal appearance. HENT: Head: Normocephalic. Right Ear: Tympanic membrane, ear canal and external ear normal. Left Ear: Tympanic membrane, ear canal and external ear normal. Mouth/Throat: Mouth: Mucous membranes are moist. Pharynx: Oropharynx is clear. Eyes: Extraocular Movements: Extraocular movements intact. Pupils: Pupils are equal, round, and reactive to light. Neck: Thyroid: No thyromegaly. Vascular: No carotid bruit. Cardiovascular: Rate and Rhythm: Normal rate and regular rhythm. Heart sounds: Normal heart sounds. No murmur heard. Pulmonary: Effort: Pulmonary effort is normal. Breath sounds: Normal breath sounds. Abdominal: General: Bowel sounds are normal. Palpations: Abdomen is soft. Musculoskeletal: General: Normal range of motion. Cervical back: Normal range of motion. Lymphadenopathy: Cervical: No cervical adenopathy. Skin: General: Skin is warm and dry. Neurological: General: No focal deficit present. Mental Status: She is alert and oriented to person, place, and time. Psychiatric: Mood and Affect: Mood normal. An electronic signature was used to authenticate this note. Vicente Arriaza MD 06/29/2023 9:30 AM documented in this encounter [facility] 05-25-2023 Telephone encount er Note Prescription Request: Last medication check: 06/23/22 Last physical exam: 12/22/22 Next scheduled appointment: 06/29/23 Last date of refill on this medication: 11/23/22 [facility] 05-25-2023 Miscellaneous Notes Formattin g of this note might be different from the original. Prescription Request: Last medication check: 06/23/22 Last physical exam: 12/22/22 Next scheduled appointment: 06/29/23 Last date of refill on this medication: 11/23/22 documented in this encounter [facility] 05-14-2023 Telephone encount er Note Rx sent, OARRS report done, no inconsistencies, CS agreement in place [facility] 05-14-2023 Miscellaneous Notes Formattin g of this note might be different from the original. Rx sent, OARRS report done, no inconsistencies, CS agreement in place CSA 06/23/22 Medication name: modafinil (Provigil) 100 MG tablet Medication dosage: 100 mg (Miligrams Monthly quantity needed: 30 How many day supply requestin days Medication route: oral (PO) Medication administration time(s): daily If taking medication PRN, reason for taking medication: N/A If this is a controlled substance do you receive this or any other controlled medication from any other doctor or facility: No Ordering provider: Dr. Arriaza Date of last office visit: 12/22/22 Date of next office visit: 06/29/23 Date of last refill: (see medication tab): 04/08/23 Updated/Validated preferred pharmacy: Yes Patient instructed to contact the pharmacy prior to picking up the medication: Yes documented in this encounter [facility] 05-14-2023 Telephone encount er Note CSA 06/23/22 [facility] 05-14-2023 Telephone encount er Note Medication name: modafinil (Provigil) 100 MG tablet Medication dosage: 100 mg (Miligrams Monthly quantity needed: 30 How many day supply requestin days Medication route: oral (PO) Medication administration time(s): daily If taking medication PRN, reason for taking medication: N/A If this is a controlled substance do you receive this or any other controlled medication from any other doctor or facility: No Ordering provider: Dr. Arriaza Date of last office visit: 12/22/22 Date of next office visit: 06/29/23 Date of last refill: (see medication tab): 04/08/23 Updated/Validated preferred pharmacy: Yes Patient instructed to contact the pharmacy prior to picking up the medication: Yes [facility] 03-15-2023 Telephone encount er Note Rx sent, OARRS report done, no inconsistencies, CS agreement in place [facility] 03-15-2023 Miscellaneous Notes Formattin g of this note might be different from the original. Rx sent, OARRS report done, no inconsistencies, CS agreement in place Addended by: MICHELLE ODONNELL on: 03/15/2023 08:30 AM Modules accepted: Orders Prescription Request: Last medication check: 06/23/22 Last physical exam: 12/22/22 Next scheduled appointment: 06/29/23 CSA on file (date): 06/23/22 Last urine drug screen: none Last date of refill on this medication: 02/16/23 #30 no refills Name of caller: Lashell Contact phone number: [phone] Relationship to Patient: patient Provider: [facility] Practice: [facility] Chief Complaint/Reason for Call: Pt stating pharm told her they don't have a script on file for refill on Modafinil. Please call the pharm and give them script refill and call pt to let her know it is there. Pt only has 2 pills left Best time of day caller can be reached: Patient advised that office/PCP has 24-48 business hours to return their call: This was approved, pt notified. Notified. 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 Name of caller: Lashell Contact phone number: [phone] Relationship to Patient: patient Provider: Dr. Arriaza Practice: [facility] Chief Complaint/Reason for Call: Patient states that when they had this problem before with insurance not covering this medication the Pharmacy still had record of the prescription and filled it through [facility] which ends up cheaper. Patient would like to know if they would be able to have this prescription sent in to go through [facility] as they are not sure how long their insurance will take and they only have 9 tablets left. Patient is requesting a call back. Please advise. Best time of day caller can be reached: Any Patient advised that office/PCP has 24-48 business hours to return their call: Yes Appeal requested and called pt with an update, she states she does not see a neurologist or sleep specialist and she had one sleep study for this a long time ago. This patient has been on this medication for probably 30 years she has narcolepsy and that is why she takes it she does not need a sleep specialist to prescribe this for her narcolepsy. Please do an appeal we have always got this approved in the past. This was denied, it says it needs prescribed in consultation with a neurologist or sleep specialist, I do not see that she sees one. PA requested for Modafinil. documented in this encounter [facility] 03-15-2023 Note Addended by: MICHELLE ODONNELL on: 03/15/2023 08:30 AM Modules accepted: Orders [facility] 03-15-2023 Note Addended by: MICHELLE ODONNELL on: 03/15/2023 08:30 AM Modules accepted: Orders [facility] 03-15-2023 Miscellaneous Notes Addended by: MICHELLE ODONNELL on: 03/15/2023 08:30 AM Modules accepted: Orders Prescription Request: Last medication check: 06/23/22 Last physical exam: 12/22/22 Next scheduled appointment: 06/29/23 CSA on file (date): 06/23/22 Last urine drug screen: none Last date of refill on this medication: 02/16/23 #30 no refills Name of caller: Lashell Contact phone number: [phone] Relationship to Patient: patient Provider: [facility] Practice: [facility] Chief Complaint/Reason for Call: Pt stating pharm told her they don't have a script on file for refill on Modafinil. Please call the pharm and give them script refill and call pt to let her know it is there. Pt only has 2 pills left Best time of day caller can be reached: Patient advised that office/PCP has 24-48 business hours to return their call: This was approved, pt notified. Notified. 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 Name of caller: Lashell Contact phone number: [phone] Relationship to Patient: patient Provider: Dr. Arriaza Practice: [facility] Chief Complaint/Reason for Call: Patient states that when they had this problem before with insurance not covering this medication the Pharmacy still had record of the prescription and filled it through [facility] which ends up cheaper. Patient would like to know if they would be able to have this prescription sent in to go through [facility] as they are not sure how long their insurance will take and they only have 9 tablets left. Patient is requesting a call back. Please advise. Best time of day caller can be reached: Any Patient advised that office/PCP has 24-48 business hours to return their call: Yes Appeal requested and called pt with an update, she states she does not see a neurologist or sleep specialist and she had one sleep study for this a long time ago. This patient has been on this medication for probably 30 years she has narcolepsy and that is why she takes it she does not need a sleep specialist to prescribe this for her narcolepsy. Please do an appeal we have always got this approved in the past. This was denied, it says it needs prescribed in consultation with a neurologist or sleep specialist, I do not see that she sees one. PA requested for Modafinil. documented in this encounter [facility] 03-15-2023 Telephone encount er Note Prescription Request: Last medication check: 06/23/22 Last physical exam: 12/22/22 Next scheduled appointment: 06/29/23 CSA on file (date): 06/23/22 Last urine drug screen: none Last date of refill on this medication: 02/16/23 #30 no refills [facility] 03-15-2023 Telephone encount er Note Name of caller: Lashell Contact phone number: [phone] Relationship to Patient: patient Provider: [facility] Practice: [facility] Chief Complaint/Reason for Call: Pt stating pharm told her they don't have a script on file for refill on Modafinil. Please call the pharm and give them script refill and call pt to let her know it is there. Pt only has 2 pills left Best time of day caller can be reached: Patient advised that office/PCP has 24-48 business hours to return their call: [facility] 03-15-2023 Telephone encount er Note . [facility] 03-15-2023 Miscellaneous Notes Formattin g of this note might be different from the original. . documented in this encounter [facility] 03-10-2023 Telephone encount er Note This was approved, pt notified. [facility] 03-09-2023 Telephone encount er Note Notified. 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 T [facility] 03-09-2023 Telephone encount er Note Name of caller: Lashell Contact phone number: [phone] Relationship to Patient: patient Provider: Dr. Arriaza Practice: [facility] Chief Complaint/Reason for Call: Patient states that when they had this problem before with insurance not covering this medication the Pharmacy still had record of the prescription and filled it through [facility] which ends up cheaper. Patient would like to know if they would be able to have this prescription sent in to go through [facility] as they are not sure how long their insurance will take and they only have 9 tablets left. Patient is requesting a call back. Please advise. Best time of day caller can be reached: Any Patient advised that office/PCP has 24-48 business hours to return their call: Yes T [facility] 03-09-2023 Telephone encount er Note Appeal requested and called pt with an update, she states she does not see a neurologist or sleep specialist and she had one sleep study for this a long time ago. T [facility] 03-09-2023 Telephone encount er Note This patient has been on this medication for probably 30 years she has narcolepsy and that is why she takes it she does not need a sleep specialist to prescribe this for her narcolepsy. Please do an appeal we have always got this approved in the past. [facility] 03-09-2023 Telephone encount er Note This was denied, it says it needs prescribed in consultation with a neurologist or sleep specialist, I do not see that she sees one. [facility] 03-08-2023 Telephone encount er Note PA requested for Modafinil. [facility] [facility] Evaluation + Plan note Associ ated Problem(s): Hyperlipidemia LDL goal <100 Controlled, medication [facility] 12-22-2022 Miscellaneous Notes Associate d Problem(s): Hyperlipidemia LDL goal <100 Controlled, medication Associated Problem(s): Anxiety Stable, continue Ativan as needed. Associated Problem(s): Vitamin D deficiency Stable, continue vitamin D 400 units daily Associated Problem(s): Hypothyroidism Controlled, continue continue levothyroxine 75 mcg daily Associated Problem(s): GERD (gastroesophageal reflux disease) Controlled, can continue famotidine 40 mg twice a day Associated Problem(s): Essential hypertension Initially elevated, recheck was still elevated in fact it was even higher, will have her follow-up blood pressure check in 1 week, she currently is on no medications. Associated Problem(s): Yeny's syndrome Stable. Associated Problem(s): Narcolepsy Stable on current dose of Provigil 100 mg daily documented in this encounter [facility] 12-22-2022 Evaluation + Plan note Associ ated Problem(s): Anxiety Stable, continue Ativan as needed. [facility] 12-22-2022 Evaluation + Plan note Associ ated Problem(s): Vitamin D deficiency Stable, continue vitamin D 400 units daily [facility] 12-22-2022 Evaluation + Plan note Associ ated Problem(s): Hypothyroidism Controlled, continue continue levothyroxine 75 mcg daily [facility] 12-22-2022 Evaluation + Plan note Associ ated Problem(s): GERD (gastroesophageal reflux disease) Controlled, can continue famotidine 40 mg twice a day [facility] 12-22-2022 Evaluation + Plan note Associ ated Problem(s): Essential hypertension Initially elevated, recheck was still elevated in fact it was even higher, will have her follow-up blood pressure check in 1 week, she currently is on no medications. [facility] 12-22-2022 Evaluation + Plan note Associ ated Problem(s): Yeny's syndrome Stable. [facility] 12-22-2022 Evaluation + Plan note Associ ated Problem(s): Narcolepsy Stable on current dose of Provigil 100 mg daily [facility] 12-22-2022 History of Presen t illness Narrative Health Maintenance/pend orders Allergies Meds-pharmacy Medical hx Surgical hx Family hx Tobacco use E-Cigarette/vaping use Alcohol use Drug use PHQ2/9 C-SSRS Suicide screening THOMAS 7 Social Determinants Pend any medication refills needed All of the above have been reviewed/completed Patient verified by last name and date of . Images from the original note were not included. 12/22/2022 Lashell Stacy (: 1960) is a 62 y.o. female , Established patient, here for evaluation of the following chief complaint(s): Annual Exam, Health Maintenance (HIV/Hep C screen-declines/COVID vaccine-none/MMR-declines/Shingrix-dec lines/Mammogram-done [facility] [place] will send for record ), Blood Work, Anxiety (GAD7 done), and Results (Discuss left should xray from [facility] - calcification ) ASSESSMENT/PLAN: 1. Annual physical exam 2. Primary narcolepsy without cataplexy Assessment & Plan: Stable on current dose of Provigil 100 mg daily 3. Essential hypertension Assessment & Plan: Initially elevated, recheck was still elevated in fact it was even higher, will have her follow-up blood pressure check in 1 week, she currently is on no medications. 4. Yeny's syndrome Assessment & Plan: Stable. 5. Gastroesophageal reflux disease without esophagitis Assessment & Plan: Controlled, can continue famotidine 40 mg twice a day 6. Acquired hypothyroidism Assessment & Plan: Controlled, continue continue levothyroxine 75 mcg daily Orders: - TSH 7. Vitamin D deficiency Assessment & Plan: Stable, continue vitamin D 400 units daily Orders: - Vitamin D Deficiency Screening (Vit D 25) 8. Anxiety Assessment & Plan: Stable, continue Ativan as needed. 9. Hyperlipidemia LDL goal <100 Assessment & Plan: Controlled, medication Orders: - Lipid panel 10. Screening for diabetes mellitus - Comprehensive metabolic panel Follow up in about 6 months (around 06/24/2023). SUBJECTIVE/OBJECTIVE: ELSA Cyr comes in today for an annual exam, she is also here for follow-up on her narcolepsy, hypertension, Ene's syndrome, GERD, hypothyroidism vitamin D deficiency, anxiety and hyperlipidemia. Blood pressure is elevated we will have to recheck that prior to discharge otherwise everything else seems to be stable. Review of Systems Constitutional: Negative for chills and fever. Respiratory: Negative for shortness of breath. Cardiovascular: Negative for chest pain and palpitations. Gastrointestinal: Negative for abdominal pain, blood in stool, constipation and diarrhea. Genitourinary: Negative for dyspareunia, dysuria, frequency, hematuria and urgency. Neurological: Negative for weakness and numbness. Psychiatric/Behavioral: Negative for dysphoric mood. The patient is not nervous/anxious. Vitals: 12/22/22 0857 12/22/22 0925 BP: (!) 143/90 (!) 169/93 Pulse: 69 71 SpO2: 99% Weight: 145 lb 9.6 oz (66 kg) Height: 5' 2" (1.575 m) Physical Exam Vitals and nursing note reviewed. Constitutional: General: She is not in acute distress. Appearance: Normal appearance. HENT: Head: Normocephalic. Right Ear: Tympanic membrane, ear canal and external ear normal. Left Ear: Tympanic membrane, ear canal and external ear normal. Mouth/Throat: Mouth: Mucous membranes are moist. Pharynx: Oropharynx is clear. Eyes: Extraocular Movements: Extraocular movements intact. Pupils: Pupils are equal, round, and reactive to light. Neck: Vascular: No carotid bruit. Cardiovascular: Rate and Rhythm: Normal rate and regular rhythm. Heart sounds: Normal heart sounds. No murmur heard. Pulmonary: Effort: Pulmonary effort is normal. Breath sounds: Normal breath sounds. Abdominal: General: Bowel sounds are normal. Palpations: Abdomen is soft. Musculoskeletal: General: Normal range of motion. Cervical back: Normal range of motion. Lymphadenopathy: Cervical: No cervical adenopathy. Skin: General: Skin is warm and dry. Neurological: General: No focal deficit present. Mental Status: She is alert and oriented to person, place, and time. Psychiatric: Mood and Affect: Mood normal. An electronic signature was used to authenticate this note. Vicente Arriaza MD 12/22/2022 11:48 AM documented in this encounter [facility] 11-23-2022 Telephone encount er Note Rx sent. Follow up as scheduled. [facility] 11-23-2022 Miscellaneous Notes Formattin g of this note might be different from the original. Rx sent. Follow up as scheduled. Prescription Request: Last medication check: 06-23-22 Last physical exam: 12-23-21 Next scheduled appointment: 12-22-22 Last date of refill on this medication 05-27-22 documented in this encounter [facility] 11-23-2022 Telephone encount er Note Prescription Request: Last medication check: 06-23-22 Last physical exam: 12-23-21 Next scheduled appointment: 12-22-22 Last date of refill on this medication 05-27-22 [facility] 08-17-2022 Discharge summary Note Date/Time August 17, 2022 12:55pm [facility] [address] [place] [address] / REHABILITATION SERVICES DISCHARGE SUMMARY MR#: [id number] Acct: [id number] Name: LASHELL STACY Rep #: [id number] : 1960 62 From: Elvis Correia DPT, OCS, CSCS Referring Dr.: KATHI Foreman Status: REG RCR Insurance: [facility] [employer]URANCE It has been my pleasure to treat LASHELL STACY referred by KATHI Stephenson, with the diagnosis of l/S spondylosis, Deg l/s disc for a total of 12 visit(s). Discharge Date: 08/17/22 Please see the following information for a summary of their discharge status. Subjective: Feels like I am getting stronger. Posture is iimproving and focussing on that. Steps are easier. Still have same pain in LB up to 9/10 at times for short periods.Today is better but just stood at work 7/10. Will continue at [facility] with water ex. As well as with HEP. LBP Pain Intensity (Out of 10): 6 L upper back Pain Intensity (Out of 10): 2 % Improvement: 80 Objective/Function: 20 degrees extension, stiff but improved and slight increaseLB pain, Flexion is hands to mid samuel and no increase pain. walking well today but stiff when asked to july. L hip PROM tight and painful posterior hip. Goal 1:: I appropr HEP or pool program to continue fpc improvements. Goal Progress: Goal Met Goal 2:: LB AROM extension to 20 degrees and flexion hands to mid samuel without pain Goal Progress: Goal Met Goal 3:: patient feel 50% better pain 0-4/10 at worst Goal Progress: 80% Goal 4:: Work without increased pain Goal Progress: Not Progressing Goal 5:: oswestry 10 or better. Goal Progress: Progressing Plan: d/c to community water program. Discharge Comments: Pt to doctor for f/u, will continue community pool program but visit doctor regarding continued pain. If there are questions or concerns regarding this patient's physical therapy, please feel free to call me at [phone]. Thank you for the referral of thispatient. Sincerely, Elvis Correia, DPT, OCS, CSCS Balance/Gait/Functional tests - Balance/Special Test Scores Oswestry Low Back Score: 13 <Electronically signed by Elvis CORRALT, OCS, CSCS> 08/17/22 1255 CC: KATHI Foreman; Dr. Vicente Arriaza MD ~ EBG Signed [facility] Work Phone: [phone] 437-614101-31-2023 Evaluation + Plan note* Assessment & Plan Note - Vicente Arriaza MD - 06/23/2022 10:26 AM ESTAssociated Problem(s): Essential hypertension Blood pressure was initially elevated, recheck of was still elevated but improved, follow-up in 1 week for blood pressure check [id number] Miscellaneous Notes* Assessment & Plan Note - Vicente Arriaza MD - 06/23/2022 10:26 AM ESTAssociated Problem(s): Essential hypertension Blood pressure was initially elevated, recheck of was still elevated but improved, follow-up in 1 week for blood pressure check * Assessment & Plan Note - Vicente Arriaza MD - 06/23/2022 9:51 AM EST Associated Problem(s): Anxiety Stable, refill lorazepam, OARRS report done, no inconsistencies, CS agreement signed today * Assessment & Plan Note - Vicente Arriaza MD - 06/23/2022 9:51 AM EST Associated Problem(s): Hyperlipidemia LDL goal <100 Uncontrolled, currently on no medication repeat labs * Assessment & Plan Note - Vicente Arriaza MD - 06/23/2022 9:50 AM EST Associated Problem(s): Hypothyroidism Uncontrolled, will repeat check her TSH today continue levothyroxine 75 mcg * Assessment & Plan Note - Vicente Arriaza MD - 06/23/2022 9:50 AM EST Associated Problem(s): GERD (gastroesophageal reflux disease) Controlled, continue Pepcid 40 mg twice a day * Assessment & Plan Note - Vicente Arriaza MD - 06/23/2022 9:50 AM EST Associated Problem(s): Narcolepsy Stable, continue modafinil 100 mg daily documented in this [facility]01-31-2023 Evaluation + Plan note* Assessment & Plan Note - Vicente Arriaza MD - 06/23/2022 9:51 AM EST Associated Problem(s): Anxiety Stable, refill lorazepam, OARRS report done, no inconsistencies, CS agreement signed today [id number] Evaluation + Plan note* Assessment & Plan Note - Vicente Arriaza MD - 06/23/2022 9:51 AM ESTAssociated Problem(s): Hyperlipidemia LDL goal <100 Uncontrolled, currently on no medication repeat labs [id number] Evaluation + Plan note* Assessment & Plan Note - Vicente Arriaza MD - 06/23/2022 9:50 AM ESTAssociated Problem(s): Hypothyroidism Uncontrolled, will repeat check her TSH today continue levothyroxine 75 mcg [id number] Evaluation + Plan note* Assessment & Plan Note - Vicente Arriaza MD - 06/23/2022 9:50 AM ESTAssociated Problem(s): GERD (gastroesophageal reflux disease) Controlled, continue Pepcid 40 mg twice a day [id number] Evaluation + Plan note* Assessment & Plan Note - Vicente Arriaza MD - 06/23/2022 9:50 AM ESTAssociated Problem(s): Narcolepsy Stable, continue modafinil 100 mg daily [id number] History of Present illness Narrative* Vicente Arriaza MD - 06/23/2022 9:30 AM EST Images from the original note were not included. 06/23/2022 Lashell Stacy (: 1960) is a 62 y.o. female , Established patient, here for evaluation of the following chief complaint(s): Anxiety, Narcolepsy, Hypertension, Hyperlipidemia, Medication Check (6 month), and Health Maintenance (Mammogram- done in [place] pt will bring results /Pt refused- hiv hep c screening, covid vaccine, shingles vaccine and flu vaccine) ASSESSMENT/PLAN: 1. Essential hypertension Assessment & Plan: Blood pressure was initially elevated, recheck of was still elevated but improved, follow-up in 1 week for blood pressure check 2. Primary narcolepsy without cataplexy Assessment & Plan: Stable, continue modafinil 100 mg daily 3. Gastroesophageal reflux disease without esophagitis Assessment & Plan: Controlled, continue Pepcid 40 mg twice a day 4. Acquired hypothyroidism Assessment & Plan: Uncontrolled, will repeat check her TSH today continue levothyroxine 75 mcg Orders: - TSH 5. Hyperlipidemia LDL goal <100 Assessment & Plan: Uncontrolled, currently on no medication repeat labs Orders: - Lipid panel 6. Anxiety Assessment & Plan: Stable, refill lorazepam, OARRS report done, no inconsistencies, CS agreement signed today Orders: - LORazepam (Ativan) 0.5 MG tablet; Take 1 tablet (0.5 mg) by mouth 2 times daily as needed for anxiety., Starting 06/23/2022, Normal Follow up in about 6 months (around 12/21/2022). SUBJECTIVE/OBJECTIVE: ESLA Cyr comes in today for 6-month follow-up on her hypertension, her narcolepsy and anxiety GERD hypothyroidism and hyperlipidemia which is uncontrolled. She really does not have any complaints today she says that her hips are doing much better since her surgery, they do become sore at times. Review of Systems Constitutional: Negative for chills and fever. Respiratory: Negative for shortness of breath. Cardiovascular: Negative for chest pain and palpitations. Gastrointestinal: Negative for abdominal pain, blood in stool, constipation and diarrhea. Genitourinary: Negative for dyspareunia, dysuria, frequency, hematuria and urgency. Neurological: Negative for weakness and numbness. Psychiatric/Behavioral: Negative for dysphoric mood. The patient is not nervous/anxious. Vitals: 06/23/22 0928 06/23/22 0955 BP: (!) 158/79 (!) 147/85 Pulse: 74 70 Weight: 144 lb 6.4 oz (65.5 kg) Height: 5' 2" (1.575 m) Physical Exam Vitals and nursing note reviewed. Constitutional: General: She is not in acute distress. Appearance: Normal appearance. HENT: Head: Normocephalic. Right Ear: Tympanic membrane, ear canal and external ear normal. Left Ear: Tympanic membrane, ear canal and external ear normal. Mouth/Throat: Mouth: Mucous membranes are moist. Pharynx: Oropharynx is clear. Eyes: Extraocular Movements: Extraocular movements intact. Pupils: Pupils are equal, round, and reactive to light. Neck: Vascular: No carotid bruit. Cardiovascular: Rate and Rhythm: Normal rate and regular rhythm. Heart sounds: Normal heart sounds. No murmur heard. Pulmonary: Effort: Pulmonary effort is normal. Breath sounds: Normal breath sounds. Abdominal: General: Bowel sounds are normal. Palpations: Abdomen is soft. Musculoskeletal: General: Normal range of motion. Cervical back: Normal range of motion. Lymphadenopathy: Cervical: No cervical adenopathy. Skin: General: Skin is warm and dry. Neurological: General: No focal deficit present. Mental Status: She is alert and oriented to person, place, and time. Psychiatric: Mood and Affect: Mood normal. An electronic signature was used to authenticate this note. Vicente Arriaza MD 06/23/2022 10:27 AM documented in this [facility]12-07-2022 Miscellaneous Notes* Letter - Mammography Coordinator - 04/29/2022 3:31 PM EST April 29, 2022 PID: [id number] Lashell Stacy [address] [place] [address] Dear Ms. Stacy, We are pleased to inform you that the results of your recent breast imaging exam on 04/28/2022 are normal. Your mammogram demonstrates that you have dense breast tissue, which could hide abnormalities. Dense breast tissue, in and of itself, is a relatively common condition. Therefore, this information is not provided to cause undue concern; rather, it is to raise your awareness and promote discussion with your health care provider regarding the presence of dense breast tissue in addition to other riskfactors. Early detection of cancer is very important. We also understand recommendations regarding breast cancer screening are controversial. Please discuss with your primary care provider which strategy is best for you and whether a mammogram is right for you. Your imaging studies and report will be kept on file at [facility] as part of your permanent medical record and are available for your continuing care. Thank you for allowing us to help in meeting your health care needs. Sincerely, Dr. Ch Interpreting Radiologist [facility] (Normal over 40) [facility] NoteHNO ID: [id number] Author: RT Tamika(R) Service: ? Author Type: Technologist Type: Progress Notes Filed: 04/28/2022 11:10 AM Note Text: Radiology Service Progress Note PATIENT NAME: Lashell Stacy DATE OF SERVICE: April 28, 2022 TIME: 10:57 AM PATIENT IDENTITY VERIFICATION COMPLETED USING TWO (2) IDENTIFIERS: Name and Date of confirmed by patient verbally. FALL SCREENING: Has the patient had 2 falls in the last year or 1 fall with injury or currently using an Ambulatory Assistive Device (Walker, Cane, Wheelchair, Crutches, etc.)? No PATIENT GENDER DATA: Female. status: : No status: NO. PATIENT RELEVANT IMPLANT DATA REVIEWED: Not Applicable RADIOLOGY DEPARTMENT: Mammography PERIPHERAL IV DATA: Not applicable SIGNED BY: RT Tamika(R) April 28, 2022 10:57 [facility]12-06-2022 NoteHNO ID: [id number] Author: Elise Enrique APRN.IT TECHNICAL SPECIALIST Service: ? Author Type: Nurse Practitioner Type: Progress Notes Filed: 04/28/2022 10:45 AM Note Text: Lashell is a 62 year old who presents for an annual gynecologic exam without complaints. Postmenopausal: Yes since age 42 HRT use: No. Last Pap: 10/20/2016 normal HPV: 10/12/2016 negative History of abnormal pap: No Last mammogram: 2021 pending History of abnormal mammogram: No Sexually active: No OB History T3 L3 SAB0 IAB0 Ectopic0 Multiple0 Live Births0 Frame Fixer History LMP: Postmenopausal Age at Menarche: Age at First : Age at Menopause: Frame Fixer History Comments: Sexual Activity: Yes; Male; Post Menopausal Contraception: No contraception data on record PAST MEDICAL HISTORY Diagnosis Date Degeneration of thoracic intervertebral disc GERD (gastroesophageal reflux disease) Some scar tissue Hernia, hiatal Hypothyroidism, adult Osteoporosis Sleep apnea Urinary tract infection, site not specified PAST SURGICAL HISTORY Procedure Laterality Date COLONOSCOPY - DIAGNOSTIC Irritable Bowel, Polyp's removed EGD ESOPHAGOSCOPY FLEX BALLOON DILAT <30 MM DIAM Esophageal dilatation LIG/TRNSXJ FLP TUBE ABDL/VAG APPR UNI/BI Tubal ligation LOW BACK DISK SURGERY 05/2012,07/2015 NEUROPLASTY AND/TRANSPOS MEDIAN NRV CARPAL TUNNE Carpal tunnel, Right PAST SURGICAL HISTORY OF Ganglionic cyst removed, Rt wrist PAST SURGICAL HISTORY OF Left 02/24/2019 left knee surgery PAST SURGICAL HISTORY OF Left 11/13/2019 left leg surgery PAST SURGICAL HISTORY OF surgery on fx vertabra FAMILY HISTORY Problem Relation Age of Onset Hypertension Mother Thyroid Mother Stroke Mother Arthritis Mother Rheumatoid other (parkinsons) Mother Heart Father Mi, triple by-pass Stroke Father X-2 Diabetes Father Type 2 Thyroid Father other (demetia) Father Thyroid Brother Hypertension Brother Diabetes Brother Pre Diabetic Coronary Artery Disease Brother Stents Arthritis Maternal Grandmother Rheumatoid Osteoporosis Maternal Grandmother And great-grandmother Cancer Maternal Grandfather Hodgkin's Lymphoma Breast Cancer Maternal Aunt Diabetes Maternal Aunt Several SOCIAL HISTORY Social History Tobacco Use Smoking status: Never Smokeless tobacco: Never Vaping Use Vaping Use: Never used Substance Use Topics Alcohol use: Yes Comment: rarely Drug use: No REVIEW OF SYSTEMS Abdomen: No abdominal pain, nausea, vomiting, diarrhea, or constipation. No bloating, early satiety, indigestion, or increased flatulence. Bladder: No dysuria, gross hematuria, urinary frequency, urinary urgency, or incontinence Breast: No breast lumps, nipple d/c, overlying skin changes, redness or skin retraction Allergies and current medication updated:Yes EXAM: Ht 5' 1.5" (1.56m) Wt 143 lb 6.4 oz (65.0kg) BMI 26.66 kg/(m2). GENERAL: pleasant, female in no apparent distress HEENT: Normocephalic, atraumatic, and no lesions NECK: Supple, full range of motion, no adenopathy, and thyroid normal DERMATOLOGY: Normal, without lesions, non-icteric, and non-hirsute BREAST: soft, non-tender, symmetric, no dominant mass, normal nipple-areolar complex, no lymphadenopathy, and no nipple discharge CHEST: Normal inspiratory effort ABDOMEN: soft, non-tender, and no masses PELVIC: external genitalia normal, normal Bartholin's glands, urethra, Copeland's glands, no vulvar lesions, no cervical lesions, good vaginal support, physiologic discharge present, normal appearing perineal body and perianal region, stenotic os BIMANUAL: uterus normal size, shape and consistency, no adnexal masses, and non-tender RECTOVAGINAL: deferred. NEURO: alert and oriented x3,exam grossly non-focal EXTREMITIES: normal ASSESSMENT/PLAN: 1) Health maintenance: Pap done with HPV. Mammogram up to date Nutrition, exercise and routine health maintenance exams reviewed. Calcium/Vitamin D supplementation information provided. Colon cancer screening: up to date with screening BMD: up to date-having done today 2) Follow up one year or sooner as needed Elise Enrique APRN.[facility]12-06-2022 History of Present illness Narrative* Lisa Stokes RT(Allyson) - 04/28/2022 11:10 AM EST Radiology Service Progress Note PATIENT NAME: Lashell Stacy DATE OF SERVICE: April 28, 2022 TIME: 10:57 AM PATIENT IDENTITY VERIFICATION COMPLETED USING TWO (2) IDENTIFIERS: Name and Date of confirmedby patient verbally. FALL SCREENING: Has the patient had 2 falls in the last year or 1 fall with injury or currently using an Ambulatory Assistive Device (Walker, Cane, Wheelchair, Crutches, etc.)? No PATIENT GENDER DATA: Female. status: : No status: NO. PATIENT RELEVANT IMPLANT DATA REVIEWED: Not Applicable RADIOLOGY DEPARTMENT: Mammography PERIPHERAL IV DATA: Not applicable SIGNED BY: RT Tamika(Allyson) April 28, 2022 10:57 AM documented in this encounterCommunity [facility] HospitalEvaluation noteNo assessment information availableWAdams County [facility] Center Work Phone: Evaluation note* Diagnosis Annual physical exam- Primary Routine general medical examination at a health care facility Primary narcolepsy without cataplexy Essential hypertension Unspecified essential hypertension Yeny's syndrome Diaphragmatic hernia without mention of obstruction or gangrene Gastroesophageal reflux disease without esophagitis Esophageal reflux Acquired hypothyroidism Unspecified hypothyroidism Vitamin D deficiency Anxiety Anxiety state, unspecified Hyperlipidemia LDL goal <100 Other and unspecified hyperlipidemia Screening for diabetes mellitus [facility] Diagnosis Primary narcolepsy without cataplexy [facility] Diagnosis Primary narcolepsy without cataplexy [facility] Diagnosis Encounter for screening mammogram for malignant neoplasm of breast Other screening mammogram [facility] Diagnosis Primary narcolepsy without cataplexy [facility] Diagnosis Primary narcolepsy without cataplexy- Primary Essential hypertension Unspecified essential hypertension Yeny's syndrome Diaphragmatic hernia without mention of obstruction or gangrene Gastroesophageal reflux disease without esophagitis Esophageal reflux Acquired hypothyroidism Unspecified hypothyroidism Hyperlipidemia LDL goal <100 Other and unspecified hyperlipidemia Anxiety Anxiety state, unspecified [facility] Diagnosis Acquired hypothyroidism- Primary Unspecified hypothyroidism Primary narcolepsy without cataplexy [facility] Diagnosis Annual physical exam- Primary Routine general medical examination at a health care facility Primary narcolepsy without cataplexy Essential hypertension Unspecified essential hypertension Gastroesophageal reflux disease without esophagitis Esophageal reflux Acquired hypothyroidism Unspecified hypothyroidism Vitamin D deficiency Anxiety Anxiety state, unspecified Hyperlipidemia LDL goal <100 Other and unspecified hyperlipidemia Screening for diabetes mellitus [facility] Diagnosis Essential hypertension- Primary Unspecified essential hypertension Primary narcolepsy without cataplexy Gastroesophageal reflux disease without esophagitis Esophageal reflux Acquired hypothyroidism Unspecified hypothyroidism Hyperlipidemia LDL goal <100 Other and unspecified hyperlipidemia Anxiety Anxiety state, unspecified [facility] Essential hypertension- Primary Unspecified essential hypertension Primary narcolepsy without cataplexy Gastroesophageal reflux disease without esophagitis Esophageal reflux Acquired hypothyroidism Unspecified hypothyroidism Hyperlipidemia LDL goal <100 Other and unspecified hyperlipidemia Anxiety Anxiety state, unspecified Annual physical exam- Primary Routine general medical examination at a health care facility Primary narcolepsy without cataplexy Essential hypertension Unspecified essential hypertension Yeny's syndrome Diaphragmatic hernia without mention of obstruction or gangrene Gastroesophageal reflux disease without esophagitis Esophageal reflux Acquired hypothyroidism Unspecified hypothyroidism Vitamin D deficiency Anxiety Anxiety state, unspecified Hyperlipidemia LDL goal <100 Other and unspecified hyperlipidemia Screening for diabetes mellitus Primary narcolepsy without cataplexy- Primary Essential hypertension Unspecified essential hypertension Yeny's syndrome Diaphragmatic hernia without mention of obstruction or gangrene Gastroesophageal reflux disease without esophagitis Esophageal reflux Acquired hypothyroidism Unspecified hypothyroidism Hyperlipidemia LDL goal <100 Other and unspecified hyperlipidemia Anxiety Anxiety state, unspecified Annual physical exam- Primary Routine general medical examination at a health care facility Primary narcolepsy without cataplexy Essential hypertension Unspecified essential hypertension Gastroesophageal reflux disease without esophagitis Esophageal reflux Acquired hypothyroidism Unspecified hypothyroidism Vitamin D deficiency Anxiety Anxiety state, unspecified Hyperlipidemia LDL goal <100 Other and unspecified hyperlipidemia Screening for diabetes mellitus Primary narcolepsy without cataplexy- Primary Yeny's syndrome Diaphragmatic hernia without mention of obstruction or gangrene Essential hypertension Unspecified essential hypertension Gastroesophageal reflux disease without esophagitis Esophageal reflux Acquired hypothyroidism Unspecified hypothyroidism Vitamin D deficiency Anxiety Anxiety state, unspecified Hyperlipidemia LDL goal <100 Other and unspecified hyperlipidemia Influenza vaccine [facility] Essential hypertension- Primary Unspecified essential hypertension Primary narcolepsy without cataplexy Gastroesophageal reflux disease without esophagitis Esophageal reflux Acquired hypothyroidism Unspecified hypothyroidism Hyperlipidemia LDL goal <100 Other and unspecified hyperlipidemia Anxiety Anxiety state, unspecified Annual physical exam- Primary Routine general medical examination at a health care facility Primary narcolepsy without cataplexy Essential hypertension Unspecified essential hypertension Yeny's syndrome Diaphragmatic hernia without mention of obstruction or gangrene Gastroesophageal reflux disease without esophagitis Esophageal reflux Acquired hypothyroidism Unspecified hypothyroidism Vitamin D deficiency Anxiety Anxiety state, unspecified Hyperlipidemia LDL goal <100 Other and unspecified hyperlipidemia Screening for diabetes mellitus Primary narcolepsy without cataplexy- Primary Essential hypertension Unspecified essential hypertension Yeny's syndrome Diaphragmatic hernia without mention of obstruction or gangrene Gastroesophageal reflux disease without esophagitis Esophageal reflux Acquired hypothyroidism Unspecified hypothyroidism Hyperlipidemia LDL goal <100 Other and unspecified hyperlipidemia Anxiety Anxiety state, unspecified Annual physical exam- Primary Routine general medical examination at a health care facility Primary narcolepsy without cataplexy Essential hypertension Unspecified essential hypertension Gastroesophageal reflux disease without esophagitis Esophageal reflux Acquired hypothyroidism Unspecified hypothyroidism Vitamin D deficiency Anxiety Anxiety state, unspecified Hyperlipidemia LDL goal <100 Other and unspecified hyperlipidemia Screening for diabetes mellitus Primary narcolepsy without cataplexy- Primary Yeny's syndrome Diaphragmatic hernia without mention of obstruction or gangrene Essential hypertension Unspecified essential hypertension Gastroesophageal reflux disease without esophagitis Esophageal reflux Acquired hypothyroidism Unspecified hypothyroidism Vitamin D deficiency Anxiety Anxiety state, unspecified Hyperlipidemia LDL goal <100 Other and unspecified hyperlipidemia Influenza vaccine refused Essential hypertension- Primary Unspecified essential [facility] Diagnosis Essential hypertension- Primary Unspecified essential hypertension Primary narcolepsy without cataplexy Gastroesophageal reflux disease without esophagitis Esophageal reflux Acquired hypothyroidism Unspecified hypothyroidism Hyperlipidemia LDL goal <100 Other and unspecified hyperlipidemia Anxiety Anxiety state, unspecified Annual physical exam- Primary Routine general medical examination at a health care facility Primary narcolepsy without cataplexy Essential hypertension Unspecified essential hypertension Yeny's syndrome Diaphragmatic hernia without mention of obstruction or gangrene Gastroesophageal reflux disease without esophagitis Esophageal reflux Acquired hypothyroidism Unspecified hypothyroidism Vitamin D deficiency Anxiety Anxiety state, unspecified Hyperlipidemia LDL goal <100 Other and unspecified hyperlipidemia Screening for diabetes mellitus Primary narcolepsy without cataplexy- Primary Essential hypertension Unspecified essential hypertension Yeny's syndrome Diaphragmatic hernia without mention of obstruction or gangrene Gastroesophageal reflux disease without esophagitis Esophageal reflux Acquired hypothyroidism Unspecified hypothyroidism Hyperlipidemia LDL goal <100 Other and unspecified hyperlipidemia Anxiety Anxiety state, unspecified Annual physical exam- Primary Routine general medical examination at a health care facility Primary narcolepsy without cataplexy Essential hypertension Unspecified essential hypertension Gastroesophageal reflux disease without esophagitis Esophageal reflux Acquired hypothyroidism Unspecified hypothyroidism Vitamin D deficiency Anxiety Anxiety state, unspecified Hyperlipidemia LDL goal <100 Other and unspecified hyperlipidemia Screening for diabetes mellitus Primary narcolepsy without cataplexy- Primary Yeny's syndrome Diaphragmatic hernia without mention of obstruction or gangrene Essential hypertension Unspecified essential hypertension Gastroesophageal reflux disease without esophagitis Esophageal reflux Acquired hypothyroidism Unspecified hypothyroidism Vitamin D deficiency Anxiety Anxiety state, unspecified Hyperlipidemia LDL goal <100 Other and unspecified hyperlipidemia Influenza vaccine refused Essential hypertension- Primary Unspecified essential hypertension Primary narcolepsy without cataplexy [facility] Diagnosis Essential hypertension- Primary Unspecified essential hypertension Primary narcolepsy without cataplexy Gastroesophageal reflux disease without esophagitis Esophageal reflux Acquired hypothyroidism Unspecified hypothyroidism Hyperlipidemia LDL goal <100 Other and unspecified hyperlipidemia Anxiety Anxiety state, unspecified Annual physical exam- Primary Routine general medical examination at a health care facility Primary narcolepsy without cataplexy Essential hypertension Unspecified essential hypertension Yeny's syndrome Diaphragmatic hernia without mention of obstruction or gangrene Gastroesophageal reflux disease without esophagitis Esophageal reflux Acquired hypothyroidism Unspecified hypothyroidism Vitamin D deficiency Anxiety Anxiety state, unspecified Hyperlipidemia LDL goal <100 Other and unspecified hyperlipidemia Screening for diabetes mellitus Primary narcolepsy without cataplexy- Primary Essential hypertension Unspecified essential hypertension Yeny's syndrome Diaphragmatic hernia without mention of obstruction or gangrene Gastroesophageal reflux disease without esophagitis Esophageal reflux Acquired hypothyroidism Unspecified hypothyroidism Hyperlipidemia LDL goal <100 Other and unspecified hyperlipidemia Anxiety Anxiety state, unspecified Annual physical exam- Primary Routine general medical examination at a health care facility Primary narcolepsy without cataplexy Essential hypertension Unspecified essential hypertension Gastroesophageal reflux disease without esophagitis Esophageal reflux Acquired hypothyroidism Unspecified hypothyroidism Vitamin D deficiency Anxiety Anxiety state, unspecified Hyperlipidemia LDL goal <100 Other and unspecified hyperlipidemia Screening for diabetes mellitus Primary narcolepsy without cataplexy- Primary Yeny's syndrome Diaphragmatic hernia without mention of obstruction or gangrene Essential hypertension Unspecified essential hypertension Gastroesophageal reflux disease without esophagitis Esophageal reflux Acquired hypothyroidism Unspecified hypothyroidism Vitamin D deficiency Anxiety Anxiety state, unspecified Hyperlipidemia LDL goal <100 Other and unspecified hyperlipidemia Influenza vaccine refused Essential hypertension- Primary Unspecified essential hypertension Acute pain of left knee- Primary Acute pain of left knee [facility] Diagnosis Essential hypertension- Primary Unspecified essential hypertension Primary narcolepsy without cataplexy Gastroesophageal reflux disease without esophagitis Esophageal reflux Acquired hypothyroidism Unspecified hypothyroidism Hyperlipidemia LDL goal <100 Other and unspecified hyperlipidemia Anxiety Anxiety state, unspecified Annual physical exam- Primary Routine general medical examination at a health care facility Primary narcolepsy without cataplexy Essential hypertension Unspecified essential hypertension Yeny's syndrome Diaphragmatic hernia without mention of obstruction or gangrene Gastroesophageal reflux disease without esophagitis Esophageal reflux Acquired hypothyroidism Unspecified hypothyroidism Vitamin D deficiency Anxiety Anxiety state, unspecified Hyperlipidemia LDL goal <100 Other and unspecified hyperlipidemia Screening for diabetes mellitus Primary narcolepsy without cataplexy- Primary Essential hypertension Unspecified essential hypertension Yeny's syndrome Diaphragmatic hernia without mention of obstruction or gangrene Gastroesophageal reflux disease without esophagitis Esophageal reflux Acquired hypothyroidism Unspecified hypothyroidism Hyperlipidemia LDL goal <100 Other and unspecified hyperlipidemia Anxiety Anxiety state, unspecified Annual physical exam- Primary Routine general medical examination at a health care facility Primary narcolepsy without cataplexy Essential hypertension Unspecified essential hypertension Gastroesophageal reflux disease without esophagitis Esophageal reflux Acquired hypothyroidism Unspecified hypothyroidism Vitamin D deficiency Anxiety Anxiety state, unspecified Hyperlipidemia LDL goal <100 Other and unspecified hyperlipidemia Screening for diabetes mellitus Primary narcolepsy without cataplexy- Primary Yeny's syndrome Diaphragmatic hernia without mention of obstruction or gangrene Essential hypertension Unspecified essential hypertension Gastroesophageal reflux disease without esophagitis Esophageal reflux Acquired hypothyroidism Unspecified hypothyroidism Vitamin D deficiency Anxiety Anxiety state, unspecified Hyperlipidemia LDL goal <100 Other and unspecified hyperlipidemia Influenza vaccine refused Essential hypertension- Primary Unspecified essential hypertension Acute pain of left knee documented [facility] this [facility]* Diagnosis Essential hypertension- Primary Unspecified essential hypertension Primary narcolepsy without cataplexy Gastroesophageal reflux disease without esophagitis Esophageal reflux Acquired hypothyroidism Unspecified hypothyroidism Hyperlipidemia LDL goal <100 Other and unspecified hyperlipidemia Anxiety Anxiety state, unspecified Annual physical exam- Primary Routine general medical examination at a health care facility Primary narcolepsy without cataplexy Essential hypertension Unspecified essential hypertension Yeny's syndrome Diaphragmatic hernia without mention of obstruction or gangrene Gastroesophageal reflux disease without esophagitis Esophageal reflux Acquired hypothyroidism Unspecified hypothyroidism Vitamin D deficiency Anxiety Anxiety state, unspecified Hyperlipidemia LDL goal <100 Other and unspecified hyperlipidemia Screening for diabetes mellitus Primary narcolepsy without cataplexy- Primary Essential hypertension Unspecified essential hypertension Yeny's syndrome Diaphragmatic hernia without mention of obstruction or gangrene Gastroesophageal reflux disease without esophagitis Esophageal reflux Acquired hypothyroidism Unspecified hypothyroidism Hyperlipidemia LDL goal <100 Other and unspecified hyperlipidemia Anxiety Anxiety state, unspecified Annual physical exam- Primary Routine general medical examination at a health care facility Primary narcolepsy without cataplexy Essential hypertension Unspecified essential hypertension Gastroesophageal reflux disease without esophagitis Esophageal reflux Acquired hypothyroidism Unspecified hypothyroidism Vitamin D deficiency Anxiety Anxiety state, unspecified Hyperlipidemia LDL goal <100 Other and unspecified hyperlipidemia Screening for diabetes mellitus Primary narcolepsy without cataplexy- Primary Yeny's syndrome Diaphragmatic hernia without mention of obstruction or gangrene Essential hypertension Unspecified essential hypertension Gastroesophageal reflux disease without esophagitis Esophageal reflux Acquired hypothyroidism Unspecified hypothyroidism Vitamin D deficiency Anxiety Anxiety state, unspecified Hyperlipidemia LDL goal <100 Other and unspecified hyperlipidemia Influenza vaccine refused Essential hypertension- Primary Unspecified essential hypertension Right leg pain Pain in soft tissues of limb Right leg pain Pain in soft tissues of limb documented in this encounter [facility]* Diagnosis Essential hypertension- Primary Unspecified essential hypertension Primary narcolepsy without cataplexy Gastroesophageal reflux disease without esophagitis Esophageal reflux Acquired hypothyroidism Unspecified hypothyroidism Hyperlipidemia LDL goal <100 Other and unspecified hyperlipidemia Anxiety Anxiety state, unspecified Annual physical exam- Primary Routine general medical examination at a health care facility Primary narcolepsy without cataplexy Essential hypertension Unspecified essential hypertension Yeny's syndrome Diaphragmatic hernia without mention of obstruction or gangrene Gastroesophageal reflux disease without esophagitis Esophageal reflux Acquired hypothyroidism Unspecified hypothyroidism Vitamin D deficiency Anxiety Anxiety state, unspecified Hyperlipidemia LDL goal <100 Other and unspecified hyperlipidemia Screening for diabetes mellitus Primary narcolepsy without cataplexy- Primary Essential hypertension Unspecified essential hypertension Yeny's syndrome Diaphragmatic hernia without mention of obstruction or gangrene Gastroesophageal reflux disease without esophagitis Esophageal reflux Acquired hypothyroidism Unspecified hypothyroidism Hyperlipidemia LDL goal <100 Other and unspecified hyperlipidemia Anxiety Anxiety state, unspecified Annual physical exam- Primary Routine general medical examination at a health care facility Primary narcolepsy without cataplexy Essential hypertension Unspecified essential hypertension Gastroesophageal reflux disease without esophagitis Esophageal reflux Acquired hypothyroidism Unspecified hypothyroidism Vitamin D deficiency Anxiety Anxiety state, unspecified Hyperlipidemia LDL goal <100 Other and unspecified hyperlipidemia Screening for diabetes mellitus Primary narcolepsy without cataplexy- Primary Yeny's syndrome Diaphragmatic hernia without mention of obstruction or gangrene Essential hypertension Unspecified essential hypertension Gastroesophageal reflux disease without esophagitis Esophageal reflux Acquired hypothyroidism Unspecified hypothyroidism Vitamin D deficiency Anxiety Anxiety state, unspecified Hyperlipidemia LDL goal <100 Other and unspecified hyperlipidemia Influenza vaccine refused Essential hypertension- Primary Unspecified essential hypertension Annual physical exam- Primary Routine general medical examination at a health care facility 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 Diaphragmatic hernia without mention of obstruction or gangrene Essential hypertension Unspecified essential hypertension Gastroesophageal reflux disease without esophagitis Esophageal reflux Age-related osteoporosis with current pathological fracture with delayed healing Acquired hypothyroidism Unspecified hypothyroidism Vitamin D deficiency Hyperlipidemia LDL goal <100 Other and unspecified hyperlipidemia Anxiety Anxiety state, unspecified B12 deficiency Atypical chest pain Other chest pain Screening for diabetes mellitus Screening for deficiency anemia Screening for other and unspecified deficiency anemia [facility] Diagnosis Essential hypertension- Primary Unspecified essential hypertension Primary narcolepsy without cataplexy Gastroesophageal reflux disease without esophagitis Esophageal reflux Acquired hypothyroidism Unspecified hypothyroidism Hyperlipidemia LDL goal <100 Other and unspecified hyperlipidemia Anxiety Anxiety state, unspecified Annual physical exam- Primary Routine general medical examination at a health care facility Primary narcolepsy without cataplexy Essential hypertension Unspecified essential hypertension Yeny's syndrome Diaphragmatic hernia without mention of obstruction or gangrene Gastroesophageal reflux disease without esophagitis Esophageal reflux Acquired hypothyroidism Unspecified hypothyroidism Vitamin D deficiency Anxiety Anxiety state, unspecified Hyperlipidemia LDL goal <100 Other and unspecified hyperlipidemia Screening for diabetes mellitus Primary narcolepsy without cataplexy- Primary Essential hypertension Unspecified essential hypertension Yeny's syndrome Diaphragmatic hernia without mention of obstruction or gangrene Gastroesophageal reflux disease without esophagitis Esophageal reflux Acquired hypothyroidism Unspecified hypothyroidism Hyperlipidemia LDL goal <100 Other and unspecified hyperlipidemia Anxiety Anxiety state, unspecified Annual physical exam- Primary Routine general medical examination at a health care facility Primary narcolepsy without cataplexy Essential hypertension Unspecified essential hypertension Gastroesophageal reflux disease without esophagitis Esophageal reflux Acquired hypothyroidism Unspecified hypothyroidism Vitamin D deficiency Anxiety Anxiety state, unspecified Hyperlipidemia LDL goal <100 Other and unspecified hyperlipidemia Screening for diabetes mellitus Primary narcolepsy without cataplexy- Primary Yeny's syndrome Diaphragmatic hernia without mention of obstruction or gangrene Essential hypertension Unspecified essential hypertension Gastroesophageal reflux disease without esophagitis Esophageal reflux Acquired hypothyroidism Unspecified hypothyroidism Vitamin D deficiency Anxiety Anxiety state, unspecified Hyperlipidemia LDL goal <100 Other and unspecified hyperlipidemia Influenza vaccine refused Essential hypertension- Primary Unspecified essential hypertension Annual physical exam- Primary Routine general medical examination at a health care facility 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 Diaphragmatic hernia without mention of obstruction or gangrene Essential hypertension Unspecified essential hypertension Gastroesophageal reflux disease without esophagitis Esophageal reflux Age-related osteoporosis with current pathological fracture with delayed healing Acquired hypothyroidism Unspecified hypothyroidism Vitamin D deficiency Hyperlipidemia LDL goal <100 Other and unspecified hyperlipidemia Anxiety Anxiety state, unspecified B12 deficiency Atypical chest pain Other chest pain Screening for diabetes mellitus Screening for deficiency anemia Screening for other and unspecified deficiency anemia Degeneration of intervertebral disc of thoracic region- Primary [facility] Diagnosis Essential hypertension- Primary Unspecified essential hypertension Primary narcolepsy without cataplexy Gastroesophageal reflux disease without esophagitis Esophageal reflux Acquired hypothyroidism Unspecified hypothyroidism Hyperlipidemia LDL goal <100 Other and unspecified hyperlipidemia Anxiety Anxiety state, unspecified Annual physical exam- Primary Routine general medical examination at a health care facility Primary narcolepsy without cataplexy Essential hypertension Unspecified essential hypertension Yeny's syndrome Diaphragmatic hernia without mention of obstruction or gangrene Gastroesophageal reflux disease without esophagitis Esophageal reflux Acquired hypothyroidism Unspecified hypothyroidism Vitamin D deficiency Anxiety Anxiety state, unspecified Hyperlipidemia LDL goal <100 Other and unspecified hyperlipidemia Screening for diabetes mellitus Primary narcolepsy without cataplexy- Primary Essential hypertension Unspecified essential hypertension Yeny's syndrome Diaphragmatic hernia without mention of obstruction or gangrene Gastroesophageal reflux disease without esophagitis Esophageal reflux Acquired hypothyroidism Unspecified hypothyroidism Hyperlipidemia LDL goal <100 Other and unspecified hyperlipidemia Anxiety Anxiety state, unspecified Annual physical exam- Primary Routine general medical examination at a health care facility Primary narcolepsy without cataplexy Essential hypertension Unspecified essential hypertension Gastroesophageal reflux disease without esophagitis Esophageal reflux Acquired hypothyroidism Unspecified hypothyroidism Vitamin D deficiency Anxiety Anxiety state, unspecified Hyperlipidemia LDL goal <100 Other and unspecified hyperlipidemia Screening for diabetes mellitus Primary narcolepsy without cataplexy- Primary Yeny's syndrome Diaphragmatic hernia without mention of obstruction or gangrene Essential hypertension Unspecified essential hypertension Gastroesophageal reflux disease without esophagitis Esophageal reflux Acquired hypothyroidism Unspecified hypothyroidism Vitamin D deficiency Anxiety Anxiety state, unspecified Hyperlipidemia LDL goal <100 Other and unspecified hyperlipidemia Influenza vaccine refused Essential hypertension- Primary Unspecified essential hypertension Annual physical exam- Primary Routine general medical examination at a health care facility 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 Diaphragmatic hernia without mention of obstruction or gangrene Essential hypertension Unspecified essential hypertension Gastroesophageal reflux disease without esophagitis Esophageal reflux Age-related osteoporosis with current pathological fracture with delayed healing Acquired hypothyroidism Unspecified hypothyroidism Vitamin D deficiency Hyperlipidemia LDL goal <100 Other and unspecified hyperlipidemia Anxiety Anxiety state, unspecified B12 deficiency Atypical chest pain Other chest pain Screening for diabetes mellitus Screening for deficiency anemia Screening for other and unspecified deficiency anemia Degeneration of intervertebral disc of thoracic region- Primary [facility] Diagnosis Essential hypertension- Primary Unspecified essential hypertension Primary narcolepsy without cataplexy Gastroesophageal reflux disease without esophagitis Esophageal reflux Acquired hypothyroidism Unspecified hypothyroidism Hyperlipidemia LDL goal <100 Other and unspecified hyperlipidemia Anxiety Anxiety state, unspecified Annual physical exam- Primary Routine general medical examination at a health care facility Primary narcolepsy without cataplexy Essential hypertension Unspecified essential hypertension Yeny's syndrome Diaphragmatic hernia without mention of obstruction or gangrene Gastroesophageal reflux disease without esophagitis Esophageal reflux Acquired hypothyroidism Unspecified hypothyroidism Vitamin D deficiency Anxiety Anxiety state, unspecified Hyperlipidemia LDL goal <100 Other and unspecified hyperlipidemia Screening for diabetes mellitus Primary narcolepsy without cataplexy- Primary Essential hypertension Unspecified essential hypertension Yeny's syndrome Diaphragmatic hernia without mention of obstruction or gangrene Gastroesophageal reflux disease without esophagitis Esophageal reflux Acquired hypothyroidism Unspecified hypothyroidism Hyperlipidemia LDL goal <100 Other and unspecified hyperlipidemia Anxiety Anxiety state, unspecified Annual physical exam- Primary Routine general medical examination at a health care facility Primary narcolepsy without cataplexy Essential hypertension Unspecified essential hypertension Gastroesophageal reflux disease without esophagitis Esophageal reflux Acquired hypothyroidism Unspecified hypothyroidism Vitamin D deficiency Anxiety Anxiety state, unspecified Hyperlipidemia LDL goal <100 Other and unspecified hyperlipidemia Screening for diabetes mellitus Primary narcolepsy without cataplexy- Primary Yeny's syndrome Diaphragmatic hernia without mention of obstruction or gangrene Essential hypertension Unspecified essential hypertension Gastroesophageal reflux disease without esophagitis Esophageal reflux Acquired hypothyroidism Unspecified hypothyroidism Vitamin D deficiency Anxiety Anxiety state, unspecified Hyperlipidemia LDL goal <100 Other and unspecified hyperlipidemia Influenza vaccine refused Essential hypertension- Primary Unspecified essential hypertension Annual physical exam- Primary Routine general medical examination at a health care facility 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 Diaphragmatic hernia without mention of obstruction or gangrene Essential hypertension Unspecified essential hypertension Gastroesophageal reflux disease without esophagitis Esophageal reflux Age-related osteoporosis with current pathological fracture with delayed healing Acquired hypothyroidism Unspecified hypothyroidism Vitamin D deficiency Hyperlipidemia LDL goal <100 Other and unspecified hyperlipidemia Anxiety Anxiety state, unspecified B12 deficiency Atypical chest pain Other chest pain Screening for diabetes mellitus Screening for deficiency anemia Screening for other and unspecified deficiency anemia Degeneration of intervertebral disc of thoracic region- Primary [facility] Diagnosis Essential hypertension- Primary Unspecified essential hypertension Primary narcolepsy without cataplexy Gastroesophageal reflux disease without esophagitis Esophageal reflux Acquired hypothyroidism Unspecified hypothyroidism Hyperlipidemia LDL goal <100 Other and unspecified hyperlipidemia Anxiety Anxiety state, unspecified Annual physical exam- Primary Routine general medical examination at a health care facility Primary narcolepsy without cataplexy Essential hypertension Unspecified essential hypertension Yeny's syndrome Diaphragmatic hernia without mention of obstruction or gangrene Gastroesophageal reflux disease without esophagitis Esophageal reflux Acquired hypothyroidism Unspecified hypothyroidism Vitamin D deficiency Anxiety Anxiety state, unspecified Hyperlipidemia LDL goal <100 Other and unspecified hyperlipidemia Screening for diabetes mellitus Primary narcolepsy without cataplexy- Primary Essential hypertension Unspecified essential hypertension Yeny's syndrome Diaphragmatic hernia without mention of obstruction or gangrene Gastroesophageal reflux disease without esophagitis Esophageal reflux Acquired hypothyroidism Unspecified hypothyroidism Hyperlipidemia LDL goal <100 Other and unspecified hyperlipidemia Anxiety Anxiety state, unspecified Annual physical exam- Primary Routine general medical examination at a health care facility Primary narcolepsy without cataplexy Essential hypertension Unspecified essential hypertension Gastroesophageal reflux disease without esophagitis Esophageal reflux Acquired hypothyroidism Unspecified hypothyroidism Vitamin D deficiency Anxiety Anxiety state, unspecified Hyperlipidemia LDL goal <100 Other and unspecified hyperlipidemia Screening for diabetes mellitus Primary narcolepsy without cataplexy- Primary Yeny's syndrome Diaphragmatic hernia without mention of obstruction or gangrene Essential hypertension Unspecified essential hypertension Gastroesophageal reflux disease without esophagitis Esophageal reflux Acquired hypothyroidism Unspecified hypothyroidism Vitamin D deficiency Anxiety Anxiety state, unspecified Hyperlipidemia LDL goal <100 Other and unspecified hyperlipidemia Influenza vaccine refused Essential hypertension- Primary Unspecified essential hypertension Annual physical exam- Primary Routine general medical examination at a health care facility 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 Diaphragmatic hernia without mention of obstruction or gangrene Essential hypertension Unspecified essential hypertension Gastroesophageal reflux disease without esophagitis Esophageal reflux Age-related osteoporosis with current pathological fracture with delayed healing Acquired hypothyroidism Unspecified hypothyroidism Vitamin D deficiency Hyperlipidemia LDL goal <100 Other and unspecified hyperlipidemia Anxiety Anxiety state, unspecified B12 deficiency Atypical chest pain Other chest pain Screening for diabetes mellitus Screening for deficiency anemia Screening for other and unspecified deficiency anemia Primary narcolepsy without cataplexy [facility] Discharge instructions Additional Instructions X-ray of your left femur left tib-fib negative. Continue Tylenol as needed. Josué wrap for support. Follow-up with your doctor.[facility] Work Phone: [facility] instructions[facility] Discharge instructions Additional Instructions Implant Used?: [facility] Work Phone: Reason for referral (narrative)* Diagnostic Procedure Only (Routine) - Closed Specialty Diagnoses / Procedures Referred By Mark t Referred To Contact [facility] Diagnoses Encounter for screening mammogram for malignant neoplasm of breast Procedures ROULA SCREENING SCREENING MAMMOGRAPHY BI 2-VIEW BREAST INC Diana Muhammad, GARNETT MACHINE OPERATOR.IT TECHNICAL SPECIALIST [address] [place] [address] [facility] [address] [place] [address] Referral ID Status Reason Start Date Expiration Date V isits Requested Visits Authorized [id number] Closed Auto-Generate d Referral 04/15/2022 05/14/2023 [address] [facility] for visit Narrative* Diagnostic Procedure Only (Routine) - Closed Specialty Diagnoses / Procedures Referred By Mark mack Referred To Contact [facility] Diagnoses Encounter for screening mammogram for malignant neoplasm of breast Procedures ROULA SCREENING SCREENING MAMMOGRAPHY BI 2-VIEW BREAST INC Diana Muhammad APRN.CNP [address] [place] [address] [facility] [address] [place] [address] Referral ID Status Reason Start Date Expiration Date V isits Requested Visits Authorized [id number] Closed Auto-Generate d Referral 04/15/2022 05/14/2023 1 1 [facility] Summary Purpose Family History No Family History Records FoundNo Family History Records FoundNo Family History Records FoundNo Family History Records FoundNo Family History Records FoundNo Family History Records Found Advance Directives No Advanced Directives Records FoundDocuments on File Type Date Recorded 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 Advance Directives and Living Will Power of Law Tutor Latest Code Status on File Code Status Date Activated Date Inactivated Comments Full Code 02/08/2018 9:23 AM 02/09/2018 2:47 AM Latest Code Status on File Code Status Date Activated Date Inactivated Comments Full Code 11/13/2019 6:50 AM Full Code 02/08/2018 9:23 AM 02/09/2018 2:47 AM Documents on File Type Date Recorded 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 anation ACP-Advance Directive ACP-Power of Law Tutor Latest Code Status on File Code Status Date Activated Date Inactivated Comments Full Code 11/13/2019 6:50 AM 11/13/2019 3:55 PM Latest Code Status on File Code Status Date Activated Date Inactivated Comments Full Code 04/29/2020 7:18 AM Full Code 11/13/2019 6:50 AM 11/13/2019 3:55 PM Advance Directive Response Recorded Date/ Time Living Will No September 10, 2021 8:00pm Power of Law Tutor No September 10 8:00pm Advance Directive Response Recorded Date/ Time Living Will No December 30, 2021 1:10pm Power of Law Tutor No December 30 1:10pm Advance Directive Response Recorded Date/ Time Living Will No March 05 3:08pm Power of Law Tutor No March 05, 2022 3:08pm Advance Directive Response Recorded Date/ Time Living Will No March 05 2:08pm Power of Law Tutor No March 05, 2022 2:08pm Discharge Instructions * Instructions* Sanjuana Miles RN - 11/06/2019 Follow all instructions given to you by [facility] shower kit and instructions given to patient.PLEASE FOLLOW THE ENCLOSED INSTRUCTIONS THE NIGHT BEFORE AND THE MORNING OF SURGERY Please bring your [employer] Surgical Information folder on the day of surgery. Please andrei the last dose taken (date and time ) on your Daily Medications List provided in your After Visit Summary. Please bring a photo ID and insurance information TAKE ONLY the following medications the morning of your surgery LEVOTHYROXINE, LORAZEPAM, PANTOPRAZOLE You may take Tylenol (Acetaminophen) if needed for pain. No Motrin, Ibuprofen, or Advil 24 hours prior to surgery, or longer if instructed by your surgeon.AFTER 11/11/2019 No Aleve or Naprosyn 3 days prior to surgery, or longer if instructed by your surgeon.AFTER 11/09/2019 If you are on BLOOD THINNERS or ASPIRIN, N/A Additional instructions SEE THE BROCHURE. PLEASE DRINK [address] CLEAR LIQUID ON [address] TO HOSPITAL 2 HOURS PRIOR TO SURGERY You will receive a reminder call the day before surgery with your Same Day Surgery arrival time. If you have specific questions, please call your surgeon. documented in this encounter* Instructions* Vernon Bowden MD - 11/13/2019 General Orthopedic Discharge Instructions The following instructions have been prepared to help you when you leave the hospital. These guidelines are for the post-surgery period. Activity: Ease into normal activity as tolerated. Medications: see medication instructions. Please be sure to read and understand the information provided by your pharmacy. Ask your Pharmacist if any questions. Wound Care and Hygiene: -Wash hands before touching or changing dressings -Do Not touch incision -Leave dressing till post-op day 3 and reapply dressing if wound is leaking. If wound is dry, you may leave dressing off -May shower starting post-op day 3 Call Your Doctor for: -Excessive bleeding/swelling of incision -Fever with temperature above 100 oF Anesthesia Precautions: -Do Not operate any vehicle (automobile, bicycle, motorcycle) or power tools for 24 hours -Do Not drink alcoholic beverages for 24 hours -As precaution to prevent post-operative nausea and vomiting, start your diet with liquids, then progress to light foods. If tolerated, resume normal diet. Additional Instructions: -Weight bearing as tolerated left lower extremity. Use crutches as needed -Take Percocet as needed for pain control -Take Aspirin twice daily for blood clot prevention Contact your surgeon's office (Dr Marinelli), to set up an appointment in 2 weeks, or if you have any problems or questions. documented in this encounter* Instructions* Jay Nguyen MD - 04/29/2020 General Orthopedic Discharge Instructions The following instructions have been prepared to help you when you leave the hospital. These guidelines are for the post-surgery period. Activity: Ease into normal activity as tolerated. Medications: see medication instructions. Please be sure to read and understand the information provided by your pharmacy. Ask your Pharmacist if any questions. Wound Care and Hygiene: -Wash hands before touching or changing dressings -Do Not touch incision -Leave dressing till post-op day 2 and reapply dressing if wound is draining. If wound is dry, you may leave dressing off -May shower starting post-op day 3 Call Your Doctor for: -Excessive bleeding/swelling of incision -Fever with temperature above 100 F Anesthesia Precautions: -Do Not operate any vehicle (automobile, bicycle, motorcycle) or power tools for 24 hours -Do Not drink alcoholic beverages for 24 hours -As precaution to prevent post-operative nausea and vomiting, start your diet with liquids, then progress to light foods. If tolerated, resume normal diet. Additional Instructions: Weight bearing as tolerated right lower extremity Continue PT Blood clot prevention: Aspirin 81mg twice per day for 30 days Pain control with [place], minimize narcotics for pain control. Do not drive while taking narcotics Contact your surgeon's office (Dr. Marinelli), to set up an appointment in 2 weeks, or if you have anyproblems or questions. documented in this encounter History of Present Illness * Olinda Wallace RN - 11/13/2019 1:31 PM FRACISCOT ernie arrived. Pt assisted with getting dressed. Going to rest a bit before discharge. Then pt will be discharged home with valuables (including all scripts) via wheelchair. * Olinda Wallace RN - 11/13/2019 12:46 PM EDT Pt was wheeled to the bathroom with assist. Tolerated well and was able to void without difficulty * Olinda Wallace RN - 11/13/2019 12:32 PM EDT Discharge instructions given to pt and . Both verbalize understanding and deny questions at this time. Pt would like script for Dr. Marky klein for ernie script. Pt wants it sent to [facility] pharmacy and will wait the hour states wants to wake up more documented in this encounter* Camryn Major RN - 04/29/2020 1:30 PM EST Discharge information given to the patient. And Roni via voicera. Patient and family verbalized understanding of information. All questions were answered before discharge. Patient pivoted tow/c with 2 assist due to block right upper leg. denies dizziness or nausea. Tolerating PO fluids and crackers. Vital signs are stable. Patient has changed and is being discharged home in a wheelchairwith valuables. * Camryn Major RN - 04/29/2020 12:38 PM EST Up to void with 2 assist via w/c. Unable to bear wt on right leg. MA with pt for safety in BR[facility]. * Camryn Major RN - 04/29/2020 10:38 AM EST Wakes briefly to verbal stimuli with immediate return to sleep. * Camryn Major RN - 04/29/2020 9:58 AM EST Patient arrived and ID verified. Vital signs stable. Call light in reach. Somnolent. FOB and Knee gatch elevated. documented in this encounter Assessments Diagnosis Stress fracture of left femur, initial encounter Diagnosis Stress fracture of right femur, initial encounter Chief Complaint and Reason for Visit Chief Complaint S/P FALL Chief Complaint S/P FALL X-Rays l3 kyphoplasty Chief Complaint X-Rays l3 kyphoplasty BACK PAIN kyphoplasty at l1 under fluoro Chief Complaint LUMBAR BACK/RX HERE XRAY Chief Complaint PREO OP/NEED ORDER F OR LAB PREOP Chief Complaint PREO OP/NEED ORDER F OR LAB PREOP S46.012D [id number] Additional Source Comments INFORMATION SOURCE (unrecogn ized section and content) DATE CREATED AUTHOR 11/16/2017 [facility] DATE CREATED AUTHOR AUTHOR'S ORGANIZ ATION 05/02/2018 [facility] DATE CREATED AUTHOR AUTHOR'S ORGANIZ ATION 05/18/2020 [facility] DATE CREATED AUTHOR AUTHOR'S ORGANIZ ATION 05/14/2022 [facility] DATE CREATED AUTHOR AUTHOR'S ORGANIZ ATION 06/28/2024 [facility] DATE CREATED AUTHOR AUTHOR'S ORGANIZ ATION 03/10/2025 [facility] Goals (unrecognized section and content) Goals may be documented in a n alternate sectionGoals may be documented in an alternate sectionGoals may be documented in an alternate sectionGoals may be documented in an alternate section Source Comments (unrecognize d section and content) In the event this informatio n is protected by the Federal Confidentiality of Alcohol and Drug Abuse Patient Records regulations: The Federal rules restrict any use of the information to criminally investigate or prosecute any alcohol or drug abuse patient.[facility] the event this information is protected by the Federal Confidentiality of Alcohol and Drug Abuse Patient Records regulations: The Federal rules restrict any use of the information to criminally investigate or prosecute any alcohol or drug abuse patient.[facility] Teams (unrecognized sec tion and content) Transitional Care Nurse Relationship Specialty Start Date End Date Syeda Diana Sears PCP - General Family Medicine 09/18/14 Team Status: Active Member Role Status Dates Dr. Vicente Arriaza MD Family Provider Active Dr. Vicente Arriaza MD Primary Care Provider Active Team Status: Inactive Member Role Status Dates Dr. Vicente Arriaza MD Primary Care Provider Active Dr. Geremias Lafleur MD Attending Provider Active Team Status: Inactive Member Role Status Dates Dr. Vicente Arriaza MD Primary Care Provider Active China Foreman NP, SUPERINTENDENT GENERAL-C Attending Provider, Referring Pr ovider Active Team Status: Inactive Member Role Status Dates Dr. Vicente Arriaza MD Primary Care Provider Active Dr. Ibrahima Gale MD Attending Provider, Referring Provider Active Transitional Care Nurse Relationship Specialty Start Date End Date [place] [address] PCP - General 07/17/16 Transitional Care Nurse Relationship Specialty Start Date End Date Vicente Arriaza MD [address] [place] [id number] PCP - General 07/17/16 Transitional Care Nurse Relationship Specialty Start Date End Date Vicente Arriaza MD [address] [place] [id number] PCP - General 07/17/16 Transitional Care Nurse Relationship Specialty Start Date End Date [place] [address] PCP - General 07/17/16 Transitional Care Nurse Relationship Specialty Start Date End Date [place] [address] PCP - General 07/17/16 Transitional Care Nurse Relationship Specialty Start Date End Date Diana Arango MD PCP - General Family Medicine 09/18/14 Team Status: Active Member Role Status Dates Dr. Vicente Arriaza MD Primary Care Provider Active Dr. Jennifer Woods MD Attending Provider Active LUDWIN Vigil Referring Provider Active Team Status: Inactive Member Role Status Dates Dr. Vicente Arriaza MD Primary Care Provider Active LUDWIN Vigil Attending Provider, Referring Provide r Active Transitional Care Nurse Relationship Specialty Start Date End Date [place] [address] PCP - General 07/17/16 Transitional Care Nurse Relationship Specialty Start Date End Date [place] [address] PCP - General 07/17/16 Team Status: Active Member Role Status Dates Dr. Vicente Arriaza MD Primary Care Provider Active Dr. Elvis Morrell MD Attending Provider Active Team Status: Inactive Member Role Status Dates Dr. Vicente Arriaza MD Primary Care Provider Active Dr. Nomi Mera DO Attending Provider, Referring Provider Active Transitional Care Nurse Relationship Specialty Start Date End Date [place] [address] PCP - General 07/17/16 Transitional Care Nurse Relationship Specialty Start Date End Date Vicente Arriaza MD [address] [place] [address] PCP - General 07/17/16 Transitional Care Nurse Relationship Specialty Start Date End Date Vicente Arriaza MD [address] [place] [address] PCP - General 07/17/16 Transitional Care Nurse Relationship Specialty Start Date End Date Vicente Arriaza MD [address] [place] [address] PCP - General 07/17/16 Transitional Care Nurse Relationship Specialty Start Date End Date Vicente Arriaza MD [address] [place] [address] PCP - General 07/17/16 Transitional Care Nurse Relationship Specialty Start Date End Date Vicente Arriaza MD [address] [place] [address] PCP - General 07/17/16 Transitional Care Nurse Relationship Specialty Start Date End Date Vicente Arriaza MD [address] [place] [address] PCP - General 07/17/16 Transitional Care Nurse Relationship Specialty Start Date End Date Vicente Arriaza MD [address] [place] [address] PCP - General 07/17/16 Transitional Care Nurse Relationship Specialty Start Date End Date [facility] Ar[facility]aza MD [address] [facility] [place] [address] PCP - General 07/17/16 Transitional Care Nurse Relationship Specialty Start Date End Date Vicente Arriaza MD [address] [facility] [place] [address] PCP - General 07/17/16 Transitional Care Nurse Relationship Specialty Start Date End Date Vicente Arriaza MD [address] [facility] [place] [address] PCP - General 07/17/16 Transitional Care Nurse Relationship Specialty Start Date End Date Vicente Arriaza MD [address] [facility] [place] [address] PCP - General 07/17/16 Transitional Care Nurse Relationship Specialty Start Date End Date Vicente Arriaza MD [address] [facility] [place] [address] PCP - General 07/17/16 Transitional Care Nurse Relationship Specialty Start Date End Date Vicente Arriaza MD [address] [facility] [place] [address] PCP - General 07/17/16 Transitional Care Nurse Relationship Specialty Start Date End Date Vicente Arriaza MD [address] [facility] [place] [address] PCP - General 07/17/16 Transitional Care Nurse Relationship Specialty Start Date End Date Vicente Arriaza MD [address] [facility] [place] [address] PCP - General 07/17/16 Transitional Care Nurse Relationship Specialty Start Date End Date Vicente Arriaza MD [address] [place] [id number] PCP - General 07/17/16 Transitional Care Nurse Relationship Specialty Start Date End Date Vicente Arriaza MD [address] [place] [id number] PCP - General 07/17/16 Reason for Visit (unrecogniz ed section and content) Reason Comments Med Refill Reason Comments Annual Exam Health Maintenance HIV/Hep C screen-dec linesCOVID woeuyxc-qbazTKA-hrezsclmQvpqiuau-declinesMammogram-done [facility] [place] will send for record Blood Work Anxiety GAD7 done Results Discuss left should xray from [facility] - calcification Reason Onset Date Comments Error (VOID this visit) 03/15/2023 Reason Onset Date Comments Prior Authorization 03/08/2023 Modafinil Medication Problem 03/08/2023 Pt stating ph arm told her they don't have a script on file for refill on Modafinil. Please call the pharm and give them script refill and call pt to let her know it is there. Reason Onset Date Comments Med Refill 05/14/2023 Reason Comments Narcolepsy Hypertension GERD Hypothyroidism Anxiety Hyperlipidemia Medication Check 6 month Health Maintenance Rsv vaccine- not don eFlu vaccine-refuseDexa scan- refuse- had one last year Mammogram- will sched Reason Onset Date Comments Results 06/30/2023 Reason Comments Annual Exam Blood Work Health Maintenance Pt declined- shingle s vaccine, rsv vaccine, covid vaccineMammogram- pt has this done in [place] ordered by [facility] and will have result sent to us Reason Onset Date Comments Results 12/29/2023 Reason Comments Anxiety Narcolepsy Hypertension Hyperlipidemia Medication Check 6 month Health Maintenance Mammogram- done in [facility] pt will bring results Pt refused- hiv hep c screening, covid vaccine, shingles vaccine and flu vaccine Reason Comments Narcolepsy Hypertension GERD Hypothyroidism Vitamin D Deficiency Medication Check 6 months Health Maintenance Pt refused- pcv 20, flu, and covid vaccines, dexa scan Blood Work Pt states her tsh ge ts checked every 6 months and we need to recheck her cholesterol today Reason Comments Hypertension Mild, slight dizzine ss and headaches, states her neck is pulsing very hard, onset Wednesday, brought home BP readings Reason Onset Date Comments Med Refill 08/07/2024 Reason Onset Date Comments Appointment 09/11/2024 Reason Comments New Patient Knee Pain Left Reason Comments New Patient Last seen 2020 right thigh pain. IMN nail 2020 for stress fx Increase pain to right thigh XRAY Reason Onset Date Comments Med Refill 11/20/2024 Reason Comments Annual Exam Blood Work Health Maintenance Mammogram- see OBGYN --they usually place order Shingles vaccine-declines Reason Onset Date Comments Other 01/18/2025 Reason Onset Date Comments Med Refill 02/02/2025 Reason Onset Date Comments Med Refill 02/23/2025 FOR RECORDS PERTAINING TO PATIENTS WHO ARE OR HAVE BEEN ENROLLED IN A CHEMICAL DEPENDENCY/SUBSTANCEABUSE PROGRAM, SOME INFORMATION MAY BE OMITTED. This clinical summary was aggregated from multiple sources. Caution should be exercised in using it in the provision of clinical care. This summary normalizes information from multiple sources, and as a consequence, information in this document may materially change the coding, format and clinical context of patient data. In addition, data may be omitted in some cases. CLINICAL DECISIONS SHOULD BE BASED ON THE PRIMARY CLINICAL RECORDS. [facility]. provides no warranty or guarantee of the accuracy or completeness of information in this document.
== END | disposition home or self-care (01) ==
LOC: CT 08:43
PROVIDERS: PCP Family Medicine; Referring Provider Specialist; Visit Provider Specialist
DX: M84.351A Stress fracture, right femur, initial encounter for fracture (principal); X58.XXXA Exposure to other specified factors, initial encounter
CPT/HCPCS: 73700

== ENCOUNTER → 2025-03-14 | Outpatient (CLI) | payer OTHER, SELFPAY ==
[2025-03-14 16:49] LABS: Hematocrit 36.7 % (37-47); Hemoglobin 12.6 g/dL (12.0-15.0); Immature Granulocytes Count 0.020 X10^3/uL (0.0-0.0); Mean Corp Hgb Conc 34.3 g/dL (32-36); Mean Corpuscular Volume 97.1 fL (81-99); Mean Platelet Vol. 10.3 fl (6.2-12.0); NRBC Flagged by Analyzer 0 % (0-5); Platelet Count 216 K/mm3 (150-450); RBC Distribution Width CV 12.6 % (11.6-14.6); RBC Distribution Width SD 45.1 fl (35.1-43.9); Red Blood Count 3.78 M/mm3 (4.2-5.4); White Blood Count 7.8 K/mm3 (4.4-11.0)
[2025-03-14 17:37] LABS: Anion Gap 11 (5-15); BUN 14 mg/dL (4-19); BUN/Creat Ratio 15.7 RATIO (10-20); CRP 10.60 mg/L (0.0-3.0); Calcium,Total 9.7 mg/dL (7.6-11.0); Carbon Dioxide 25.1 mmol/L (21.0-32.0); Chloride 100 mmol/L (98-108); Glucose 106 mg/dL (70-99); Potassium 4.6 mmol/L (3.3-5.1); Vitamin D,25 Hydroxy 73.6 ng/mL (30-100)
== END | disposition home or self-care (01) ==
PROVIDERS: PCP Family Medicine; Referring Provider Orthopaedic Surgery; Visit Provider Specialist
DX: S72.354A Nondisplaced comminuted fracture of shaft of right femur, initial encounter for closed fracture (principal); X58.XXXA Exposure to other specified factors, initial encounter
CPT/HCPCS: 36415; 80048; 82306; 85025; 85652; 86140

== ENCOUNTER → 2025-03-22 | Outpatient (CLI) | payer OTHER, SELFPAY ==
--- NOTE | 2025-03-22 08:13 | NM_ITS ---
PROCEDURE: NM/Bone Scan Three Phase
== END | disposition home or self-care (01) ==
PROVIDERS: PCP Family Medicine; Referring Provider Specialist; Visit Provider Specialist
DX: S72.34 Spiral fracture of shaft of femur (principal); X58.XXXD Exposure to other specified factors, subsequent encounter
CPT/HCPCS: 78315; A9503